=== PATIENT | male | born 1960 | race Caucasian/White ===

== ENCOUNTER → 2019-10-31 16:12 | Outpatient (BNVA) | payer OTHER, SELFPAY | PROVIDERS: Family Provider Family Medicine; PCP Family Medicine; Visit Provider Orthopaedic Surgery | DX: S52.501A Unspecified fracture of the lower end of right radius, initial encounter for closed fracture (principal); X58.XXXA Exposure to other specified factors, initial encounter | CPT/HCPCS: 73110 ==

== ENCOUNTER 2019-10-31 17:16 | Outpatient (CLI) | payer OTHER, SELFPAY | END 2019-10-31 17:17 | disposition home or self-care (01) | LOC: SPT 17:16 | PROVIDERS: Family Provider Family Medicine; PCP Family Medicine; Visit Provider Orthopaedic Surgery | DX: Z46.89 Encounter for fitting and adjustment of other specified devices (principal); S52.591D Other fractures of lower end of right radius, subsequent encounter for closed fracture with routine healing; X58.XXXD Exposure to other specified factors, subsequent encounter | CPT/HCPCS: L3982 ==

== ENCOUNTER → 2019-11-14 15:11 | Outpatient (BNVA) | payer OTHER, SELFPAY | PROVIDERS: Family Provider Family Medicine; PCP Family Medicine; Visit Provider Orthopaedic Surgery | DX: S52.91XA Unspecified fracture of right forearm, initial encounter for closed fracture (principal); S52.501A Unspecified fracture of the lower end of right radius, initial encounter for closed fracture | CPT/HCPCS: 73110 ==

== ENCOUNTER → 2019-12-10 14:57 | Outpatient (BNVA) | payer OTHER, SELFPAY | PROVIDERS: Family Provider Family Medicine; PCP Family Medicine; Visit Provider Orthopaedic Surgery | DX: S52.91XA Unspecified fracture of right forearm, initial encounter for closed fracture (principal); X58.XXXA Exposure to other specified factors, initial encounter | CPT/HCPCS: 73110 ==

== ENCOUNTER → 2020-01-07 13:57 | Outpatient (BNVA) | payer OTHER, SELFPAY | PROVIDERS: Family Provider Family Medicine; PCP Family Medicine; Visit Provider Orthopaedic Surgery | DX: S52.91XA Unspecified fracture of right forearm, initial encounter for closed fracture (principal) | CPT/HCPCS: 73110 ==

== ENCOUNTER 2020-12-07 12:00 | Outpatient (CLI) | payer BC, SELFPAY | END 2020-12-07 12:01 | disposition home or self-care (01) | LOC: SLEEP 12-08 14:47 | PROVIDERS: Family Provider Family Medicine; PCP Family Medicine; Visit Provider Family Medicine | DX: G47.33 Obstructive sleep apnea (adult) (pediatric) (principal) | CPT/HCPCS: G0399 ==

== ENCOUNTER 2021-07-08 07:52 | Outpatient (CLI) | payer BC, SELFPAY ==
--- NOTE | 2021-07-08 09:21 | ECG_ITS ---
[facility] Test Date: 2021-07-08 Pat Name: García Gleason Department: Room: Gender: Male Disposition Clerk: Mary Altman : 1960 Requested By: Jenna Taylor Order Number: [id number] Retana MD: Jenna Taylor M.D. Interpretive Statements NAME OF STUDY: EXERCISE SESTAMIBI STRESS TEST INDICATION: Chest Pain Baseline blood pressure of 116/70 mm Hg, heart rate 81 beats per minute and oxygen saturation of 92%. EKG showed normal sinus rhythm, normal axis with normal ST-Ts. The patient exercised for 5 minutes 36 seconds on a standard Lucas protocol. Patient attained a maximum heart rate of 147 beats per minute(91% of the maximum predicted heart rate) with a blood pressure at the peak exercise of 164/104 mm Hg. The EKG at the peak exercise revealed sinus tachycardia with isolated PVCs and 1 and 1/2 to [address] depression in lateral leads. Patient did not have any chest pain or any significant arrhythmis with the exercise. Study was terminated due to exertional fatigue and shortness of breath. During the recovery phase, there were no new changes. Blood pressure at the end of the recovery phase was 161/86 mm Hg with a heart rate of 92 beats per minute and oxygen saturation of 95%. CONCLUSION: 1. Positive EKG response to treadmill exercise with 1 and 1/2 to [address] depression in lateral leads. 2. No exercise-induced chest pain or cardiac arrhythmia 3. Fair exercise tolerance, attained a maximum of 7 METs. Maximum VO2 of 24.5 mL/kg/min. 4. Baseline normal blood pressure with normal response to exercise. 5. Perfusion scan will be documented separately. Electronically Signed On 07-08-2021 17:52:26 PROFESSIONAL POKER PLAYER by Jenna Taylor M.D. [id number]
--- NOTE | 2021-07-08 09:21 | NMCV_ITS ---
NM adalgisa perf SPECT r/s* [id number] Dallin Gleasone Age: 60 Gender: M : 1960 Exam Date: 07/08/2021 09:21 Ordering Phys: Jenna Taylor MD ([email or web address]) Technologist: LAMONTE Ng Exam Location: [facility] Indications: CHEST PAIN STRESS TEST Please see separate stress test report in [facility] for full findings IMAGE PROTOCOL Rest/Stress 1 Exercise Day Radiopharmaceutical Dose (mCi) Administration Site Administered by Rest: Tc-99m 11.0 IV LAMONTE Ng Sestamibi Stress:Tc-99m 33.0 IV LAMONTE Choudhary Sestamibi Rest: 08-Jul-2021 60 Discovery 630 Stress: 08-Jul-2021 30 Discovery 630 Radiopharmaceutical was injected at 88 % maximum heart rate. Images obtained in supine and prone position. SPECT RESULTS Technical Quality: Excellent Raw Data Analysis: Normal Image Corrections: No attenuation or motion correction applied Summed Stress Score: 5 Summed Rest Score: 1 Summed Difference Score: 5 PERFUSION FINDINGS Medium sized perfusion abnormality of moderate severity of mid to apical anterior, apical septal, apical inferior and apical lateral burch on stress images. FUNCTIONAL RESULTS (calculated via Gated SPECT) Stress Image LV EF (%): 67 Stress EDV (mL):112 TID: 0.86 Stress ESV (mL):37 FUNCTIONAL FINDINGS: The left ventricle is normal in size. Transient Ischemia Dilatation of 0.86. There is normal left ventricular systolic function. The left ventricular ejection fraction is normal with a value of 67%. There is possible hypokinesis of apical septal wall. Normal end-diastolic and end-systolic volumes. IMPRESSIONS 1. Medium sized reversible perfusion abnormality of moderate severity of mid to apical anterior, apical septal, apical inferior and apical lateral burch. 2. This is suggestive of ischemia in left anterior descending artery territory. 3. Overall left ventricular systolic function is normal without regional wall motion abnormalities, LVEF=67%. 4. There is possible hypokinesis of apical septal wall. 5. Ischemic EKG response to treadmill exercise. Refer to separate report for details. Jenna Taylor MD (Electronically Signed) Final Date: 08 July 2021 18:04 S
[2021-07-08 09:22] VITALS: BMI 38.2
[2021-07-08 10:16] VITALS: BP 161/86; PULSE 91
== END 2021-07-08 07:53 | disposition home or self-care (01) ==
PROVIDERS: PCP Family Medicine; Visit Provider Internal Medicine Cardiovascular Disease
DX: R07.9 Chest pain, unspecified (principal)
CPT/HCPCS: 78452; 93017; A9500

== ENCOUNTER → 2021-07-22 10:50 | Outpatient (BNVA) | payer BC, SELFPAY | PROVIDERS: PCP Family Medicine; Referring Provider Internal Medicine Cardiovascular Disease; Visit Provider Internal Medicine Cardiovascular Disease | DX: Z20.822 Contact with and (suspected) exposure to COVID-19 (principal); R06.02 Shortness of breath; R07.9 Chest pain, unspecified | CPT/HCPCS: 80048; 85025; 85610; 87635 ==

== ENCOUNTER 2021-07-27 06:04 | Outpatient (CLI) | payer BC, SELFPAY ==
[2021-07-27] VITALS (32 sets, daily range): BP systolic 89–158; BP diastolic 53–94; PULSE 58–89; RESP 12–16; TEMP 36.4–36.8; O2SAT 92–96; BMI 42.1
--- NOTE | 2021-07-27 06:00 | XACV_ITS ---
Exam Room: 2 Ht: 183 cm Wt: 141 kg BSA: 2.74 m2 Gender: Male : 1960 Any Known Allergies: No known allergies Exam Priority: Routine Procedure(s): Procedure Description: Diagnostic procedure Procedure Description: Coronary Angiography Diagnostic Cath Status: Elective Diagnostic Findings * Left Main has no disease. * Circumflex has no disease. * Mid Left Anterior Descending: subtotal occlusion, MARCELLA: 2 flow. * Proximal Right Coronary Artery: minimal 30% stenosis, MARCELLA: 3 flow. * Ramus: significant 80% stenosis, MARCELLA: 3 flow. * 1st Diagonal: subtotal occlusion, MARCELLA: 2 flow. * Posterior Descending Right: obstructive 60% stenosis, MARCELLA: 3 flow. * Coronary angiography shows right dominance. Conclusions 1. There is subtotal occlusion coronary artery disease with two vessel disease. Recommendations * 1-Return to * [facility] * for close monitoring and routine PCI care * 2-Continue IV heparin drip as per ACS protocol3-Hold Plavix for possible CABG4-Statin with LDL goal of 70 mg/dl, aspirin 81 mg p.o. daily for life long 5-CT surgery consults for CABG6-Optimal medical management for MS * 7-Follow up with Dr. Michael Taylor * in four weeks and establish care with primary care physician. Diagnostic RX Recommendation: CABG Pressures Phase:Rest AO : 114 / 71 ( 87 ) @ 6:19:00 AM 102 / 71 ( 85 ) @ 6:21:00 AM 99 / 66 ( 81 ) @ 6:26:00 AM 99 / 71 ( 83 ) @ 6:29:00 AM 98 / 71 ( 84 ) @ 6:30:00 AM Clinical Evaluation EBL: 5mL-10mL Procedural Details Procedure Consent Obtained. Physician arrived. Pre-Procedure Time Out. Identified patient by full name and date of as verbalized by the patient/guarantor. Does the consent match the physician's order: Yes. Accurate & Complete Informed Consent: Yes. Inpatient/Outpatient History & Physical on Chart: Yes. If H&P is completed, is and addenduem needed: No; If yes, is the addendum complete: N/A. Visualize and Verify Site with Patient/Guarantor: N/A. Relevant Radiology Images available: Yes. Pre-op teaching completed and patient verbalized understanding. The risks, benefits, and alternatives of sedation and/or procedure were discussed by physician. The patient agrees to continue. Procedure started. Current Diagnosis : Chest Pain. [facility] Clinical Fraility Score: 3: Managing Well. 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 Chest Pain Symptom Assessment: Typical Angina Symptoms. Correct patient, site and procedure confirmed by cath team. Current diagnosis: Chest Pain. PERRLA. Strong, equal hand sales technician home theater bilaterally. Lungs clear x 5 lobes. IV Site on Arrival: 20 gauge in the right forearm. IV Fluids: 0.9% NaCl at KVO. 0 mL infused prior to laboratory supervisor. Pre Procedural Pulses: bilateral dorsalis pedis was 3+. Pre Procedural Pulses: bilateral posterior tibial was 2+. Pre Procedural Pulses: bilateral radial was 2+. Oxygen started at 2liters/min via nasal canula. right groin was prepped with chloroprep then draped in the usual sterile fashion. right radial was prepped with chloroprep then draped in the usual sterile fashion. Baseline sample Acquired. HR: 70 BPM. Physician notified. Physician scrubbed in. Immediate Pre-Procedure Time Out. Correct Patient: Yes; Correct Procedure: Yes; Correct Site: Yes; Correct Patient Position: Yes; Correct Supplies: Yes; Dried Flammable Prep: Yes; Blood Products Available: N/A;. Lidocaine 1% infiltrated to the right radial. Arterial access obtained. contrast hand injected through the radial sheath. A 5 setswana TIG catheter in over wire. Multiple views taken of right coronary artery. Catheter removed over the exchange wire. A 5 setswana Sam catheter in over wire. Multiple views taken of right coronary artery. Catheter redirected to the LCA. Multiple views taken of left coronary artery. Physician review of cine films. Catheter removed over the exchange wire. A 5 setswana Angled Pig catheter in over wire. Catheter removed over the exchange wire. A TR Band was successful obtaining hemostatsis at the Right Radial artery insertion site. Post Procedure: Pulses reassessed and unchanged. PERRLA. Strong, equal hand sales technician home theater bilaterally. No VTE prophylaxis required. Medication's Wasted: Lidocaine 1% = 16 mL. Medication's Wasted: Heparin = 1000units. Medication's Wasted: Nitro = 49.95 mg. Total IV fluids: 70 mL. Contrast type used: Visipaque 320 mgI/mL, 500 mL bottle. Post-op diagnosis: CAD. Complications: None. Estimated blood loss: 5mL-10mL. Responsiveness - Normal response to verbal stimuli; alert and oriented, PERRLA. Airway - Unaffected, no intervention required; spontaneous ventilation. Circulation: W/N/L, pulses unchanged. Nausea/Vomiting: No. Procedure completed. Patient transferred by wheelchair to 1st floor. Vital chart was stopped. Access Site Site: Right Radial artery Sheath Size: 6 Fr Hemostasis Method: TR Band Hemostasis Success: Successful Procedure Medications Start: 7:50 AM Stop: 7:50 AM Medication: Versed Amount: 1 mg Route: I.V. Start: 7:50 AM Stop: 7:50 AM Medication: Fentanyl Amount: 50 mcg Route: I.V. Start: 7:58 AM Stop: 7:58 AM Medication: Versed Amount: 1 mg Route: I.V. Start: 7:58 AM Stop: 7:58 AM Medication: Fentanyl Amount: 25 mcg Route: I.V. Start: 8:09 AM Stop: 8:09 AM Medication: Nitrogylcerin Amount: 50 mcg Start: 8:13 AM Stop: 8:13 AM Medication: Nitrogylcerin Amount: 200 mcg Route: I.A. Start: 8:18 AM Stop: 8:18 AM Medication: Heparin Amount: 5000 units Route: I.V. Start: 8:27 AM Stop: 8:27 AM Medication: Versed Amount: 1 mg Route: I.V. I, the attending physician, have reviewed and verified all procedure medications. Yes, all medications given per verbal order History/Risk Factors Hypertension: Yes Dyslipidemia: Yes Peripheral Arterial Disease (PAD): No Myocardial Infarction (MS): No Obesity: Yes Renal Disease: No Tobacco Use: Former Prior Interventions PCI: No CABG: No Valve Surgery: No Report Signatures Finalized by Letty Khoury MD on 07/27/2021 07:15 PM
[2021-07-27] MEDS: diphenhydrAMINE 50 mg Capsule PO (06:51)
--- NOTE | 2021-07-27 07:50 | W.PM.OPSFHP ---
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 It is the reason patient was brought in today for left heart cath/PCI if indicated. He has a history of lymphoma at very young age he was treated with MOPP. Medications/Allergies* Home Medications Medication Instructions Recorded Confirmed Type lisinopril 10 mg tablet 20 mg PO DAILY 10/31/19 07/26/21 History lovastatin 10 mg tablet 20 mg PO DAILY tab 06/01/21 07/26/21 History Allergies/Adverse Reactions Allergy/AdvReac Type Severity Reaction Status Date / Time No Known Allergies Allergy Verified 07/26/21 12:04 Current Medications: Generic Name Dose Route Start Last Admin Trade Name Freq PRN Reason Stop Dose Admin Sodium Chloride 1,000 mls @ 50 mls/hr 07/27/21 06:00 07/27/21 06:51 Sodium Chloride 0.9% IV 07/28/21 01:59 Not Given .Q20H ONE Pertinent History/Comorbid Conditions* Medical History (Updated 06/01/21 @ 10:10 by Jenna Taylor MD) Hernia Hyperlipemia Hypertension Melanoma Non-Hodgkins lymphoma Obesity Surgical History (Updated 06/01/21 @ 10:10 by Jenna Taylor MD) H/O splenectomy Family History (Updated 06/01/21 @ 09:41 by Daxa Olmstead RN) CAD (coronary artery disease) Father Hypertension Father Social History Smoking and tobacco status: former smoker Alcohol intake: current Alcohol intake frequency: holidays/special occasions only Pertinent Exam Findings alert, oriented x 3, clear to auscultation bilaterally and regular rate & rhythm Conscious Sedation Assessment PATIENT ASSESSED PRIOR TO SEDATION, WITH NO CHANGE NOTED: Yes AIRWAY EVAL/ANESTHESIA PLAN: ASA II and Risks, benefits & alternatives of sedation and/or procedure discussed ADDITIONAL INFORMATION: Patient has been explained all risk benefits and alternative for the procedure he understand risk for contrast-induced nephropathy, stroke, major minor bleed, urgent emergent bypass surgery transfusion vascular injury hematoma and bruising. He is a candidate for DAPT he is taking clopidogrel Recommendations Surgery/Procedure today Coding Level of Care Code Acute Laser Technician for Velia Lorenzana
--- NOTE | 2021-07-27 09:12 | USCV_ITS ---
García Gleason Age: 60 Gender: M : 1960 Exam Date: 07/27/2021 10:17 Ordering Phys: Letty Khoury MD ([email or web address]) Technologist: ASHLIE Exam Location: [facility] [place] Indication: CAD BP: 150 / 94 HR: 63 Rhythm: Sinus Technical Quality: Technically difficult study MEASUREMENTS (Male / Female) Normal Values 2D ECHO LV Diastolic Diameter PLAX 3.0 cm 4.2 - 5.9 / 3.9 - 5.3 cm LV Systolic Diameter PLAX 1.9 cm IVS Diastolic Thickness 1.5 cm 0.6 - 1.0 / 0.6 - 0.9 cm IVS Systolic Thickness 1.6 cm LVPW Diastolic Thickness 0.9 cm 0.6 - 1.0 / 0.6 - 0.9 cm LVPW Systolic Thickness 0.9 cm LVOT Diameter 2.0 cm LV Ejection Fraction 2D Teich 67.1 % LV Ejection Fraction MOD 2C 65.7 % LV Ejection Fraction 2C AL 66.7 % LA Diameter 3.4 cm LA Width 3.4 cm LA Height 5.4 cm RA Width 3.3 cm RA Height 4.7 cm Aorta at Sinotubular Diameter 2.5 cm M-MODE Aortic Annulus Diameter 3.6 cm LA Ao Ratio MM 0.9 DOPPLER AV Peak Velocity 136.0 cm/s LVOT Peak Velocity 100.0 cm/s AV Area Cont Eq vti 2.4 cm squared AV Area Cont Eq pk 2.4 cm squared MV Area PHT 3.4 cm squared Mitral E to A Ratio 0.8 MV E' Velocity 40.0 cm/s Mitral E to MV E' Ratio 9.8 Mitral E to LV E' Lateral Ratio 10.3 Mitral E to LV E' Septal Ratio 9.6 RV Acceleration Time 0.1 s RV Ejection Time 0.3 s RV AcT/ET 0.3 FINDINGS Left Ventricle Normal left ventricular cavity size. Normal left ventricular systolic function. No regional wall motion abnormalities. Left ventricular ejection fraction is estimated at 60 %. Grade I/IV diastolic dysfunction (abnormal relaxation filling pattern), normal to mildly elevated filling pressures. Right Ventricle The right ventricle is normal in size and function. RVSP could not be calculated due to incomplete tricuspid regurgitation velocity profile. Right Atrium The right atrium is normal in size. Left Atrium The left atrium is normal in size. Mitral Valve Structurally normal mitral valve without significant stenosis or prolapse. There is no mitral regurgitation. Aortic Valve Structurally normal aortic valve without significant sclerosis or stenosis. There is no aortic regurgitation. Tricuspid Valve Structurally normal tricuspid valve without significant stenosis or regurgitation. Pulmonic Valve Structurally normal pulmonic valve without significant stenosis. There is no pulmonic regurgitation. Pericardium Normal pericardium without effusion. Aorta Normal ascending aorta dimension. CONCLUSIONS 1-Normal left ventricular cavity size. Normal left ventricular systolic function. No regional wall motion abnormalities. Left ventricular ejection fraction is estimated at 60 %. Grade I/IV diastolic dysfunction (abnormal relaxation filling pattern), normal to mildly elevated filling pressures. 2-There is no pericardial effusion. 3-No significant valve abnormalities. 4-The right ventricle is normal in size and function. RVSP could not be calculated due to incomplete tricuspid regurgitation velocity profile. 5-Right atrial pressure is around __ mm of mercury. 6-There are no prior echocardiogram studies to compare. Letty Khoury MD (Electronically Signed) Final Date: 27 July 2021 19:22 S
[2021-07-27] MEDS: perflutren protein-a microsphr 0.22 mg/mL SDV 3 mL IV (11:16)
--- NOTE | 2021-07-27 13:00 | PC.NURSE ---
Tr Band removed per orders no adverse events noted patient verbalized education of restrictions
--- NOTE | 2021-07-27 19:49 | PM.PN ---
Subjective Subjective: Interval history: Patient underwent left heart cath, he was noted to have multivessel coronary artery disease including subtotally occluded mid LAD with MARCELLA II flow, subtotally occluded mid diagonal 1 which is moderate size and caliber vessel, proximal significant calcified ramus intermedius lesion circumflex was without any significant disease, RCA has proximal 30% stenosis while PDA has 60% mid stenosis. Vitals/I&O/Wt Last Vital Signs Temp 97.6 F 07/27/21 06:43 Pulse 76 07/27/21 16:15 Resp 16 07/27/21 10:00 BP 134/79 07/27/21 16:15 Pulse Ox 93 07/27/21 14:45 07/27/21 07/27/21 07/27/21 06:59 14:59 22:59 Intake Total 480 / 480 360 / 840 Balance 480 / 480 360 / 840 Weight last 48 hrs Weight 311 lb Weight 311 lb Physical Exam Narrative: EXAM NARRATIVE: GENERAL: Patient is alert, awake and oriented x3. NECK: No jugular vein distension. HEENT: No cyanosis. No icterus. No pallor. HEART: Regular S1 and S2. No murmur, rub or gallop. LUNGS: Clear to auscultate bilaterally. ABDOMEN: Soft, nontender and nondistended. Positive bowel sounds. No guarding, rebound or tenderness. CENTRAL NERVOUS SYSTEM: Grossly nonfocal. EXTREMITIES: Lower extremities without edema bilaterally. Data : 07/28/21 02:14 07/28/21 02:14 A&P Assessment and plan (1) CAD (coronary artery disease): Patient was suggested with coronary artery bypass surgery. I have discussed patient with Dr. Burks who is our cardiac surgeon. 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 During this COVID situation beds are not available outside of the hospitals and because of the fact surgery he may will have prolonged recovery, patient and his family prefer PCI. Patient has been explained that his PCI will be of moderate risk as we are considering atherectomy for highly calcified vessels. He understand risk for urgent emergent bypass surgery contrast-induced nephropathy myocardial infarction stroke arrhythmia transfusion major minor vascular injury leading to surgery hematoma. He would like to proceed with it. Status: Acute Qualifiers: Associated angina: with stable angina Coronary Disease-Associated Artery/Lesion type: [place] artery [place] vs. transplanted heart: [place] heart Qualified Code(s): I25.118 - Atherosclerotic heart disease of [place] coronary artery with other forms of angina pectoris (2) Hypertension: Will optimize medicine to control blood pressure better Status: Acute Qualifiers: Hypertension type: primary hypertension Qualified Code(s): I10 - Essential (primary) hypertension (3) Hyperlipemia: We will continue statin Status: Acute Qualifiers: Hyperlipidemia type: other hyperlipidemia Qualified Code(s): E78.49 - Other hyperlipidemia Attestations Medical Necessity Statement*: Patient require continuation hospitalization for above defined care. Coding Level of Care Code Established Pt Acute Infrastructure Analyst for Velia Lorenzana Patient Type Established History Comprehensive Exam Comprehensive Medical Decision Making High Complexity Diagnoses CAD (coronary artery disease) I25.118 Associated angina: with stable angina Coronary Disease-Associated Artery/Lesion type: [place] artery [place] vs. transplanted heart: [place]ock heart Hypertension I10 Hypertension type: primary hypertension Hyperlipemia E78.49 Hyperlipidemia type: other hyperlipidemia
[2021-07-27] MEDS: temazepam 15 mg Capsule PO (21:53)
--- NOTE | 2021-07-27 22:20 | PC.NURSE ---
Received from Dr Khoury to stop fluid orders for this night. Will start NS at 50ml/hr morning of cath procedure on 07/28/21 at 0730. RBVO
[2021-07-28] VITALS (45 sets, daily range): BP systolic 114–171; BP diastolic 76–100; PULSE 61–85; RESP 11–25; TEMP 36.6–36.8; O2SAT 92–93
[2021-07-28 03:12] LABS: Basophils # 0.1 10^3/uL (0.0-0.1); Basophils % 0.5 %; Eosinophils # 0.2 10^3/uL (0.0-0.8); Eosinophils % 1.7 %; Hematocrit 44.2 % (42.0-52.0); Hemoglobin 14.3 g/dL (11.7-16.6); Lymphocytes # 3.2 10^3/uL (0.8-4.8); Lymphocytes % 24.9 %; Mean Corpuscular HGB Conc 32.4 g/dL (30.0-36.0); Mean Corpuscular Hemoglobin 29.6 pg (28.0-34.0); Mean Corpuscular Volume 91.5 fl (80-94); Mean Platelet Volume 10.3 fL (7.4-10.4); Monocytes # 1.2 10^3/uL (0.2-0.9); Monocytes % 9.7 %; Neutrophils # 7.97 10^3/uL (1.8-7.7); Neutrophils % 62.3 %; Nucleated Red Blood Cells % 0 %; Platelet Count 425 10^3/cmm (130-400); Red Blood Count 4.83 10^6/uL (4.1-5.3); Red Cell Distribution Width 14.1 % (12.1-15.1); White Blood Count 12.8 10^3/uL (4.0-10.0)
[2021-07-28 03:30] LABS: Anion Gap 14.1 (5-19); Blood Urea Nitrogen 11 mg/dL (6-20); Calcium 8.2 mg/dL (8.5-10.5); Carbon Dioxide 28 mmol/L (22-29); Chloride 101 mmol/L (98-107); Glomerular Filtration Rate 137.9 mL/min (90-130); Glucose 97 mg/dL (65-115); Osmolality Calculated 287 mOsm/kg (285-295); Potassium 4.1 mmol/L (3.5-5.1); Sodium 139 mmol/L (136-145)
[2021-07-28] MEDS: clopidogrel 75 mg Tablet PO (06:42)
[2021-07-28] MEDS: sodium chloride 0.9% 1,000 ML 50 ML IV (08:22)
--- NOTE | 2021-07-28 08:30 | XACV_ITS ---
Exam Room: [facility] Ht: 183 cm Wt: 141 kg BSA: 2.74 m2 Gender: Male : 1960 Any Known Allergies: No known allergies Exam Priority: Routine Procedure(s): Procedure Description: Diagnostic procedure Procedure Description: PCI procedure Procedure Description: Drug Eluting Coronary Stent Procedure Description: Coronary Atherectomy Procedure Description: Miscellaneous Procedure Description: Perclose Procedure Description: ACT Procedure Description: Coronary Angiography [facility], [facility]; Diagnostic Cath Status: Urgent Diagnostic Findings * Left Main has no disease. * Circumflex has no disease. * Right Coronary Artery has no disease. * Mid Left Anterior Descending: subtotal occlusion, MARCELLA: 3 flow. * Distal Left Anterior Descending: moderate 50% stenosis, MARCELLA: 3 flow. * Ramus: moderate 50% stenosis, MARCELLA: 3 flow. * Ramus to Ramus: severe 90% stenosis, MARCELLA: 2 flow. * 1st Diagonal: subtotal occlusion, MARCELLA: 0 flow. * Coronary angiography shows right dominance. PCI Status: Elective PCI Indication: New Onset Angina <= 2 months Interventional Findings * Atherectomy and balloon angioplasty of mid LAD, balloon angioplasty and drug-eluting stent placement of mid diagonal balloon angioplasty IVUS and stent placement of mid ramus intermedius.IVUS of ramus intermedius. Please note that IVUS catheter was not able to pass through therefore we will proceed with balloon angioplasty followed by stent placement in mid ramus intermedius. * Mid Left Anterior Descendin% stenosis treated with a AB TREK 2.50X15 RX BALLOON, MDT R CARL 3.0X22 PAULIE, and MDT NC EUPHORA RX [id number] BALLOON. 0% residual stenosis, MARCELLA: 3 flow. * Ramus to Ramus: 90% stenosis treated with a AB TREK 2.50X15 RX BALLOON, and MDT R CARL 2.75X22 PAULIE. 0% residual stenosis, MARCELLA: 3 flow. * 1st Diagonal: 99% stenosis treated with a AB MINI TREK 2.00X12 RX BALLOON, and MDT R CARL 2.25X18 PAULIE. 0% residual stenosis, MARCELLA: 3 flow. Conclusions 1. Indication for coronary angiogram/PCI using arthrectomy: Unstable angina abnormal stress test. Turned down for CABG and at the bill of patient that he would not like to go for CABG.. 2. There is subtotal occlusion coronary artery disease with one vessel disease. 3. Mid Left Anterior Descending was treated with a Balloon, Drug Eluting Stent, and Balloon. 4. Ramus to Ramus was treated with a Balloon, and Drug Eluting Stent. 5. 1st Diagonal was treated with a Balloon, and Drug Eluting Stent. Recommendations * 1-Return to inpatient for close monitoring and routine cath care 2-Risk factor modification for secondary prevention 3-Statin with LDL goal <70 mg/dl, aspirin 81 mg life-long 4-Patient was pre-loaded with 180mg of Brillinta. Continue Brillinta 90mg p.o. twice daily for at least one year. We will assess at the end of one year again to continue it further or not 5-Continue optimal medical management 6-Follow up with cardiology in four weeks and with your PCP in one week. Interventional RX Recommendation: PCI w/o planned CABG Diagnostic RX Recommendation: PCI w/o planned CABG Pressures Phase:Rest AO : 136 / 90 ( 104 ) @ 7:22:00 AM 127 / 87 ( 104 ) @ 8:28:00 AM Clinical Evaluation EBL: 5mL-10mL Procedural Details Procedure Consent Obtained. Admit Source: In Patient. Hemodynamic formulas in Rest were re-calculated based on hemoglobin value from 07/28/2021 2:14:00 AM. Pre-Procedure Time Out. Identified patient by full name and date of as verbalized by the patient/guarantor. Does the consent match the physician's order: Yes. Accurate & Complete Informed Consent: Yes. Inpatient/Outpatient History & Physical on Chart: Yes. If H&P is completed, is and addenduem needed: No; If yes, is the addendum complete: N/A. Visualize and Verify Site with Patient/Guarantor: N/A. Relevant Radiology Images available: Yes. The risks, benefits, and alternatives of sedation and/or procedure were discussed by physician. The patient agrees to continue. Procedure started. [facility] Clinical Fraility Score: 3: Managing Well. 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 Chest Pain Symptom Assessment: Typical Angina Symptoms. Cardiovascular Instability: No, stable. Correct patient, site and procedure confirmed by cath team. Current diagnosis: Unstable angina. PERRLA. Strong, equal hand jewel stripper bilaterally. Lungs clear x 5 lobes. IV Site on Arrival: 20 gauge in the right forearm. IV Site on Arrival: Saline Lock. IV Fluids: 0.9% NaCl at KVO. 100 mL infused prior to manufacturing laborer. Pre Procedural Pulses: bilateral radial was 2+. Pre Procedural Pulses: bilateral posterior tibial was Doppled. Pre Procedural Pulses: bilateral dorsalis pedis was Doppled. Oxygen started at 2liters/min via nasal canula. bilateral groins was prepped with chloroprep then draped in the usual sterile fashion. Physician notified. Baseline sample Acquired. HR: 68 BPM. Physician arrived. Family in waiting room, updated on procedure time. Equipment: 5F - Femoral. Heparinized Saline (2 units/mL), 1000 mL bag. Kit, Micropuncture. Cardiac Cath Pack. ACIST Manifold Kit Model BT 2000. Equipment: 6F - Femoral. Inventory is CRD 6 FR XB 3.5 GUIDE. Physician scrubbed in. Immediate Pre-Procedure Time Out. Correct Patient: Yes; Correct Procedure: Yes; Correct Site: Yes; Correct Patient Position: Yes; Correct Supplies: Yes; Dried Flammable Prep: Yes; Blood Products Available: N/A. Lidocaine 1% infiltrated to the right groin. Arterial access obtained with micropuncture set. 6 greek XB 3.5 guide catheter was inserted over the wire. Inventory is 300cm Runthrough wire. Inventory Teleport Microcatheter. Guide seated into left coronary system. Angiography preformed. Runthrough 300cm guidewire was advanced through the guide catheter to lesion in the mid LAD. Guidewire advanced across lesion. Teleport catheter advanced over the wire across the lesion. Runthrough wire removed. Viper wire inserted through the teleport catheter. Teleport catheter removed over the viper wire. Inventory is 1.25 mm CSI awais. 1.25 mm awais over the viper wire. Atherectomy preformed to mid LAD lesion. Awais removed over wire. ACT drawn. Results 257 seconds. Therapeutic limits - pre-heparin administration 90-150 seconds and monitoring heparin during a vascular procedure >250 seconds. Inflation number : 1 A AB TREK 2.50X15 RX BALLOON was prepped and advanced across the Mid LAD , then inflated to 14 DERRELL for 0:13 seconds. Inflation number: 2 The AB TREK 2.50X15 RX BALLOON was reinflated across the Mid LAD, to 14 DERRELL for 0:09 seconds. Inflation number: 3 The AB TREK 2.50X15 RX BALLOON was reinflated across the Mid LAD, to 14 DERRELL for 0:10 seconds. Angiography preformed, checking results. Balloon out. Inflation Number : 4 A NEISHA Hma CARL 3.0X22 PAULIE -Lot Number#[id number] exp 05-07-2024 was prepped and advanced across the Mid LAD. The stent was deployed at 12 DERRELL for 0:32 seconds. Angiography preformed. Stent balloon out over wire. 300cm runthrough wire removed. Short runthrough wire inserted. Inflation number : 5 A NEISHA SUGGS EUPHORA RX [id number] BALLOON was prepped and advanced across the Mid LAD , then inflated to 10 DERRELL for 0:14 seconds. Angiography preformed. Balloon out. Redirected runthrough wire to Diagonal Branch. Inflation number : 1 A AB MINI TREK 2.00X12 RX BALLOON was prepped and advanced across the 1st Diag , then inflated to 14 DERRELL for 0:12 seconds. Inflation number: 2 The AB MINI TREK 2.00X12 RX BALLOON was reinflated across the 1st Diag, to 14 DERRELL for 0:09 seconds. Inflation number: 3 The AB MINI TREK 2.00X12 RX BALLOON was reinflated across the 1st Diag, to 16 DERRELL for 0:09 seconds. Inflation number: 4 The AB MINI TREK 2.00X12 RX BALLOON was reinflated across the 1st Diag, to 18 DERRELL for 0:15 seconds. Angiography preformed. Balloon out. Angiorgraphy preformed, checking results. Inflation Number : 5 A MDT R CARL 2.25X18 PAULIE -Lot Number#[id number] was prepped and advanced across the 1st Diag. The stent was deployed at 14 DERRELL for 0:30 seconds. Exp 06-17-22. Stent balloon out over wire. Wire redirected to ramus. ACT drawn. Results 272 seconds. Therapeutic limits - pre-heparin administration 90-150 seconds and monitoring heparin during a vascular procedure >250 seconds. IVUS catheter going in over the wire. IVUS unable to cross ramus, imaging obtained from the origin of calcium toward the left main. IVUS catheter out over wire. Inflation number: 1 The AB TREK 2.50X15 RX BALLOON was reinflated across the Ramus, to 16 DERRELL for 0:12 seconds. Angiography preformed. Balloon out. Inflation Number : 2 A MDT R CARL 2.75X22 PAULIE -Lot Number# [id number] was prepped and advanced across the Ramus. The stent was deployed at 14 DERRELL for 0:33 seconds EXP 03-07-2024. Stent balloon out over wire. Balloon and wire out. [place] wire inserted distal to ramus lesion. Runthrough wire inserted, attempting to cross. Unable to cross. [place] and runthrough wire removed. Angiography preformed, checking results. Guide catheter removed over standard wire. A Right femoral angiogram was performed to determine safe placement of closure device. Physician reviewed films. Post Procedure: Pulses reassessed and unchanged. PERRLA. Strong, equal hand jewel stripper bilaterally. No VTE prophylaxis required. Medication's Wasted: Verapamil = 4 mg. Medication's Wasted: Nitro = 49.85 mg. Total IV fluids: 153 mL. Per Close attempted X 2 and unsuccessful. 6Fr sheath reinserted. A Suture was successful obtaining hemostatsis at the Right Femoral artery insertion site. Sheath(s) sutured into position with 2-0 silk and sterile 4x4's and Op-site applied over the site. No oozing or signs and symptoms of hematoma noted. Arterial sheath flushed and connected to tranducer and pressure bag with heparinized saline. Contrast type used: Omnipaque 300 mgI/mL, 500 mL bottle. [id number]. Fluoro: 33:02. Post-op diagnosis: Multivessel CAD, status post LAD, Diagonal, and Ramus stenting. Complications: None. Estimated blood loss: 5mL-10mL. Responsiveness - Normal response to verbal stimuli; alert and oriented, PERRLA. Airway - Unaffected, no intervention required; spontaneous ventilation. Circulation: W/N/L, pulses unchanged. Nausea/Vomiting: N/A. Procedure completed. Patient transferred by bed to 1st floor. Vital chart was stopped. Access Site Site: Right Femoral artery Sheath Size: 6 Fr Hemostasis Method: Suture Hemostasis Success: Successful Procedure Medications Start: 9:03 AM Stop: 9:03 AM Medication: Versed Amount: 1 mg Route: I.V. Start: 9:03 AM Stop: 9:03 AM Medication: Fentanyl Amount: 50 mcg Route: I.V. Start: 9:20 AM Stop: 9:20 AM Medication: Versed Amount: 1 mg Route: I.V. Start: 9:20 AM Stop: 9:20 AM Medication: Fentanyl Amount: 50 mcg Route: I.V. Start: 9:23 AM Stop: 9:23 AM Medication: Heparin Amount: 45423 units Route: I.V. Start: 9:28 AM Stop: 9:28 AM Medication: Versed Amount: 1 mg Route: I.V. Start: 9:41 AM Stop: 9:41 AM Medication: Heparin Amount: 2000 units Route: I.V. Start: 9:46 AM Stop: 9:46 AM Medication: Heparin Amount: 2000 units Route: I.V. Start: 9:51 AM Stop: 9:51 AM Medication: Versed Amount: 1 mg Route: I.V. Start: 9:51 AM Stop: 9:51 AM Medication: Fentanyl Amount: 25 mcg Route: I.V. Start: 10:05 AM Stop: 10:05 AM Medication: Versed Amount: 1 mg Route: I.V. Start: 10:06 AM Stop: 10:06 AM Medication: Fentanyl Amount: 25 mcg Route: I.V. Start: 10:16 AM Stop: 10:16 AM Medication: Heparin Amount: 1000 units Route: I.V. Start: 10:19 AM Stop: 10:19 AM Medication: Versed Amount: 1 mg Route: I.V. Start: 10:19 AM Stop: 10:19 AM Medication: Fentanyl Amount: 25 mcg Route: I.V. Start: 10:25 AM Stop: 10:25 AM Medication: Fentanyl Amount: 50 mcg Route: I.V. Start: 10:25 AM Stop: 10:25 AM Medication: Versed Amount: 1 mg Route: I.V. Start: 10:37 AM Stop: 10:37 AM Medication: Fentanyl Amount: 25 mcg Route: I.V. Start: 10:00 AM Stop: 10:00 AM Medication: Versed Amount: 1 mg Route: I.V. Start: 10:12 AM Stop: 10:12 AM Medication: Versed Amount: 1 mg Route: I.V. Start: 10:49 AM Stop: 10:49 AM Medication: Versed Amount: 1 mg Route: I.V. Start: 10:12 AM Stop: 10:12 AM Medication: Fentanyl Amount: 50 mcg Route: I.V. I, the attending physician, have reviewed and verified all procedure medications. Yes, all medications given per verbal order History/Risk Factors Hypertension: Yes Dyslipidemia: Yes Peripheral Arterial Disease (PAD): No Myocardial Infarction (TN): No Obesity: Yes Renal Disease: No Prior Interventions PCI: Yes CABG: No Valve Surgery: No Date of PCI: 07/28/2021 Report Signatures Finalized by Letty Khoury MD on 08/10/2021 06:50 PM
--- NOTE | 2021-07-28 09:04 | W.PM.OPSUD ---
Surgery/Procedure H&P Update DATE OF PROCEDURE: July 28, 2021 DATE H&P PERFORMED: 07/27/21 H&P UPDATE INFORMATION: I have reviewed H&P completed within last 30 days and I have examined patient prior to procedure PREOP DIAGNOSIS: Unstable angina/multivessel coronary artery disease PLANNED PROCEDURE: Operation Date: 07/27/21 07:00 Proposed Procedures p Cardiac Catheterization(Left) - Letty Khoury MD PATIENT REASSESSED PRIOR TO SEDATION, WITH NO CHANGE NOTED: Yes PHYSICAL EXAM: alert, oriented x 3 and clear to auscultation bilaterally AIRWAY EVAL/ANESTHESIA PLAN: ASA II and Risks, benefits & alternatives of sedation and/or procedure discussed ADDITIONAL INFORMATION: Patient and family has been explained all risk benefit and alternative for the procedure., Patient understand risk for stroke contrast-induced nephropathy urgent emergent bypass surgery vascular surgery hematoma major minor bleed risk for transfusion. He is a candidate for DAPT he accepted it. He would like to proceed with it
--- NOTE | 2021-07-28 09:55 | PC.CHAP ---
Pastoral Care Encounter/Spiritual Assessment Type of Contact [] Declined supervisor sewer system visit [] Patient/Family/Request visit [] Outpatient visit [] Follow-up visit [] Physician referral [] Code/Alert [x] Routine visit [] Staff referral [] Actively dying [] Patient sleeping [] Family support [] [x] Out of room [] Palliative care [] [] Receiving care in room [] Pre-surgical visit [] Trauma [] Long length of stay [] ICU visit [x] Other: testing Relational/Emotional Strength [] Patient feels connected with others/family/visitors/staff [] Distress [] Loneliness/isolation [] Abandonment Spirituality of Patient [] Person of Nerissa [] Attends Restorationist of their Nerissa [] Believes in Prayer [] Reads Bible or Amish materials [] There are Spiritual issues to be addressed Manager Unix Interventions [x] Prayer [] Active listening [] Non-anxious presence [] Spiritual/emotional support [] Crisis/trauma care [] Spiritual counseling [] Bereavement support [] Provided bereavement packet [] Provided Bible/devotional materials [] Provided toy/stuffed animal, coloring book to patient or family member [] Provided Communion [] Anointing/[place] [] Salvation [x] Completed spiritual assessment [] Other: Impact on Illness or Injury [] Angry [] Fearful [] Anxious [] Often cries [] Exhaustion [] Unable to work [] Unable to attend samaritan [] Unable to walk/stand [] Unable to read [] Unable to drive [] Unable to eat/drink [] Unable to sleep [] Unable to be with family [] Patient intubated [] Other: Summary Time spent with patient
[2021-07-28] MEDS: ALPRAZolam 0.5 mg Tablet 0.25 MG PO (12:20)
[2021-07-28] MEDS: ticagrelor 90 mg Tablet 180 MG PO (12:21)
[2021-07-28] MEDS: morphine 4 mg/mL SDV 1 mL 2 MG IVP ×2 (12:55→15:37)
[2021-07-28] MEDS: lisinopril 10 mg Tablet 20 MG PO (15:38)
[2021-07-28 15:54] LABS: Partial Thromboplastin Time 36.1 SECONDS (23.9-36.7)
--- NOTE | 2021-07-28 17:42 | PC.NURSE ---
PTT >45 Sheath removed manual pressure held for 20 min no adverse events noted patient tolerated well
--- NOTE | 2021-07-28 19:58 | PC.NURSE ---
Received report from CHARLY Johns. Patient resting in bed watching TV. Patient is s/p [facility] with right femoral access. Dressing in place remains c,d,i with no s/s of bleeding or hematoma formation observed. Patient denies pain to site. Instructed patient on site care and restrictions. Patient verbalized complete understanding. Patient requesting something to help with sleep tonight. No other distress observed. Will continue to monitor.
--- NOTE | 2021-07-28 23:04 | PC.NURSE ---
Patient up to ambulate at this time. Dressing to right groin remains c,d,i with no s/s of bleeding or hematoma formation observed. Will continue to monitor.
[2021-07-28] MEDS: temazepam 15 mg Capsule PO (23:06)
--- NOTE | 2021-07-28 23:10 | PC.NURSE ---
After ambulation, right groin is free from bleeding or hematoma formation. Patient does c/o mild pain to site with ambulation. Denies need for pain medications. Patient stated, just stiff from lying flat for so long. No other distress observed. Will continue to monitor.
[2021-07-29 03:00] VITALS: BP 130/89; PULSE 83; RESP 15; O2SAT 92
[2021-07-29 04:38] VITALS: PULSE 72
[2021-07-29] MEDS: ticagrelor 90 mg Tablet PO (05:11)
--- NOTE | 2021-07-29 05:12 | PC.NURSE ---
Patient rested well this night. Dressing to right groin remains c,d,i with no s/s of bleeding or hematoma formation noted. Instructed patient on post cath site care and Brilinta. Patient verbalized complete understanding. Patient denies pain or needs. No distress observed. Will continue to monitor.
[2021-07-29] MEDS: lisinopril 10 mg Tablet PO (09:37)
[2021-07-29] MEDS: aspirin 81 mg EC Tablet PO (09:37)
[2021-07-29] MEDS: atorvastatin 40 mg Tablet 20 MG PO (09:37)
--- NOTE | 2021-07-29 10:56 | P.PN_ITS ---
Subjective Subjective: Interval history: No overnight complication doing fine from a cardiovascular perspective groin wound looks good. Vitals/I&O/Wt Last Vital Signs Temp 98 F 07/28/21 23:12 Pulse 72 07/29/21 04:38 Resp 15 07/29/21 03:00 BP 130/89 07/29/21 03:00 Pulse Ox 92 07/29/21 03:00 07/28/21 07/29/21 07/29/21 22:59 06:59 14:59 Intake Total 600 / 840 1360 / 2200 360 / 360 Output Total 400 / 800 Balance 600 / 440 960 / 1400 360 / 360 Physical Exam Narrative: EXAM NARRATIVE: GENERAL: Patient is alert, awake and oriented x3. NECK: No jugular vein distension. HEENT: No cyanosis. No icterus. No pallor. HEART: Regular S1 and S2. No murmur, rub or gallop. LUNGS: Clear to auscultate bilaterally. ABDOMEN: Soft, nontender and nondistended. Positive bowel sounds. No guarding, rebound or tenderness. CENTRAL NERVOUS SYSTEM: Grossly nonfocal. EXTREMITIES: Lower extremities without edema bilaterally. Const: COMMON NORMALS: alert Resp: COMMON NORMALS: clear to auscultation bilaterally AUSCULTATION: clear to auscultation bilaterally Neuro: SENSORIUM/ORIENTATION: Yes alert Data : 07/28/21 02:14 07/28/21 02:14 A&P Assessment and plan (1) CAD (coronary artery disease): Patient was suggested with coronary artery bypass surgery. I have discussed patient with Dr. Burks who is our cardiac surgeon. 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 During this COVID situation beds are not available outside of the hospitals a nd because of the fact surgery he may will have prolonged recovery, patient and his family prefer PCI. Patient has been explained that his PCI will be of moderate risk as we are considering atherectomy for highly calcified vessels. He understand risk for urgent emergent bypass surgery contrast-induced nephropathy myocardial infarction stroke arrhythmia transfusion major minor vascular injury leading to surgery hematoma. He would like to proceed with it. Status: Acute Qualifiers: Coronary Disease-Associated Artery/Lesion type: [place] artery [place] vs. transplanted heart: [place] heart Associated angina: with stable angina Qualified Code(s): I25.118 - Atherosclerotic heart disease of [place] coronary artery with other forms of angina pectoris (2) Hypertension: Will optimize medicine to control blood pressure better Status: Acute Qualifiers: Hypertension type: primary hypertension Qualified Code(s): I10 - Essential (primary) hypertension (3) Hyperlipemia: We will continue statin Status: Acute Qualifiers: Hyperlipidemia type: other hyperlipidemia Qualified Code(s): E78.49 - Other hyperlipidemia Coding Level of Care Code Acute Center Manager for [facility] Diagnoses CAD (coronary artery disease) I25.118 Coronary Disease-Associated Artery/Lesion type: [place] artery [place] vs. transplanted heart: [place] heart Associated angina: with stable angina Hypertension I10 Hypertension type: primary hypertension Hyperlipemia E78.49 Hyperlipidemia type: other hyperlipidemia
--- NOTE | 2021-07-29 10:58 | PM.DCS ---
Discharge Providers Date of Discharge: July 29, 2021 Attending Provider at Discharge: Letty Khoury MD Primary Care Provider: Miko Montalvo DO Diagnoses at Discharge Discharge Diagnosis (1) CAD (coronary artery disease): Status: Acute Qualifiers: Associated angina: with stable angina Coronary Disease-Associated Artery/Lesion type: [place] artery [place] vs. 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 Patient was taken off of the table and suggested coronary artery bypass surgery. Dr. Burks was consulted who after discussion was suggestive that coronary artery bypass surgery given his specific anatomy may not have clear-cut benefit over multiple interventions through stents and because of the fact patient would like to be recovered quickly and go back to [employer] business over next few days and given circumstances of widespread COVID infection with limited room available in the ICU and fear of infection transferred to the patient at the moment it is better to proceed with stents. Patient and family was discussed again regarding Dr. Burks's suggestion my input. After discussion patient says that he would not like to proceed with CABG but he would like to go ahead with multivessel stenting. Next morning he was taken back to the [employer] through right groin approach subtotally occluded mid LAD was treated with multiple rounds of CSI atherectomy for calcium modification of the lesion, mid LAD was treated with drug-eluting stent postdilated with noncompliant balloon. Subtotally occluded diagonal branch was treated with balloon angioplasty and stent placement. Proximal ramus intermedius was also treated with balloon angioplasty and drug-eluting stent placement. PDA lesion was not thought to be significant therefore we decided to treated medically. Over next 24 hours patient remained stable without any complication. His medicine was optimized. He is being discharged home. He has been switched to ticagrelor Brilinta from Plavix. He may can be released for driving and to proceed with his usual business after 7 days. Physical Exam Narrative: EXAM NARRATIVE: GENERAL: Patient is alert, awake and oriented x3. NECK: No jugular vein distension. HEENT: No cyanosis. No icterus. No pallor. HEART: Regular S1 and S2. No murmur, rub or gallop. LUNGS: Clear to auscultate bilaterally. ABDOMEN: Soft, nontender and nondistended. Positive bowel sounds. No guarding, rebound or tenderness. CENTRAL NERVOUS SYSTEM: Grossly nonfocal. EXTREMITIES: Lower extremities without edema bilaterally. Discharge Data Data Completed and Pending: Completed Studies During Hospitalization Category Date Time Status RANGE AID request for service Routin e Exams 07/27/21 06:00 Completed CV. echo wo/w con trast [id number] Routin e Ultrasound 07/27/21 09:12 Completed Pending at discharge Category Date Time Status RANGE AID request for service Routin e Exams 07/28/21 08:30 Taken Labs from last 24 hours 07/28/21 07/28/21 15:03 13:18 APTT 36.1 D 119.0 H Vitals: Last Vital Signs Temp 98 F 07/28/21 23:12 Pulse 72 07/29/21 04:38 Resp 15 07/29/21 03:00 BP 130/89 07/29/21 03:00 Pulse Ox 92 07/29/21 03:00 Discharge Plan Discharge Patient Disposition: Home Prescriptions: New Brilinta 90 mg Tablet 90 mg PO BID Qty: 180 RF: 4 metoprolol succinate 25 mg tablet extended release 24 hr 12.5 mg PO DAILY Qty: 90 RF: 4 Continued lisinopril 10 mg tablet 20 mg PO DAILY RF: 0 (DME) fast form cock up splint Qty: 1 RF: 0 Changed aspirin 325 mg tablet 81 mg PO DAILY Qty: 90 RF: 3 lovastatin 10 mg tablet 40 mg PO DAILY Qty: 30 RF: 4 Discontinued clopidogrel [Plavix] 75 mg tablet 75 mg PO DAILY Qty: 30 RF: 3 Discharge Orders: Discharge Order (Routine); Ordered 07/29/21 Ordered By: Letty Khoury Referrals: Jessika Olmstead FNP [Nurse Practitioner] - 08/09/21 1:15 pm (You have a post procedure followup with KATHRYN Benavidez at [facility] on Monday, August 09 at 2:15pm) Diet: Cardiac Activity: Increase activity as tolerated Patient Instructions: Metoprolol (By mouth) (Lopressor, Toprol XL), Ticagrelor (By mouth) (Brilinta), Chest Pain Stoplight, Post Angiogram Home Care Instructions Activity Restrictions/Additional Instructions: Follow-up with Ms. Jessika Olmstead in 7 days. Patient would like [place] think [place] [facility] [place] was given option for follow-up with Dr. May since Dr. Khoury is leaving. Discharge Date/Time: 07/29/21 11:32 Discharge Attestations Time Spent in Discharge Care*: greater than 30 min Specific Discharge Activities: educating patient and educating and/or supporting family/caregiver Quality Metrics Clinical Quality Measures During this hospital stay, did patient experience: None Coding Level of Care Code New Pt Acute Chg FW DC note Patient Type New History Detailed Exam Detailed Medical Decision Making Moderate Complexity Diagnoses CAD (coronary artery disease) I25.118 Associated angina: with stable angina Coronary Disease-Associated Artery/Lesion type: [place] artery [place] vs. transplanted heart: [place] heart Hypertension I10 Hypertension type: primary hypertension Hyperlipemia E78.49 Hyperlipidemia type: other hyperlipidemia
== END 2021-07-29 11:32 | disposition home or self-care (01) ==
LOC: CCL 06:09 → CSU 16:16
PROVIDERS: PCP Family Medicine; Visit Provider Internal Medicine Cardiovascular Disease
DX: I25.118 Atherosclerotic heart disease of native coronary artery with other forms of angina pectoris (principal); I10 Essential (primary) hypertension; E78.49 Other hyperlipidemia; E66.9 Obesity, unspecified; Z68.41 Body mass index [BMI] 40.0-44.9, adult; Z85.72 Personal history of non-Hodgkin lymphomas; Z82.49 Family history of ischemic heart disease and other diseases of the circulatory system; Z87.891 Personal history of nicotine dependence
CPT/HCPCS: 36415; 80048; 85025; 85730; 93454; C1769; C1887; C1894; C8929; J1644; J2250; J2270; J3010; J3490; J7030; Q0163; Q9956; Q9967

== ENCOUNTER → 2021-07-28 | Day surgery (SDC) | payer BC, SELFPAY | LOC: CCL 11-25 09:33 | PROVIDERS: PCP Family Medicine; Visit Provider Internal Medicine Cardiovascular Disease | DX: Z95.5 Presence of coronary angioplasty implant and graft (principal) | CPT/HCPCS: 85347; 92978; C1724; C1725; C1753; C1760; C1769; C1874; C1887; C1894; C9601; C9602; J1644; J2250; J3010; Q9967 ==

== ENCOUNTER 2021-08-02 10:30 | Inpatient (IN) | payer BC, SELFPAY ==
[2021-08-02] VITALS (11 sets, daily range): BP systolic 126–177; BP diastolic 72–103; PULSE 63–88; RESP 14–24; TEMP 36.5; O2SAT 93–97; BMI 39.5
--- NOTE | 2021-08-02 10:51 | XR_ITS ---
WS: [id number] Exam: XR chest 1V portable [id number] Date/Time of Exam: 08/02/2021 10:51 AM Reason For Exam: chest pain Comparison 07/16/2017. Findings: The lungs are clear and fully expanded. Costophrenic angles are sharp. No infiltrates. Bronchovascula r relief appears normal. Cardiac silhouette is unremarkable. Bony elements are intact. XR/XR chest 1V portable [id number] IMPRESSION: Unremarkable chest radiograph.
--- NOTE | 2021-08-02 10:53 | ECG_ITS ---
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1960 Requested By: Sorin Herman Order Number: [id number] Reading MD: JORGE SKINNER Measurements Intervals [place] Rate: 88 P: 25 DE: 202 QRS: 63 QRSD: 97 T: 35 QT: 346 QTc: 420 Interpretive Statements SINUS RHYTHM LOW QRS VOLTAGE IN PRECORDIAL LEADS [QRS DEFLECTION < 1.0 mV IN CHEST LEADS] POSSIBLE RIGHT VENTRICULAR CONDUCTION DELAY [RSR (QR) IN V1/V2] MODERATE ST DEPRESSION [0.05+ mV ST DEPRESSION] Compared to ECG 07/16/2017 06:52:25 Low QRS voltage now present ST (T wave) deviation now present Electronically Signed On 08-02-2021 20:53:35 ACCOUNTING BOOKKEEPER by JORGE SKINNER [id number] f
--- NOTE | 2021-08-02 10:55 | ED_ITS ---
HPI - Chest Pain General: Chief Complaint: ER Hold Stated Complaint: Just had stints and now has chest tightness/pain Time Seen by Provider: 08/02/21 10:45 History of Present Illness: HPI narrative: 60-year-old male presents emergency room complaining of chest pain. Started 20 minutes prior to arrival. 5 days ago he had a angiography with placement of three drug-eluting stent. He reports pain to be eight of 10 began shortly after he had showered but he was sitting down at rest he did not use any nitroglycerin. He does get some shortness of breath with it and some nausea but there is no radiation of pain. He is morbidly obese and has sleep apnea but denies any history of diabetes mellitus. Patient was started on Brilinta after his procedure and has continued to take it since then. MD complaint: chest pain Pertinent past history: coronary artery disease Onset (ago): minute(s) Timing of current episode: episodic Prior episodes: Yes Onset: during exertion Pain location: substernal and left chest Pain radiation: none Severity: severe Pain scale (0-10): 8 Quality: tightness and aching Relieving factors: nothing Exacerbating factors: nothing Context: recent surgery (Recent angioplasty with placement of three drug-eluting stents) Associated symptoms: Reports dyspnea and sense of impending doom; Deny abdominal pain, diaphoresis, fever(s), leg edema, nausea, palpitations, syncope or vomiting Treatment prior to arrival: none Review of Systems Const: Denies: fever(s) or diaphoresis ENMT: Denies: throat pain, ear or mastoid pain, nasal discharge or nasal congestion Card: Denies: palpitations or syncope Resp: Reports: dyspnea GI: Denies: abdominal pain, nausea or vomiting : Denies: flank pain, dysuria, urinary frequency or urinary urgency Skin/Breast: Denies: rash or pruritus PFSH ED PFSH: Medical History CAD (coronary artery disease) Hernia Hyperlipemia Hypertension Melanoma Non-Hodgkins lymphoma Obesity Surgical History H/O splenectomy Family History Father CAD (coronary artery disease) Hypertension Social History Smoking and tobacco status: former smoker Alcohol intake: current Alcohol intake frequency: holidays/special occasions only Physical Exam Const: GENERAL APPEARANCE: cooperative and comfortable ORIENTATION/CONSCIOUSNESS: Yes awake, Yes oriented to person, Yes oriented to place and Yes oriented to time HENMT: COMMON NORMALS: normocephalic, atraumatic and hearing grossly normal bilaterally HEAD & SCALP: normocephalic and atraumatic Neck/C-Spine: COMMON NORMALS: no JVD Resp: COMMON NORMALS: normal respiratory effort, No retractions, No use of accessory muscles and clear to auscultation bilaterally AUSCULTATION: clear to auscultation bilaterally Cardio: COMMON NORMALS: no JVD, regular rate, regular rhythm and No murmurs present (Cardio) RATE: regular rate RHYTHM: regular rhythm GI: COMMON NORMALS: Soft to palpation and No hepatosplenomegaly present AUSCULTATION: Yes normoactive bowel sounds PALPATION: Yes Soft to palpation, No Tenderness to palpation present (GI), No Guarding due to palpation present (GI) and Yes No hepatosplenomegaly present Extremity: COMMON NORMALS: normal to inspection, capillary refill normal, no clubbing, cyanosis or edema, no calf tenderness and no pedal edema Neuro: SENSORIUM/ORIENTATION: Yes oriented to person, Yes oriented to place and Yes oriented to time Skin: COMMON NORMALS: no rashes or lesions noted GENERAL SKIN EXAM: no rashes or lesions noted Course Vital Signs: Vital signs: Vital Signs Temperature 97.7 F 08/02/21 10:36 Pulse Rate 67 08/03/21 04:00 Respiratory Rate 14 08/03/21 04:00 Blood Pressure 118/73 08/03/21 04:00 Pulse Oximetry 94 08/03/21 04:00 MDM - Chest Pain MDM Narrative: Medical decision making narrative: Chest pain relieved by IV nitro and morphine. Patient to be admitted to the hospitalist consult cardiology continue IV nitro drip his second troponin is pending. Lab Data: Labs: Lab Results 08/02/21 08/02/21 08/02/21 11:00 11:00 11:00 WBC 16.6 10^3/uL H 10 ^3/uL (4.0-10.0) RBC 5.48 10^6/uL H 10 ^6/uL (4.1-5.3) Hgb 16.3 g/dL g/dL (11.7-16.6) Hct 49.7 % % (42.0-52.0) MCV 90.7 fl fl (80-94) MCH 29.7 pg pg (28.0-34.0) MCHC 32.8 g/dL g/dL (30.0-36.0) RDW 13.7 % % (12.1-15.1) Plt Count 486 10^3/cmm H 10 ^3/cmm (130-400) MPV 10.3 fL fL (7.4-10.4) Neut % (Auto) 66.7 % % Lymph % (Auto) 20.4 % % [place] % (Auto) 10.8 % % Eos % (Auto) 1.0 % % Baso % (Auto) 0.6 % % Neut # (Auto) 11.03 10^3/uL H 1 0^3/uL (1.8-7.7) Lymph # (Auto) 3.4 10^3/uL 10^3/ uL (0.8-4.8) [place] # (Auto) 1.8 10^3/uL H 10^ 3/uL (0.2-0.9) Eos # (Auto) 0.2 10^3/uL 10^3/ uL (0.0-0.8) Baso # (Auto) 0.1 10^3/uL 10^3/ uL (0.0-0.1) Nucleated RBC % (a uto) 0 % % Nucleated RBCs # 0.0 /100WBC /100W BC PT Cancelled INR Cancelled APTT Cancelled Sodium Cancelled Potassium Cancelled Chloride Cancelled Carbon Dioxide Cancelled Anion Gap Cancelled BUN Cancelled Creatinine Cancelled GFR Calculation Cancelled Glucose Cancelled Estimat Average Gl ucose Hemoglobin A1c Calculated Osmolal ity Cancelled Calcium Cancelled Phosphorus Magnesium Total Bilirubin Cancelled AST Cancelled ALT Cancelled Alkaline Phosphata se Cancelled Troponin T Baselin e Troponin T 120 Min [place] Troponin T Troponin T Hi Sens 6Hr Troponin T Hi Sens 6Hr [place] Total Protein Cancelled Albumin Cancelled Globulin Cancelled Triglycerides Cholesterol LDL Cholesterol, C alc HDL Cholesterol LDL/HDL Ratio Cholesterol/HDL Ra aliya TSH 08/02/21 08/02/21 08/02/21 11:00 11:00 11:34 WBC RBC Hgb Hct MCV MCH MCHC RDW Plt Count MPV Neut % (Auto) Lymph % (Auto) [place] % (Auto) Eos % (Auto) Baso % (Auto) Neut # (Auto) Lymph # (Auto) [place] # (Auto) Eos # (Auto) Baso # (Auto) Nucleated RBC % (a uto) Nucleated RBCs # PT INR APTT Sodium Potassium Chloride Carbon Dioxide Anion Gap BUN Creatinine GFR Calculation Glucose Estimat Average Gl ucose 114 Hemoglobin A1c 5.6 % % (4.0-6.0) Calculated Osmolal ity Calcium Phosphorus Magnesium Total Bilirubin AST ALT Alkaline Phosphata se Troponin T Baselin e Cancelled 31 ng/L H ng/L (0-15) Troponin T 120 Min [place] Troponin T Troponin T Hi Sens 6Hr Troponin T Hi Sens 6Hr [place] Total Protein Albumin Globulin Triglycerides Cholesterol LDL Cholesterol, C alc HDL Cholesterol LDL/HDL Ratio Cholesterol/HDL Ra [facility] 08/02/21 08/02/21 08/02/21 11:34 11:34 11:34 WBC RBC Hgb Hct MCV MCH MCHC RDW Plt Count MPV Neut % (Auto) Lymph % (Auto) [place] % (Auto) Eos % (Auto) Baso % (Auto) Neut # (Auto) Lymph # (Auto) [place] # (Auto) Eos # (Auto) Baso # (Auto) Nucleated RBC % (a uto) Nucleated RBCs # PT 12.70 SECONDS SEC ONDS (12.1-14.9) INR 0.92 (0.8-1.2) APTT 30.1 SECONDS SECO NDS (23.9-36.7) Sodium 135 mmol/L L mmol /L (136-145) Potassium 4.3 mmol/L mmol/L (3.5-5.1) Chloride 98 mmol/L mmol/L (98-107) Carbon Dioxide 23 mmol/L mmol/L (22-29) Anion Gap 18.3 (5-19) BUN 14 mg/dL mg/dL (6-20) Creatinine 0.7 mg/dL mg/dL (0.7-1.2) GFR Calculation 115.4 mL/min mL/m in (90-130) Glucose 107 mg/dL mg/dL (65-115) Estimat Average Gl ucose Hemoglobin A1c Calculated Osmolal ity 281 mOsm/kg L mOs m/kg (285-295) Calcium 8.4 mg/dL L mg/dL (8.5-10.5) Phosphorus 3.1 mg/dL mg/dL (2.5-4.5) Magnesium 2.2 mg/dL mg/dL (1.7-2.3) Total Bilirubin 0.4 mg/dL mg/dL (0.15-1.2) AST 19 U/L U/L (0-40) ALT 21 U/L U/L (0-41) Alkaline Phosphata se 80 IU/L IU/L (40-130) Troponin T Baselin e Troponin T 120 Min [place] Troponin T Troponin T Hi Sens 6Hr Troponin T Hi Sens 6Hr [place] Total Protein 7.5 g/dL g/dL (6.6-8.7) Albumin 4.0 g/dL g/dL (3.5-5.2) Globulin 3.5 g/dL g/dL (1.3-4.6) Triglycerides Cholesterol LDL Cholesterol, C alc HDL Cholesterol LDL/HDL Ratio Cholesterol/HDL Ra aliya TSH 08/02/21 08/02/21 08/02/21 13:50 16:44 16:44 WBC RBC Hgb Hct MCV MCH MCHC RDW Plt Count MPV Neut % (Auto) Lymph % (Auto) [place] % (Auto) Eos % (Auto) Baso % (Auto) Neut # (Auto) Lymph # (Auto) [place] # (Auto) Eos # (Auto) Baso # (Auto) Nucleated RBC % (a uto) Nucleated RBCs # PT INR APTT Sodium Potassium Chloride Carbon Dioxide Anion Gap BUN Creatinine GFR Calculation Glucose Estimat Average Gl ucose Hemoglobin A1c Calculated Osmolal ity Calcium Phosphorus Magnesium Total Bilirubin AST ALT Alkaline Phosphata se Troponin T Baselin e Troponin T 120 Min [place] 38.10 ng/L H ng/L (0-15) Delta Troponin T 7.10 ABS# ABS# (0-10) Troponin T Hi Sens 6Hr 69.19 ng/L H ng/L (0-15) Troponin T Hi Sens 6Hr [place] 38.19 ng/L H* ng/ L (0-12) Total Protein Albumin Globulin Triglycerides 131 mg/dL mg/dL (0-150) Cholesterol 138 mg/dL mg/dL (0-200) LDL Cholesterol, C alc 75 mg/dL mg/dL (50-129) HDL Cholesterol 37 mg/dL L mg/dL (60-100) LDL/HDL Ratio 2.03 RATIO RATIO (0.00-3.22) Cholesterol/HDL Ra aliya 3.73 mg/dL mg/dL (1.0-5.00) TSH 0.62 uIU/mL uIU/m L (0.27-4.20) Discharge Plan Discharge Patient Disposition: Admitted As Inpatient Admit Provider: Sivakumar Guerra Clinical Impression: Chest pain, CAD (coronary artery disease), Atherosclerotic heart disease of [place] coronary artery with unstable angina pectoris, Benign essential hypertension with target blood pressure below 140/90, Hypertension, Dyslipidemia, Obesity Condition: Stable Coding Level of Care Code ED Title Department Manager for Patriciag Fwd Exam Comprehensive
[2021-08-02] MEDS: aspirin 81 mg Chew Tablet 324 MG PO (10:59)
[2021-08-02] MEDS: nitroglycerin drip 50 MG/250 ML PREMIX IV (11:08)
--- NOTE | 2021-08-02 11:10 | PC.NURSE ---
Pt placed on continuous bedside cardiac, BP and O2 monitor.
[2021-08-02 11:11] LABS: Basophils # 0.1 10^3/uL (0.0-0.1); Basophils % 0.6 %; Eosinophils # 0.2 10^3/uL (0.0-0.8); Hematocrit 49.7 % (42.0-52.0); Hemoglobin 16.3 g/dL (11.7-16.6); Lymphocytes # 3.4 10^3/uL (0.8-4.8); Lymphocytes % 20.4 %; Mean Corpuscular HGB Conc 32.8 g/dL (30.0-36.0); Mean Corpuscular Hemoglobin 29.7 pg (28.0-34.0); Mean Corpuscular Volume 90.7 fl (80-94); Mean Platelet Volume 10.3 fL (7.4-10.4); Monocytes # 1.8 10^3/uL (0.2-0.9); Monocytes % 10.8 %; Neutrophils # 11.03 10^3/uL (1.8-7.7); Neutrophils % 66.7 %; Nucleated Red Blood Cells % 0 %; Platelet Count 486 10^3/cmm (130-400); Red Blood Count 5.48 10^6/uL (4.1-5.3); Red Cell Distribution Width 13.7 % (12.1-15.1); White Blood Count 16.6 10^3/uL (4.0-10.0)
[2021-08-02 12:07] LABS: Troponin(5th) Baseline 31 ng/L (0-15)
[2021-08-02 12:24] LABS: Alanine Aminotransferase 21 U/L (0-41); Alkaline Phosphatase 80 IU/L (40-130); Anion Gap 18.3 (5-19); Aspartate Amino Transferase 19 U/L (0-40); Blood Urea Nitrogen 14 mg/dL (6-20); Calcium 8.4 mg/dL (8.5-10.5); Carbon Dioxide 23 mmol/L (22-29); Chloride 98 mmol/L (98-107); Globulin 3.5 g/dL (1.3-4.6); Glomerular Filtration Rate 115.4 mL/min (90-130); Glucose 107 mg/dL (65-115); Osmolality Calculated 281 mOsm/kg (285-295); Potassium 4.3 mmol/L (3.5-5.1); Sodium 135 mmol/L (136-145); Total Bilirubin 0.4 mg/dL (0.15-1.2); Total Protein 7.5 g/dL (6.6-8.7)
[2021-08-02 12:26] LABS: INR 0.92 (0.8-1.2); Partial Thromboplastin Time 30.1 SECONDS (23.9-36.7)
[2021-08-02] MEDS: ondansetron 2 mg/ML SDV 2 mL 4 MG IVP (12:43)
[2021-08-02] MEDS: morphine 4 mg/mL SDV 1 mL 2 MG IVP (12:44)
--- NOTE | 2021-08-02 12:53 | ECG_ITS ---
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: : 1960 Requested By: Sorin Herman Order Number: [id number] Reading MD: JORGE SKINNER Measurements Intervals [place] Rate: 67 P: 50 LA: 204 QRS: 52 QRSD: 103 T: 61 QT: 399 QTc: 424 Interpretive Statements SINUS RHYTHM INDETERMINATE AXIS POSSIBLE INFERIOR MYOCARDIAL INFARCTION , OF INDETERMINATE AGE [30 ms Q WAVE IN II/aVF] Compared to ECG 07/16/2017 06:52:25 Indeterminate axis now present Myocardial infarct finding now present Electronically Signed On 08-02-2021 20:56:54 PRINTER APPRENTICE by JORGE SKINNER [email or web address]
--- NOTE | 2021-08-02 13:00 | PM.HP ---
Providers/Chief Complaint Primary Care Provider: Miko Montalvo DO Chief Complaint: Just had stints and now has chest tightness/pain History of Present Illness García Gleason is a 60 year old male with a past medical history of obesity, hypertension, hyperlipidemia, recent history of multivessel CAD status post 3 stents, who presents to [facility] for complaints of chest pain. Recently patient was here to [facility] for chest pain, was found to have multivessel CAD, decision was made to pursue CABG versus stenting, decision was made to pursue multivessel stenting, he received 3 stents, he tells me that after discharge he was doing fine, but this morning, he started severe substernal chest pain, severe pressure-like pain in his left chest, rating to the left shoulder, associate with shortness of breath, slightly decreasing with nitro, but persisting, thus he came to the emergency room. Here he is due to have chest pain was placed on nitro drip, baseline troponin 31, no acute ST-T wave changes, Dr. Damno has been consulted by ER physician for evaluation Review of Systems Const: Denies: fever(s), chills, fatigue or malaise Eyes: Denies: change in vision or blurry vision ENMT: Denies: nasal congestion Card: Reports: chest pain; Denies: palpitations Resp: Reports: dyspnea; Denies: productive cough, non-productive cough or wheezing GI: Denies: abdominal pain, nausea, vomiting, hematemesis, diarrhea, constipation, hematochezia or melena : Denies: flank pain, difficulty urinating, dysuria or urinary frequency Musc: Denies: neck pain or back pain Skin/Breast: Denies: rash Neuro: Denies: headache(s), dizziness or vertigo Psych: Denies: anxiety or depression Endo: Denies: polyuria or polydipsia Medications/Allergies Home Medications Medication Instructions Recorded Confirmed Last Taken Type fast form cock up splint #1 ea 10/31/19 07/26/21 Unknown Rx lisinopril 10 mg tablet 20 mg PO DAILY 10/31/19 07/26/21 07/27/21 05:30 History aspirin 81 mg PO DAILY #90 tab 07/29/21 07/26/21 07/27/21 05:30 Rx lovastatin 40 mg PO DAILY #30 tab 07/29/21 07/26/2122 05:30 Rx metoprolol succinate 12.5 mg PO DAILY #90 tab 07/29/21 Unknown Rx ticagrelor [Brilinta] 90 mg PO BID #180 tab 07/29/21 Unknown Rx Allergies Allergy/AdvReac Type Severity Reaction Status Date / Time No Known Allergies Allergy Verified 07/26/21 12:04 PFSH Acute PFSH: Medical History CAD (coronary artery disease) Hernia Hyperlipemia Hypertension Melanoma Non-Hodgkins lymphoma Obesity Surgical History H/O splenectomy Family History Father CAD (coronary artery disease) Hypertension Social History Smoking and tobacco status: former smoker Alcohol intake: current Alcohol intake frequency: holidays/special occasions only Vitals/I&O/Wt Last Vital Signs Temp 97.7 F 08/02/21 10:36 Pulse 77 08/02/21 12:45 Resp 17 08/02/21 12:45 BP 177/103 08/02/21 12:45 Pulse Ox 95 08/02/21 12:45 08/01/21 08/02/21 08/02/21 22:59 06:59 14:59 Intake Total 0.125 / 0.125 Balance 0.125 / 0.125 Weight last 48 hrs Weight 136.078 kg Physical Exam Const: COMMON NORMALS: no acute distress and patient oriented x3 HENMT: COMMON NORMALS: normocephalic HEAD & SCALP: normocephalic Eye: COMMON NORMALS: Equal, round and reactive pupils present and EOMs intact bilaterally GENERAL EYE: appearance normal, both eyes and all related structures PUPIL: Yes Equal, round and reactive pupils present Neck/C-Spine: COMMON NORMALS: full ROM and no lymphadenopathy THYROID: Thyroid normal Lymph: LYMPHATIC: no lymphadenopathy noted Resp: COMMON NORMALS: normal respiratory effort, No retractions, No use of accessory muscles and clear to auscultation bilaterally AUSCULTATION: clear to auscultation bilaterally Cardio: COMMON NORMALS: regular rate, regular rhythm, S1 normal heart sound present, S2 normal heart sound present, No gallops present (Cardio), No clicks present (Cardio) and No murmurs present (Cardio) RATE: regular rate RHYTHM: regular rhythm HEART SOUNDS: S1 normal heart sound present and S2 normal heart sound present GI: COMMON NORMALS: Normal to inspection, nondistended, normoactive bowel sounds present, Soft to palpation, non-tender and No hepatosplenomegaly present PALPATION: Yes Soft to palpation and Yes No hepatosplenomegaly present Extremity: COMMON NORMALS: normal to inspection, full ROM and no pedal edema Neuro: COMMON NORMALS: patient oriented x3, CN's II-XII intact bilaterally, moves all extremities and no focal motor deficits Psych: COMMON NORMALS: mental status grossly normal, Normal thought process present and cooperative THOUGHT PROCESS: Normal thought process present Data : 08/02/21 11:00 08/02/21 11:34 A&P Assessment and plan (1) CAD (coronary artery disease): Status: Acute Qualifiers: Associated angina: with stable angina Coronary Disease-Associated Artery/Lesion type: [place] artery [place] vs. transplanted heart: [place] heart Qualified Code(s): I25.118 - Atherosclerotic heart disease of [place] coronary artery with other forms of angina pectoris (2) Obesity: Status: Acute (3) Hypertension: Status: Acute Qualifiers: Hypertension type: primary hypertension Qualified Code(s): I10 - Essential (primary) hypertension (4) Hyperlipemia: Status: Acute Qualifiers: Hyperlipidemia type: other hyperlipidemia Qualified Code(s): E78.49 - Other hyperlipidemia (5) Chest pain: - Admit to cardiac stepdown unit -Continue aspirin, statin, Brilinta, metoprolol -Serial troponins, serial EKGs, telemetry monitoring -Monitor for chest pain, continue nitro drip -Cardiology consulted -Full code -Therapeutic Lovenox for DVT prophylaxis Status: Acute Attestations Medical Necessity Statement*: Patient requires hospitalization, inpatient, greater than 2 midnights, for chest pain Coding Level of Care Code Acute Event Marketing Coordinator for [facility] Fwd Exam Comprehensive Diagnoses CAD (coronary artery disease) I25.118 Associated angina: with stable angina Coronary Disease-Associated Artery/Lesion type: [place] artery [place] vs. transplanted heart: [place] heart Obesity E66.9 Hypertension I10 Hypertension type: primary hypertension Hyperlipemia E78.49 Hyperlipidemia type: other hyperlipidemia Chest pain R07.9
[2021-08-02 13:47] LABS: Magnesium 2.2 mg/dL (1.7-2.3); Phosphorus 3.1 mg/dL (2.5-4.5)
--- NOTE | 2021-08-02 14:57 | PC.NURSE ---
Patient states he feels much better, pt still on 10 mcg/min of Nitroglycerin. Awaiting Dr. Palma to decide further action in patient care.
--- NOTE | 2021-08-02 14:59 | PC.NURSE ---
Pt still on continuous bedside cardiac, BP, and O2 monitor
--- NOTE | 2021-08-02 15:57 | PC.NURSE ---
Patient resting in bed, pt given sack lunch. Pt still on continuous bedside cardiac, O2 and BP monitor.
--- NOTE | 2021-08-02 16:50 | ECG_ITS ---
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 Measurements Intervals [place] Rate: 74 P: 14 AR: 190 QRS: 42 QRSD: 97 T: 58 QT: 379 QTc: 422 Interpretive Statements SINUS RHYTHM INDETERMINATE AXIS Compared to ECG 08/02/2021 14:38:06 Myocardial infarct finding no longer present Electronically Signed On 08-05-2021 19:32:56 PALEOLOGY TEACHER by Jenna Taylor M.D. [id number]
[2021-08-02 17:05] LABS: Troponin 5 6HR 69.19 ng/L (0-15)
[2021-08-02 17:11] LABS: Troponin 5 6HR Delta 38.19 ng/L (0-12)
--- NOTE | 2021-08-02 18:04 | PM.CONSULT ---
Providers/Reason For Consult Consulting Physician/Specialty*: DEVIN Damon MD/cardiology Reason for Consult*: Patient with a prolonged episode of chest pain/recent multivessel angioplasty Attending Physician: Sivakumar Guerra MD Primary Care Provider: Miko Montalvo DO History of Present Illness History of Present Illness García Gleason is a 60 year old male who underwent a recent multivessel angioplasty on 07/28/2021, is present to the emergency room with complaints of rather acute onset of chest pain, started this morning. He had a prolonged episode of chest pain lasting for more than an hour. Cardiology consult is requested for further cardiac evaluation recommendations. This patient has a history of high blood pressure and dyslipidemia for last many years. 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 For the last several weeks, he has been having exertional angina and left arm discomfort. He had a myocardial perfusion imaging which was abnormal. He underwent cardiac catheterization last week. He was found to have subtotal occlusion of the mid LAD and first diagonal artery ;had a high-grade lesion in the intermedius artery/obtuse marginal vessel. He was found to have moderate disease in the PDA. Mild diffuse disease in the other vessels. He was initially recommended for coronary artery bypass surgery. But later on after discussions with Dr. Burks and the patient, it was thought to be appropriate to go ahead with the multivessel angioplasty. His LAD lesion was calcified and complex. Dr. Khoury performed atherectomy followed by angioplasty and stent placement of this lesion. He had angioplasty and stent placement of the diagonal and intermedius artery lesions. The PDA lesion was thought to be not significant enough to undergo intervention. Patient apparently had an uneventful post PCI course. He remained stable with no recurrence of symptoms. He was discharged home on the following day. According the patient, he was doing well up until this morning. He got up this morning and took a shower. He was getting ready to do some work. While still being at home, he started having discomfort/pain in the substernal region. The pain started getting worse and became 8-9 over 10. It was a pressure-like feeling associated with some cold sweats. Because of the worsening of the symptoms, his girlfriend brought him to the emergency room. In the emergency room, he was started on IV nitro and also morphine. His symptoms gradually subsided. At the time of my examination most of the pain is gone. He still have some vague discomfort in the chest. According the patient, he has not had any recurrence of chest pain since the multivessel PCI, up until today. He has been compliant with medications.. Review of Systems Narrative: CONSTITUTIONAL: No fever or chills. [] EYES: No blurring of vision or other visual disturbances lately. [] ENT: No hoarseness of voice, auditory disturbances or sore throat. [] CARDIOVASCULAR: As mentioned above. [] RESPIRATORY: No significant cough. [] GASTROINTESTINAL: No hematemesis or melena. [] GENITOURINARY: No dysuria or hematuria. [] INTEGUMENTARY: No skin rashes or history of skin cancer. [] NEURO: No transient ischemic attacks or amaurosis. [] PSYCHIATRIC: No history of psychosis or major depression. [] HEMATOLOGIC: No bleeding disorders or significant anemia. [] ENDOCRINE: No history of polyuria or polydipsia. [] MUSCULOSKELETAL: No recent joint pain or swelling. [] ALLERGY/IMMUNOLOGY: As mentioned above. [] Medications/Allergies Home Medications Medication Instructions Recorded Confirmed Last Taken Type fast form cock up splint #1 ea 10/31/19 08/02/21 Unknown Rx lisinopril 10 mg tablet 20 mg PO DAILY 10/31/19 08/02/21 08/02/21 History metoprolol succinate 12.5 mg PO DAILY #90 tab 07/29/21 08/02/21 08/02/21 Rx ticagrelor [Brilinta] 90 mg PO BID #180 tab 07/29/21 08/02/21 08/02/21 Rx aspirin 81 mg PO DAILY 08/02/21 08/02/21 08/02/21 History lovastatin 20 mg PO BID 08/02/21 08/02/21 08/02/21 History nitroglycerin [Nitrostat] 0.3 mg SUBLINGUAL Q5M PRN 08/02/21 08/02/21 Unknown History Allergies Allergy/AdvReac Type Severity Reaction Status Date / Time No Known Allergies Allergy Verified 08/02/21 13:17 Current Medications Generic Name Dose Route Start Last Admin Trade Name Freq PRN Reason Stop Dose Admin Nitroglycerin/Dextrose 50 mg in 250 mls @ 0 mls/hr 08/02/21 11:00 08/02/21 11:13 Nitroglycerin Drip IV 10 mcg/min .Q0M KAYLEN 3 mls/hr Titration Protocol Per Protocol PFSH Acute PFSH: Medical History CAD (coronary artery disease) Hernia Hyperlipemia Hypertension Melanoma Non-Hodgkins lymphoma Obesity Surgical History H/O splenectomy Family History Father CAD (coronary artery disease) Hypertension Social History Smoking and tobacco status: former smoker Alcohol intake: current Alcohol intake frequency: holidays/special occasions only Vitals/I&O/Wt Last Vital Signs Temp 97.7 F 08/02/21 10:36 Pulse 78 08/02/21 17:08 Resp 22 H 08/02/21 17:08 BP 173/103 08/02/21 17:08 Pulse Ox 94 08/02/21 17:08 08/02/21 08/02/21 08/02/21 06:59 14:59 22:59 Intake Total 0.125 / 0.125 Balance 0.125 / 0.125 Weight last 48 hrs Weight 300 lb Physical Exam Narrative: EXAM NARRATIVE: GENERAL: The patient is alert and oriented times three. Not in any acute distress. HEENT: No significant pallor, icterus or lymphadenopathy. The pupils are reactant to light. Oral cavity: There are no mucous membrane lesions. Funduscopic examination: The fundus is not visualized. NECK: Trachea appears to be central. No masses noted. No JVD or thyromegaly appreciated. No carotid bruit. RESPIRATORY: Chest is symmetrical. No intercostals muscle retraction or any accessory muscle activation. There is no chest wall tenderness. Breath sounds are heard bilaterally. No rales or rhonchi heard. No evidence of any consolidation. BREASTS: Deferred. HEART: T the PMI could not be palpated. No palpable precordial events. S1 and S2 are normal. No S3 or S4 heard. No pericardial rub or any click heard. ABDOMEN: Abdomen is obese and nontender. No organomegaly appreciated. No abdominal bruit. Bowel sounds are normally heard. : Deferred. RECTAL: Deferred. LYMPHATIC: No lymphadenopathy noted in the neck or groin. EXTREMITIES: No significant edema or cyanosis. Peripheral pulses are palpable and fairly good volume and amplitude. MUSCULOSKELETAL: No acute joint deformities or swelling SKIN: There are no significant scars or skin rash noted. NEUROPSYCHIATRIC: The patient is alert and oriented x3. Appears to be in a good mood. The higher functions are grossly within normal limits. No tremors or rigidity noted. Data Labs: Other Labs: Laboratory Last Values WBC 16.6 10^3/uL (4.0 -10.0) H 08/02/21 11:00 RBC 5.48 10^6/uL (4.1 -5.3) H 08/02/21 11:00 Hgb 16.3 g/dL (11.7-1 6.6) 08/02/21 11:00 Hct 49.7 % (42.0-52.0 ) 08/02/21 11:00 MCV 90.7 fl (80-94) 08/02/21 11:00 MCH 29.7 pg (28.0-34. 0) 08/02/21 11:00 MCHC 32.8 g/dL (30.0-3 6.0) 08/02/21 11:00 RDW 13.7 % (12.1-15.1 ) 08/02/21 11:00 Plt Count 486 10^3/cmm (130 -400) H 08/02/21 11:00 MPV 10.3 fL (7.4-10.4 ) 08/02/21 11:00 Neut % (Auto) 66.7 % 08/02/21 11:00 Lymph % (Auto) 20.4 % 08/02/21 11:00 [place] % (Auto) 10.8 % 08/02/21 11:00 Eos % (Auto) 1.0 % 08/02/21 11:00 Baso % (Auto) 0.6 % 08/02/21 11:00 Neut # (Auto) 11.03 10^3/uL (1. 8-7.7) H 08/02/21 11:00 Lymph # (Auto) 3.4 10^3/uL (0.8- 4.8) 08/02/21 11:00 [place] # (Auto) 1.8 10^3/uL (0.2- 0.9) H 08/02/21 11:00 Eos # (Auto) 0.2 10^3/uL (0.0- 0.8) 08/02/21 11:00 Baso # (Auto) 0.1 10^3/uL (0.0- 0.1) 08/02/21 11:00 Nucleated RBC % (a uto) 0 % 08/02/21 11:00 Nucleated RBCs # 0.0 /100WBC 08/02/21 11:00 PT 12.70 SECONDS (12 .1-14.9) 08/02/21 11:34 INR 0.92 (0.8-1.2) 08/02/21 11:34 APTT 30.1 SECONDS (23. 9-36.7) 08/02/21 11:34 Sodium 135 mmol/L (136-1 45) L 08/02/21 11:34 Potassium 4.3 mmol/L (3.5-5 .1) 08/02/21 11:34 Chloride 98 mmol/L (98-107 ) 08/02/21 11:34 Carbon Dioxide 23 mmol/L (22-29) 08/02/21 11:34 Anion Gap 18.3 (5-19) 08/02/21 11:34 BUN 14 mg/dL (6-20) 08/02/21 11:34 Creatinine 0.7 mg/dL (0.7-1. 2) 08/02/21 11:34 GFR Calculation 115.4 mL/min (90- 130) 08/02/21 11:34 Glucose 107 mg/dL (65-115 ) 08/02/21 11:34 Calculated Osmolal ity 281 mOsm/kg (285- 295) L 08/02/21 11:34 Calcium 8.4 mg/dL (8.5-10 .5) L 08/02/21 11:34 Phosphorus 3.1 mg/dL (2.5-4. 5) 08/02/21 11:34 Magnesium 2.2 mg/dL (1.7-2. 3) 08/02/21 11:34 Total Bilirubin 0.4 mg/dL (0.15-1 .2) 08/02/21 11:34 AST 19 U/L (0-40) 08/02/21 11:34 ALT 21 U/L (0-41) 08/02/21 11:34 Alkaline Phosphata se 80 IU/L (40-130) 08/02/21 11:34 Troponin T Baselin e 31 ng/L (0-15) H 08/02/21 11:34 Troponin T 120 Min bridger 38.10 ng/L (0-15) H 08/02/21 13:50 Delta Troponin T 7.10 ABS# (0-10) 08/02/21 13:50 Troponin T Hi Sens 6Hr 69.19 ng/L (0-15) H 08/02/21 16:44 Troponin T Hi Sens 6Hr Delta 38.19 ng/L (0-12) H* 08/02/21 16:44 Total Protein 7.5 g/dL (6.6-8.7 ) 08/02/21 11:34 Albumin 4.0 g/dL (3.5-5.2 ) 08/02/21 11:34 Globulin 3.5 g/dL (1.3-4.6 ) 08/02/21 11:34 Imaging^: Myocardial perfusion imaging in June 2021: My impression: 1. Medium sized reversible perfusion abnormality of moderate severity of mid to apical anterior, apical septal, apical inferior and apical lateral burch. 2. This is suggestive of ischemia in left anterior descending artery territory. 3. Overall left ventricular systolic function is normal without regional wall motion abnormalities, LVEF=67%. 4. There is possible hypokinesis of apical septal wall. 5. Ischemic EKG response to treadmill exercise. Refer to separate report for details. EKG^: EKG 1: My Interpretation: The EKG shows normal sinus rhythm with incomplete right bundle branch block pattern. No acute ST-T changes. Low voltage complexes in the precordial leads. A&P Assessment and plan (1) Atherosclerotic heart disease of [place] coronary artery with unstable angina pectoris: Patient has clinical features consistent with unstable angina and non-ST elevation myocardial infarction. Currently her symptoms almost subsided. She has stage II hypertension. Otherwise she seems to be stable. At this point, it may appropriate to start her on subcu Lovenox and a beta-rosenda. He may be continued on the current medications. I may gradually go up on the dose of the metoprolol. He may be continued on the IV nitroglycerin. He may be continued on the Brilinta. Status: Acute Qualifiers: [place] vs. transplanted heart: [place] heart Qualified Code(s): I25.110 - Atherosclerotic heart disease of [place] coronary artery with unstable angina pectoris (2) Benign essential hypertension with target blood pressure below 140/90: The antihypertensive medications need to be optimized. I may go up on the metoprolol to 50 mg p.o. twice daily. Status: Acute (3) Dyslipidemia: May continue on the current medications. Status: Acute Additional A&P Information I reviewed the patient's cardiac catheterization data from last week. In view of the patient's presenting symptoms and the abnormal objective findings, he may benefit from a repeat cardiac catheterization to reevaluate the coronary status and decide on further management. I will be discussing the patient's condition with Dr. Khoury. We will keep him n.p.o. after midnight. Based on the clinical progress, further recommendations will be made. 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 transplanted heart: [place] heart Benign essential hypertension with target blood pressure below 140/90 I10 Dyslipidemia E78.5
[2021-08-02] MEDS: ticagrelor 90 mg Tablet PO (18:05)
[2021-08-02] MEDS: acetaminophen 500 mg Tablet 1000 MG PO (18:05)
[2021-08-02] MEDS: enoxaparin 150 mg/mL Syringe 140 MG SUBCUT (18:06)
--- NOTE | 2021-08-02 19:00 | PC.NURSE ---
received report. patient admitted on Nitro drip for chest pain. he is post stent placement on 07/28. today had gradual onset of left sided chest pain, described as pressure. rated initially as 8/10. was given Morphine and Nitro gtt and is now pain free. he a/o, NAD noted. VSS. Cares met.
[2021-08-02 20:15] LABS: Chol HDL Ratio 3.73 mg/dL (1.0-5.00); Cholesterol 138 mg/dL (0-200); HDL Cholesterol 37 mg/dL (60-100); LDL Cholesterol Calculated 75 mg/dL (50-129); LDL HDL Ratio 2.03 RATIO (0.00-3.22); Thyroid Stimulating Hormone 0.62 uIU/mL (0.27-4.20); Triglycerides 131 mg/dL (0-150)
[2021-08-02 20:28] LABS: Estmated Average Glucose 114; Hemoglobin A1C 5.6 % (4.0-6.0)
[2021-08-02] MEDS: acetaminophen 325 mg Tablet 650 MG PO (20:49)
[2021-08-02] MEDS: metoprolol tartrate 50 mg Tablet PO (20:50)
[2021-08-03] VITALS (19 sets, daily range): BP systolic 104–147; BP diastolic 59–96; PULSE 58–92; RESP 14–25; TEMP 36.6; O2SAT 92–99; BMI 39.5
[2021-08-03 04:16] LABS: Basophils # 0.1 10^3/uL (0.0-0.1); Basophils % 0.5 %; Eosinophils # 0.2 10^3/uL (0.0-0.8); Eosinophils % 1.5 %; Hematocrit 42.9 % (42.0-52.0); Lymphocytes # 2.4 10^3/uL (0.8-4.8); Lymphocytes % 18.8 %; Mean Corpuscular HGB Conc 32.6 g/dL (30.0-36.0); Mean Corpuscular Hemoglobin 29.8 pg (28.0-34.0); Mean Corpuscular Volume 91.3 fl (80-94); Mean Platelet Volume 9.9 fL (7.4-10.4); Monocytes # 1.3 10^3/uL (0.2-0.9); Monocytes % 10.5 %; Neutrophils # 8.64 10^3/uL (1.8-7.7); Nucleated Red Blood Cells % 0 %; Platelet Count 434 10^3/cmm (130-400); Red Cell Distribution Width 13.7 % (12.1-15.1); White Blood Count 12.7 10^3/uL (4.0-10.0)
[2021-08-03 04:28] LABS: Alanine Aminotransferase 20 U/L (0-41); Albumin Level 3.4 g/dL (3.5-5.2); Alkaline Phosphatase 58 IU/L (40-130); Anion Gap 14.1 (5-19); Aspartate Amino Transferase 32 U/L (0-40); Blood Urea Nitrogen 11 mg/dL (6-20); Carbon Dioxide 25 mmol/L (22-29); Chloride 102 mmol/L (98-107); Globulin 2.6 g/dL (1.3-4.6); Glomerular Filtration Rate 170.2 mL/min (90-130); Glucose 102 mg/dL (65-115); Osmolality Calculated 284 mOsm/kg (285-295); Phosphorus 3.6 mg/dL (2.5-4.5); Potassium 4.1 mmol/L (3.5-5.1); Sodium 137 mmol/L (136-145); Total Bilirubin 0.5 mg/dL (0.15-1.2)
[2021-08-03] MEDS: enoxaparin 150 mg/mL Syringe 140 MG SUBCUT ×2 (05:58→20:13)
[2021-08-03] MEDS: lisinopril 20 mg Tablet PO (08:52)
[2021-08-03] MEDS: ticagrelor 90 mg Tablet PO ×2 (08:52→20:13)
[2021-08-03] MEDS: atorvastatin 40 mg Tablet PO (08:52)
[2021-08-03] MEDS: aspirin 81 mg EC Tablet PO (08:52)
[2021-08-03] MEDS: metoprolol tartrate 50 mg Tablet PO ×2 (09:18→20:13)
--- NOTE | 2021-08-03 14:11 | P.PN_ITS ---
Subjective Subjective: Interval history: Patient was seen this morning, he is a bit irritable about not having anything to eat overnight, no fevers, chills, nausea, vomiting his chest pain has significantly reduced overnight, remains on nitroglycerin drip Vitals/I&O/Wt Last Vital Signs Temp 98 F 08/03/21 08:00 Pulse 68 08/03/21 14:09 Resp 18 08/03/21 14:09 BP 133/68 08/03/21 14:09 Pulse Ox 99 08/03/21 14:09 08/02/21 08/03/21 08/03/21 22:59 06:59 14:59 Intake Total 200 / 200 Output Total 900 / 900 Balance -700 / -700 Weight last 48 hrs Weight 136.078 kg Physical Exam Const: COMMON NORMALS: no acute distress and patient oriented x3 Resp: COMMON NORMALS: normal respiratory effort, No retractions, No use of accessory muscles and clear to auscultation bilaterally AUSCULTATION: clear to auscultation bilaterally Cardio: COMMON NORMALS: regular rate, regular rhythm, S1 normal heart sound present and S2 normal heart sound present RATE: regular rate RHYTHM: regular rhythm HEART SOUNDS: S1 normal heart sound present and S2 normal heart sound present GI: COMMON NORMALS: Normal to inspection, nondistended, normoactive bowel sounds present, Soft to palpation, non-tender and No hepatosplenomegaly present PALPATION: Yes Soft to palpation and Yes No hepatosplenomegaly present Extremity: COMMON NORMALS: no pedal edema Neuro: COMMON NORMALS: patient oriented x3 Psych: COMMON NORMALS: mental status grossly normal Data : 08/03/21 04:04 08/03/21 04:04 A&P Assessment and plan (1) CAD (coronary artery disease): Status: Acute (2) Obesity: Status: Acute (3) Hypertension: Status: Acute (4) Hyperlipemia: Status: Acute Qualifiers: Hyperlipidemia type: other hyperlipidemia Qualified Code(s): E78.49 - Other hyperlipidemia (5) Chest pain: - Admit to cardiac stepdown unit -Continue aspirin, statin, Brilinta, metoprolol -Therapeutic Lovenox -Serial troponins, 6-hour troponin 69.19, delta 30: - telemetry monitoring -Monitor for chest pain, continue nitro drip -Cardiology consulted -Full code -Currently n.p.o. 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
--- NOTE | 2021-08-03 19:40 | USCV_ITS ---
García Gleason Age: 60 Gender: M : 1960 Exam Date: 08/03/2021 06:08 Ordering Phys: Sivakumar Guerra MD Technologist: Anca Arevalo [place] [facility] [place]: Recent stent placement with chest pain and pressure BP: 116 / 62 HR: 64 Rhythm: Sinus Technical Quality: Adequate MEASUREMENTS (Male / Female) Normal Values 2D ECHO LV Diastolic Diameter PLAX 3.4 cm 4.2 - 5.9 / 3.9 - 5.3 cm LV Systolic Diameter PLAX 3.1 cm LV Chamber Size 4.1 cm IVS Diastolic Thickness 1.8 cm 0.6 - 1.0 / 0.6 - 0.9 cm IVS Systolic Thickness 1.9 cm LVPW Diastolic Thickness 1.3 cm 0.6 - 1.0 / 0.6 - 0.9 cm LVPW Systolic Thickness 2.1 cm RV Chamber Size 3.8 cm LVOT Diameter 2.0 cm LV Ejection Fraction 2D Teich 2.8 % LV Ejection Fraction MOD 2C 59.5 % LV Ejection Fraction 2C AL 63.7 % LA Diameter 3.4 cm LA Width 3.6 cm LA Height 4.2 cm RA Width 2.9 cm RA Height 4.1 cm Aorta at Sinotubular Diameter 3.5 cm M-MODE Aortic Annulus Diameter 4.3 cm LA Ao Ratio MM 0.9 MV E Point Septal Separation 0.9 cm DOPPLER AV Peak Velocity 112.0 cm/s LVOT Peak Velocity 76.0 cm/s AV Area Cont Eq vti 2.3 cm squared AV Area Cont Eq pk 2.1 cm squared MV Area PHT 1.9 cm squared Mitral E to A Ratio 0.8 MV E' Velocity 37.0 cm/s Mitral E to MV E' Ratio 12.7 Mitral E to LV E' Lateral Ratio 10.8 Mitral E to LV E' Septal Ratio 15.5 TR Peak Velocity 122.5 cm/s TR Peak Gradient 6.0 mmHg TR Mean Velocity 88.8 cm/s TR Mean Gradient 3.4 mmHg TR Velocity Time Integral 30.3 cm TV Peak E Velocity 60.0 cm/s Right Atrial Pressure 3.0 mmHg Pulmonary Artery Systolic Pressu 9.0 mmHg PV Peak Velocity 80.0 cm/s RV Acceleration Time 0.1 s RV Ejection Time 0.3 s RV AcT/ET 0.4 FINDINGS Left Ventricle Normal left ventricular cavity size. Normal left ventricular systolic function. No regional wall motion abnormalities. Left ventricular ejection fraction is estimated at 60 %. Grade I/IV diastolic dysfunction (abnormal relaxation filling pattern), normal to mildly elevated filling pressures. Right Ventricle The right ventricle is normal in size and function. Right Atrium The right atrium is normal in size. Left Atrium The left atrium is normal in size. Mitral Valve Structurally normal mitral valve without significant stenosis or prolapse. There is no mitral regurgitation. Aortic Valve Moderate aortic valve calcification. No aortic valve stenosis. Trace aortic valve regurgitation. Tricuspid Valve Trace tricuspid valve regurgitation. Pulmonic Valve Structurally normal pulmonic valve without significant stenosis. There is no pulmonic regurgitation. Pericardium Normal pericardium without effusion. Aorta Normal ascending aorta dimension. CONCLUSIONS 1-Normal left ventricular cavity size. Normal left ventricular systolic function. No regional wall motion abnormalities. Left ventricular ejection fraction is estimated at 60 %. Grade I/IV diastolic dysfunction (abnormal relaxation filling pattern), normal to mildly elevated filling pressures. 2-Structurally normal mitral valve without significant stenosis or prolapse. There is no mitral regurgitation. 3-Moderate aortic valve calcification. No aortic valve stenosis. Trace aortic valve regurgitation. 4-There is no pericardial effusion. 5-Pulmonary artery systolic pressure is within normal limits. 6-Right atrial pressure is around 5 mm of mercury. 7-No significant change since the prior echocardiogram study of 07/27/2021. Letty Khoury MD (Electronically Signed) Final Date: 03 August 2021 18:14 S
--- NOTE | 2021-08-03 20:44 | PC.NURSE ---
Upon entering patient's room at beginning of shift, patient and family angry. Patient states one doctor told me I'm having a heart attack and one told me he wasn't so sure. Family member states The communication here is terrible, nobody around here is on the same page. Patient states I was in the ER way too long and that bed hurt my back. No one can tell me what time my procedure is tomorrow. Contacted physician and received 7 am procedure time. Patient notified. Patient educated that he will be NPO at midnight. Patient states I better not get woke up a bunch tonight. Patient educated that I will be checking on him and that we have to do vital signs every four hours minimum.
--- NOTE | 2021-08-03 21:37 | P.PN_ITS ---
Subjective Subjective: Interval history: Denies any more chest pain. Medications: Reviewed: Yes Vitals/I&O/Wt Last Vital Signs Temp 98 F 08/03/21 19:38 Pulse 92 08/03/21 19:38 Resp 17 08/03/21 19:38 BP 126/81 08/03/21 19:38 Pulse Ox 92 08/03/21 19:38 08/03/21 08/03/21 08/03/21 06:59 14:59 22:59 Intake Total 200 / 200 99.4 / 299.4 Output Total 900 / 900 Balance -700 / -700 99.4 / -600.6 Weight last 48 hrs Weight 300 lb Weight 300 lb Physical Exam Narrative: EXAM NARRATIVE: GENERAL: Patient is alert, awake and oriented x3. NECK: No jugular vein distension. HEENT: No cyanosis. No icterus. No pallor. HEART: Regular S1 and S2. No murmur, rub or gallop. LUNGS: Clear to auscultate bilaterally. ABDOMEN: Soft, nontender and nondistended. Positive bowel sounds. No guarding, rebound or tenderness. CENTRAL NERVOUS SYSTEM: Grossly nonfocal. EXTREMITIES: Lower extremities without edema bilaterally. Data : 08/03/21 04:04 08/03/21 04:04 A&P Assessment and plan (1) Atherosclerotic heart disease of [place] coronary artery with unstable angina pectoris: Patient presentation was consistent with unstable angina. He is high risk for acute coronary syndrome. Patient already has eaten today, we will defer angiogram for tomorrow. Status: Acute Qualifiers: [place] vs. transplanted heart: [place] heart Qualified Code(s): I25.110 - Atherosclerotic heart disease of [place] coronary artery with unstable angina pectoris (2) Benign essential hypertension with target blood pressure below 140/90: Continue optimize medicine patient is on nitro drip as well which will be controlling her blood pressure Status: Acute (3) Dyslipidemia: Continue current of statin Status: Acute Additional A&P Information I reviewed the patient's cardiac catheterization data from last week. In view of the patient's presenting symptoms and the abnormal objective findings, he may benefit from a repeat cardiac catheterization to reevaluate the coronary status and decide on further management. I will be discussing the patient's condition with Dr. Khoury. We will keep him n.p.o. after midnight. Based on the clinical progress, further recommendations will be made. 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 transplanted heart: [place] heart Benign essential hypertension with target blood pressure below 140/90 I10 Dyslipidemia E78.5
[2021-08-03] MEDS: zolpidem 5 mg Tablet PO (22:19)
--- NOTE | 2021-08-03 23:47 | PC.NURSE ---
Patient notified that his heart cath will be at 0830, not 0700. Patient stated, Okay, that's okay.
[2021-08-04] VITALS (14 sets, daily range): BP systolic 111–132; BP diastolic 64–73; PULSE 58–74; RESP 18–24; TEMP 36.6–37; O2SAT 91–96
[2021-08-04 03:54] LABS: Basophils # 0.1 10^3/uL (0.0-0.1); Basophils % 0.6 %; Eosinophils # 0.2 10^3/uL (0.0-0.8); Eosinophils % 1.5 %; Hematocrit 44.4 % (42.0-52.0); Hemoglobin 14.5 g/dL (11.7-16.6); Lymphocytes # 3.2 10^3/uL (0.8-4.8); Lymphocytes % 26.1 %; Mean Corpuscular HGB Conc 32.7 g/dL (30.0-36.0); Mean Corpuscular Volume 91.7 fl (80-94); Mean Platelet Volume 10.1 fL (7.4-10.4); Monocytes # 1.5 10^3/uL (0.2-0.9); Neutrophils # 7.29 10^3/uL (1.8-7.7); Neutrophils % 58.9 %; Nucleated Red Blood Cells % 0 %; Platelet Count 475 10^3/cmm (130-400); Red Blood Count 4.84 10^6/uL (4.1-5.3); Red Cell Distribution Width 13.6 % (12.1-15.1); White Blood Count 12.4 10^3/uL (4.0-10.0)
[2021-08-04 04:11] LABS: Alanine Aminotransferase 23 U/L (0-41); Albumin Level 3.4 g/dL (3.5-5.2); Alkaline Phosphatase 73 IU/L (40-130); Anion Gap 15.9 (5-19); Aspartate Amino Transferase 32 U/L (0-40); Blood Urea Nitrogen 12 mg/dL (6-20); Calcium 8.3 mg/dL (8.5-10.5); Carbon Dioxide 24 mmol/L (22-29); Chloride 99 mmol/L (98-107); Globulin 3.1 g/dL (1.3-4.6); Glomerular Filtration Rate 115.4 mL/min (90-130); Glucose 97 mg/dL (65-115); Magnesium 2.1 mg/dL (1.7-2.3); Osmolality Calculated 280 mOsm/kg (285-295); Phosphorus 4.3 mg/dL (2.5-4.5); Potassium 3.9 mmol/L (3.5-5.1); Sodium 135 mmol/L (136-145); Total Bilirubin 0.2 mg/dL (0.15-1.2); Total Protein 6.5 g/dL (6.6-8.7)
--- NOTE | 2021-08-04 07:00 | XACV_ITS ---
Exam Room: [facility] Ht: 185 cm Wt: 141 kg BSA: 2.75 m2 Gender: Male : 1960 Any Known Allergies: No known allergies Exam Priority: Routine Procedure(s): Procedure Description: Diagnostic procedure Procedure Description: PCI procedure Procedure Description: Drug Eluting Coronary Stent Procedure Description: PTCA Procedure Description: Miscellaneous Procedure Description: ACT Procedure Description: Coronary Angiography Procedure Description: Pressure Wire Peng SZYMANSKI; Diagnostic Cath Status: Elective Diagnostic Findings * Left Main has no disease. * Left Anterior Descending has no disease. * Circumflex has no disease. * Ramus: obstructive 70% stenosis, MARCELLA: 3 flow. * Posterior Descending Right: mild 40% stenosis, MARCELLA: 3 flow. * Posterior Descending Right: obstructive 60% stenosis, MARCELLA: 3 flow. * Coronary angiography shows right dominance. Interventional Findings * Ramus: 70% stenosis treated with a AB TREK 2.50X12 RX BALLOON, and MDT R CARL 3.5X12 PAULIE. 0% residual stenosis, MARCELLA: 3 flow. Conclusions 1. This is a patient who recently underwent multivessel PCI been turned down by CT surgery at the same time patient also did not like to do CABG. He underwent stents of LAD after arthrectomy diagonal branch and mid ramus intermedius. After discharge he did fine for to 3 days however started having chest pain again. He was admitted with unstable angina. He underwent left heart cath which showed patent previously placed mid LAD diagonal and mid ramus intermedius stents. Proximal ramus was noted to have haziness and calcified with 60 to 70% eccentric stenosis. IFR was performed which was significant 0.84. It was treated with single drug-eluting stent postdilated with stent balloon at high DERRELL. RCA was noted to have tandem proximal and mid PDA lesion which was moderate and not thought to be significant.. 2. I 3. FR: After equalizing the distal and proximal pressure of 4. I 5. FR wire proximal to the lesion, proximal ramus lesion was crossed with 6. I 7. FR wire. Spot 8. I 9. FR was recorded as 0.84, which is significant 10. . 11. There is obstructive coronary artery disease with one vessel disease. 12. Ramus was treated with a Balloon, and Drug Eluting Stent. Recommendations * Continue current medical management and risk factor modification. Diagnostic RX Recommendation: PCI w/o planned CABG Pressures Phase:Rest AO : 105 / 62 ( 79 ) @ 8:29:00 AM 141 / 86 ( 111 ) @ 8:42:00 AM 123 / 74 ( 92 ) @ 8:54:00 AM 116 / 68 ( 85 ) @ 8:58:00 AM 118 / 71 ( 89 ) @ 9:03:00 AM 123 / 71 ( 91 ) @ 9:25:00 AM Clinical Evaluation EBL: 5mL-10mL Procedural Details Procedure Consent Obtained. Pre-Procedure Time Out. Identified patient by full name and date of as verbalized by the patient/guarantor. Does the consent match the physician's order: Yes. Accurate & Complete Informed Consent: Yes. Inpatient/Outpatient History & Physical on Chart: Yes. If H&P is completed, is and addenduem needed: No; If yes, is the addendum complete: N/A. Visualize and Verify Site with Patient/Guarantor: N/A. Relevant Radiology Images available: N/A. Pre-op teaching completed and patient verbalized understanding. The risks, benefits, and alternatives of sedation and/or procedure were discussed by physician. The patient agrees to continue. Hemodynamic formulas in Rest were re-calculated based on hemoglobin value from 08/04/2021 3:25:00 AM. Procedure started. [facility] Clinical Fraility Score: 3: Managing Well. Crib Attendant Indications: Worsening Angina, known CAD. Chest Pain Symptom Assessment: Typical Angina Symptoms. Cardiovascular Instability: No. Correct patient, site and procedure confirmed by cath team. PERRLA. Strong, equal hand car repairer helper bilaterally. Lungs clear x 5 lobes. IV Site on Arrival: 20 gauge in the left forearm. IV Fluids: 0.9% NaCl at KVO. 0 mL infused prior to analytical lab technician. Pre Procedural Pulses: bilateral dorsalis pedis was 3+. Pre Procedural Pulses: bilateral posterior tibial was 3+. Pre Procedural Pulses: bilateral radial was 3+. Oxygen started at 2liters/min via nasal canula. right groin was prepped with chloroprep then draped in the usual sterile fashion. right radial was prepped with chloroprep then draped in the usual sterile fashion. Baseline sample Acquired. HR: [address]PM[address] Attempt to call Dr Khoury. No answer. Dr Khoury notified. Dr Taylor scrubbed in to assist. Immediate Pre-Procedure Time Out. Correct Patient: Yes; Correct Procedure: Yes; Correct Site: Yes; Correct Patient Position: Yes; Correct Supplies: Yes; Dried Flammable Prep: Yes; Blood Products Available: N/A;. Lidocaine 1% infiltrated to the right radial. Dr Taylor attempting to gain radial access. Dr Khoury arrived. Dr Khoury scrubbed in. Lidocaine 1% infiltrated to the right radial. Lidocaine 1% infiltrated to the right radial. Arterial access obtained by Dr Khoury. A 5 jordanian Sam catheter in over wire. Multiple views taken of right coronary artery. Catheter redirected to the LCA. Multiple views taken of left coronary artery. Dr Taylor scrubbed out. 6 jordanian XB 3.5 guide catheter was inserted over the wire. Guide catheter out. left groin was prepped with chloroprep then draped in the usual sterile fashion. Unable to seat guide catheter using radial approach. Physician moving to femoral approach. Lidocaine 1% infiltrated to the left groin. Arterial access obtained with micropuncture set. 6 jordanian XB 3.5 guide catheter was inserted over the wire. Qoof OmniWire Pressure guidewire was advanced through the guide catheter to lesion in the Ramus. IFR performed. Measurement obtained of 0.84. Runthrough guidewire was advanced through the guide catheter to lesion in the Ramus. Called anesthesia to be on back up to help sedate pt, per Dr Khoury request. MDT R CARL 3.5x12 PAULIE inserted. Unable to cross lesion. Intact stent removed. Pressure wire removed. Inflation number : 1 A AB TREK 2.50X12 RX BALLOON was prepped and advanced across the Ramus , then inflated to 14 DERRELL for 0:10 seconds. Inflation number: 2 The AB TREK 2.50X12 RX BALLOON was reinflated across the Ramus, to 14 DERRELL for 0:10 seconds. Inflation number: 3 The AB TREK 2.50X12 RX BALLOON was reinflated across the Ramus, to 18 DERRELL for 0:16 seconds. Balloon out. Results checked. Inflation Number : 4 A MDT R CARL 3.5X12 PAULIE -Lot Number# [id number] exp date 12/03/2023 was prepped and advanced across the Ramus. The stent was deployed at 12 DERRELL for 0:24 seconds. Inflation number: 5 The stent balloon was then re-inflated across the Ramus to 16 DERRELL for 0:13 seconds. Results checked. Stent balloon and wire out. Inventory is CRD 6FR AL .75 GUIDE. Flynn from anesthesia arrived to assist with sedating pt. Guide catheter out. 6 jordanian AL 0.75 guide catheter was inserted over the wire. FFR guidewire was advanced through the guide catheter to lesion in the PDA. ACT drawn. Results 169 seconds. Therapeutic limits - pre-heparin administration 90-150 seconds and monitoring heparin during a vascular procedure >250 seconds. IFR measurement obtained of PDA. 1.06. Pressure wire out. Runthrough wire inserted. Wire out. Guide catheter out. A Left femoral angiogram was performed to determine safe placement of closure device. ACT drawn. Results 229 seconds. Therapeutic limits - pre-heparin administration 90-150 seconds and monitoring heparin during a vascular procedure >250 seconds. Sheath upsized to a 7 Fr. A Suture was successful obtaining hemostatsis at the Left Femoral artery insertion site. A TR Band was successful obtaining hemostatsis at the Right Radial artery insertion site. Perclose attempted to left femoral artery. Unsuccessful. Sheath upsized to 7 fr and sutured in. Physician scrubbed out. TR band placed. Hemostasis obtained. Medication's Wasted: Nitro = 49.8 mg. Post Procedure: Pulses reassessed and unchanged. PERRLA. Strong, equal hand car repairer helper bilaterally. No VTE prophylaxis required. Contrast type used: Omnipaque 300 mgI/mL, 500 mL bottle. Post-op diagnosis: unstable angina. Complications: none. Estimated blood loss: 5mL-10mL. Responsiveness - Normal response to verbal stimuli; alert and oriented, PERRLA. Airway - Unaffected, no intervention required; spontaneous ventilation. Circulation: W/N/L, pulses unchanged. Nausea/Vomiting: No. Procedure completed. Patient transferred by bed to 1st floor. Vital chart was stopped. Access Site Site: Right Radial artery Sheath Size: 6 Fr Hemostasis Method: TR Band Hemostasis Success: Successful Site: Left Femoral artery Sheath Size: 6 Fr Hemostasis Method: Suture Hemostasis Success: Successful Procedure Medications Start: 9:59 AM Stop: 9:59 AM Medication: Fentanyl Amount: 50 mcg Route: I.V. Start: 10:08 AM Stop: 10:08 AM Medication: Versed Amount: 1 mg Route: I.V. Start: 10:19 AM Stop: 10:19 AM Medication: Versed Amount: 1 mg Route: I.V. Start: 10:19 AM Stop: 10:19 AM Medication: Fentanyl Amount: 25 mcg Route: I.V. Start: 10:24 AM Stop: 10:24 AM Medication: Nitrogylcerin Amount: 200 mcg Route: I.A. Start: 10:28 AM Stop: 10:28 AM Medication: Heparin Amount: 5000 units Route: I.V. Start: 10:46 AM Stop: 10:46 AM Medication: Fentanyl Amount: 25 mcg Route: I.V. Start: 10:48 AM Stop: 10:48 AM Medication: Versed Amount: 1 mg Route: I.V. Start: 10:54 AM Stop: 10:54 AM Medication: Heparin Amount: 5000 units Route: I.V. Start: 11:06 AM Stop: 11:06 AM Medication: Versed Amount: 1 mg Route: I.V. Start: 11:06 AM Stop: 11:06 AM Medication: Fentanyl Amount: 50 mcg Route: I.V. Start: 11:23 AM Stop: 11:23 AM Medication: Versed Amount: 1 mg Route: I.V. Start: 11:23 AM Stop: 11:23 AM Medication: Fentanyl Amount: 50 mcg Route: I.V. Start: 11:29 AM Stop: 11:29 AM Medication: Versed Amount: 1 mg Route: I.V. Start: 11:30 AM Stop: 11:30 AM Medication: Heparin Amount: 4000 units Route: I.V. I, the attending physician, have reviewed and verified all procedure medications. Yes, all medications given per verbal order History/Risk Factors Hypertension: Yes Dyslipidemia: Yes Peripheral Arterial Disease (PAD): No Myocardial Infarction ([place]): No Obesity: Yes Renal Disease: No Prior Interventions PCI: Yes CABG: No Valve Surgery: No Date of PCI: 07/28/2021 Report Signatures Finalized by Letty Khoury MD on 08/17/2021 08:14 PM
[2021-08-04] MEDS: sodium chloride 0.9% 1,000 ML 50 ML IV (07:27)
[2021-08-04] MEDS: diphenhydrAMINE 50 mg Capsule PO (07:27)
--- NOTE | 2021-08-04 08:37 | PC.NURSE ---
Spoke with physician regarding lovenox 140mg, orders received to hold dose prior to C this morning.
[2021-08-04] MEDS: atorvastatin 40 mg Tablet PO (09:27)
[2021-08-04] MEDS: ticagrelor 90 mg Tablet PO ×2 (09:27→16:47)
[2021-08-04] MEDS: aspirin 81 mg EC Tablet PO (09:27)
[2021-08-04] MEDS: lisinopril 20 mg Tablet PO (09:27)
[2021-08-04] MEDS: metoprolol tartrate 50 mg Tablet PO ×2 (09:30→20:37)
--- NOTE | 2021-08-04 09:45 | PC.NURSE ---
Patient left floor for [facility]
--- NOTE | 2021-08-04 10:00 | P.PN_ITS ---
Subjective Subjective: Interval history: Patient underwent left heart cath noted to have patent all previously placed stent in mid LAD diagonal and ramus branch. Proximal to the ramus branch there was calcified lesion which at that time was not thought to be significant IFR was performed spot IFR was less than 0.84 which is significant. It was treated with balloon angioplasty followed by drug- eluting stent postdilated at high inflation. PDA lesion was tested with IFR which was not significant. PLB is a small caliber and size vessel with 90% stenosis previously it was thought that we should treated medically since this is a small vessel I again am of the same opinion. Patient tolerated procedure well and has been sent for recovery to the [facility]. Medications: Reviewed: Yes Vitals/I&O/Wt Last Vital Signs Temp 97.9 F 08/04/21 03:53 Pulse 65 08/04/21 04:06 Resp 18 08/04/21 03:53 BP 115/64 08/04/21 03:53 Pulse Ox 94 08/04/21 03:53 08/03/21 08/04/21 08/04/21 22:59 06:59 14:59 Intake Total 502.3 / 702.3 147.575 / 849.875 Output Total 200 / 1100 400 / 400 Balance 502.3 / -197.7 -52.425 / -250.125 -400 / -400 Weight last 48 hrs Weight 311 lb 3.2 oz Weight 300 lb Weight 300 lb Physical Exam Narrative: EXAM NARRATIVE: GENERAL: Patient is alert, awake and oriented x3. NECK: No jugular vein distension. HEENT: No cyanosis. No icterus. No pallor. HEART: Regular S1 and S2. No murmur, rub or gallop. LUNGS: Clear to auscultate bilaterally. ABDOMEN: Soft, nontender and nondistended. Positive bowel sounds. No guarding, rebound or tenderness. CENTRAL NERVOUS SYSTEM: Grossly nonfocal. EXTREMITIES: Lower extremities without edema bilaterally. Const: COMMON NORMALS: alert Resp: COMMON NORMALS: clear to auscultation bilaterally AUSCULTATION: clear to auscultation bilaterally Neuro: SENSORIUM/ORIENTATION: Yes alert Data : 08/04/21 03:25 08/04/21 03:25 A&P Assessment and plan (1) Atherosclerotic heart disease of [place] coronary artery with unstable angina pectoris: Patient underwent left heart cath noted to have patent all previously placed stent in mid LAD diagonal and ramus branch. Proximal to the ramus branch there was calcified lesion which at that time was not thought to be significant IFR was performed spot IFR was less than 0.84 which is significant. It was treated with balloon angioplasty followed by drug-eluting stent postdilated at high inflation. PDA lesion was tested with IFR which was not significant. PLB is a small caliber and size vessel with 90% stenosis previously it was thought t hat we should treated medically since this is a small vessel I again am of the same opinion. Patient tolerated procedure well and has been sent for recovery to the [facility]. Continue aspirin and Brilinta. Most likely discharge tomorrow. Status: Acute Qualifiers: [place] vs. transplanted heart: [place] heart Qualified Code(s): I25.110 - Atherosclerotic heart disease of [place] coronary artery with unstable angina pectoris (2) Benign essential hypertension with target blood pressure below 140/90: Well-controlled. Continue well-controlled continue current regimen Status: Acute (3) Dyslipidemia: Continue current of statin Status: Acute Additional A&P Information I reviewed the patient's cardiac catheterization data from last week. In view of the patient's presenting symptoms and the abnormal objective findings, he may benefit from a repeat cardiac catheterization to reevaluate the coronary status and decide on further management. I will be discussing the patient's condition with Dr. Khoury. We will keep him n.p.o. after midnight. Based on the clinical progress, further recommendations will be made. 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 transplanted heart: [place] heart Benign essential hypertension with target blood pressure below 140/90 I10 Dyslipidemia E78.5
--- NOTE | 2021-08-04 10:00 | W.PM.OPSUD ---
Surgery/Procedure H&P Update DATE OF PROCEDURE: August 04, 2021 DATE H&P PERFORMED: 07/26/21 H&P UPDATE INFORMATION: I have reviewed H&P completed within last 30 days, I have examined patient prior to procedure and No changes to prior documentation PREOP DIAGNOSIS: Unstable angina/multivessel coronary artery disease PLANNED PROCEDURE: Patient has been explained all the risk benefit and alternative for the procedure. Patient understand risk for stroke contrast-induced nephropathy. Urgent emergent major minor bleed, patient understand risk for vascular injury, he understand risk for urgent emergent CABG. He would like to proceed with it. PATIENT REASSESSED PRIOR TO SEDATION, WITH NO CHANGE NOTED: Yes PHYSICAL EXAM: alert, oriented x 3 and clear to auscultation bilaterally
--- NOTE | 2021-08-04 12:45 | PC.NURSE ---
Patient and spouse are not happy with care they received. and patient have complaints about lack of communication between staff. is upset that patients procedure was scheduled for 08:30, and patient did not leave for procedure until 0945. states that our facility is not professional . states that physician was not aware that patient had not had procedure yet, and that information systems planner told them they were being discharged today, even though this is not the case. Nurse apologized for the frustrations they have encountered and offered to notify city supervisor so that they may voice their concerns, patient and both declined.
[2021-08-04] MEDS: morphine 4 mg/mL SDV 1 mL 2 MG IVP ×2 (12:51→16:47)
--- NOTE | 2021-08-04 13:35 | P.PN_ITS ---
Subjective Subjective: Interval history: Patient was seen this morning, no chest pain overnight, no nausea, vomiting, is waiting coronary angiogram Vitals/I&O/Wt Last Vital Signs Temp 98.6 F 08/04/21 13:32 Pulse 62 08/04/21 13:32 Resp 18 08/04/21 13:32 BP 112/64 08/04/21 13:32 Pulse Ox 93 08/04/21 13:32 08/03/21 08/04/21 08/04/21 22:59 06:59 14:59 Intake Total 502.3 / 702.3 147.575 / 849.875 Output Total 200 / 1100 400 / 400 Balance 502.3 / -197.7 -52.425 / -250.125 -400 / -400 Weight last 48 hrs Weight 141.158 kg Weight 136.078 kg Physical Exam Const: COMMON NORMALS: no acute distress and patient oriented x3 Resp: COMMON NORMALS: normal respiratory effort, No retractions, No use of accessory muscles and clear to auscultation bilaterally AUSCULTATION: clear to auscultation bilaterally Cardio: COMMON NORMALS: regular rate, regular rhythm, S1 normal heart sound present and S2 normal heart sound present RATE: regular rate RHYTHM: reg ular rhythm HEART SOUNDS: S1 normal heart sound present and S2 normal heart sound present GI: COMMON NORMALS: Normal to inspection, nondistended, normoactive bowel sounds present, Soft to palpation, non-tender and No hepatosplenomegaly present PALPATION: Yes Soft to palpation and Yes No hepatosplenomegaly present Extremity: COMMON NORMALS: no pedal edema Neuro: COMMON NORMALS: patient oriented x3 Psych: COMMON NORMALS: mental status grossly normal Data : 08/04/21 03:25 08/04/21 03:25 A&P Assessment and plan (1) CAD (coronary artery disease): Status: Acute (2) Obesity: Status: Acute (3) Hypertension: Status: Acute (4) Hyperlipemia: Status: Acute Qualifiers: Hyperlipidemia type: other hyperlipidemia Qualified Code(s): E78.49 - Other hyperlipidemia (5) Chest pain: - Admit to cardiac stepdown unit -Continue aspirin, statin, Brilinta, metoprolol -Therapeutic Lovenox -Serial troponins, 6-hour troponin 69.19, delta positive - telemetry monitoring -Monitor for chest pain, continue nitro drip -Cardiology consulted -Full code -Currently n.p.o. for cardiac cath -Therapeutic Lovenox for DVT prophylaxis Status: Acute Attestations Medical Necessity Statement*: Patient requires hospitalization for CAD, with chest pain Coding Level of Care Code Acute Drier Attendant for [facility] Fwd Diagnoses CAD (coronary artery disease) I25.10 Obesity E66.9 Hypertension I10 Hyperlipemia E78.49 Hyperlipidemia type: other hyperlipidemia Chest pain R07.9
[2021-08-04 15:37] LABS: Partial Thromboplastin Time 123.9 SECONDS (23.9-36.7)
[2021-08-04] MEDS: ALPRAZolam 0.5 mg Tablet 0.25 MG PO (16:47)
--- NOTE | 2021-08-04 17:29 | PC.NURSE ---
tr band off no hematoma, bleeding or swelling. radial pulse is palpable.
[2021-08-04 17:49] LABS: Partial Thromboplastin Time 33.5 SECONDS (23.9-36.7)
[2021-08-04] MEDS: fentaNYL 50 mcg/mL INJ 2mL IVP (18:40)
--- NOTE | 2021-08-04 18:50 | PC.NURSE ---
Sheath pulled to left groin explained procedure to pt. pre-medicated pt w/ fentanyl as ordered prior to sheath pull. 7 fr sheath removed on left femoral artery, catheter tip intact. Manual pressure held for 20 mins. no hematoma, bleeding or swelling noted during and post sheath pull. mild bruising noted around the puncture site prior to sheath pull. pedal pulses palpable +3. activity restrictions provided to pt on his left leg. educated pt to notifiy nurse for any unusual pain, pressure or burning and wet sensation around his left groin or back. pt has a chronic sciatic nerve that causes him to be on uncomfortable position on his back for longer period. educated pt to call nurse if he needs help in repositioning. call light provided.
--- NOTE | 2021-08-05 01:33 | PC.NURSE ---
Patient states to PHLEBOTOMIST SUPERVISOR/INSTRUCTOR nobody has checked my site. This RN checked right groin around 0010 and again after patient stated this to PHLEBOTOMIST SUPERVISOR/INSTRUCTOR. Primary RN has checked patient's site multiple times throughout shift.
[2021-08-05 03:32] VITALS: BP 100/64; PULSE 72; RESP 16; TEMP 36.6; O2SAT 93
[2021-08-05 03:47] LABS: Basophils # 0.1 10^3/uL (0.0-0.1); Basophils % 0.5 %; Eosinophils # 0.1 10^3/uL (0.0-0.8); Eosinophils % 0.6 %; Hematocrit 43.7 % (42.0-52.0); Hemoglobin 14.2 g/dL (11.7-16.6); Lymphocytes % 14.3 %; Mean Corpuscular HGB Conc 32.5 g/dL (30.0-36.0); Mean Corpuscular Volume 92.2 fl (80-94); Mean Platelet Volume 10.5 fL (7.4-10.4); Monocytes # 1.6 10^3/uL (0.2-0.9); Monocytes % 11.4 %; Neutrophils # 10.15 10^3/uL (1.8-7.7); Neutrophils % 72.5 %; Nucleated Red Blood Cells % 0 %; Platelet Count 465 10^3/cmm (130-400); Red Blood Count 4.74 10^6/uL (4.1-5.3); Red Cell Distribution Width 13.5 % (12.1-15.1)
[2021-08-05 04:16] LABS: Alanine Aminotransferase 21 U/L (0-41); Albumin Level 3.5 g/dL (3.5-5.2); Alkaline Phosphatase 78 IU/L (40-130); Blood Urea Nitrogen 11 mg/dL (6-20); Calcium 8.2 mg/dL (8.5-10.5); Carbon Dioxide 24 mmol/L (22-29); Chloride 100 mmol/L (98-107); Globulin 3.1 g/dL (1.3-4.6); Glomerular Filtration Rate 137.9 mL/min (90-130); Glucose 96 mg/dL (65-115); Osmolality Calculated 281 mOsm/kg (285-295); Phosphorus 3.5 mg/dL (2.5-4.5); Sodium 136 mmol/L (136-145); Total Bilirubin 0.5 mg/dL (0.15-1.2); Total Protein 6.6 g/dL (6.6-8.7)
[2021-08-05 04:21] LABS: Anion Gap 16.3 (5-19); Aspartate Amino Transferase 27 U/L (0-40); Potassium 4.3 mmol/L (3.5-5.1)
[2021-08-05 05:33] VITALS: PULSE 69
--- NOTE | 2021-08-05 08:54 | PM.PN ---
Subjective Subjective: Interval history: Patient was seen this morning, no chest pain overnight, patient underwent angioplasty of the proximal ramus, Medications: Reviewed: Yes Vitals/I&O/Wt Last Vital Signs Temp 98 F 08/05/21 03:32 Pulse 69 08/05/21 05:33 Resp 16 08/05/21 03:32 BP 100/64 08/05/21 03:32 Pulse Ox 93 08/05/21 03:32 08/04/21 08/05/21 08/05/21 22:59 06:59 14:59 Intake Total 816 / 1176 1000 / 2176 Output Total 350 / 1000 0 / 1000 Balance 466 / 176 1000 / 1176 Weight last 48 hrs Weight 311 lb 3.2 oz Weight 300 lb Physical Exam Narrative: EXAM NARRATIVE: GENERAL: Patient is alert, awake and oriented x3. NECK: No jugular vein distension. HEENT: No cyanosis. No icterus. No pallor. HEART: Regular S1 and S2. No murmur, rub or gallop. LUNGS: Clear to auscultate bilaterally. ABDOMEN: Soft, nontender and nondistended. Positive bowel sounds. No guarding, rebound or tenderness. CENTRAL NERVOUS SYSTEM: Grossly nonfocal. EXTREMITIES: Lower extremities without edema bilaterally. Const: COMMON NORMALS: alert Resp: COMMON NORMALS: clear to auscultation bilaterally AUSCULTATION: clear to auscultation bilaterally Neuro: SENSORIUM/ORIENTATION: Yes alert Data : 08/05/21 02:25 08/05/21 02:25 A&P Assessment and plan (1) Atherosclerotic heart disease of [place] coronary artery with unstable angina pectoris: Patient underwent left heart cath noted to have patent all previously placed stent in mid LAD diagonal and ramus branch. Proximal to the ramus branch there was calcified lesion which at that time was not thought to be significant IFR was performed spot IFR was less than 0.84 which is significant. It was treated with balloon angioplasty followed by drug-eluting stent postdilated at high inflation. PDA lesion was tested with IFR which was not significant. PLB is a small caliber and size vessel with 90% stenosis previously it was thought that we should treated medically since this is a small vessel I again am of the same opinion. Patient tolerated procedure well and has been sent for recovery to the [facility]. Continue aspirin and Brilinta. Most likely discharge tomorrow. No overnight event patient doing fine from a cardiovascular perspective continue current regimen we will discharge him today Status: Acute Qualifiers: [place] vs. transplanted heart: [place] heart Qualified Code(s): I25.110 - Atherosclerotic heart disease of [place] coronary artery with unstable angina pectoris (2) Benign essential hypertension with target blood pressure below 140/90: Well-controlled. 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 transplanted heart: [place] heart Benign essential hypertension with target blood pressure below 140/90 I10 Dyslipidemia E78.5
[2021-08-05] MEDS: atorvastatin 40 mg Tablet PO (08:56)
[2021-08-05] MEDS: ticagrelor 90 mg Tablet PO (08:56)
[2021-08-05] MEDS: lisinopril 20 mg Tablet PO (08:56)
[2021-08-05] MEDS: aspirin 81 mg EC Tablet PO (08:56)
[2021-08-05] MEDS: metoprolol tartrate 50 mg Tablet PO (09:00)
[2021-08-05] MEDS: enoxaparin 150 mg/mL Syringe 140 MG SUBCUT (09:05)
[2021-08-05 10:32] VITALS: BP 121/75; PULSE 83; RESP 17
[2021-08-05 10:46] VITALS: BP 121/75; PULSE 76; RESP 19
--- NOTE | 2021-08-05 11:20 | PC.NURSE ---
Discharge Note Patient discharged to home via private vehicle accompanied by significant other. Discharge instructions reviewed with patient and/or customer relations representative. Mobile pharmacy medications and/or prescriptions provided. Belongings/home medications returned.
--- NOTE | 2021-08-05 11:41 | PM.DCS ---
Discharge Providers Date of Admission: 08/02/21 19:40 Date of Discharge: August 05, 2021 Attending Provider at Admission: Sivakumar Guerra MD Attending Provider at Discharge: Sivakumar Guerra MD Primary Care Provider: Miko Montalvo DO Diagnoses at Discharge Discharge Diagnosis (1) Atherosclerotic heart disease of [place] coronary artery with unstable angina pectoris: Status: Acute Qualifiers: [place] vs. transplanted heart: [place] heart Qualified Code(s): I25.110 - Atherosclerotic heart disease of [place] coronary artery with unstable angina pectoris (2) Benign essential hypertension with target blood pressure below 140/90: Status: Acute (3) Dyslipidemia: Status: Acute Reason for Visit Reason for Visit: Just had stints and now has chest tightness/pain Hospital Course Hospital Course García Gleason is a 60 year old male with a past medical history of obesity, hypertension, hyperlipidemia, recent history of multivessel CAD status post 3 stents, who presents to [facility] for complaints of chest pain. Patient was admitted to [facility] for chest pain, medically managed with aspirin, Brilinta, metoprolol, Lovenox, had a +6-hour troponin with delta, patient underwent cardiac catheterization with stent placed to ramus branch, all previous stents were found to be patent. Patient tolerated procedure well, monitor for 24 hours afterwards, remained chest pain-free, discharged on his home aspirin, Brilinta, lisinopril, Toprol with follow-up with cardiology as outpatient. Physical Exam Const: COMMON NORMALS: no acute distress and patient oriented x3 Resp: COMMON NORMALS: normal respiratory effort, No retractions, No use of accessory muscles and clear to auscultation bilaterally AUSCULTATION: clear to auscultation bilaterally Cardio: COMMON NORMALS: regular rate, regular rhythm, S1 normal heart sound present and S2 normal heart sound present RATE: regular rate RHYTHM: regular rhythm HEART SOUNDS: S1 normal heart sound present and S2 normal heart sound present GI: COMMON NORMALS: Normal to inspection, nondistended, normoactive bowel sounds present, Soft to palpation and non-tender PALPATION: Yes Soft to palpation Extremity: COMMON NORMALS: no pedal edema Neuro: COMMON NORMALS: patient oriented x3 Psych: COMMON NORMALS: mental status grossly normal Discharge Data Data Completed and Pending: Completed Studies During Hospitalization Category Date Time Status XR chest 1V robel ble [id number] Stat Exams 08/02/21 10:51 Completed CV. 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 Routin e Exams 08/04/21 07:00 Taken Labs from last 24 hours 08/05/21 08/05/21 08/04/21 02:25 02:25 17:07 WBC 14.0 H RBC 4.74 Hgb 14.2 Hct 43.7 MCV 92.2 MCH 30.0 MCHC 32.5 RDW 13.5 Plt Count 465 H MPV 10.5 H Neut % (Auto) 72.5 Lymph % (Auto) 14.3 [place] % (Auto) 11.4 Eos % (Auto) 0.6 Baso % (Auto) 0.5 Neut # (Auto) 10.15 H Lymph # (Auto) 2.0 [place] # (Auto) 1.6 H Eos # (Auto) 0.1 Baso # (Auto) 0.1 Nucleated RBC % (a uto) 0 Nucleated RBCs # 0.0 APTT 33.5 D Sodium 136 Potassium 4.3 Chloride 100 Carbon Dioxide 24 Anion Gap 16.3 BUN 11 Creatinine 0.6 L GFR Calculation 137.9 H Glucose 96 Calculated Osmolal ity 281 L Calcium 8.2 L Phosphorus 3.5 Magnesium 2.0 Total Bilirubin 0.5 AST 27 ALT 21 Alkaline Phosphata se 78 Total Protein 6.6 Albumin 3.5 Globulin 3.1 08/04/21 14:07 WBC RBC Hgb Hct MCV MCH MCHC RDW Plt Count MPV Neut % (Auto) Lymph % (Auto) [place] % (Auto) Eos % (Auto) Baso % (Auto) Neut # (Auto) Lymph # (Auto) [place] # (Auto) Eos # (Auto) Baso # (Auto) Nucleated RBC % (a uto) Nucleated RBCs # APTT 123.9 H Sodium Potassium Chloride Carbon Dioxide Anion Gap BUN Creatinine GFR Calculation Glucose Calculated Osmolal ity Calcium Phosphorus Magnesium Total Bilirubin AST ALT Alkaline Phosphata se Total Protein Albumin Globulin Vitals: Last Vital Signs Temp 98 F 08/05/21 03:32 Pulse 76 08/05/21 10:46 Resp 19 H 08/05/21 10:46 BP 121/75 08/05/21 10:46 Pulse Ox 93 08/05/21 03:32 Discharge Plan Discharge Patient Disposition: Home Condition: Stable Prescriptions: Continued lisinopril 10 mg tablet 20 mg PO DAILY RF: 0 (DME) fast form cock up splint Qty: 1 RF: 0 Brilinta 90 mg Tablet 90 mg PO BID Qty: 180 RF: 4 aspirin 81 mg Tablet,Chewable 81 mg PO DAILY RF: 0 Nitrostat 0.3 mg Tablet, Sublingual 0.3 mg SUBLINGUAL Q5M PRN (Reason: Chest Pain) RF: 0 lovastatin 10 mg tablet 20 mg PO BID RF: 0 Changed metoprolol succinate 25 mg tablet extended release 24 hr 25 mg PO DAILY Qty: 90 RF: 4 Discharge Orders: Discharge Order (Routine); Ordered 08/05/21 Ordered By: Letty Khoury Referrals: Jessika Olmstead FNP [Nurse Practitioner] - 08/17/21 2:45 pm (Your appointment with KATHRYN Benavidez that was scheduled for August 09 has beed moved out and is now on August 17 at 2:45pm) Discharge Diet: Cardiac Patient Instructions: Coronary Angioplasty (DC), Chest Pain Stoplight, Opioid Safety, Post Angiogram Home Care Instructions Activity Restrictions/Additional Instructions: Follow-up with Ms. Rosen 10 days. Follow-up with Dr. Taylor in 6 weeks Discharge Attestations Time Spent in Discharge Care*: less than 30 min Quality Metrics Clinical Quality Measures During this hospital stay, did patient experience: None Coding Level of Care Code Acute Chg FW DC note Diagnoses Atherosclerotic heart disease of [place] coronary artery with unstable angina pectoris I25.110 [place] vs. transplanted heart: [place] heart Benign essential hypertension with target blood pressure below 140/90 I10 Dyslipidemia E78.5
== END 2021-08-05 11:20 | disposition home or self-care (01) | DRG 247 ==
LOC: ER 15:57 → ER IP 18:18 → CSU 08-03 17:37
PROVIDERS: Internal Medicine Cardiovascular Disease; Admitting Provider Family Medicine; Emergency Provider Family Medicine; PCP Family Medicine; Visit Provider Family Medicine
PROC: 027034Z Dilation of Coronary Artery, One Artery with Drug-eluting Intraluminal Device, Percutaneous Approach (ICD-10-PCS; principal; 2021-08-04 08:30)
PROC: 027034Z Dilation of Coronary Artery, One Artery with Drug-eluting Intraluminal Device, Percutaneous Approach (ICD-10-PCS; 2021-08-04 08:30)
DX: I25.110 Atherosclerotic heart disease of native coronary artery with unstable angina pectoris (principal); Z68.41 Body mass index [BMI] 40.0-44.9, adult; I10 Essential (primary) hypertension; E78.5 Hyperlipidemia, unspecified; E66.9 Obesity, unspecified; Z95.5 Presence of coronary angioplasty implant and graft; Z79.82 Long term (current) use of aspirin; G47.30 Sleep apnea, unspecified; Z87.891 Personal history of nicotine dependence
CPT/HCPCS: 36415; 71045; 80053; 80061; 83036; 83735; 84100; 84443; 84484; 85025; 85347; 85610; 85730; 93005; 93306; 93571; 93572; 94664; 96372; 96374; 96375; 99291; C1725; C1760; C1769; C1874; C1887; C1894; J1644; J1650; J2250; J2270; J2405; J3010; J3490; J7030; Q0163; Q9967

== ENCOUNTER 2021-08-10 15:20 | Outpatient (CLI) | payer BC, SELFPAY ==
--- NOTE | 2021-08-10 15:00 | USCV_ITS ---
GleasonGarcía amaro Age: 60 Gender: M : 1960 Exam Date: 08/10/2021 15:40 Ordering Phys: Jessika Olmstead Technologist: Alexis Vázquez Exam Location: [facility] [place] Indication: check for pseudo. post cath Findings There does not appear to be a pseudo aneurysm in the left groin. The left common femoral vein appears to be compressible and free of thrombus at this time. There is possibly a seroma in the left groin measuring 3.34x1.59x2.99cm. Multiple echolucent areas in the subcutaneous tissue of the right groin Conclusions A circumscribed area of fluid collection in the right groin, in the subcutaneous tissue suggesting seroma/tissue fluid. No evidence of pseudoaneurysm Dr Dav Damon MD [facility] (Electronically Signed) Final Date: 06 September 2021 10:13 S
== END 2021-08-10 15:21 | disposition home or self-care (01) ==
LOC: RAD 15:30
PROVIDERS: PCP Family Medicine; Visit Provider Nurse Practitioner Family
DX: I72.9 Aneurysm of unspecified site (principal)
CPT/HCPCS: 93926

== ENCOUNTER → 2021-08-17 15:50 | Outpatient (BNVA) | payer BC, SELFPAY | PROVIDERS: PCP Family Medicine; Visit Provider Nurse Practitioner Family | DX: I25.10 Atherosclerotic heart disease of native coronary artery without angina pectoris (principal) | CPT/HCPCS: 80048 ==

== ENCOUNTER → 2022-08-04 12:05 | Outpatient (BNVA) | payer BC, SELFPAY | PROVIDERS: PCP Family Medicine; Visit Provider Family Medicine | DX: R53.83 Other fatigue (principal); G47.30 Sleep apnea, unspecified; E78.5 Hyperlipidemia, unspecified; I25.10 Atherosclerotic heart disease of native coronary artery without angina pectoris; I10 Essential (primary) hypertension; E78.49 Other hyperlipidemia | CPT/HCPCS: 80053; 80061; 82607; 83036; 84443; 85025 ==

== ENCOUNTER 2022-08-11 15:18 | Emergency (ER) | payer BC, SELFPAY ==
[2022-08-11] VITALS (19 sets, daily range): BP systolic 105–151; BP diastolic 51–85; PULSE 87–101; RESP 15–16; TEMP 36.8–37.4; O2SAT 92–97; BMI 41.1
--- NOTE | 2022-08-11 15:50 | ED_ITS ---
Documented by User: Sorin Nesbitt DO 08/12/22 06:20 HPI - Dizziness General: Chief Complaint: Dizziness Stated Complaint: Rousch sent for low HGB Time Seen by Provider: 08/11/22 15:46 Source: patient Mode of arrival: ambulatory History of Present Illness: HPI Narrative: 61-year-old male presents emergency room complaining of shortness of breath low exercise tolerance for the last couple weeks progressively worsening over the last several days. He is on ticagrelor and aspirin, he is not on any other anticoagulants. He has not noticed any hematemesis Cocculus medic easy melena. He denies any hematuria. He has not had any chest pain. He had a hemoglobin of 8.4 on August 04 at his primary care doctor's office Onset (ago): week(s) Timing: gradual onset Severity: moderate Description: sense of movement and other (Dyspnea on exertion) Context: exertion Exacerbating factors: exertion Relieving factors: rest and lying down Associated symptoms: Reports malaise; Denies change in hearing, chest pain, chills, cough, diaphoresis, ear discharge, ear pressure, fevers/chills, headache(s), nausea, nasal congestion, palpitations, rash, short of breath, syncope, tinnitus, vomiting or weakness Associated neuro symptoms: Deny confusion, difficulty speaking, dysphagia, diplopia, extremity weakness, facial numbness, facial weakness, gait changes, numbness in extremities or visual changes Review of Systems Const: Reports: malaise; Denies: fever(s), chills or diaphoresis ENMT: Denies: ear discharge, change in hearing, tinnitus or nasal congestion Card: Denies: chest pain, palpitations or syncope Resp: Denies: dyspnea, productive cough or non-productive cough GI: Denies: nausea, vomiting or dysphagia : Denies: flank pain, dysuria, urinary frequency or urinary urgency Skin/Breast: Denies: rash or pruritus Neuro: Denies: headache(s), numbness in extremities or confusion PFSH ED 2 PFSH: Medical History CAD (coronary artery disease) Hernia Hyperlipemia Hypertension Melanoma Non-Hodgkins lymphoma Obesity Sleep apnea Surgical History H/O splenectomy Family History Father CAD (coronary artery disease) Hypertension Social History Smoking and tobacco status: former smoker Alcohol intake: current Alcohol intake frequency: holidays/special occasions only Physical Exam Const: GENERAL APPEARANCE: cooperative and comfortable ORIENTATION/CONSCIOUSNESS: Yes awake, Yes oriented to person, Yes oriented to place and Yes oriented to time HENMT: COMMON NORMALS: normocephalic, atraumatic and hearing grossly normal bilaterally HEAD & SCALP: normocephalic and atraumatic Resp: COMMON NORMALS: normal respiratory effort, No retractions, No use of accessory muscles and clear to auscultation bilaterally AUSCULTATION: clear to auscultation bilaterally Cardio: COMMON NORMALS: regular rate, regular rhythm and No murmurs present (Cardio) RATE: regular rate RHYTHM: regular rhythm GI: COMMON NORMALS: Soft to palpation and No hepatosplenomegaly present AUSCULTATION: Yes normoactive bowel sounds PALPATION: Yes Soft to palpation, No Tenderness to palpation present (GI), No Guarding due to palpation present (GI) and Yes No hepatosplenomegaly present Extremity: COMMON NORMALS: normal to inspection, capillary refill normal, no clubbing, cyanosis or edema, no calf tenderness and no pedal edema Neuro: SENSORIUM/ORIENTATION: Yes oriented to person, Yes oriented to place and Yes oriented to time Skin: COMMON NORMALS: no rashes or lesions noted GENERAL SKIN EXAM: no rashes or lesions noted Course Vital Signs: Vital signs: Vital Signs Temperature 98.4 F 08/11/22 21:05 Pulse Rate 93 08/11/22 21:05 Respiratory Rate 15 08/11/22 21:05 Blood Pressure 108/66 08/11/22 21:05 Pulse Oximetry 95 08/11/22 21:05 Oxygen Delivery Me thod 08/11/22 21:05 MDM - Dizziness Medical Decision Making White count 20,000 Hemoccult on exam was markedly positive. Suspect upper GI bleed CT of the abdomen and pelvis ordered as well as 1 unit of blood transfused. Patient was otherwise relatively stable had considered referring to GI lab in the morning for transfusion however given his white count we went ahead and did transfuse. Care signed out to Dr. Howard at change of shift. See final notes for diagnosis and disposition. With likely GI bleed with some anemia. I did offer him admission he states that he really does not want to stay at all for him I could give him a unit of transfusion here and getting follow-up with GI and he states he rather do that and he states that if he worsens he will return patient has been stable here b lood pressure here has been normal. Medical Records I reviewed the patient's medical records. Lab Data I reviewed the patient's lab results. 08/11/22 15:45 08/11/22 15:45 Radiology Impressions Chest X-Ray 08/11/22 16:32 IMPRESSION: No acute findings. Abdomen/Pelvis CT 08/11/22 17:04 IMPRESSION: 1. No acute findings. 2. Splenectomy with mild splenosis. Laboratory Results WBC 20.0 10^3/uL (4.0-10.0) H 08/11/22 15:45 RBC 3.75 10^6/uL (4.1-5.3) L 08/11/22 15:45 Hgb 7.4 g/dL (11.7-16.6) L 08/11/22 15:45 Hct 26.6 % (42.0-52.0) L 08/11/22 15:45 MCV 70.9 fl (80-94) L 08/11/22 15:45 MCH 19.7 pg (28.0-34.0) L 08/11/22 15:45 MCHC 27.8 g/dL (30.0-36.0) L 08/11/22 15:45 RDW 18.1 % (12.1-15.1) H 08/11/22 15:45 Plt Count 1145 10^3/cmm (130-400) H 08/11/22 15:45 MPV 8.9 fL (7.4-10.4) 08/11/22 15:45 Neut % (Auto) 76.4 % 08/11/22 15:45 Lymph % (Auto) 13.5 % 08/11/22 15:45 Metcalfe % (Auto) 8.3 % 08/11/22 15:45 Eos % (Auto) 0.6 % 08/11/22 15:45 Baso % (Auto) 0.4 % 08/11/22 15:45 Neut # (Auto) 15.27 10^3/uL (1.8-7.7) H 08/11/22 15:45 Lymph # (Auto) 2.7 10^3/uL (0.8-4.8) 08/11/22 15:45 Metcalfe # (Auto) 1.7 10^3/uL (0.2-0.9) H 08/11/22 15:45 Eos # (Auto) 0.1 10^3/uL (0.0-0.8) 08/11/22 15:45 Baso # (Auto) 0.1 10^3/uL (0.0-0.1) 08/11/22 15:45 Nucleated RBC % (auto) 1.2 % 08/11/22 15:45 Nucleated RBCs # 0.2 /100WBC 08/11/22 15:45 Sodium 133 mmol/L (136-145) L 08/11/22 15:45 Potassium 4.5 mmol/L (3.5-5.1) 08/11/22 15:45 Chloride 96 mmol/L (98-107) L 08/11/22 15:45 Carbon Dioxide 27 mmol/L (22-29) 08/11/22 15:45 Anion Gap 14.5 (5-19) 08/11/22 15:45 BUN 12 mg/dL (8-23) 08/11/22 15:45 Creatinine 0.8 mg/dL (0.7-1.2) 08/11/22 15:45 GFR Calculation 98.6 mL/min (90-130) 08/11/22 15:45 Glucose 120 mg/dL (65-115) H 08/11/22 15:45 Calculated Osmolality 277 mOsm/kg (285-295) L 08/11/22 15:45 Calcium 8.8 mg/dL (8.5-10.5) 08/11/22 15:45 Total Bilirubin 0.2 mg/dL (0.15-1.2) 08/11/22 15:45 AST 21 U/L (0-40) 08/11/22 15:45 ALT 12 U/L (0-41) 08/11/22 15:45 Alkaline Phosphatase 84 U/L (40-130) 08/11/22 15:45 Total Protein 7.5 g/dL (6.6-8.7) 08/11/22 15:45 Albumin 3.9 g/dL (3.5-5.2) 08/11/22 15:45 Globulin 3.6 g/dL (1.3-4.6) 08/11/22 15:45 Blood Type O Positive 08/11/22 15:45 Rho(D) Type Positive 08/11/22 15:45 Antibody Screen Negative 08/11/22 15:45 Crossmatch See Detail 08/11/22 15:45 Discharge Plan Discharge Patient Disposition: Home Clinical Impression: Anemia, GI bleed Condition: Stable Prescriptions: No Action lovastatin 40 mg tablet 40 mg PO QAM Brilinta 60 mg tablet 60 mg PO BID Qty: 60 6RF nitroglycerin [Nitrostat] 0.4 mg tablet, sublingual 0.4 mg sublingual Q5M PRN (Reason: chest pain) Qty: 25 3RF Rx Instructions: do not exceed 3 doses per episode aspirin 81 mg Tablet,Chewable 81 mg PO QAM Miralax 17 gram Powder In Packet 17 g PO DAILY PRN (Reason: Constipation) garlic 500 mg Capsule 500 mg PO QAM lisinopril 20 mg tablet 20 mg PO QAM metoprolol succinate 25 mg tablet extended release 24 hr 25 mg PO QAM hydrochlorothiazide 12.5 mg tablet 12.5 mg PO DAILY Discharge Orders: Discharge ED (Routine); Ordered 08/11/22 Ordered By: Allen Howard Referrals: Miko Montalvo DO [Primary Care Provider] - 1-3 days Discharge Diet: Advance as tolerated Discharge Activity: Resume usual activity Patient Instructions: GI Bleeding Coding Level of Care Code ED Fertilizer Supervisor for Chg Fwd Documented by User: Allen Howard MD 08/11/22 21:36 HPI - Dizziness General: Chief Complaint: Dizziness Stated Complaint: Routerrence sent for low HGB Time Seen by Provider: 08/11/22 15:46 Source: patient Mode of arrival: ambulatory History of Present Illness: HPI Narrative: . PFSH ED PFSH: Medical History CAD (coronary artery disease) Hernia Hyperlipemia Hypertension Melanoma Non-Hodgkins lymphoma Obesity Sleep apnea Surgical History H/O splenectomy Family History Father CAD (coronary artery disease) Hypertension Social History Smoking and tobacco status: former smoker Alcohol intake: current Alcohol intake frequency: holidays/special occasions only Course Vital Signs: Vital signs: Vital Signs Temperature 98.4 F 08/11/22 21:05 Pulse Rate 93 08/11/22 21:05 Respiratory Rate 15 08/11/22 21:05 Blood Pressure 108/66 08/11/22 21:05 Pulse Oximetry 95 08/11/22 21:05 Oxygen Delivery Me thod 08/11/22 21:05 MDM - Dizziness Medical Decision Making Care signed out to Dr. Howard at change of shift. See final notes for diagnosis and disposition. With likely GI bleed with some anemia. I did offer him admission he states that he really does not want to stay at all for him I could give him a unit of transfusion here and getting follow-up with GI and he states he rather do that and he states that if he worsens he will return patient has been stable here blood pressure here has been normal. Lab Data 08/11/22 15:45 08/11/22 15:45 Radiology Impressions Chest X-Ray 08/11/22 16:32 IMPRESSION: No acute findings. Abdomen/Pelvis CT 08/11/22 17:04 IMPRESSION: 1. No acute findings. 2. Splenectomy with mild splenosis. Laboratory Results WBC 20.0 10^3/uL (4.0-10.0) H 08/11/22 15:45 RBC 3.75 10^6/uL (4.1-5.3) L 08/11/22 15:45 Hgb 7.4 g/dL (11.7-16.6) L 08/11/22 15:45 Hct 26.6 % (42.0-52.0) L 08/11/22 15:45 MCV 70.9 fl (80-94) L 08/11/22 15:45 MCH 19.7 pg (28.0-34.0) L 08/11/22 15:45 MCHC 27.8 g/dL (30.0-36.0) L 08/11/22 15:45 RDW 18.1 % (12.1-15.1) H 08/11/22 15:45 Plt Count 1145 10^3/cmm (130-400) H 08/11/22 15:45 MPV 8.9 fL (7.4-10.4) 08/11/22 15:45 Neut % (Auto) 76.4 % 08/11/22 15:45 Lymph % (Auto) 13.5 % 08/11/22 15:45 Metcalfe % (Auto) 8.3 % 08/11/22 15:45 Eos % (Auto) 0.6 % 08/11/22 15:45 Baso % (Auto) 0.4 % 08/11/22 15:45 Neut # (Auto) 15.27 10^3/uL (1.8-7.7) H 08/11/22 15:45 Lymph # (Auto) 2.7 10^3/uL (0.8-4.8) 08/11/22 15:45 Metcalfe # (Auto) 1.7 10^3/uL (0.2-0.9) H 08/11/22 15:45 Eos # (Auto) 0.1 10^3/uL (0.0-0.8) 08/11/22 15:45 Baso # (Auto) 0.1 10^3/uL (0.0-0.1) 08/11/22 15:45 Nucleated RBC % (auto) 1.2 % 08/11/22 15:45 Nucleated RBCs # 0.2 /100WBC 08/11/22 15:45 Sodium 133 mmol/L (136-145) L 08/11/22 15:45 Potassium 4.5 mmol/L (3.5-5.1) 08/11/22 15:45 Chloride 96 mmol/L (98-107) L 08/11/22 15:45 Carbon Dioxide 27 mmol/L (22-29) 08/11/22 15:45 Anion Gap 14.5 (5-19) 08/11/22 15:45 BUN 12 mg/dL (8-23) 08/11/22 15:45 Creatinine 0.8 mg/dL (0.7-1.2) 08/11/22 15:45 GFR Calculation 98.6 mL/min (90-130) 08/11/22 15:45 Glucose 120 mg/dL (65-115) H 08/11/22 15:45 Calculated Osmolality 277 mOsm/kg (285-295) L 08/11/22 15:45 Calcium 8.8 mg/dL (8.5-10.5) 08/11/22 15:45 Total Bilirubin 0.2 mg/dL (0.15-1.2) 08/11/22 15:45 AST 21 U/L (0-40) 08/11/22 15:45 ALT 12 U/L (0-41) 08/11/22 15:45 Alkaline Phosphatase 84 U/L (40-130) 08/11/22 15:45 Total Protein 7.5 g/dL (6.6-8.7) 08/11/22 15:45 Albumin 3.9 g/dL (3.5-5.2) 08/11/22 15:45 Globulin 3.6 g/dL (1.3-4.6) 08/11/22 15:45 Blood Type O Positive 08/11/22 15:45 Rho(D) Type Positive 08/11/22 15:45 Antibody Screen Negative 08/11/22 15:45 Crossmatch See Detail 08/11/22 15:45 Discharge Plan Discharge Patient Disposition: Home Clinical Impression: Anemia, GI bleed Condition: Stable Prescriptions: No Action lovastatin 40 mg tablet 40 mg PO QAM Brilinta 60 mg tablet 60 mg PO BID Qty: 60 6RF nitroglycerin [Nitrostat] 0.4 mg tablet, sublingual 0.4 mg sublingual Q5M PRN (Reason: chest pain) Qty: 25 3RF Rx Instructions: do not exceed 3 doses per episode aspirin 81 mg Tablet,Chewable 81 mg PO QAM Miralax 17 gram Powder In Packet 17 g PO DAILY PRN (Reason: Constipation) garlic 500 mg Capsule 500 mg PO QAM lisinopril 20 mg tablet 20 mg PO QAM metoprolol succinate 25 mg tablet extended release 24 hr 25 mg PO QAM hydrochlorothiazide 12.5 mg tablet 12.5 mg PO DAILY Discharge Orders: Discharge ED (Routine); Ordered 08/11/22 Ordered By: Allen Howard Referrals: Miko Montalvo, [Primary Care Provider] - 1-3 days Discharge Diet: Advance as tolerated Discharge Activity: Resume usual activity Patient Instructions: GI Bleeding Coding Level of Care Code ED Fertilizer Supervisor for Velia Lorenzana
[2022-08-11 16:01] LABS: Basophils # 0.1 10^3/uL (0.0-0.1); Basophils % 0.4 %; Eosinophils # 0.1 10^3/uL (0.0-0.8); Eosinophils % 0.6 %; Hematocrit 26.6 % (42.0-52.0); Hemoglobin 7.4 g/dL (11.7-16.6); Lymphocytes # 2.7 10^3/uL (0.8-4.8); Lymphocytes % 13.5 %; Mean Corpuscular HGB Conc 27.8 g/dL (30.0-36.0); Mean Corpuscular Hemoglobin 19.7 pg (28.0-34.0); Mean Corpuscular Volume 70.9 fl (80-94); Mean Platelet Volume 8.9 fL (7.4-10.4); Monocytes # 1.7 10^3/uL (0.2-0.9); Monocytes % 8.3 %; Neutrophils # 15.27 10^3/uL (1.8-7.7); Neutrophils % 76.4 %; Nucleated Red Blood Cells # 0.2 /100WBC; Nucleated Red Blood Cells % 1.2 %; Platelet Count 1145 10^3/cmm (130-400); Red Blood Count 3.75 10^6/uL (4.1-5.3); Red Cell Distribution Width 18.1 % (12.1-15.1)
[2022-08-11 16:21] LABS: Alanine Aminotransferase 12 U/L (0-41); Albumin Level 3.9 g/dL (3.5-5.2); Alkaline Phosphatase 84 U/L (40-130); Anion Gap 14.5 (5-19); Aspartate Amino Transferase 21 U/L (0-40); Blood Urea Nitrogen 12 mg/dL (8-23); Calcium 8.8 mg/dL (8.5-10.5); Carbon Dioxide 27 mmol/L (22-29); Chloride 96 mmol/L (98-107); Globulin 3.6 g/dL (1.3-4.6); Glomerular Filtration Rate 98.6 mL/min (90-130); Glucose 120 mg/dL (65-115); Osmolality Calculated 277 mOsm/kg (285-295); Potassium 4.5 mmol/L (3.5-5.1); Sodium 133 mmol/L (136-145); Total Bilirubin 0.2 mg/dL (0.15-1.2); Total Protein 7.5 g/dL (6.6-8.7)
--- NOTE | 2022-08-11 16:32 | ECG_ITS ---
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 Measurements Intervals [place] Rate: 89 P: 40 DE: 186 QRS: 35 QRSD: 82 T: 48 QT: 338 QTc: 412 Interpretive Statements SINUS RHYTHM Compared to ECG 08/02/2021 20:00:36 Indeterminate axis no longer present Electronically Signed On 08-11-2022 23:46:06 CHEMISTRY RESEARCH ASSISTANT by Jenna Taylor M.D. [id number]
--- NOTE | 2022-08-11 16:32 | XRR_ITS ---
PROCEDURE INFORMATION: Exam: XR Chest Exam date and time: 08/11/2022 4:48 PM Age: 61 years old Clinical indication: Cough and dyspnea; Additional info: Dyspnea/cough TECHNIQUE: Imaging protocol: Radiologic exam of the chest. Views: 1 view. COMPARISON: CR XR chest 1V portable [id number] 08/02/2021 11:15 AM FINDINGS: Lungs: Unremarkable. No consolidation. Pleural spaces: Unremarkable. No pleural effusion. No pneumothorax. Heart/Mediastinum: Unremarkable. No cardiomegaly. Bones/joints: Unremarkable. XR/XR chest 1V portable [id number] IMPRESSION: No acute findings.
--- NOTE | 2022-08-11 17:04 | CTR_ITS ---
PROCEDURE INFORMATION: Exam: CT Abdomen And Pelvis With Contrast Exam date and time: 08/11/2022 5:30 PM Age: 61 years old Clinical indication: Condition or disease; Other: Low hbg; Additional info: Abd pain TECHNIQUE: Imaging protocol: Computed tomography of the abdomen and pelvis with contrast. Radiation optimization: All CT scans at this facility use at least one of these dose optimization techniques: automated exposure control; mA and/or kV adjustment per patient size (includes targeted exams where dose is matched to clinical indication); or iterative reconstruction. Contrast material: OMNI 350; Contrast volume: 95 ml; Contrast route: INTRAVENOUS (IV); Other protocol: This patient has received 0 known CTs and 0 known cardiac nuclear medicine studies in the 12 months prior to the current study. COMPARISON: CR XR chest 1V portable [id number] 08/11/2022 4:48 PM RADIATION DOSE METRICS: Total DLP (mGy-cm): 1554.83 FINDINGS: Tubes, catheters and devices: Surgical clip posterior to the pancreatic head. Liver: Normal. No mass. Gallbladder and bile ducts: Cholecystectomy. The bile ducts are normal. Pancreas: Fatty atrophy of the pancreas. Spleen: Splenectomy with mild splenosis in the left upper quadrant. Adrenal glands: Normal. No mass. Kidneys and ureters: Normal. No hydronephrosis. Stomach and bowel: Small duodenal diverticula. The stomach, small bowel, and colon are otherwise unremarkable. No wall thickening or obstruction. Appendix: The appendix is visualized and is normal. Intraperitoneal space: Unremarkable. No free air. No significant fluid collection. Retroperitoneal space: Surgical clips in the retroperitoneum. Vasculature: Unremarkable. No abdominal aortic aneurysm. Lymph nodes: Unremarkable. No enlarged lymph nodes. Urinary bladder: Unremarkable as visualized. Reproductive: Unremarkable as visualized. Bones/joints: Degenerative changes of the spine. No acute fracture. Soft tissues: Fat containing left inguinal hernia. Anterior laparotomy scarring. CT/CT abdomen pelvis w con* [id number] IMPRESSION: 1. No acute findings. 2. Splenectomy with mild splenosis.
[2022-08-11] MEDS: acetaminophen 325 mg Tablet 650 MG PO (19:12)
[2022-08-11] MEDS: diphenhydrAMINE 50 mg/mL SDV 1mL 25 MG IVP (19:13)
--- NOTE | 2022-08-11 19:20 | PC.NURSE ---
Dr Howard notified of temp increase after starting blood states to continue blood admin and given tylenol and benadryl
--- NOTE | 2022-08-12 10:57 | DCPLANNER ---
Addendum entered by Sandy Jimenez 09/27/22 07:33: This appointment was cancelled Addendum entered by Sandy Jimenez 08/24/22 14:49: Patient has a follow up appointment scheduled for August at 11:[address] Streeter at general surgery. Clinic will call patient with appointment information. Original Note: manager infusion had message to schedule a follow up appointment for patient with general surgery. manager infusion sent patients information to the front office staff at general surgery. Patients information will be printed and reviewed. Clinic will call patient with appointment information.
== END 2022-08-11 21:32 | disposition home or self-care (01) ==
PROVIDERS: Family Medicine; Emergency Provider Emergency Medicine; PCP Family Medicine
DX: K92.2 Gastrointestinal hemorrhage, unspecified (principal); D64.9 Anemia, unspecified; Z79.82 Long term (current) use of aspirin; I25.10 Atherosclerotic heart disease of native coronary artery without angina pectoris; E78.5 Hyperlipidemia, unspecified; I10 Essential (primary) hypertension; Z85.72 Personal history of non-Hodgkin lymphomas; Z87.891 Personal history of nicotine dependence
CPT/HCPCS: 71045; 74177; 80053; 85025; 86850; 86900; 86920; 93005; 96374; 99285; J1200; P9016; Q9967

== ENCOUNTER → 2022-08-17 10:04 | Outpatient (BNVA) | payer BC, SELFPAY | PROVIDERS: PCP Family Medicine; Visit Provider Clinical Nurse Specialist Adult Health | DX: D64.9 Anemia, unspecified (principal) | CPT/HCPCS: 85014; 85018 ==

== ENCOUNTER 2022-08-24 06:27 | Outpatient (CLI) | payer BC, SELFPAY ==
[2022-08-24 07:08] LABS: Basophils # 0.1 10^3/uL (0.0-0.1); Basophils % 0.4 %; Eosinophils # 0.2 10^3/uL (0.0-0.8); Eosinophils % 1.2 %; Hematocrit 28.2 % (42.0-52.0); Hemoglobin 8.2 g/dL (11.7-16.6); Lymphocytes # 1.9 10^3/uL (0.8-4.8); Lymphocytes % 15.3 %; Mean Corpuscular HGB Conc 29.1 g/dL (30.0-36.0); Mean Corpuscular Hemoglobin 21.9 pg (28.0-34.0); Mean Corpuscular Volume 75.2 fl (80-94); Mean Platelet Volume 8.4 fL (7.4-10.4); Monocytes # 1.2 10^3/uL (0.2-0.9); Monocytes % 9.6 %; Neutrophils % 72.5 %; Nucleated Red Blood Cells % 0.3 %; Platelet Count 905 10^3/cmm (130-400); Red Blood Count 3.75 10^6/uL (4.1-5.3); Red Cell Distribution Width 22.4 % (12.1-15.1); White Blood Count 12.3 10^3/uL (4.0-10.0)
== END 2022-08-24 06:28 | disposition home or self-care (01) ==
LOC: LAB 06:28
PROVIDERS: PCP Family Medicine; Visit Provider Internal Medicine Medical Oncology
DX: D50.0 Iron deficiency anemia secondary to blood loss (chronic) (principal)
CPT/HCPCS: 36415; 85025

== ENCOUNTER 2022-08-24 13:18 | Inpatient (IN) | payer BC, SELFPAY ==
[2022-08-24] VITALS (24 sets, daily range): BP systolic 128–163; BP diastolic 58–93; PULSE 82–103; RESP 14–24; TEMP 36.6–36.9; O2SAT 92–96; BMI 40.8; BMI 41.6
--- NOTE | 2022-08-24 13:24 | CTR_ITS ---
PROCEDURE INFORMATION: Exam: CT Abdomen And Pelvis Without Contrast Exam date and time: 08/24/2022 2:53 PM Age: 61 years old Clinical indication: Other: Rectal bleeding/ abd pain/ cramping; Additional info: Abdominal pain TECHNIQUE: Imaging protocol: Computed tomography of the abdomen and pelvis without contrast. Radiation optimization: All CT scans at this facility use at least one of these dose optimization techniques: automated exposure control; mA and/or kV adjustment per patient size (includes targeted exams where dose is matched to clinical indication); or iterative reconstruction. Other protocol: This patient has received [address] and 0 known cardiac nuclear medicine studies in the 12 months prior to the current study. COMPARISON: CT abdomen pelvis w con* [id number] 08/11/2022 5:30 PM RADIATION DOSE METRICS: Total DLP (mGy-cm): 1566.96 FINDINGS: Coronary arteries: Coronary artery atherosclerotic calcifications. Liver: Normal. No mass. Gallbladder and bile ducts: Cholecystectomy. Pancreas: Normal. No ductal dilation. Spleen: Spleen is absent. Adrenal glands: Normal. No mass. Kidneys and ureters: Normal. No hydronephrosis. Stomach and bowel: Minimal diverticulosis without diverticulitis. Appendix: No evidence of appendicitis. Intraperitoneal space: Unremarkable. No free air. No significant fluid collection. Vasculature: Unremarkable. No abdominal aortic aneurysm. Lymph nodes: Unremarkable. No enlarged lymph nodes. Urinary bladder: Unremarkable as visualized. Reproductive: Unremarkable as visualized. Bones/joints: Unremarkable. No acute fracture. Soft tissues: Postsurgical changes about the umbilicus. Small bilateral left greater than right fat containing inguinal hernias without bowel. CT/CT abdomen pelvis con [id number] IMPRESSION: 1. Negative for acute inflammatory process in the abdomen or pelvis. 2. Coronary artery atherosclerotic calcifications. 3. Cholecystectomy. 4. Postsurgical changes about the umbilicus. 5. Spleen is absent. 6. Minimal diverticulosis without diverticulitis. 7. Small bilateral left greater than right fat containing inguinal hernias without bowel.
[2022-08-24 14:31] LABS: INR 1.13 (0.8-1.2)
[2022-08-24 14:32] LABS: Partial Thromboplastin Time 27.6 SECONDS (23.9-36.7)
--- NOTE | 2022-08-24 14:33 | PC.NURSE ---
REMAINED WITH PT FOR INITIAL 15 MINUTES. PT DENIES ANY NEW SYMPTOMS OR REACTIONS TO THE BLOOD TRANSFUSION. PT PROVIDED WITH CALL LIGHT AND INSTRUCTIONS TO INFORM ME IF ANY CHANGES ARE NOTED.
[2022-08-24 14:35] LABS: Alanine Aminotransferase 10 U/L (0-41); Albumin Level 3.2 g/dL (3.5-5.2); Alkaline Phosphatase 68 U/L (40-130); Anion Gap 14.5 (5-19); Aspartate Amino Transferase 14 U/L (0-40); Blood Urea Nitrogen 19 mg/dL (8-23); Calcium 8.1 mg/dL (8.5-10.5); Carbon Dioxide 24 mmol/L (22-29); Chloride 97 mmol/L (98-107); Globulin 2.8 g/dL (1.3-4.6); Glucose 170 mg/dL (65-115); Osmolality Calculated 278 mOsm/kg (285-295); Potassium 4.5 mmol/L (3.5-5.1); Sodium 131 mmol/L (136-145); Total Bilirubin 0.2 mg/dL (0.15-1.2)
--- NOTE | 2022-08-24 14:53 | W.ED.GIBLEED ---
HPI - GI Bleed General: Chief complaint: ER Hold Stated complaint: rectal bleed Time Seen by Provider: 08/24/22 13:24 Source: patient Mode of arrival: ambulatory History of Present Illness: 61-year-old male presents to the emergency room with complaints of bright red blood per rectum. He was seen on August 11 at that time he had a heme positive stool white count of 20,000 he declined admission he was transfused 1 unit of blood discharged home he had 2 more units after that and then was getting another 2 units today when his hemoglobin dropped he was at the infusion center getting blood had a syncopal episode while seated and had to large bright red bloody stools. He has not had any since arriving here. He denies any chest pain or discomfort. He has previously had a colonoscopy approximately 2 years ago that showed nonadenomatous polyps which were removed and diverticuli but no other abnormalities. He presents here tachycardic lightheaded and dizzy. complaint: gross hematochezia Onset (ago): minute(s) Pain Consistency: intermittent Severity: moderate Relieving factors: none Exacerbating factors: none Context: history of GI bleed Associated symptoms: Denies abdominal pain, chills, easy bruising, epistaxis, fever(s), headache(s), malaise, nausea, other bleeding, poor appetite, rash, syncope, vomiting or weakness Review of Systems Const: Denies: fever(s), chills, fatigue or malaise ENMT: Denies: epistaxis Card: Denies: syncope Resp: Denies: dyspnea, productive cough or non-productive cough GI: Denies: abdominal pain, nausea or vomiting : Denies: flank pain, dysuria, urinary frequency or urinary urgency Skin/Breast: Denies: rash or pruritus Neuro: Denies: headache(s) Vinay/Lymph: Denies: easy bruising PFS ED PFSH: Medical History CAD (coronary artery disease) Cholecystitis Hyperlipemia Hypertension Melanoma Obesity Obstructive sleep apnea Personal history of Hodgkin lymphoma Age 22 Surgical History H/O splenectomy History of heart artery stent History of hernia repair Abdominal hernia repair x 2 History of melanoma excision Right leg Family History Father CAD (coronary artery disease) Hypertension Social History Smoking and tobacco status: former smoker Alcohol intake: current Alcohol intake frequency: holidays/special occasions only Physical Exam Const: COMMON NORMALS: no acute distress GENERAL APPEARANCE: cooperative and comfortable ORIENTATION/CONSCIOUSNESS: Yes awake, Yes oriented to person, Yes oriented to place and Yes oriented to time HENMT: COMMON NORMALS: normocephalic, atraumatic and hearing grossly normal bilaterally HEAD & SCALP: normocephalic and atraumatic Resp: COMMON NORMALS: normal respiratory effort, No retractions, No use of accessory muscles and clear to auscultation bilaterally AUSCULTATION: clear to auscultation bilaterally Cardio: COMMON NORMALS: regular rate, regular rhythm and No murmurs present (Cardio) RATE: regular rate RHYTHM: regular rhythm GI: COMMON NORMALS: Soft to palpation and No hepatosplenomegaly present AUSCULTATION: Yes normoactive bowel sounds PALPATION: Yes Soft to palpation, No Tenderness to palpation present (GI), No Guarding due to palpation present (GI) and Yes No hepatosplenomegaly present RECTAL EXAM: Yes visual inspection normal, Yes normal sphincter tone and No hemorrhoids Extremity: COMMON NORMALS: normal to inspection, capillary refill normal, no clubbing, cyanosis or edema, no calf tenderness and no pedal edema Neuro: SENSORIUM/ORIENTATION: Yes oriented to person, Yes oriented to place and Yes oriented to time Skin: COMMON NORMALS: no rashes or lesions noted GENERAL SKIN EXAM: no rashes or lesions noted Course Vital Signs: Vital signs: Vital Signs Temperature 98.3 F 08/24/22 23:45 Pulse Rate 69 08/25/22 10:00 Respiratory Rate 15 08/25/22 10:00 Blood Pressure 141/74 08/25/22 10:00 Pulse Oximetry 92 08/25/22 10:00 Oxygen Delivery Me thod 08/24/22 22:00 MDM - GI Bleed Medical Decision Making Patient has the urge to defecate but has not had any further bowel movement since arriving here. He tells me he had a colonoscopy 2 years ago he had some polyps removed but no other significant findings. CT done today there is no masses and no evidence of diverticulitis. There is some minimal diverticulosis. I discussed case with Dr. Streeter in the last few weeks patient has had 5 units of blood now with the 2 units he was given today. He was tachycardic when he first arrived that has improved. He has not had any further bright red blood per rectum. Dr. Streeter both concur he should be transferred some more gastroenterology and interventional radiology is available. Care signed out to Dr. Howard at change of shift. See final notes for diagnosis and disposition. Medical Records I reviewed the patient's medical records. Lab Data I reviewed the patient's lab results. 08/24/22 14:05 Radiology Impressions Abdomen/Pelvis CT 08/24/22 13:24 IMPRESSION: 1. Negative for acute inflammatory process in the abdomen or pelvis. 2. Coronary artery atherosclerotic calcifications. 3. Cholecystectomy. 4. Postsurgical changes about the umbilicus. 5. Spleen is absent. 6. Minimal diverticulosis without diverticulitis. 7. Small bilateral left greater than right fat containing inguinal hernias without bowel. Laboratory Results WBC 17.8 10^3/uL (4.0-10.0) H 08/24/22 17:00 RBC 4.09 10^6/uL (4.1-5.3) L 08/24/22 17:00 Hgb 9.2 g/dL (11.7-16.6) L 08/24/22 17:00 Hct 30.9 % (42.0-52.0) L 08/24/22 17:00 MCV 75.6 fl (80-94) L 08/24/22 17:00 MCH 22.5 pg (28.0-34.0) L 08/24/22 17:00 MCHC 29.8 g/dL (30.0-36.0) L 08/24/22 17:00 RDW 21.3 % (12.1-15.1) H 08/24/22 17:00 Plt Count 819 10^3/cmm (130-400) H 08/24/22 17:00 MPV 8.1 fL (7.4-10.4) 08/24/22 17:00 Neut % (Auto) 76.6 % 08/24/22 17:00 Lymph % (Auto) 14.4 % 08/24/22 17:00 [place] % (Auto) 7.8 % 08/24/22 17:00 Eos % (Auto) 0.2 % 08/24/22 17:00 Baso % (Auto) 0.3 % 08/24/22 17:00 Neut # (Auto) 13.61 10^3/uL (1.8-7.7) H 08/24/22 17:00 Lymph # (Auto) 2.6 10^3/uL (0.8-4.8) 08/24/22 17:00 [place] # (Auto) 1.4 10^3/uL (0.2-0.9) H 08/24/22 17:00 Eos # (Auto) 0.0 10^3/uL (0.0-0.8) 08/24/22 17:00 Baso # (Auto) 0.1 10^3/uL (0.0-0.1) 08/24/22 17:00 Nucleated RBC % (auto) 0.2 % 08/24/22 17:00 Nucleated RBCs # 0.0 /100WBC 08/24/22 17:00 PT 14.80 SECONDS (12.1-14.9) 08/24/22 14:05 INR 1.13 (0.8-1.2) 08/24/22 14:05 APTT 27.6 SECONDS (23.9-36.7) 08/24/22 14:05 Sodium 135 mmol/L (136-145) L 08/24/22 17:00 Potassium 4.6 mmol/L (3.5-5.1) 08/24/22 17:00 Chloride 100 mmol/L (98-107) 08/24/22 17:00 Carbon Dioxide 26 mmol/L (22-29) 08/24/22 17:00 Anion Gap 13.6 (5-19) 08/24/22 17:00 BUN 19 mg/dL (8-23) 08/24/22 17:00 Creatinine 0.7 mg/dL (0.7-1.2) 08/24/22 17:00 GFR Calculation 115.0 mL/min (90-130) 08/24/22 17:00 Glucose 129 mg/dL (65-115) H 08/24/22 17:00 Calculated Osmolality 284 mOsm/kg (285-295) L 08/24/22 17:00 Calcium 8.8 mg/dL (8.5-10.5) 08/24/22 17:00 Total Bilirubin 0.2 mg/dL (0.15-1.2) 08/24/22 14:05 AST 14 U/L (0-40) 08/24/22 14:05 ALT 10 U/L (0-41) 08/24/22 14:05 Alkaline Phosphatase 68 U/L (40-130) 08/24/22 14:05 Total Protein 6.0 g/dL (6.6-8.7) L 08/24/22 14:05 Albumin 3.2 g/dL (3.5-5.2) L 08/24/22 14:05 Globulin 2.8 g/dL (1.3-4.6) 08/24/22 14:05 Discharge Plan Discharge Patient Disposition: Admitted As Inpatient Admit Provider: Dominguez Streeter Clinical Impression: Acute lower GI bleeding, Anemia Condition: Stable Coding Level of Care Code ED Circulation Crew Leader for Velia Lorenzana
[2022-08-24 17:05] LABS: Basophils # 0.1 10^3/uL (0.0-0.1); Basophils % 0.3 %; Eosinophils % 0.2 %; Hematocrit 30.9 % (42.0-52.0); Hemoglobin 9.2 g/dL (11.7-16.6); Lymphocytes # 2.6 10^3/uL (0.8-4.8); Lymphocytes % 14.4 %; Mean Corpuscular HGB Conc 29.8 g/dL (30.0-36.0); Mean Corpuscular Hemoglobin 22.5 pg (28.0-34.0); Mean Corpuscular Volume 75.6 fl (80-94); Mean Platelet Volume 8.1 fL (7.4-10.4); Monocytes # 1.4 10^3/uL (0.2-0.9); Monocytes % 7.8 %; Neutrophils # 13.61 10^3/uL (1.8-7.7); Neutrophils % 76.6 %; Nucleated Red Blood Cells % 0.2 %; Platelet Count 819 10^3/cmm (130-400); Red Blood Count 4.09 10^6/uL (4.1-5.3); Red Cell Distribution Width 21.3 % (12.1-15.1); White Blood Count 17.8 10^3/uL (4.0-10.0)
[2022-08-24 17:54] LABS: Anion Gap 13.6 (5-19); Blood Urea Nitrogen 19 mg/dL (8-23); Calcium 8.8 mg/dL (8.5-10.5); Carbon Dioxide 26 mmol/L (22-29); Chloride 100 mmol/L (98-107); Glucose 129 mg/dL (65-115); Osmolality Calculated 284 mOsm/kg (285-295); Potassium 4.6 mmol/L (3.5-5.1); Sodium 135 mmol/L (136-145)
--- NOTE | 2022-08-24 19:03 | PC.NURSE ---
REPORT CALLED TO CONCHIS PARKS IN ICU.
--- NOTE | 2022-08-24 22:40 | PM.HP ---
Providers/Chief Complaint Admitting Physician: Dominguez Streeter DO Primary Care Provider: Miko Montalvo DO Chief Complaint: rectal bleed History of Present Illness García Gleason is a 61 year old male history of Hodgkin lymphoma diagnosed at age 22.? His treatment included splenectomy and chemotherapy. Also has CAD s/p PAULIE 07/2021, chronic leukocytosis, chronic anemia. He was recently seen in the seen in the emergency room on August 11 for worsening fatigue and dyspnea. His Hemoccult was positive on this day. CT of the abdomen and pelvis did not reveal any abnormalities. He was transfused. Offered admission but elected to return home. His dose of Brilinta was reduced and started on Protonix. .Recently seen by hematology/oncology for evaluation of his anemia and abnormal leukocytosis. Presented to ER today with c/o bright red blood per rectum. he was getting transfuison as outpatient when he passed large blood clots via rectum. Denies any pain .HE had a near syncopal episode. He wa initially tachycardic and reported dizziness, He has received 2 units PRBC today, Hb is 9 at [facility] eof assessment. .................................................................................................................... Review of Systems General: Reports: 10 or more systems reviewed and unremarkable except in HPI and below Const: Denies: fever(s), chills or body aches Eyes: Denies: change in vision, blurry vision or photophobia ENMT: Reports: hoarseness; Denies: throat pain, enlarged tonsils, odynophagia or nasal congestion Card: Denies: chest pain, palpitations, irregular heart rhythm, edema, swelling of feet/ankles, lightheadedness, pre-syncope, dyspnea on exertion or orthopnea Resp: Denies: dyspnea, productive cough, non-productive cough, wheezing, stridor, pain on inspiration, change in phlegm color, hemoptysis or chest congestion GI: Denies: abdominal pain, nausea, vomiting, hematemesis, coffee ground emesis, dysphagia, heartburn, diarrhea, constipation, GI cramping, change in stool character, hematochezia or melena : Denies: flank pain, dysuria, urinary frequency, urinary urgency, urinary hesitancy or hematuria Musc: Denies: neck pain, back pain, extremity pain, joint swelling, joint warmth or deformity Neuro: Denies: headache(s), numbness in extremities, weakness in extremities, sensory changes, difficulty walking, frequent falls, dizziness, vertigo, behavioral changes, Slurred speech present or seizure-like activity Psych: Denies: anxiety, depression, suicidal ideation or homicidal ideation Endo: Denies: polyuria, polydipsia, tired all the time, cold intolerance or hot flashes Vinay/Lymph: Denies: easy bruising or easy bleeding Medications/Allergies Home Medications Medication Instructions Recorded Confirmed Last Taken Type aspirin 81 mg chewable tablet 81 mg PO [facility] 08/02/21 08/24/22 08/23/22 History ticagrelor 60 mg tablet (Brilinta) 60 mg PO BID #60 tabs 08/05/22 08/24/22 08/23/22 Rx garlic 500 mg capsule 500 mg PO [facility] 08/11/22 08/24/22 08/19/22 History hydrochlorothiazide 12.5 mg tablet 12.5 mg PO [facility] 08/11/22 08/24/22 08/23/22 History lisinopril 20 mg tablet 20 mg PO [facility] 08/11/22 08/24/22 08/23/22 History metoprolol succinate 25 mg 25 mg PO [facility] 08/11/22 08/24/22 08/23/22 History tablet,extended release 24 hr polyethylene glycol 3350 17 gram 17 g PO DAILY PRN Constipation 08/11/22 08/24/22 08/19/22 History oral powder packet (Miralax) lovastatin 40 mg tablet 40 mg PO QA #90 tabs 08/15/22 08/24/22 08/23/22 Rx nitroglycerin 0.3 mg sublingual 0.3 mg sublingual Q5M PRN Chest 08/24/22 08/24/22 Unknown History tablet (Nitrostat) Pain pantoprazole 40 mg tablet,delayed 40 mg PO QAM 08/24/22 08/24/22 08/24/22 History release Allergies Allergy/AdvReac Type Severity Reaction Status Date / Time No Known Allergies Allergy Verified 08/24/22 14:09 PFSH Acute PFSH: Medical History CAD (coronary artery disease) Cholecystitis Hyperlipemia Hypertension Melanoma Obesity Obstructive sleep apnea Personal history of Hodgkin lymphoma Age 22 Surgical History H/O splenectomy History of heart artery stent History of hernia repair Abdominal hernia repair x 2 History of melanoma excision Right leg Family History Father CAD (coronary artery disease) Hypertension Social History Smoking and tobacco status: former smoker Alcohol intake: current Alcohol intake frequency: holidays/special occasions only Vitals/I&O/Wt Last Vital Signs Temp 98.4 F 08/24/22 19:45 Pulse 89 08/24/22 21:24 Resp 19 H 08/24/22 21:24 BP 149/84 08/24/22 21:24 Pulse Ox 96 08/24/22 21:24 O2 Del Method 08/24/22 21:24 Weight last 48 hrs Weight 143.335 kg Weight 140.614 kg Physical Exam Narrative: General: No acute distress, AO x3 HEENT: PERRLA, pupils bilaterally equal and reactive, pallors not present Chest: Normal vesicular breath sounds, no added sounds, equal good air entry bilaterally CVS: S1-S2 regular, no murmurs, no tachycardia, no gallops, no rubs Abdomen: Soft, nontender, no organomegaly, bowel sounds present Neuro: No focal deficits, no facial deformity, AO x3, power 5/5 in all limbs Data 08/24/22 17:00 08/24/22 17:00 Other Labs: Radiology Impressions Abdomen/Pelvis CT 08/24/22 13:24 IMPRESSION: 1. Negative for acute inflammatory process in the abdomen or pelvis. 2. Coronary artery atherosclerotic calcifications. 3. Cholecystectomy. 4. Postsurgical changes about the umbilicus. 5. Spleen is absent. 6. Minimal diverticulosis without diverticulitis. 7. Small bilateral left greater than right fat containing inguinal hernias without bowel. Laboratory Results WBC 17.8 10^3/uL (4.0-10.0) H 08/24/22 17:00 RBC 4.09 10^6/uL (4.1-5.3) L 08/24/22 17:00 Hgb 9.2 g/dL (11.7-16.6) L 08/24/22 17:00 Hct 30.9 % (42.0-52.0) L 08/24/22 17:00 MCV 75.6 fl (80-94) L 08/24/22 17:00 MCH 22.5 pg (28.0-34.0) L 08/24/22 17:00 MCHC 29.8 g/dL (30.0-36.0) L 08/24/22 17:00 RDW 21.3 % (12.1-15.1) H 08/24/22 17:00 Plt Count 819 10^3/cmm (130-400) H 08/24/22 17:00 MPV 8.1 fL (7.4-10.4) 08/24/22 17:00 Neut % (Auto) 76.6 % 08/24/22 17:00 Lymph % (Auto) 14.4 % 08/24/22 17:00 [place] % (Auto) 7.8 % 08/24/22 17:00 Eos % (Auto) 0.2 % 08/24/22 17:00 Baso % (Auto) 0.3 % 08/24/22 17:00 Neut # (Auto) 13.61 10^3/uL (1.8-7.7) H 08/24/22 17:00 Lymph # (Auto) 2.6 10^3/uL (0.8-4.8) 08/24/22 17:00 [place] # (Auto) 1.4 10^3/uL (0.2-0.9) H 08/24/22 17:00 Eos # (Auto) 0.0 10^3/uL (0.0-0.8) 08/24/22 17:00 Baso # (Auto) 0.1 10^3/uL (0.0-0.1) 08/24/22 17:00 Nucleated RBC % (auto) 0.2 % 08/24/22 17:00 Nucleated RBCs # 0.0 /100WBC 08/24/22 17:00 PT 14.80 SECONDS (12.1-14.9) 08/24/22 14:05 INR 1.13 (0.8-1.2) 08/24/22 14:05 APTT 27.6 SECONDS (23.9-36.7) 08/24/22 14:05 Sodium 135 mmol/L (136-145) L 08/24/22 17:00 Potassium 4.6 mmol/L (3.5-5.1) 08/24/22 17:00 Chloride 100 mmol/L (98-107) 08/24/22 17:00 Carbon Dioxide 26 mmol/L (22-29) 08/24/22 17:00 Anion Gap 13.6 (5-19) 08/24/22 17:00 BUN 19 mg/dL (8-23) 08/24/22 17:00 Creatinine 0.7 mg/dL (0.7-1.2) 08/24/22 17:00 GFR Calculation 115.0 mL/min (90-130) 08/24/22 17:00 Glucose 129 mg/dL (65-115) H 08/24/22 17:00 Calculated Osmolality 284 mOsm/kg (285-295) L 08/24/22 17:00 Calcium 8.8 mg/dL (8.5-10.5) 08/24/22 17:00 Total Bilirubin 0.2 mg/dL (0.15-1.2) 08/24/22 14:05 AST 14 U/L (0-40) 08/24/22 14:05 ALT 10 U/L (0-41) 08/24/22 14:05 Alkaline Phosphatase 68 U/L (40-130) 08/24/22 14:05 Total Protein 6.0 g/dL (6.6-8.7) L 08/24/22 14:05 Albumin 3.2 g/dL (3.5-5.2) L 08/24/22 14:05 Globulin 2.8 g/dL (1.3-4.6) 08/24/22 14:05 A&P Assessment and plan (1) Acute lower GI bleeding: with symptomatic anemia and near syncope estela bansal Tachycardic initially upon presentation, currently blood pressure and heart rate has stabilized Status post 2 packed red blood cell transfusion, hemoglobin currently 9 at presentation. Will recheck H&H again now and with a.m. labs. N.p.o. for possible colonoscopy in the morning CT of the abdomen pelvis without any acute events. Hold aspirin, Brilinta. Last cardiac intervention was in July 2021. Hold antihypertensives for now. Protonix 40 mg IV every 12 hours Surgery has been consulted (2) Iron deficiency anemia secondary to blood loss (chronic): (3) Near syncope: Plan Chronic leukocytosis: Under evaluation from heme-onc. Suspect related to postsplenectomy state and bone marrow reactivity from chronic anemia. No localizing signs or symptoms of infection at this time Attestations Medical Necessity Statement*: Greater than 2 midnight admission is anticipated for lower GI bleed, possible colonoscopy, symptomatic anemia requiring transfusion Critical Care Time: The high probability of a clinically significant, sudden or life threatening deterioration of the patient's [vascular, heme] system(s) required my full and direct attention, intervention and personal management. The critical care time is as shown. This time is in addition to time spent performing any reported procedures but includes the following: [x] Data and vital sign review and interpretation [x] Patient assessment, examination and intervention [x] Documentation [x] Medication orders and management Critical Care Time (min): 40 Coding Level of Care Code Critical Care >/= 30 minutes Critical care time (in minutes): 35 The high probability of a clinically significant, sudden or life threatening deterioration, as referenced in this documentation, required my full and direct attention, intervention and personal management. The critical care time shown is in addition to time spent performing any reported separately billable procedures and includes the following: [x] Data and vital sign review and interpretation [x] Patient assessment, examination and intervention [x] Medication orders and management [x] Patient/Family updates as able [x] Care Coordination and Documentation. Diagnoses Acute lower GI bleeding K92.2 Iron deficiency anemia secondary to blood loss (chronic) D50.0 Near syncope R55
[2022-08-24 23:16] LABS: Hematocrit 27.5 % (42.0-52.0); Hemoglobin 8.2 g/dL (11.7-16.6)
[2022-08-24] MEDS: pantoprazole 40 mg SDV IVP (23:28)
[2022-08-24] MEDS: sodium chloride 0.9% 1,000 ML 75 ML IV (23:28)
[2022-08-25] VITALS (66 sets, daily range): BP systolic 112–185; BP diastolic 50–156; PULSE 67–90; RESP 13–26; TEMP 36.5–36.8; O2SAT 89–100
[2022-08-25 04:04] LABS: Basophils # 0.1 10^3/uL (0.0-0.1); Basophils % 0.3 %; Eosinophils # 0.1 10^3/uL (0.0-0.8); Eosinophils % 0.7 %; Hematocrit 26.3 % (42.0-52.0); Hemoglobin 7.9 g/dL (11.7-16.6); Lymphocytes # 3.4 10^3/uL (0.8-4.8); Mean Corpuscular Hemoglobin 22.6 pg (28.0-34.0); Mean Corpuscular Volume 75.4 fl (80-94); Mean Platelet Volume 8.6 fL (7.4-10.4); Monocytes # 1.5 10^3/uL (0.2-0.9); Monocytes % 9.8 %; Neutrophils # 9.69 10^3/uL (1.8-7.7); Neutrophils % 65.5 %; Nucleated Red Blood Cells % 0.1 %; Platelet Count 715 10^3/cmm (130-400); Red Blood Count 3.49 10^6/uL (4.1-5.3); Red Cell Distribution Width 21.4 % (12.1-15.1); White Blood Count 14.8 10^3/uL (4.0-10.0)
[2022-08-25 04:23] LABS: Alanine Aminotransferase 10 U/L (0-41); Alkaline Phosphatase 70 U/L (40-130); Anion Gap 11.7 (5-19); Aspartate Amino Transferase 17 U/L (0-40); Blood Urea Nitrogen 17 mg/dL (8-23); Calcium 8.6 mg/dL (8.5-10.5); Carbon Dioxide 29 mmol/L (22-29); Chloride 100 mmol/L (98-107); Globulin 2.6 g/dL (1.3-4.6); Glucose 108 mg/dL (65-115); Osmolality Calculated 284 mOsm/kg (285-295); Potassium 4.7 mmol/L (3.5-5.1); Sodium 136 mmol/L (136-145); Total Bilirubin 0.7 mg/dL (0.15-1.2); Total Protein 5.6 g/dL (6.6-8.7)
[2022-08-25] MEDS: metoprolol succinate ER (24 HR) 25 mg Tablet PO (06:29)
--- NOTE | 2022-08-25 11:15 | PM.CONSULT ---
Providers/Reason For Consult Consulting Physician/Specialty*: Dr. Dominguez Streeter, /General surgery Reason for Consult*: GI bleed Attending Physician: Ortiz Billings Primary Care Provider: Miko Montalvo DO History of Present Illness History of Present Illness García Gleason is a 61 year old male who presented to the hospital with GI bleeding. He reports that he has been having coffee ground type blood coming out of his rectum for months now. He was getting a transfusion at the infusion center and became lightheaded and reportedly had bright red blood per rectum. He does not recall seeing any bright red blood. He got 2 units of PRBCs in the ER. He denies any abdominal pain, nausea, emesis, constipation. He does report melena. He also gets heartburn at times and takes Protonix for this. Review of Systems General: Reports: 10 or more systems reviewed and unremarkable except in HPI and below Medications/Allergies Home Medications Medication Instructions Recorded Confirmed Last Taken Type aspirin 81 mg chewable tablet 81 mg PO QAM 08/02/21 08/24/22 08/23/22 History ticagrelor 60 mg tablet (Brilinta) 60 mg PO BID #60 tabs 08/05/22 08/24/22 08/23/22 Rx garlic 500 mg capsule 500 mg PO QAM 08/11/22 08/24/22 08/19/22 History hydrochlorothiazide 12.5 mg tablet 12.5 mg PO QAM 08/11/22 08/24/22 08/23/22 History lisinopril 20 mg tablet 20 mg PO QAM 08/11/22 08/24/22 08/23/22 History metoprolol succinate 25 mg 25 mg PO QAM 08/11/22 08/24/22 08/23/22 History tablet,extended release 24 hr polyethylene glycol 3350 17 gram 17 g PO DAILY PRN Constipation 08/11/22 08/24/22 08/19/22 History oral powder packet (Miralax) lovastatin 40 mg tablet 40 mg PO QAM #90 tabs 08/15/22 08/24/22 08/23/22 Rx nitroglycerin 0.3 mg sublingual 0.3 mg sublingual Q5M PRN Chest 08/24/22 08/24/22 Unknown History tablet (Nitrostat) Pain pantoprazole 40 mg tablet,delayed 40 mg PO QAM 08/24/22 08/24/22 08/24/22 History release Allergies Allergy/AdvReac Type Severity Reaction Status Date / Time No Known Allergies Allergy Verified 08/24/22 14:09 Current Medications Generic Name Dose Route Start Last Admin Trade Name Wayne PRN Reason Stop Dose Admin Sodium Chloride 1,000 mls @ 75 mls/hr 08/24/22 22:45 08/24/22 23:28 Sodium Chloride 0.9% IV 75 mls/hr .[id number] KAYLEN Administration Metoprolol Succinate 25 mg 08/25/22 06:00 08/25/22 06:29 Metoprolol Succinate Er (24 Hr) 25 Mg Tablet PO 25 mg QAM KAYLEN Administration Pantoprazole Sodium 40 mg 08/24/22 22:45 08/24/22 23:28 Pantoprazole 40 Mg Sdv IVP 40 mg Q12H KAYLEN Administration PFSH Acute PFSH: Medical History CAD (coronary artery disease) Cholecystitis Hyperlipemia Hypertension Melanoma Obesity Obstructive sleep apnea Personal history of Hodgkin lymphoma Age 22 Surgical History H/O splenectomy History of heart artery stent History of hernia repair Abdominal hernia repair x 2 History of melanoma excision Right leg Family History Father CAD (coronary artery disease) Hypertension Social History Smoking and tobacco status: former smoker Alcohol intake: current Alcohol intake frequency: holidays/special occasions only Vitals/I&O/Wt Last Vital Signs Temp 98.3 F 08/24/22 23:45 Pulse 69 08/25/22 10:00 Resp 15 08/25/22 10:00 BP 141/74 08/25/22 10:00 Pulse Ox 92 08/25/22 10:00 O2 Del Method 08/24/22 22:00 08/24/22 08/25/22 08/25/22 22:59 06:59 14:59 Intake Total 110 / 110 Output Total 875 / 875 Balance 110 / 110 -875 / -765 Weight last 48 hrs Weight 316 lb Weight 310 lb Physical Exam Narrative: General : Patient is well developed , no acute distress, oriented x3 Head : Normal cephalic, a-traumatic. Ears : Pinnae and external canal are normal. Hearing is normal. Eyes : PERRLA, Sclera and injection are normal. No conjunctival discharge. Nose : Mucous membranes are without erythema. Throat : buccal mucosa is normal, gums are without significant recession or hypertrophy. Lungs : Equal chest rise bilaterally, no use of accessory muscles, trachea is midline. Cor : Rate and rhythm are normal. Abdomen : Soft, ND, NT, no g/r/m Extremities : No edema, no cyanosis or clubbing, dorsalis pedis pulses are present bilaterally, non-tender to palpation of calves. Upper extremities are normal bilaterally. Back : non-tender to palpation, no CVA tenderness. Neuro : CN II - XII intact, Upper and lower extremities have equal and full strength Data 08/25/22 03:15 08/25/22 03:15 A&P Assessment and plan (1) Anemia: (2) GI bleed: Plan EGD Sigmoidoscopy The risks and benefits of the procedure, including bleeding, infection, intestinal perforation requiring surgery, missed lesion were explained to the patient. The patient is understanding of the risks and wishes to proceed. Coding Level of Care Code Acute Code for [facility] Fwd Diagnoses Anemia D64.9 GI bleed K92.2
--- NOTE | 2022-08-25 11:17 | PC.NURSE ---
Taken to GI lab by staff at around 1110
--- NOTE | 2022-08-25 11:19 | ANES.PREANE2 ---
Pre-Anesthetic Assessment Height/Weight: Height 1.85 m Weight 143.335 kg Temp Pulse Resp BP Pulse Ox O2 Del Method 98.3 F 69 15 141/74 92 08/24/22 23:45 08/25/22 10:00 08/25/22 10:00 08/25/22 10:00 08/25/22 10:00 08/24/22 22:00 Preop Diagnosis: Unstable angina/multivessel coronary artery disease Operation Date: 08/25/22 11:15 Proposed Procedures p EGD(Not Applicable) - Dominguez Streeter DO s Sigmoidoscopy(Not Applicable) - Dominguez Streeter DO Airway Submandibular: within normal limits Cervical ROM: within normal limits Mallampati: Class II Dentition: full Pulmonary Sleep Apnea and Shortness of Breath CV/HEM Coronary Artery Disease (PAULIE 1 year prior per patient.), Hypertension and Myocardial Infarction None reported Hepatic None reported GI Gastroesophageal Reflux Disease GI bleed (lower) no N/V episodes. Metabolic Hyperlipidemia and Morbid Obesity Neuropsych Anxiety Anesthetic Plan ASA status: 3 Anesthesia: MAC Medications/Allergies Home Medications Medication Instructions Recorded Confirmed Last Taken Type aspirin 81 mg chewable tablet 81 mg PO QAM 08/02/21 08/24/22 08/23/22 History ticagrelor 60 mg tablet (Brilinta) 60 mg PO BID #60 tabs 08/05/22 08/24/22 08/23/22 Rx garlic 500 mg capsule 500 mg PO QAM 08/11/22 08/24/22 08/19/22 History hydrochlorothiazide 12.5 mg tablet 12.5 mg PO QAM 08/11/22 08/24/22 08/23/22 History lisinopril 20 mg tablet 20 mg PO QAM 08/11/22 08/24/22 08/23/22 History metoprolol succinate 25 mg 25 mg PO QAM 08/11/22 08/24/22 08/23/22 History tablet,extended release 24 hr polyethylene glycol 3350 17 gram 17 g PO DAILY PRN Constipation 08/11/22 08/24/22 08/19/22 History oral powder packet (Miralax) lovastatin 40 mg tablet 40 mg PO QAM #90 tabs 08/15/22 08/24/22 08/23/22 Rx nitroglycerin 0.3 mg sublingual 0.3 mg sublingual Q5M PRN Chest 08/24/22 08/24/22 Unknown History tablet (Nitrostat) Pain pantoprazole 40 mg tablet,delayed 40 mg PO QAM 08/24/22 08/24/22 08/24/22 History release Allergies Allergy/AdvReac Type Severity Reaction Status Date / Time No Known Allergies Allergy Verified 08/24/22 14:09 Current Medications Generic Name Dose Route Start Last Admin Trade Name Freq PRN Reason Stop Dose Admin Sodium Chloride 1,000 mls @ 75 mls/hr 08/24/22 22:45 08/24/22 23:28 Sodium Chloride 0.9% IV 75 mls/hr .[id number] KAYLEN Administration Metoprolol Succinate 25 mg 08/25/22 06:00 08/25/22 06:29 Metoprolol Succinate Er (24 Hr) 25 Mg Tablet PO 25 mg QAM KAYLEN Administration Pantoprazole Sodium 40 mg 08/24/22 22:45 08/24/22 23:28 Pantoprazole 40 Mg Sdv IVP 40 mg Q12H KAYLEN Administration PFSH Anesthesia Medical History CAD (coronary artery disease) Cholecystitis Hyperlipemia Hypertension Melanoma Obesity Obstructive sleep apnea Personal history of Hodgkin lymphoma Age 22 Surgical History H/O splenectomy History of heart artery stent History of hernia repair Abdominal hernia repair x 2 History of melanoma excision Right leg Family History Father CAD (coronary artery disease) Hypertension Social History Smoking and tobacco status: former smoker Alcohol intake: current Alcohol intake frequency: holidays/special occasions only Data Anesthesia 08/25/22 03:15 08/25/22 03:15 Short CBC 08/24/22 08/24/22 08/25/22 Range/Units 17:00 23:05 03:15 WBC 17.8 H 14.8 H (4.0-10.0) 10^3/uL Hgb 9.2 L 8.2 L 7.9 L (11.7-16.6) g/dL Hct 30.9 L 27.5 L 26.3 L (42.0-52.0) % MCV 75.6 L 75.4 L (80-94) fl Plt Count 819 H 715 H (130-400) 10^3/cmm Neut % (Auto) 76.6 65.5 % Neut # (Auto) 13.61 H 9.69 H (1.8-7.7) 10^3/uL BMP 08/24/22 08/24/22 08/25/22 14:05 17:00 03:15 Sodium 131 L 135 L 136 Potassium 4.5 4.6 4.7 Chloride 97 L 100 100 Carbon Dioxide 24 26 29 BUN 19 19 17 Creatinine 0.7 0.7 0.7 Glucose 170 H 129 H 108 Calcium 8.1 L 8.8 8.6 Liver Function 08/24/22 08/25/22 Range/Units 14:05 03:15 Total Bilirubin 0.2 0.7 (0.15-1.2) mg/dL AST 14 17 (0-40) U/L ALT 10 10 (0-41) U/L Alkaline Phosphatase 68 70 (40-130) U/L Albumin 3.2 L 3.0 L (3.5-5.2) g/dL Coags 08/24/22 14:05 PT 14.80 INR 1.13 APTT 27.6 Cardiac Studies: Echocardiogram 08/03/21 Sestamibi Stress Test (Cardiology) 07/08/21
[2022-08-25] MEDS: sodium chloride 0.9% 1,000 ML 30 ML IV (11:23)
[2022-08-25 14:29] LABS: Hemoglobin 7.6 g/dL (11.7-16.6)
[2022-08-25] MEDS: pantoprazole 40 mg SDV IVP (15:13)
--- NOTE | 2022-08-25 17:09 | ANE.PACU2 ---
Inpatient post-anesthesia follow up: Airway intact: Yes Vital signs: Temperature 98.2 F Pulse Rate 77 Respiratory Rate 17 Blood Pressure 128/78 Pulse Oximetry 95 Oxygen Delivery Me thod Room Air Oxygen Flow Rate Fraction of Inspir ed Oxygen Hydration adequate: Yes Nausea and vomiting: No Pain level: 1 Mental status: Baseline
--- NOTE | 2022-08-25 20:04 | P.PN_ITS ---
Subjective Subjective: This morning he was anticipating that he was being transferred to outside facility, however, no beds could be found. Discussing with him and his they had taken some time to decide whether they would like to proceed with endoscopy here, after speaking with the surgeon they decided to go ahead. He states previously was having abdominal discomfort with some cramping in the lower abdomen. He denies any current abdominal pain or discomfort. No further bloody bowel movements. Vitals/I&O/Wt Last Vital Signs Temp 98.2 F 08/25/22 14:30 Pulse 77 08/25/22 17:30 Resp 19 H 08/25/22 17:30 BP 120/50 08/25/22 17:30 Pulse Ox 98 08/25/22 17:30 O2 Del Method 08/24/22 22:00 08/25/22 08/25/22 08/25/22 06:59 14:59 22:59 Intake Total 300 / 300 300 / 600 Output Total 875 / 875 550 / 550 500 / 1050 Balance -875 / -765 -250 / -250 -200 / -450 Weight last 48 hrs Weight 143.335 kg Weight 140.614 kg Physical Exam Narrative: Accompanied by his . Const: COMMON NORMALS: patient oriented x3 and alert GENERAL APPEARANCE: cooperative NUTRITIONAL APPEARANCE: obese ORIENTATION/CONSCIOUSNESS: Yes awake HENMT: COMMON NORMALS: oropharynx normal Neck/C-Spine: COMMON NORMALS: no JVD Resp: COMMON NORMALS: normal respiratory effort and clear to auscultation bilaterally AUSCULTATION: clear to auscultation bilaterally Cardio: COMMON NORMALS: no JVD, regular rhythm, S1 normal heart sound present, S2 normal heart sound present and No murmurs present (Cardio) RHYTHM: regular rhythm HEART SOUNDS: S1 normal heart sound present and S2 normal heart sound present GI: COMMON NORMALS: Normal to inspection, nondistended, normoactive bowel sounds present, Soft to palpation and non-tender PALPATION: Yes Soft to palpation Extremity: COMMON NORMALS: no joint enlargement and no pedal edema Neuro: COMMON NORMALS: patient oriented x3 and moves all extremities SENSORIUM/ORIENTATION: Yes alert Skin: COMMON NORMALS: no rashes or lesions noted GENERAL SKIN EXAM: no rashes or lesions noted Data 08/25/22 14:20 08/25/22 03:15 A&P Assessment and plan (1) Acute lower GI bleeding: H&P note reviewed, ER note reviewed. Reviewed this morning's blood counts, vitals. Heart rates remain in the 80s. He had no further bloody bowel movements. No abdominal pain. Some decline noted in hemoglobin down to 7.9. Brilinta and aspirin has been held. He was anticipating transfer to outside facility, however, no beds have been available, and we have gotten a call back from [facility] initially thinking that they may have a bed, however, confirming with them twice there was still no bed. He was seen by surgery. Discussed with surgeon, they have decided to proceed with endoscopy. Discussed preliminary results with surgery and he was not found to have a source of bleeding on EGD. Melena noted on colonoscopy. With suspicion of small intestinal bleed, he will need further follow-up with capsule endoscopy. Recheck hemoglobin requested for this evening, reviewed, 7.6. Still no further bloody bowel movements. Possibly slow ooze versus blood counts equilibrating from previous more rapid bleeding. Given history of CAD, stenting, requesting additional unit of transfusion. Follow-up blood counts requested again for tonight after transfusion and tomorrow morning. I see that every 12 hours PPI have been discontinued. Source of bleeding not in upper GI tract, we will continue only 40 mg daily for prophylaxis. (2) Iron deficiency anemia secondary to blood loss (chronic): (3) Near syncope: Plan Chronic leukocytosis: Under evaluation from heme-onc. Suspect related to postsplenectomy state and bone marrow reactivity from chronic anemia. No localizing signs or symptoms of infection at this time Attestations Medical Necessity Statement*: Continue admission for assessment management of GI bleeding with multiple bloody bowel movements, symptomatic anemia in a gentleman on antiplatelets with CAD, stent. Coding Level of Care Code Critical Care >/= 30 minutes Critical care time (in minutes): 40 The high probability of a clinically significant, sudden or life threatening deterioration, as referenced in this documentation, required my full and direct attention, intervention and personal management. The critical care time shown is in addition to time spent performing any reported separately billable procedures and includes the following: [x] Data and vital sign review and interpretation [x ] Patient assessment, examination and intervention [x] Medication orders and management [x] Patient/Family updates as able [x] Care Coordination and Documentation. Diagnoses Acute lower GI bleeding K92.2 Iron deficiency anemia secondary to blood loss (chronic) D50.0 Near syncope R55
[2022-08-25] MEDS: sodium chloride 0.9% 100 mL Bag 50 ML IV (21:39)
[2022-08-26] VITALS (19 sets, daily range): BP systolic 128–151; BP diastolic 52–91; PULSE 66–82; RESP 13–23; TEMP 36.7–37; O2SAT 93–98
[2022-08-26] MEDS: sodium chloride 0.9% 1,000 ML 75 ML IV (02:30)
[2022-08-26 03:15] LABS: Basophils # 0.1 10^3/uL (0.0-0.1); Basophils % 0.4 %; Eosinophils # 0.2 10^3/uL (0.0-0.8); Eosinophils % 1.6 %; Hematocrit 29.5 % (42.0-52.0); Hemoglobin 8.8 g/dL (11.7-16.6); Lymphocytes # 2.1 10^3/uL (0.8-4.8); Lymphocytes % 18.5 %; Mean Corpuscular HGB Conc 29.8 g/dL (30.0-36.0); Mean Corpuscular Hemoglobin 23.4 pg (28.0-34.0); Mean Corpuscular Volume 78.5 fl (80-94); Mean Platelet Volume 8.4 fL (7.4-10.4); Monocytes # 1.3 10^3/uL (0.2-0.9); Monocytes % 10.8 %; Neutrophils # 7.86 10^3/uL (1.8-7.7); Nucleated Red Blood Cells % 0.2 %; Platelet Count 711 10^3/cmm (130-400); Red Blood Count 3.76 10^6/uL (4.1-5.3); Red Cell Distribution Width 21.5 % (12.1-15.1); White Blood Count 11.6 10^3/uL (4.0-10.0)
[2022-08-26] MEDS: metoprolol succinate ER (24 HR) 25 mg Tablet PO (06:03)
--- NOTE | 2022-08-26 10:14 | PC.CHAP ---
Pastoral Care Encounter/Spiritual Assessment Type of Contact [] Declined seconds grader visit [] Patient/Family/Request visit [] Outpatient visit [] Follow-up visit [] Physician referral [] Code/Alert [x] Routine visit [] Staff referral [] Actively dying [] Patient sleeping [] Family support [] [] Out of room [] Palliative care [] [x] Receiving care in room [] Pre-surgical visit [] Trauma [] Long length of stay [x] ICU visit [] Other: Relational/Emotional Strength [] Patient feels connected with others/family/visitors/staff [] Distress [] Loneliness/isolation [] Abandonment Spirituality of Patient [] Person of Nerissa [] Attends Confucianism of their Nerissa [] Believes in Prayer [] Reads Bible or Gnosticism materials [] There are Spiritual issues to be addressed 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 [x] Prayer [] Active listening [] Non-anxious presence [] Spiritual/emotional support [] Crisis/trauma care [] Spiritual counseling [] Bereavement support [] Provided bereavement packet [] Provided Bible/devotional materials [] Provided toy/stuffed animal, coloring book to patient or family member [] Provided Communion [] Anointing/Shelby [] Salvation [x] Completed spiritual assessment [] Other: Impact on Illness or Injury [] Angry [] Fearful [] Anxious [] Often cries [] Exhaustion [] Unable to work [] Unable to attend episcopalian [] Unable to walk/stand [] Unable to read [] Unable to drive [] Unable to eat/drink [] Unable to sleep [] Unable to be with family [] Patient intubated [] Other: Summary Time spent with patient
[2022-08-26] MEDS: pantoprazole 40 mg SDV IVP (10:59)
[2022-08-26 12:12] LABS: Hematocrit 29.1 % (42.0-52.0); Hemoglobin 8.7 g/dL (11.7-16.6); Mean Corpuscular HGB Conc 29.9 g/dL (30.0-36.0); Mean Corpuscular Hemoglobin 23.3 pg (28.0-34.0); Mean Platelet Volume 8.4 fL (7.4-10.4); Platelet Count 733 10^3/cmm (130-400); Red Blood Count 3.73 10^6/uL (4.1-5.3); Red Cell Distribution Width 21.4 % (12.1-15.1); White Blood Count 12.1 10^3/uL (4.0-10.0)
[2022-08-26 12:40] LABS: Absolute Eosinophils 0.1 10^3/cmm (0.0-0.7); Absolute Neutrophil 8.8 10^3/cmm (1.4-6.5); Absolute Segmented Neutrophil 8.8 10/cmm (1.6-7.1); Eosinophils 1 %; Lymphocytes 12 %; Lymphocytes Absolute 1.5 10^3/cmm (1.2-3.4); Monocytes Absolute 1.7 10^3/cmm (0.1-0.6); Platelet Estimate Increased (Normal); Segmented Neutrophils 73 %; Total Cells Counted 100 (0-100)
--- NOTE | 2022-08-26 12:40 | PM.DCS ---
Discharge Providers Date of Admission: 08/24/22 19:37 Date of Discharge: August 26, 2022 Attending Provider at Admission: Dominguez Streeter DO Attending Provider at Discharge: Sivakumar Guerra MD Primary Care Provider: Miko Montalvo DO Diagnoses at Discharge Discharge Diagnosis (1) Acute lower GI bleeding: Status: Acute (2) Iron deficiency anemia secondary to blood loss (chronic): Status: Acute (3) Near syncope: Status: Acute Reason for Visit Reason for Visit: rectal bleed Hospital Course Hospital Course García Gleason is a 61 year old male history of Hodgkin lymphoma diagnosed at age 22.? His treatment included splenectomy and chemotherapy. Also has CAD s/p PAULIE 07/2021,? chronic leukocytosis, chronic anemia. He was recently seen in the seen in the emergency room on August 11 for worsening fatigue and dyspnea.? His Hemoccult was positive on this day.? CT of the abdomen and pelvis did not reveal any abnormalities. He was transfused. Offered admission but elected to return home. His dose of Brilinta was reduced and started on Protonix. .Recently seen by hematology/oncology for evaluation of his anemia and abnormal leukocytosis. Presented to ER today with c/o bright red blood per rectum. he was getting transfuison as outpatient when he passed large blood clots via rectum. Denies any pain .HE had a near syncopal episode. He wa initially tachycardic and reported dizziness, He has received 2 units PRBC today, Hb is 9 at holger eof assessment. Patient was admitted to the [facility] for acute GI bleed, on aspirin and Brilinta, status post 2 units PRBC, status post EGD with no acute source of bleeding found, melena noted on colonoscopy, with suspicion of small intestinal bleed. He was monitored inpatient for 24 hours, hemoglobin remained stable at 8.7, no lightheadedness, no dizziness, no hemodynamic compromise. Patient will be discharged on instructions to follow-up with primary care provider next week for recheck hemoglobin, if you were to have any recurrent bloody or black stools, or lightheadedness go to emergency room. I spoke to cardiology about patient's antiplatelet therapy, for now plan is to hold Brilinta, its been over a year since his stents were placed. Continue aspirin 81 mg. Discussed risks associated with holding antiplatelet therapy including but not limited to recurrent [place], stent closure,, recurrent chest pain, he voiced understanding, all questions answered, agreed to proceed. For now we will hold Brilinta continue aspirin 81 mg, have him follow-up with cardiology in 1 week. I discussed with with him and his that this is certainly a difficult situation, on the one hand I do want him to have a recurrent GI bleed and morbidity and mortality associated with that and on the other hand we want to reduce the risk of his cardiac stent closure, and recurrent cardiovascular event. Certainly the situation is difficult, however after discussing the risks and benefits, he voiced understanding, all questions answered, agreed to hold antiplatelet therapy, hold Brilinta, agreeable to continue aspirin 81 mg. In addition I referred him to GI for capsule endoscopy Physical Exam Const: COMMON NORMALS: no acute distress and patient oriented x3 Resp: COMMON NORMALS: normal respiratory effort, No retractions, No use of accessory muscles and clear to auscultation bilaterally AUSCULTATION: clear to auscultation bilaterally Cardio: COMMON NORMALS: regular rate, regular rhythm, S1 normal heart sound present and S2 normal heart sound present RATE: regular rate RHYTHM: regular rhythm HEART SOUNDS: S1 normal heart sound present and S2 normal heart sound present GI: COMMON NORMALS: Normal to inspection, nondistended, normoactive bowel sounds present and non-tender Extremity: COMMON NORMALS: no clubbing, cyanosis or edema and no pedal edema Neuro: COMMON NORMALS: patient oriented x3 Psych: COMMON NORMALS: mental status grossly normal Discharge Data Studies Completed and Pending Completed Studies During Hospitalization Category Date Time Status CT abdomen pelvis wo con [id number] Stat Cat Scan 08/24/22 13:24 Completed Pending at discharge Category Date Time Status CBC Manual Dif [Complete Blood Count w/Man Dif] Stat Lab 08/26/22 12:05 Results Radiology Impressions Abdomen/Pelvis CT 08/24/22 13:24 IMPRESSION: 1. Negative for acute inflammatory process in the abdomen or pelvis. 2. Coronary artery atherosclerotic calcifications. 3. Cholecystectomy. 4. Postsurgical changes about the umbilicus. 5. Spleen is absent. 6. Minimal diverticulosis without diverticulitis. 7. Small bilateral left greater than right fat containing inguinal hernias without bowel. Laboratory Results WBC 12.1 10^3/uL (4.0-10.0) H 08/26/22 12:05 RBC 3.73 10^6/uL (4.1-5.3) L 08/26/22 12:05 Hgb 8.7 g/dL (11.7-16.6) L 08/26/22 12:05 Hct 29.1 % (42.0-52.0) L 08/26/22 12:05 MCV 78.0 fl (80-94) L 08/26/22 12:05 MCH 23.3 pg (28.0-34.0) L 08/26/22 12:05 MCHC 29.9 g/dL (30.0-36.0) L 08/26/22 12:05 RDW 21.4 % (12.1-15.1) H 08/26/22 12:05 Plt Count 733 10^3/cmm (130-400) H 08/26/22 12:05 MPV 8.4 fL (7.4-10.4) 08/26/22 12:05 Neut % (Auto) 68.0 % 08/26/22 03:10 Lymph % (Auto) 18.5 % 08/26/22 03:10 [place] % (Auto) 10.8 % 08/26/22 03:10 Eos % (Auto) 1.6 % 08/26/22 03:10 Baso % (Auto) 0.4 % 08/26/22 03:10 Neut # (Auto) 7.86 10^3/uL (1.8-7.7) H 08/26/22 03:10 Lymph # (Auto) 2.1 10^3/uL (0.8-4.8) 08/26/22 03:10 [place] # (Auto) 1.3 10^3/uL (0.2-0.9) H 08/26/22 03:10 Eos # (Auto) 0.2 10^3/uL (0.0-0.8) 08/26/22 03:10 Baso # (Auto) 0.1 10^3/uL (0.0-0.1) 08/26/22 03:10 Nucleated RBC % (auto) 0.2 % 08/26/22 03:10 Nucleated RBCs # 0.0 /100WBC 08/26/22 03:10 PT 14.80 SECONDS (12.1-14.9) 08/24/22 14:05 INR 1.13 (0.8-1.2) 08/24/22 14:05 APTT 27.6 SECONDS (23.9-36.7) 08/24/22 14:05 Sodium 136 mmol/L (136-145) 08/25/22 03:15 Potassium 4.7 mmol/L (3.5-5.1) 08/25/22 03:15 Chloride 100 mmol/L (98-107) 08/25/22 03:15 Carbon Dioxide 29 mmol/L (22-29) 08/25/22 03:15 Anion Gap 11.7 (5-19) 08/25/22 03:15 BUN 17 mg/dL (8-23) 08/25/22 03:15 Creatinine 0.7 mg/dL (0.7-1.2) 08/25/22 03:15 GFR Calculation 115.0 mL/min (90-130) 08/25/22 03:15 Glucose 108 mg/dL (65-115) 08/25/22 03:15 Calculated Osmolality 284 mOsm/kg (285-295) L 08/25/22 03:15 Calcium 8.6 mg/dL (8.5-10.5) 08/25/22 03:15 Total Bilirubin 0.7 mg/dL (0.15-1.2) 08/25/22 03:15 AST 17 U/L (0-40) 08/25/22 03:15 ALT 10 U/L (0-41) 08/25/22 03:15 Alkaline Phosphatase 70 U/L (40-130) 08/25/22 03:15 Total Protein 5.6 g/dL (6.6-8.7) L 08/25/22 03:15 Albumin 3.0 g/dL (3.5-5.2) L 08/25/22 03:15 Globulin 2.6 g/dL (1.3-4.6) 08/25/22 03:15 Crossmatch See Detail 08/24/22 06:44 Vitals Last Vital Signs Temp 98.6 F 08/26/22 09:17 Pulse 71 08/26/22 08:00 Resp 15 08/26/22 08:00 BP 131/91 08/26/22 06:00 Pulse Ox 97 08/26/22 08:00 O2 Del Method 08/24/22 22:00 Discharge Plan Discharge Patient Disposition: Home Condition: Stable Prescriptions: New ferrous sulfate [FeroSul] 325 mg (65 mg iron) tablet 325 mg PO BID 30 Days Qty: 60 0RF Continued lovastatin 40 mg tablet 40 mg PO QAM Qty: 90 3RF aspirin 81 mg Tablet,Chewable 81 mg PO QAM polyethylene glycol 3350 [Miralax] 17 gram Powder In Packet 17 g PO DAILY PRN (Reason: Constipation) garlic 500 mg Capsule 500 mg PO QAM lisinopril 20 mg tablet 20 mg PO QAM metoprolol succinate 25 mg tablet extended release 24 hr 25 mg PO QAM Nitrostat 0.3 mg Tablet, Sublingual 0.3 mg SUBLINGUAL Q5M PRN (Reason: Chest Pain) Rx Instructions: do not exceed 3 doses per episode pantoprazole 40 mg tablet,delayed release (DR/EC) 40 mg PO DAILY 30 Days Qty: 30 0RF Held hydrochlorothiazide 12.5 mg tablet 12.5 mg PO QAM Hold Instructions: Resume on 09/05/22. hold until seen by cardiology Discontinued Brilinta 60 mg tablet 60 mg PO BID Qty: 60 6RF Discharge Orders: Discharge Order (Routine); Ordered 08/26/22 Ordered By: Sivakumar Guerra Referrals: Miko Montalvo DO [Primary Care Provider] - 1-3 days Jenna Taylor MD [Physician] - 4-7 days Discharge Diet: Cardiac Discharge Activity: Resume usual activity Patient Instructions: GI Discharge Instructions, Opioid Safety Activity Restrictions/Additional Instructions: - Please see your primary care doctor in 1 week -Recheck your hemoglobin next week -If you develop recurrent bloody or black stools please go to emergency room -If you have recurrent lightheadedness or dizziness call emergency room -Hold Brilinta until seen by cardiology -Continue aspirin 81 mg once daily -If you have any chest pain or palpitation, emergency room -Referral sent to GI Discharge Attestations Time Spent in Discharge Care*: greater than 30 min Quality Metrics Clinical Quality Measures [ No reported AMI, CVA or VTE this stay] Coding Level of Care Code 30590 Diagnoses Acute lower GI bleeding K92.2 Iron deficiency anemia secondary to blood loss (chronic) D50.0 Near syncope R55 Time Spent (min) 60
--- NOTE | 2022-08-26 12:47 | P.PN_ITS ---
Subjective Subjective: Patient seen and examined. Denies any abdominal pain. Still having solid black stools. Tolerating regular diet Vitals/I&O/Wt Last Vital Signs Temp 98.6 F 08/26/22 09:17 Pulse 71 08/26/22 08:00 Resp 15 08/26/22 08:00 BP 131/91 08/26/22 06:00 Pulse Ox 97 08/26/22 08:00 O2 Del Method 08/24/22 22:00 08/25/22 08/26/22 08/26/22 22:59 06:59 14:59 Intake Total 1350 / 1650 350 / 2000 240 / 240 Output Total 950 / 1500 450 / 1950 400 / 400 Balance 400 / 150 -100 / 50 -160 / -160 Weight last 48 hrs Weight 316 lb Weight 310 lb Physical Exam Narrative: General: No acute distress, awake alert and oriented x3 Abdomen: Soft, nontender, nondistended, no guarding rebound or masses Data 08/26/22 12:05 08/25/22 03:15 A&P Assessment and plan (1) GI bleed: Plan EGD was within normal limits Colonoscopy did not identify any active bleeding and only solid dark stool throughout Bleeding likely from more distal small bowel Recommend referral to desktop support engineer for capsule endoscopy or double-balloon endoscopy Surgically stable for discharge Attestations Medical Necessity Statement*: Patient is being discharged Coding Level of Care Code Acute Code for Chg Fwd Diagnoses GI bleed K92.2
[2022-08-26] MEDS: aspirin 81 mg EC Tablet PO (14:07)
--- NOTE | 2022-08-26 14:22 | PC.NURSE ---
Pt was taken to personal vehicle with . All discharge instructions gone over using teach back method and in hand at time if discharge.
== END 2022-08-26 14:20 | disposition home or self-care (01) | DRG 378 ==
LOC: ER 17:52 → ICU 20:49
PROVIDERS: Family Medicine; Internal Medicine; Student in an Organized Health Care Education/Training Program; Admitting Provider Surgery; Emergency Provider Emergency Medicine; PCP Family Medicine; Visit Provider Family Medicine
PROC: 0DJ08ZZ Inspection of Upper Intestinal Tract, Via Natural or Artificial Opening Endoscopic (ICD-10-PCS; CPT 43235; principal; 2022-08-25 11:15)
PROC: 0DJD8ZZ Inspection of Lower Intestinal Tract, Via Natural or Artificial Opening Endoscopic (ICD-10-PCS; CPT 45378; 2022-08-25 11:15)
DX: K92.2 Gastrointestinal hemorrhage, unspecified (principal); Z68.41 Body mass index [BMI] 40.0-44.9, adult; D50.0 Iron deficiency anemia secondary to blood loss (chronic); Z85.71 Personal history of Hodgkin lymphoma; Z90.81 Acquired absence of spleen; Z92.21 Personal history of antineoplastic chemotherapy; I25.10 Atherosclerotic heart disease of native coronary artery without angina pectoris; Z95.5 Presence of coronary angioplasty implant and graft; Z79.82 Long term (current) use of aspirin; R19.5 Other fecal abnormalities; E78.5 Hyperlipidemia, unspecified; I10 Essential (primary) hypertension; E66.9 Obesity, unspecified; G47.33 Obstructive sleep apnea (adult) (pediatric); Z85.820 Personal history of malignant melanoma of skin; Z87.891 Personal history of nicotine dependence
CPT/HCPCS: 36415; 36430; 74176; 80048; 80053; 82274; 85007; 85014; 85018; 85025; 85027; 85610; 85730; 86850; 86900; 86920; 96365; 96374; 96376; 99285; C9113; J1940; J2704; J7030; J7050; P9016

== ENCOUNTER → 2022-08-30 08:36 | Outpatient (BNVA) | payer BC, SELFPAY | PROVIDERS: PCP Family Medicine; Visit Provider Family Medicine | DX: D50.0 Iron deficiency anemia secondary to blood loss (chronic) (principal); Z90.81 Acquired absence of spleen; D75.1 Secondary polycythemia | CPT/HCPCS: 85025 ==

== ENCOUNTER → 2022-09-06 12:12 | Outpatient (BNVA) | payer BC, SELFPAY | PROVIDERS: PCP Family Medicine; Visit Provider Family Medicine | DX: Z90.81 Acquired absence of spleen (principal); D50.0 Iron deficiency anemia secondary to blood loss (chronic); D75.1 Secondary polycythemia | CPT/HCPCS: 80053; 85025 ==

== ENCOUNTER → 2022-09-09 09:07 | Outpatient (BNVA) | payer BC, SELFPAY | PROVIDERS: PCP Family Medicine; Visit Provider Family Medicine | DX: Z90.81 Acquired absence of spleen (principal); D50.0 Iron deficiency anemia secondary to blood loss (chronic); D75.1 Secondary polycythemia | CPT/HCPCS: 85025 ==

== ENCOUNTER 2022-09-12 16:16 | Oncology outpatient (recurring) (ONCR) | payer BC, SELFPAY ==
[2022-08-18 13:36] LABS: Basophils # 0.1 10^3/uL (0.0-0.1); Basophils % 0.3 %; Eosinophils % 0.2 %; Hematocrit 27.7 % (42.0-52.0); Hemoglobin 7.7 g/dL (11.7-16.6); Lymphocytes # 1.6 10^3/uL (0.8-4.8); Lymphocytes % 10.5 %; Mean Corpuscular HGB Conc 27.8 g/dL (30.0-36.0); Mean Corpuscular Hemoglobin 19.9 pg (28.0-34.0); Mean Corpuscular Volume 71.8 fl (80-94); Mean Platelet Volume 8.6 fL (7.4-10.4); Monocytes # 1.5 10^3/uL (0.2-0.9); Monocytes % 9.8 %; Neutrophils # 12.05 10^3/uL (1.8-7.7); Neutrophils % 78.3 %; Nucleated Red Blood Cells # 0.1 /100WBC; Nucleated Red Blood Cells % 0.6 %; Platelet Count 1209 10^3/cmm (130-400); Red Blood Count 3.86 10^6/uL (4.1-5.3); Red Cell Distribution Width 19.7 % (12.1-15.1); White Blood Count 15.4 10^3/uL (4.0-10.0)
[2022-08-18 13:45] LABS: Reticulocyte % 3.6 % (0.5-2.0)
[2022-08-18 13:50] LABS: LAB Peripheral Smear Sent for Review
[2022-08-18 13:51] LABS: Alanine Aminotransferase 14 U/L (0-41); Albumin Level 3.9 g/dL (3.5-5.2); Alkaline Phosphatase 85 U/L (40-130); Anion Gap 13.8 (5-19); Aspartate Amino Transferase 26 U/L (0-40); Blood Urea Nitrogen 12 mg/dL (8-23); Calcium 9.1 mg/dL (8.5-10.5); Carbon Dioxide 26 mmol/L (22-29); Chloride 97 mmol/L (98-107); Ferritin 7 ng/mL (30-400); Globulin 3.6 g/dL (1.3-4.6); Glucose 122 mg/dL (65-115); Iron 20 ug/dL (59-158); Lactate Dehydrogenase 210 U/L (135-225); Osmolality Calculated 277 mOsm/kg (285-295); Percent Saturation 5.1 % (20-50); Potassium 3.8 mmol/L (3.5-5.1); Sodium 133 mmol/L (136-145); Total Bilirubin 0.4 mg/dL (0.15-1.2); Total Iron Binding Capacity 389 mcg/dl; Total Protein 7.5 g/dL (6.6-8.7); Unsaturated Iron Binding 369 ug/dL (112-347)
[2022-08-19] VITALS (9 sets, daily range): BP systolic 96–131; BP diastolic 45–67; PULSE 78–113; RESP 18; TEMP 36.7–37.2; O2SAT 96–99
[2022-08-19] MEDS: sodium chloride 0.9% 100 mL Bag 50 ML IV ×2 (09:56→12:27)
[2022-08-19] MEDS: diphenhydrAMINE 25 mg Capsule PO (09:59)
[2022-08-19] MEDS: acetaminophen 325 mg Tablet 650 MG PO (09:59)
--- NOTE | 2022-08-19 13:15 | PC.NURSE ---
Pt to GI infusions for blood transfusion. Two units PRBC's infused without difficulty. Pt tolerated well. No signs of reaction noted.
[2022-08-24] MEDS: acetaminophen 325 mg Tablet 650 MG PO (11:32)
[2022-08-24] MEDS: diphenhydrAMINE 25 mg Capsule PO (11:33)
[2022-08-24] MEDS: sodium chloride 0.9% 250 mL Bag IV (11:35)
[2022-08-24] MEDS: FUROsemide 10 mg/mL SDV 2mL 20 MG IVP (11:36)
[2022-08-24 12:09] VITALS: PULSE 96; RESP 18; TEMP 36.8; O2SAT 98
[2022-08-24 12:25] VITALS: BP 112/64; PULSE 96; RESP 18; TEMP 36.8; O2SAT 97
[2022-08-24 14:10] VITALS: BP 156/101; PULSE 102; RESP 17; TEMP 36.7
[2022-08-24 14:29] VITALS: BP 149/84; PULSE 100; RESP 18; TEMP 36.6; O2SAT 96
--- NOTE | 2022-08-24 15:56 | PC.NURSE ---
Patient was receiving his first unit of PRBC and requested to go to bathroom with ambulation with assist and he did call out for the assistance back to infusion chair with the concern that he had large liquid bloody stool. Susan Morales notified with the order to be transferred to ER with [facility] asking to bring him to ER per W/C . He was transferred to ER and report given. Patient was weak pale and fatigued. B/P 95/64 pulse 96 resp 19 temp 98.2 oxygen sat 98 %
[2022-09-04 14:44] LABS: CALR Exon 9 Mutation NOT DETECTED (NOT DETECTED); CSF3R Exon 14/17 Mutation NOT DETECTED (NOT DETECTED); JAK2 Exon 12 Mutation NOT DETECTED (NOT DETECTED); JAK2 V617 Block Specimen ID NG; JAK2 V617 Clinical Indication NG; JAK2 V617 Mutation NOT DETECTED (NOT DETECTED); JAK2 V617 Specimen Source NG; MPL Exon 12 Mutation NOT DETECTED (NOT DETECTED)
[2022-09-12 16:27] VITALS: BP 115/76; PULSE 97; RESP 16; TEMP 37.1; O2SAT 99
[2022-09-12] MEDS: sodium chloride 0.9% 250 ML 75 ML IV (16:33)
[2022-09-12] MEDS: acetaminophen 325 mg Tablet 650 MG PO (16:34)
[2022-09-12] MEDS: diphenhydrAMINE 50 mg/mL SDV 1mL 25 MG IVP (16:36)
[2022-09-12] MEDS: iron sucrose 200 MG in sodium chloride 0.9% (100 ml) 100 ML 220 MG IV (16:41)
[2022-09-12 17:15] VITALS: BP 133/82; PULSE 88; RESP 16; TEMP 36.9; O2SAT 97
== END 2022-09-13 23:59 | disposition home or self-care (01) ==
PROVIDERS: PCP Family Medicine; Visit Provider Internal Medicine Medical Oncology
DX: D64.9 Anemia, unspecified (principal); Z79.899 Other long term (current) drug therapy
CPT/HCPCS: 36415; 36430; 80053; 81219; 81270; 81339; 81403; 81479; 82274; 82728; 83010; 83540; 83550; 83615; 85025; 85045; 86850; 86900; 86920; J1200; J1756; J1940; J7050; P9016

== ENCOUNTER 2022-09-21 08:00 | Oncology outpatient (recurring) (ONCR) | payer BC, SELFPAY ==
[2022-09-14] MEDS: diphenhydrAMINE 50 mg/mL SDV 1mL 25 MG IVP (11:07)
[2022-09-14] MEDS: acetaminophen 325 mg Tablet 650 MG PO (11:07)
[2022-09-14] MEDS: sodium chloride 0.9% 250 ML 75 ML IV (11:12)
[2022-09-14] MEDS: ondansetron 2 mg/ML SDV 2 mL 8 MG IVP (11:25)
[2022-09-14] MEDS: iron sucrose 200 MG in sodium chloride 0.9% (100 ml) 100 ML 220 MG IV (11:25)
[2022-09-14 12:29] VITALS: BP 103/66; PULSE 84; RESP 16; TEMP 36.9; O2SAT 95
[2022-09-16] MEDS: sodium chloride 0.9% 250 ML 100 ML IV (09:48)
[2022-09-16] MEDS: acetaminophen 325 mg Tablet 650 MG PO (09:48)
[2022-09-16] MEDS: diphenhydrAMINE 50 mg/mL SDV 1mL 25 MG IVP (09:51)
[2022-09-16] MEDS: ondansetron 2 mg/ML SDV 2 mL 8 MG IVP (09:55)
[2022-09-16] MEDS: iron sucrose 200 MG in sodium chloride 0.9% (100 ml) 100 ML 220 MG IV (09:59)
[2022-09-16 10:54] VITALS: BP 124/75; PULSE 77
[2022-09-19 07:30] LABS: Basophils % 0.3 %; Eosinophils # 0.1 10^3/uL (0.0-0.8); Eosinophils % 1.2 %; Hematocrit 35.4 % (42.0-52.0); Hemoglobin 10.6 g/dL (11.7-16.6); Lymphocytes # 1.6 10^3/uL (0.8-4.8); Lymphocytes % 13.6 %; Mean Corpuscular HGB Conc 29.9 g/dL (30.0-36.0); Mean Corpuscular Hemoglobin 24.8 pg (28.0-34.0); Mean Corpuscular Volume 82.7 fl (80-94); Mean Platelet Volume 8.9 fL (7.4-10.4); Monocytes # 1.4 10^3/uL (0.2-0.9); Monocytes % 12.2 %; Neutrophils # 8.45 10^3/uL (1.8-7.7); Neutrophils % 72.3 %; Nucleated Red Blood Cells % 0 %; Platelet Count 840 10^3/cmm (130-400); Red Blood Count 4.28 10^6/uL (4.1-5.3); Red Cell Distribution Width 24.9 % (12.1-15.1); White Blood Count 11.7 10^3/uL (4.0-10.0)
[2022-09-19 08:04] VITALS: BP 144/76; PULSE 91; RESP 18; TEMP 37.1; O2SAT 96
[2022-09-19] MEDS: acetaminophen 325 mg Tablet 650 MG PO (08:20)
[2022-09-19] MEDS: ondansetron 2 mg/ML SDV 2 mL 8 MG IVP (08:20)
[2022-09-19] MEDS: diphenhydrAMINE 50 mg/mL SDV 1mL 25 MG IVP (08:21)
[2022-09-19] MEDS: sodium chloride 0.9% 250 ML 75 ML IV (08:21)
[2022-09-19] MEDS: iron sucrose 200 MG in sodium chloride 0.9% (100 ml) 100 ML 220 MG IV (08:47)
[2022-09-19 09:30] VITALS: BP 143/77; PULSE 77; RESP 18; TEMP 36.8; O2SAT 97
[2022-09-21] MEDS: sodium chloride 0.9% 250 ML 75 ML IV (08:23)
[2022-09-21] MEDS: diphenhydrAMINE 50 mg/mL SDV 1mL 25 MG IVP (08:24)
[2022-09-21] MEDS: acetaminophen 325 mg Tablet 650 MG PO (08:25)
[2022-09-21] MEDS: ondansetron 2 mg/ML SDV 2 mL 8 MG IVP (08:30)
[2022-09-21] MEDS: iron sucrose 200 MG in sodium chloride 0.9% (100 ml) 100 ML 220 MG IV (08:53)
[2022-09-21 09:56] VITALS: BP 128/76; PULSE 69; RESP 16; TEMP 36.6; O2SAT 97
== END 2022-10-14 23:59 | disposition home or self-care (01) ==
PROVIDERS: Nurse Practitioner; PCP Family Medicine; Visit Provider Internal Medicine Medical Oncology
DX: D64.9 Anemia, unspecified (principal); D50.0 Iron deficiency anemia secondary to blood loss (chronic); D50.9 Iron deficiency anemia, unspecified; R11.0 Nausea
CPT/HCPCS: 36415; 85025; 96365; 96374; 96375; J1200; J1756; J2405; J7050

== ENCOUNTER 2022-10-17 15:05 | Oncology outpatient (recurring) (ONCR) | payer BC, SELFPAY ==
[2022-10-17 15:27] LABS: Basophils # 0.1 10^3/uL (0.0-0.1); Basophils % 0.4 %; Eosinophils # 0.2 10^3/uL (0.0-0.8); Eosinophils % 1.4 %; Hematocrit 38.3 % (42.0-52.0); Hemoglobin 11.7 g/dL (11.7-16.6); Lymphocytes % 16.9 %; Mean Corpuscular HGB Conc 30.5 g/dL (30.0-36.0); Mean Corpuscular Hemoglobin 25.5 pg (28.0-34.0); Mean Corpuscular Volume 83.4 fl (80-94); Monocytes % 8.2 %; Neutrophils # 8.37 10^3/uL (1.8-7.7); Neutrophils % 72.7 %; Nucleated Red Blood Cells % 0 %; Platelet Count 748 10^3/cmm (130-400); Red Blood Count 4.59 10^6/uL (4.1-5.3); White Blood Count 11.5 10^3/uL (4.0-10.0)
[2022-10-17 18:34] LABS: Ferritin 105 ng/mL (30-400); Iron 39 ug/dL (59-158); Percent Saturation 11.8 % (20-50); Total Iron Binding Capacity 328 mcg/dl; Unsaturated Iron Binding 289 ug/dL (112-347)
== END 2022-11-13 23:59 | disposition home or self-care (01) ==
PROVIDERS: PCP Family Medicine; Visit Provider Internal Medicine Medical Oncology
DX: D50.0 Iron deficiency anemia secondary to blood loss (chronic)
CPT/HCPCS: 36415; 82728; 83540; 83550; 85025

== ENCOUNTER 2022-11-18 11:28 | Oncology outpatient (recurring) (ONCR) | payer BC, SELFPAY ==
[2022-11-18 12:17] LABS: Basophils # 0.1 10^3/uL (0.0-0.1); Basophils % 0.6 %; Eosinophils # 0.2 10^3/uL (0.0-0.8); Eosinophils % 1.4 %; Hemoglobin 10.8 g/dL (11.7-16.6); Lymphocytes # 2.1 10^3/uL (0.8-4.8); Mean Corpuscular HGB Conc 30.9 g/dL (30.0-36.0); Mean Corpuscular Hemoglobin 26.2 pg (28.0-34.0); Mean Corpuscular Volume 84.7 fl (80-94); Monocytes # 1.3 10^3/uL (0.2-0.9); Monocytes % 11.1 %; Neutrophils # 7.87 10^3/uL (1.8-7.7); Neutrophils % 68.3 %; Nucleated Red Blood Cells % 0 %; Platelet Count 725 10^3/cmm (130-400); Red Blood Count 4.13 10^6/uL (4.1-5.3); Red Cell Distribution Width 17.9 % (12.1-15.1); White Blood Count 11.5 10^3/uL (4.0-10.0)
[2022-11-18 12:42] LABS: Ferritin 30 ng/mL (30-400); Iron 25 ug/dL (59-158); Percent Saturation 9.4 % (20-50); Total Iron Binding Capacity 264 mcg/dl; Unsaturated Iron Binding 239 ug/dL (112-347)
== END 2022-12-14 23:59 | disposition home or self-care (01) ==
PROVIDERS: Nurse Practitioner Family; PCP Family Medicine; Visit Provider Internal Medicine Medical Oncology
DX: D50.0 Iron deficiency anemia secondary to blood loss (chronic) (principal)
CPT/HCPCS: 36415; 82274; 82728; 83540; 83550; 85025

== ENCOUNTER 2023-01-12 14:06 | Oncology outpatient (recurring) (ONCR) | payer BC, SELFPAY ==
[2023-01-12 14:12] VITALS: BP 136/72; PULSE 107; RESP 18; TEMP 36.6; O2SAT 95
[2023-01-12 14:30] LABS: Basophils # 0.1 10^3/uL (0.0-0.1); Basophils % 0.4 %; Eosinophils # 0.1 10^3/uL (0.0-0.8); Eosinophils % 0.8 %; Hematocrit 32.7 % (42.0-52.0); Lymphocytes # 2.1 10^3/uL (0.8-4.8); Lymphocytes % 14.6 %; Mean Corpuscular HGB Conc 30.6 g/dL (30.0-36.0); Mean Corpuscular Hemoglobin 24.6 pg (28.0-34.0); Mean Corpuscular Volume 80.3 fl (80-94); Mean Platelet Volume 8.5 fL (7.4-10.4); Monocytes # 0.7 10^3/uL (0.2-0.9); Monocytes % 5.2 %; Neutrophils # 11.06 10^3/uL (1.8-7.7); Neutrophils % 78.4 %; Nucleated Red Blood Cells % 0 %; Platelet Count 928 10^3/cmm (130-400); Red Blood Count 4.07 10^6/uL (4.1-5.3); Red Cell Distribution Width 15.7 % (12.1-15.1); White Blood Count 14.1 10^3/uL (4.0-10.0)
[2023-01-12 14:47] LABS: Alanine Aminotransferase 11 U/L (0-41); Albumin Level 3.6 g/dL (3.5-5.2); Alkaline Phosphatase 64 U/L (40-130); Aspartate Amino Transferase 15 U/L (0-40); Blood Urea Nitrogen 10 mg/dL (8-23); Calcium 8.6 mg/dL (8.5-10.5); Carbon Dioxide 25 mmol/L (22-29); Chloride 98 mmol/L (98-107); Ferritin 16 ng/mL (30-400); Globulin 3.4 g/dL (1.3-4.6); Glomerular Filtration Rate 114.6 mL/min (90-130); Glucose 158 mg/dL (65-115); Iron 49 ug/dL (59-158); Osmolality Calculated 280 mOsm/kg (285-295); Percent Saturation 17.1 % (20-50); Sodium 134 mmol/L (136-145); Total Bilirubin 0.3 mg/dL (0.15-1.2); Total Iron Binding Capacity 285 mcg/dl; Unsaturated Iron Binding 236 ug/dL (112-347)
== END 2023-01-13 23:59 | disposition home or self-care (01) ==
PROVIDERS: Nurse Practitioner Family; PCP Family Medicine; Visit Provider Internal Medicine Medical Oncology
DX: D50.0 Iron deficiency anemia secondary to blood loss (chronic) (principal); D75.1 Secondary polycythemia
CPT/HCPCS: 36415; 80053; 82728; 83540; 83550; 85025

== ENCOUNTER 2023-01-16 12:47 | Oncology outpatient (recurring) (ONCR) | payer BC, SELFPAY ==
[2023-01-16] MEDS: ferric carboxy (IVPB) 750 MG in sodium chloride 0.9% (100 ml) 100 ML 345 MG IV (15:00)
[2023-01-16 15:20] VITALS: BP 129/78; PULSE 74; RESP 18; TEMP 36.8; O2SAT 98
[2023-01-16 15:30] VITALS: BP 124/78; PULSE 78; RESP 18; TEMP 36.6; O2SAT 98
== END 2023-02-13 23:59 | disposition home or self-care (01) ==
PROVIDERS: PCP Family Medicine; Visit Provider Internal Medicine Medical Oncology
DX: D50.0 Iron deficiency anemia secondary to blood loss (chronic) (principal)
CPT/HCPCS: J1439

== ENCOUNTER 2023-02-24 08:37 | Oncology outpatient (recurring) (ONCR) | payer BC, SELFPAY ==
[2023-02-24] MEDS: ferric carboxy (IVPB) 750 MG in sodium chloride 0.9% (100 ml) 100 ML 345 MG IV (09:36)
[2023-02-24 09:37] VITALS: BP 126/70; PULSE 89; RESP 16; TEMP 37; O2SAT 96
[2023-02-24 10:13] VITALS: BP 108/65; PULSE 85; TEMP 36.9; O2SAT 96
== END 2023-03-16 23:59 | disposition home or self-care (01) ==
PROVIDERS: PCP Family Medicine; Visit Provider Internal Medicine Medical Oncology
DX: D50.0 Iron deficiency anemia secondary to blood loss (chronic) (principal); D75.1 Secondary polycythemia
CPT/HCPCS: 96365; J1439

== ENCOUNTER 2023-04-14 08:00 | Oncology outpatient (recurring) (ONCR) | payer BC, SELFPAY ==
[2023-04-13 08:10] VITALS: BP 114/68; PULSE 105; RESP 16; TEMP 37; O2SAT 99
[2023-04-13 08:24] LABS: Basophils % 0.2 %; Eosinophils # 0.1 10^3/uL (0.0-0.8); Eosinophils % 0.4 %; Hematocrit 25.4 % (37-53); Lymphocytes # 1.2 10^3/uL (0.8-4.8); Lymphocytes % 7.1 %; Mean Corpuscular HGB Conc 31.1 g/dL (30-55); Mean Corpuscular Hemoglobin 23.2 pg (27-33); Mean Corpuscular Volume 74.7 fl (82-101); Mean Platelet Volume 8.4 fL (7.4-10.4); Monocytes # 1.4 10^3/uL (0.2-0.9); Monocytes % 8.1 %; Neutrophils # 14.05 10^3/uL (1.8-7.7); Neutrophils % 83.5 %; Nucleated Red Blood Cells % 0.2 %; Platelet Count 1263 10^3/cmm (157-399); Red Cell Distribution Width 18.2 % (12.1-15.1); White Blood Count 16.82 10^3/uL (3.29-11.43)
[2023-04-13 08:36] LABS: Alanine Aminotransferase 10 U/L (0-41); Alkaline Phosphatase 65 U/L (40-130); Aspartate Amino Transferase 16 U/L (0-40); Blood Urea Nitrogen 13 mg/dL (8-23); Calcium 8.2 mg/dL (8.5-10.5); Carbon Dioxide 27 mmol/L (22-29); Chloride 96 mmol/L (98-107); Ferritin 23 ng/mL (30-400); Globulin 3.7 g/dL (1.3-4.6); Glomerular Filtration Rate 114.6 mL/min (90-130); Glucose 122 mg/dL (65-115); Iron 14 ug/dL (59-158); Osmolality Calculated 275 mOsm/kg (285-295); Percent Saturation 5.6 % (20-50); Sodium 132 mmol/L (136-145); Total Bilirubin 0.3 mg/dL (0.15-1.2); Total Iron Binding Capacity 246 mcg/dl; Total Protein 6.7 g/dL (6.6-8.7); Unsaturated Iron Binding 232 ug/dL (112-347)
[2023-04-13] MEDS: ferric carboxy (IVPB) 750 MG in sodium chloride 0.9% (100 ml) 100 ML 345 MG IV (10:40)
[2023-04-13 11:05] VITALS: BP 153/68; PULSE 72; RESP 16; TEMP 36.8; O2SAT 94
[2023-04-14] MEDS: acetaminophen 325 mg Tablet 650 MG PO (08:11)
[2023-04-14] MEDS: diphenhydrAMINE 25 mg Capsule PO (08:11)
[2023-04-14] MEDS: sodium chloride 0.9% 250 ML IV (08:26)
[2023-04-14 08:30] VITALS: BP 105/50; PULSE 90; TEMP 36.8; O2SAT 95
[2023-04-14 08:45] VITALS: BP 105/55; PULSE 86; RESP 16; TEMP 36.7; O2SAT 94
[2023-04-14 09:00] VITALS: BP 107/57; PULSE 88; RESP 16; TEMP 36.4; O2SAT 92
[2023-04-14 09:30] VITALS: BP 112/53; PULSE 86; RESP 16; TEMP 36.6; O2SAT 93
[2023-04-14 10:00] VITALS: BP 119/59; PULSE 86; TEMP 36.6; O2SAT 98
== END 2023-04-15 23:59 | disposition home or self-care (01) ==
PROVIDERS: Nurse Practitioner Family; PCP Family Medicine; Visit Provider Internal Medicine Medical Oncology
DX: D50.0 Iron deficiency anemia secondary to blood loss (chronic) (principal); D50.8 Other iron deficiency anemias
CPT/HCPCS: 36415; 36430; 80053; 82274; 82728; 83540; 83550; 83735; 85025; 86850; 86900; 86920; J1439; J7050; P9040

== ENCOUNTER 2023-06-01 09:00 | Oncology outpatient (recurring) (ONCR) | payer BC, SELFPAY ==
[2023-05-31 12:10] VITALS: BP 143/76; PULSE 104; RESP 16; TEMP 37.2; O2SAT 95
[2023-05-31 12:30] LABS: Basophils # 0.1 10^3/uL (0.0-0.1); Basophils % 0.5 %; Eosinophils # 0.2 10^3/uL (0.0-0.8); Eosinophils % 1.4 %; Hematocrit 25.1 % (37-53); Lymphocytes # 1.9 10^3/uL (0.8-4.8); Mean Corpuscular HGB Conc 30.3 g/dL (30-55); Mean Corpuscular Hemoglobin 23.8 pg (27-33); Mean Corpuscular Volume 78.4 fl (82-101); Mean Platelet Volume 8.7 fL (7.4-10.4); Monocytes # 1.3 10^3/uL (0.2-0.9); Monocytes % 9.7 %; Neutrophils # 10.14 10^3/uL (1.8-7.7); Neutrophils % 73.9 %; Nucleated Red Blood Cells # 0.1 /100WBC; Nucleated Red Blood Cells % 0.4 %; Platelet Count 1268 10^3/cmm (157-399); Red Cell Distribution Width 22.9 % (12.1-15.1); White Blood Count 13.72 10^3/uL (3.29-11.43)
[2023-05-31 12:42] LABS: Alanine Aminotransferase 12 U/L (0-41); Albumin Level 3.2 g/dL (3.5-5.2); Alkaline Phosphatase 64 U/L (40-130); Anion Gap 12.8 (5-19); Aspartate Amino Transferase 16 U/L (0-40); Blood Urea Nitrogen 9 mg/dL (8-23); Calcium 8.4 mg/dL (8.5-10.5); Carbon Dioxide 27 mmol/L (22-29); Chloride 102 mmol/L (98-107); Ferritin 113 ng/mL (30-400); Globulin 3.2 g/dL (1.3-4.6); Glucose 109 mg/dL (65-115); Iron 19 ug/dL (59-158); Osmolality Calculated 285 mOsm/kg (285-295); Percent Saturation 7.6 % (20-50); Potassium 3.8 mmol/L (3.5-5.1); Sodium 138 mmol/L (136-145); Total Bilirubin 0.2 mg/dL (0.15-1.2); Total Iron Binding Capacity 250 mcg/dl; Total Protein 6.4 g/dL (6.6-8.7); Unsaturated Iron Binding 231 ug/dL (112-347)
[2023-05-31 14:05] LABS: Lactate Dehydrogenase 279 U/L (135-225)
[2023-05-31 15:42] LABS: INR 1.04 (0.8-1.2)
[2023-05-31 15:43] LABS: Partial Thromboplastin Time 31.8 SECONDS (23.9-36.7)
[2023-06-01] MEDS: diphenhydrAMINE 25 mg Capsule PO (09:20)
[2023-06-01] MEDS: acetaminophen 325 mg Tablet 650 MG PO (09:21)
[2023-06-01] MEDS: sodium chloride 0.9% 250 mL Bag IV (09:21)
[2023-06-01 09:47] VITALS: BP 125/77; PULSE 77; RESP 16; TEMP 36.2; O2SAT 98
[2023-06-01 09:49] VITALS: BP 125/77; PULSE 77; RESP 16; TEMP 36.2; O2SAT 97
[2023-06-01 10:05] VITALS: BP 106/68; PULSE 76; RESP 16; TEMP 37.1; O2SAT 95
[2023-06-01 10:35] VITALS: BP 112/72; PULSE 77; RESP 16; TEMP 37.2; O2SAT 97
[2023-06-01 12:00] VITALS: BP 112/72; BP 122/79; PULSE 71; PULSE 77; RESP 16; RESP 18; TEMP 36.9; O2SAT 98
== END 2023-06-15 23:59 | disposition home or self-care (01) ==
PROVIDERS: Internal Medicine; PCP Family Medicine; Visit Provider Internal Medicine Medical Oncology
DX: D50.0 Iron deficiency anemia secondary to blood loss (chronic) (principal)
CPT/HCPCS: 36415; 36430; 80053; 82728; 83540; 83550; 83615; 85025; 85610; 85730; 86850; 86900; 86920; J7050; P9040

== ENCOUNTER 2023-06-07 09:36 | Outpatient (CLI) | payer BC, SELFPAY ==
--- NOTE | 2023-06-07 10:15 | MR_ITS ---
WS: [id number] MRI HEAD WITH CONTRAST TECHNIQUE: Sagittal T1, T2 axial, T2 axial FLAIR, axial susceptibility weighted imaging, axial diffus ion weighted images, and coronal T2 images were obtained. Pre and post-T1 axial and post T1 coronal i mages. ADC and FSPGR images. CLINICAL INFORMATION: malignant melanoma COMPARISON: None. FINDINGS: No evidence of restricted diffusion to suggest acute ischemia. Ventricular system and basilar cistern s are patent. Minimal small vessel changes. Mild parenchymal volume loss. Normal posterior fossa. Nor mal vascular flow voids at the skull base. No extra-axial fluid collections. Tiny chronic lacunar inf arct RIGHT cerebellum. Normal posterior nasopharynx. Normal parapharyngeal fat. Paranasal sinuses and mastoid air cells are well aerated. No hemosiderin on susceptibly weighted images. Normal optic chiasm and pituitary infundibulum. Mild symmetric atrophy temporal lobes and hippocampal formations. No abnormal intracranial enhancement. No evidence of enhancing intracranial metastatic d isease. Normal dural venous sinuses. IMPRESSION: 1. No evidence of enhancing intracranial metastatic disease. 2. No evidence of restricted diffusion to suggest acute ischemia. 3. Minimal small vessel changes. Mild parenchymal volume loss. 4. Tiny chronic lacunar infarct RIGHT cerebellum.
[2023-06-07] MEDS: gadobenate dimeglumine 20 mL vial IV (10:23)
== END 2023-06-07 09:37 | disposition home or self-care (01) ==
LOC: RAD 09:36
PROVIDERS: PCP Family Medicine; Visit Provider Internal Medicine
DX: C43.9 Malignant melanoma of skin, unspecified (principal); C81.90 Hodgkin lymphoma, unspecified, unspecified site
CPT/HCPCS: 70553; A9577

== ENCOUNTER 2023-06-13 09:55 | Day surgery (SDC) | payer BC, SELFPAY ==
[2023-06-13] VITALS (7 sets, daily range): BP systolic 130–146; BP diastolic 62–82; PULSE 79–90; RESP 16–18; TEMP 36.2–36.8; O2SAT 95–100; BMI 39.5
--- NOTE | 2023-06-13 | XRR_ITS ---
PROCEDURE INFORMATION: Exam: XR Chest Exam date and time: 06/13/2023 2:06 PM Age: 62 years old Clinical indication: Device placement; Other: Port placement; Prior surgery; Surgery date: Post-operative (0-2 days); Patient HX: HX of melanoma TECHNIQUE: Imaging protocol: Radiologic exam of the chest. Views: 1 view. COMPARISON: OT XR chest 1V portable [id number] 06/13/2023 12:27 PM FINDINGS: Tubes, catheters and devices: Chemotherapy infusion device enters from the left side and terminates in the SVC. Lungs: Mild interstitial prominence. Pleural spaces: Unremarkable. No pleural effusion. No pneumothorax. Heart/Mediastinum: See Vasculature finding. Vasculature: Mild cardiomegaly and uncoiling of the thoracic aorta accentuated by the AP positioning. Bones/joints: Unremarkable. XR/XR chest 1V [id number] IMPRESSION: No acute cardiopulmonary disease.
--- NOTE | 2023-06-13 10:29 | SC_ITS ---
WS: [id number] INTRAOPERATIVE TECHNIQUE: 3 Spot fluoroscopic images for intraoperative purposes. FLUOROSCOPY TIME: 8.6 seconds CLINICAL INFORMATION: mediport placement COMPARISON: None. FINDINGS: Fluoroscopy used for LEFT Port-A-Cath placement. Port-A-Cath tip in the distal SVC better seen on the following chest x-ray. IMPRESSION: Images obtained for intraoperative purposes.
[2023-06-13] MEDS: sodium chloride 0.9% 1,000 ML 30 ML IV (11:22)
--- NOTE | 2023-06-13 11:32 | W.PM.OPSUD ---
Surgery/Procedure H&P Update DATE OF PROCEDURE: June 13, 2023 DATE H&P PERFORMED: 06/07/23 H&P UPDATE INFORMATION: I have reviewed H&P completed within last 30 days, I have examined patient prior to procedure and No changes to prior documentation PLANNED PROCEDURE: Operation Date: 06/13/23 12:00 Proposed Procedures p Portacath Placement(Not Applicable) - Dominguez Streeter DO
--- NOTE | 2023-06-13 12:06 | P.ANESASSM_ITS ---
Pre-Anesthetic Assessment Height/Weight: Height 1.85 m Weight 136.078 kg Temp Pulse Resp BP Pulse Ox O2 Del Method 98.2 F 90 16 146/82 95 Room Air 06/13/23 10:35 06/13/23 10:35 06/13/23 10:35 06/13/23 10:35 06/13/23 10:35 06/13/23 10:39 Operation Date: 06/13/23 12:00 Proposed Procedures p Portacath Placement(Not Applicable) - Dominguez Streeter DO Familial anesthetic complications: none Was Beta Joanna taken within 24 hours: N/A Was Clonidine taken within 24 hours: N/A Last intake: Intake Last Liquid Date 06/12/23 Last Liquid Time 22:30 Last Solid Date 06/12/23 Last Solid Time 22:30 Social No alcohol and No tobacco Exam alert and oriented x 3 Airway Submandibular: within normal limits Cervical ROM: within normal limits Mallampati: Class II Dentition: caps (crowns top front teeth- loose) and full Pulmonary None reported CV/HEM Coronary Artery Disease and Hypertension None reported Hepatic None reported GI None reported Metabolic Hyperlipidemia and Morbid Obesity [facility] [place] None reported Neuropsych None reported Anesthetic Plan ASA status: 3 Anesthesia: Anesthesia Evaluation, General and MAC Risk of > 500 ml blood loss (7ml/kg in children): No Medications/Allergies Home Medications Medication Instructions Recorded Confirmed Last Taken Type aspirin 81 mg chewable tablet 81 mg PO QAM 08/02/21 06/12/23 06/12/23 07:00 History polyethylene glycol 3350 17 gram 17 g PO DAILY PRN Constipation 08/11/22 06/12/23 06/12/23 History oral powder packet (Miralax) lovastatin 40 mg tablet 40 mg PO QAM #90 tabs 08/15/22 06/12/23 06/12/23 Rx nitroglycerin 0.3 mg sublingual 0.3 mg sublingual Q5M PRN Chest 08/24/22 06/12/23 Unknown History tablet (Nitrostat) Pain metoprolol succinate 25 mg 25 mg PO DAILY #90 tabs 09/20/22 06/13/23 06/12/23 14:00 Rx tablet,extended release 24 hr pantoprazole 40 mg tablet,delayed 40 mg PO DAILY 30 days #90 tabs 09/21/22 06/12/23 06/12/23 Rx release hydrochlorothiazide 12.5 mg capsule 12.5 mg PO DAILY #90 caps 02/08/23 06/12/23 06/12/23 Rx lisinopril 20 mg tablet See Rx Instructions .Route 03/29/23 06/12/23 06/12/23 Rx .COMPLEX #90 tabs fluticasone propionate 50 2 spray intranasal DAILY PRN 04/13/23 06/12/23 Unknown History mcg/actuation nasal Allergic Reaction spray,suspension (Allergy Relief (fluticasone)) mecobalamin (vitamin B12) 500 mcg See Rx Instructions PO DAILY 04/13/23 06/12/23 06/12/23 History chewable tablet nivolumab 100 mg/10 mL intravenous 100 mg (10 mL) IV Q21D #10 mL 06/01/23 06/12/23 Unknown Rx solution nivolumab 40 mg/4 mL intravenous 40 mg (4 mL) IV Q21D #4 mL 06/01/23 06/12/23 Unknown Rx solution ferumoxytol 510 mg/17 mL (30 510 mg (17 mL) IV Q3D 2 doses #17 06/05/23 06/12/23 04/14/23 Rx mg/mL) intravenous solution mL (Feraheme) Allergies Allergy/AdvReac Type Severity Reaction Status Date / Time No Known Allergies Allergy Verified 06/13/23 10:36 Current Medications Generic Name Dose Route Start Last Admin Trade Name Freq PRN Reason Stop Dose Admin Sodium Chloride 1,000 mls @ 30 mls/hr 06/13/23 11:15 06/13/23 11:22 Sodium Chloride 0.9% IV 06/14/23 11:14 30 mls/hr .Q24H KAYLEN Administration PFSH Anesthesia Medical History Hodgkin lymphoma Metastatic malignant melanoma Obstructive sleep apnea Personal history of Hodgkin lymphoma Age 22 Cholecystitis CAD (coronary artery disease) Melanoma Obesity Hypertension Hyperlipemia Surgical History History of melanoma excision Right leg History of hernia repair Abdominal hernia repair x 2 History of heart artery stent H/O splenectomy Family History Father CAD (coronary artery disease) Hypertension Social History Smoking and tobacco/nicotine status: former use of tobacco/nicotine Quit status (tobacco/nicotine): has quit using Former quit date comment: quit 20+ YEARS Ago Smoked for 10 years Alcohol intake: current Alcohol intake frequency: holidays/special occasions only Substance/Drug Use: never Data Anesthesia Cardiac Studies: Echocardiogram 08/03/21 Sestamibi Stress Test (Cardiology) 07/08
[2023-06-13] MEDS: ceFAZolin 3,000 MG in sodium chloride 0.9% (plus) 100 ML 200 MG IV (12:11)
[2023-06-13] MEDS: heparin, porcine 1,000 unit/mL INJ 10 mL 10000 UNIT IRRIGATION (12:38)
--- NOTE | 2023-06-13 12:39 | PM.OP ---
Operative Report Date of procedure: June 13, 2023 Pre-op diagnosis: Metastatic malignant melanoma Post-op diagnosis: same Procedure done: Mediport placement Implants: powerport Specimens removed/disposition: none Surgeon: Dominguez Streeter DO Anesthesia: MAC and Local Estimated blood loss (mL): 5 Complications: none apparent Brief History: This is a very pleasant 62-year-old gentleman presented my office requesting Mediport placement for chemotherapy access. He has known metastatic malignant melanoma. The risk and benefits were explained and documented. Procedure: They put another order I will do right now things the patient was taken to the operating room and placed supine on the operating room table. All bony prominences were padded. She was given IV sedation and monitored throughout the case by the anesthesia personnel. SCDs were placed and turned on. The arms were tucked to the side. Patient received Ancef 2 g preoperatively IV. The bilateral chest wall was prepped and draped in usual sterile fashion using chlorhexidine base prep. Sterile drapes were applied. We did procedure pause prior to beginning. An 18 gauge needle was placed in the left subclavian vein. Dark, nonpulsatile blood was aspirated. A guidewire was placed through the needle centrally toward the atrial/vena caval junction. Fluoroscopy visualized good placement. The needle was removed and the guidewire was clipped to the drape with a hemostat. Further local anesthetic was infiltrated in the soft tissues of the left chest wall and a #15 blade was used to make a horizontal skin incision. A subcutaneous Mediport pocket was created using Bovie cautery, dissecting down through the skin and subcutaneous tissues. Meticulous hemostasis was achieved. The Mediport was sutured in position using 3-0 vicryl suture x2 stitches. A #15 blade was used to make a small skin zackery around the guidewire insertion area. The Mediport tubing was tunneled through the subcutaneous tissues up to the needle insertion location. A dilator with a peel-away sheath was placed over the guidewire and placed centrally. After measuring the Mediport tubing was cut to length so that the tip would end at the atrial/vena caval junction. The inner cannula and the guidewire were removed, leaving the dilator sheath in place. The Mediport was flushed. The tip of the catheter was inserted through the peel-away sheath and the peel-away sheath removed in the standard fashion. The Mediport was accessed with a straight Mejia needle and dark, nonpulsatile blood was aspirated and flushed using heparinized saline to hep-lock the Mediport. Final fluoroscopy visualization showed no kink in the catheter and the tip of the Mediport tubing near the atrial/vena caval junction. Both skin incisions were thoroughly irrigated and suctioned dry. Meticulous hemostasis noted. The dermis was approximated with 3-0 Vicryl in an interrupted fashion. Skin was closed with Dermabond. Patient was awakened from anesthesia and transferred via her cart to the recovery room in stable condition. All needle, sponge, and instrument counts were correct per the operating personnel x2 counts.
[2023-06-13] MEDS: lidocaine-epi 2% 20 mL INJ 10 ML INJECTION (12:40)
--- NOTE | 2023-06-13 13:40 | ANE.PACU2 ---
Inpatient post-anesthesia follow up: Airway intact: Yes Vital signs: Temperature 97.9 F Pulse Rate 80 Respiratory Rate 17 Blood Pressure 130/62 Pulse Oximetry 95 Oxygen Delivery Me thod Room Air Oxygen Flow Rate 6 Fraction of Inspir ed Oxygen Hydration adequate: Yes Nausea and vomiting: No Pain level: 1 Mental status: Baseline
== END 2023-06-13 13:40 | disposition home or self-care (01) ==
PROVIDERS: PCP Family Medicine; Visit Provider Surgery
PROC: (CPT 36561; principal; 2023-06-13 12:00)
DX: C79.9 Secondary malignant neoplasm of unspecified site (principal); I25.10 Atherosclerotic heart disease of native coronary artery without angina pectoris; I10 Essential (primary) hypertension; E78.5 Hyperlipidemia, unspecified; E66.01 Morbid (severe) obesity due to excess calories; Z68.39 Body mass index [BMI] 39.0-39.9, adult; Z79.82 Long term (current) use of aspirin; Z87.891 Personal history of nicotine dependence
CPT/HCPCS: 36561; 71045; 76000; 77001; C1788; J0690; J1644; J2704; J3010; J7030

== ENCOUNTER 2023-07-10 10:38 | Emergency (ER) | payer BC, SELFPAY ==
[2023-07-10 10:45] VITALS: BP 105/69; PULSE 102; RESP 18; TEMP 36.7; O2SAT 100; BMI 39.5
--- NOTE | 2023-07-10 10:52 | XRR_ITS ---
PROCEDURE INFORMATION: Exam: XR Chest Exam date and time: 07/10/2023 10:56 AM Age: 62 years old Clinical indication: Fever; Additional info: Fever weakness TECHNIQUE: Imaging protocol: Radiologic exam of the chest. Views: 1 view. COMPARISON: CR XR chest 1V [id number] 06/13/2023 2:06 PM FINDINGS: Tubes, catheters and devices: Left-sided chest port catheter terminates over the area of the cavoatrial junction. Lungs: No focal consolidation. Pleural spaces: No large pleural effusion. No significant pneumothorax. Heart/Mediastinum: Cardiomediastinal silhouette is midline and normal in size. Bones/joints: No acute osseous findings. XR/XR chest 1V portable [id number] IMPRESSION: No acute cardiopulmonary findings.
--- NOTE | 2023-07-10 11:05 | ECG_ITS ---
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 Measurements Intervals [place] Rate: 111 P: 0 [place]: 0 QRS: -38 QRSD: 94 T: 42 QT: 329 QTc: 449 Interpretive Statements ATRIALFIBRILLATION WITH RAPID VENTRICULAR RESPONSE LEFT AXIS DEVIATION [QRS AXIS < -30] Compared to ECG 08/11/2022 16:44:39 Left-axis deviation now present Sinus rhythm no longer present Electronically Signed On 07-10-2023 12:24:04 PERSONAL COMPUTER SPECIALIST by Osmin May M.D. [id number]
[2023-07-10 11:19] VITALS: BP 128/80; PULSE 110; O2SAT 98
--- NOTE | 2023-07-10 11:25 | W.ED.WEAKNES ---
HPI - Weakness General: Chief complaint: Weakness Stated complaint: fever,weakness Time Seen by Provider: 07/10/23 10:51 History of Present Illness: Presents to the ER with complaints of weakness for last 3 days. Patient just received his first immunotherapy for his cancer and is abdomen on Monday 7 days ago he received an iron infusion Monday approximately 5 days ago and since then has been going downhill. Patient feels weak all over. Patient tried to take a shower this morning almost passed out because he got so lightheaded and dizzy. Patient states he been running a fever off and on even had night sweats last night. Patient's temperature got up to 103 per the patient. Patient has been alternating Tylenol and Motrin. Upon arrival patient's pulse is 102 and blood pressure 105/69. Patient does not appear toxic and is in no acute distress. Review of Systems General: Reports: 10 or more systems reviewed and unremarkable except in HPI and below PFSH ED PFSH: Medical History Hodgkin lymphoma Metastatic malignant melanoma Obstructive sleep apnea Personal history of Hodgkin lymphoma Age 22 Cholecystitis CAD (coronary artery disease) Melanoma Obesity Hypertension Hyperlipemia Surgical History History of melanoma excision Right leg History of hernia repair Abdominal hernia repair x 2 History of heart artery stent H/O splenectomy Family History Father CAD (coronary artery disease) Hypertension Social History Smoking and tobacco/nicotine status: former use of tobacco/nicotine Quit status (tobacco/nicotine): has quit using Former quit date comment: quit 20+ YEARS Ago Smoked for 10 years Alcohol intake: current Alcohol intake frequency: holidays/special occasions only Substance/Drug Use: never Physical Exam Const: COMMON NORMALS: no acute distress, average body habitus, patient oriented x3, no limitations, healthy appearing, alert and well nourished HENMT: COMMON NORMALS: normocephalic, atraumatic, hearing grossly normal bilaterally, external ears normal, Normal external nose present, moist oral mucous membranes and oropharynx normal HEAD & SCALP: normocephalic and atraumatic NOSE: Normal external nose present EXTERNAL EAR: Yes external ears normal Eye: COMMON NORMALS: Equal, round and reactive pupils present, EOMs intact bilaterally, conjunctivae normal and no scleral icterus CONJUNCTIVA: Yes conjunctivae normal PUPIL: Yes Equal, round and reactive pupils present Neck/C-Spine: COMMON NORMALS: no JVD Chest: COMMONS NORMALS: normal inspection of the chest and normal palpation of entire chest wall Resp: COMMON NORMALS: normal respiratory effort, No retractions, No use of accessory muscles and clear to auscultation bilaterally AUSCULTATION: clear to auscultation bilaterally Cardio: COMMON NORMALS: no JVD, regular rate, regular rhythm, S1 normal heart sound present, S2 normal heart sound present, No gallops present (Cardio), No clicks present (Cardio), No murmurs present (Cardio) and No rub (Cardio) RATE: regular rate RHYTHM: regular rhythm HEART SOUNDS: S1 normal heart sound present and S2 normal heart sound present GI: COMMON NORMALS: Normal to inspection, nondistended, normoactive bowel sounds present, Soft to palpation, non-tender, No hepatosplenomegaly present and no masses PALPATION: Yes Soft to palpation and Yes No hepatosplenomegaly present Neuro: COMMON NORMALS: patient oriented x3 SENSORIUM/ORIENTATION: Yes alert Course Vital Signs: Vital signs: Vital Signs Temperature 98.1 F 07/10/23 10:45 Pulse Rate 101 H 07/10/23 13:59 Respiratory Rate 18 07/10/23 10:45 Blood Pressure 99/66 07/10/23 13:59 Pulse Oximetry 95 07/10/23 13:59 Oxygen Delivery Me thod Room Air 07/10/23 13:59 MDM - Weakness Medical Decision Making Patient under workup included blood work chest x-ray EKG and urinalysis. Labs showed a white count of 13,000 platelets of 667 serial troponins of 25 and 34 delta of 5. Urinalysis showed urinary tract infection. Patient was given Cipro 500 mg p.o. and will be discharged for with a prescription for Cipro. Patient should follow-up with his PCP within the next 7 to 10 days for further evaluation and treatment. Differential Diagnosis Unlikely acute myocardial infarction, anemia, hypoglycemia, hypothyroidism, rhabdomyolysis, sepsis or dehydration Medical Records I reviewed the patient's medical records. Lab Data I reviewed the patient's lab results. 07/10/23 11:28 07/10/23 11:28 Radiology Impressions Chest X-Ray 07/10/23 10:52 IMPRESSION: No acute cardiopulmonary findings. Laboratory Results WBC 13.30 10^3/uL (3.29-11.43) H 07/10/23 11:28 Corrected WBC 12.5 10^3/cmm (4.8-10.8) H 07/10/23 11:28 RBC 4.01 10^6/uL (3.85-5.65) 07/10/23 11:28 Hgb 10.30 g/dL (11.27-16.99) L 07/10/23 11:28 Hct 34.1 % (37-53) L 07/10/23 11:28 MCV 85.0 fl (82-101) 07/10/23 11:28 MCH 25.7 pg (27-33) L 07/10/23 11:28 MCHC 30.2 g/dL (30-55) 07/10/23 11:28 RDW 23.4 % (12.1-15.1) H 07/10/23 11:28 Plt Count 667 10^3/cmm (157-399) H 07/10/23 11:28 MPV 9.2 fL (7.4-10.4) 07/10/23 11:28 Lymph % (Auto) Not Reportable 07/10/23 11:28 [place] % (Auto) Not Reportable 07/10/23 11:28 Lymph # (Auto) Not Reportable 07/10/23 11:28 [place] # (Auto) Not Reportable 07/10/23 11:28 Total Counted 100 (0-100) 07/10/23 11:28 Atypical Lymphs % 2.0 % (0-5) 07/10/23 11:28 Absolute Neutrophils 9.3 10^3/cmm (1.4-6.5) H 07/10/23 11:28 Segmented Neutrophils 70 % 07/10/23 11:28 Abs Segm Neuts (Man) 9.3 10/cmm (1.6-7.1) H 07/10/23 11:28 Band Neutrophils 0.0 % 07/10/23 11:28 Abs Band Neuts (Man) 0.0 10^3/cmm (0.0-1.2) 07/10/23 11:28 Absolute Lymphocytes 1.1 10^3/cmm (1.2-3.4) L 07/10/23 11:28 Lymphocytes (Manual) 6 % 07/10/23 11:28 Monocytes (Manual) 17.0 % 07/10/23 11:28 Absolute Monocytes 2.3 10^3/cmm (0.1-0.6) H 07/10/23 11:28 Eosinophils (Manual) 0 % 07/10/23 11:28 Absolute Eosinophils 0.0 10^3/cmm (0.0-0.7) 07/10/23 11:28 Basophils (Manual) 0.0 % 07/10/23 11:28 Absolute Basophils 0.0 10^3/cmm (0.0-0.2) 07/10/23 11:28 Promyelocytes 4.0 % 07/10/23 11:28 Nucleated RBCs 6.0 /100WBC (0-1) H 07/10/23 11:28 Platelet Estimate Increased (Normal) 07/10/23 11:28 Giant Platelets Trace 07/10/23 11:28 Anisocytosis 1+ H 07/10/23 11:28 Sodium 135 mmol/L (136-145) L 07/10/23 11:28 Potassium 3.9 mmol/L (3.5-5.1) 07/10/23 11:28 Chloride 98 mmol/L (98-107) 07/10/23 11:28 Carbon Dioxide 25 mmol/L (22-29) 07/10/23 11:28 Anion Gap 15.9 (5-19) 07/10/23 11:28 BUN 12 mg/dL (8-23) 07/10/23 11:28 Creatinine 0.7 mg/dL (0.7-1.2) 07/10/23 11:28 GFR Calculation 114.6 mL/min (90-130) 07/10/23 11:28 Glucose 111 mg/dL (65-115) 07/10/23 11:28 Calculated Osmolality 280 mOsm/kg (285-295) L 07/10/23 11:28 Calcium 8.6 mg/dL (8.5-10.5) 07/10/23 11:28 Total Bilirubin 0.6 mg/dL (0.15-1.2) 07/10/23 11:28 AST 56 U/L (0-40) H 07/10/23 11:28 ALT 43 U/L (0-41) H 07/10/23 11:28 Alkaline Phosphatase 111 U/L (40-130) 07/10/23 11:28 Troponin T Baseline 25 ng/L (0-15) H 07/10/23 11:28 Troponin T 120 Minute 30.30 ng/L (0-15) H 07/10/23 13:45 Delta Troponin T 5.30 ABS# (0-10) 07/10/23 13:45 Total Protein 6.0 g/dL (6.6-8.7) L 07/10/23 11:28 Albumin 3.2 g/dL (3.5-5.2) L 07/10/23 11:28 Globulin 2.8 g/dL (1.3-4.6) 07/10/23 11:28 Procalcitonin 0.43 ng/mL (0-0.5) 07/10/23 11:28 Urine Color Yellow (Yellow) 07/10/23 13:00 Urine Appearance Clear (CLEAR) 07/10/23 13:00 Urine pH 5 (5-7) 07/10/23 13:00 Ur Specific [place] 1.015 (1.005-1.030) 07/10/23 13:00 Urine Protein Trace (Negative) 07/10/23 13:00 Urine Glucose (UA) Norm (Normal) 07/10/23 13:00 Urine Ketones 1+ (Negative) H 07/10/23 13:00 Urine Blood 2+ (Negative) H 07/10/23 13:00 Urine Nitrate Negative (Negative) 07/10/23 13:00 Urine Bilirubin 1+ (Negative) H 07/10/23 13:00 Urine Urobilinogen 4+ mg/dL (Negative) H 07/10/23 13:00 Ur Leukocyte Esterase Trace (Negative) H 07/10/23 13:00 Urine RBC 0-4 /hpf (0-2) H 07/10/23 13:00 Urine WBC 15-25 /hpf (0-5) H 07/10/23 13:00 Ur Squamous Epith Cells 5-10 /hpf (0-5) H 07/10/23 13:00 Amorphous Sediment Not Reportable 07/10/23 13:00 Urine Bacteria 2+ /hpf (NONE) H 07/10/23 13:00 Urine Mucus 2+ /hpf 07/10/23 13:00 Influenza Type A Ag negative (Negative) 07/10/23 12:00 Influenza Type B Ag negative (Negative) 07/10/23 12:00 SARS-CoV-2 Ag (Rapid) Negative (Negative) 07/10/23 12:00 All radiology interpretation(s) finalized by discharge EKG Data EKG 1: I personally reviewed and interpreted this EKG as follows: EKG interpretation date: 07/10/23 EKG interpretation time: 11:05 Prior EKG tracings: not available for review Interpretation: EKG shows ventricular rate 111 bpm, QRS duration 94, QTc of 395, atrial flutter/tachycardia with RVR, left axis deviation Discharge Plan Discharge Patient Disposition: Home Clinical Impression: Urinary tract infection, Generalized weakness Condition: Stable Prescriptions: No Action fluticasone propionate [Allergy Relief (fluticasone)] 50 mcg/actuation spray,suspension 2 spray intranasal DAILY PRN (Reason: Allergic Reaction) Rx Instructions: administer into each nostril mecobalamin (vitamin B12) 500 mcg tablet,chewable See Rx Instructions PO DAILY Rx Instructions: 500 orally daily; gummies lovastatin 40 mg tablet 40 mg PO QAM Qty: 90 3RF metoprolol succinate 25 mg tablet extended release 24 hr 25 mg PO DAILY Qty: 90 3RF pantoprazole 40 mg tablet,delayed release (DR/EC) 40 mg PO DAILY 30 Days Qty: 90 3RF hydrochlorothiazide 12.5 mg capsule 12.5 mg PO DAILY Qty: 90 1RF lisinopril 20 mg tablet See Rx Instructions .ROUTE .COMPLEX Qty: 90 3RF Dose Instruction: Take 1 tablet by mouth once daily for blood pressure Rx Instructions: Take 1 tablet by mouth once daily for blood pressure ferumoxytol [Feraheme] 510 mg/17 mL (30 mg/mL) solution 510 mg IV Q3D Qty: 17 0RF Rx Instructions: administer at a rate of up to 1 mL /sec (30 mg /sec ) nivolumab 100 mg/10 mL solution 100 mg IV Q21D Qty: 10 3RF nivolumab 40 mg/4 mL solution 40 mg IV Q21D Qty: 4 3RF ipilimumab 200 mg/40 mL (5 mg/mL) solution 400 mg IV .COMPLEX Qty: 80 3RF Rx Instructions: 400 mg intravenously Every 21 days; cholecalciferol (vitamin D3) 1,250 mcg (50,000 unit) capsule 50,000 unit PO .qweek Qty: 52 0RF prochlorperazine maleate [Compazine] 10 mg tablet 10 mg PO Q4H PRN (Reason: nausea and vomiting) Qty: 30 3RF lorazepam 1 mg tablet 0.5 - 1 mg PO Q6H PRN (Reason: severe nausea) Qty: 30 3RF aspirin 81 mg Tablet,Chewable 81 mg PO QAM hydrocodone-acetaminophen 10-325 mg tablet 1 tab PO Q6H PRN (Reason: pain) Qty: 10 0RF Rx Instructions: May take half of a tab at a time DOK 100 mg capsule 100 mg PO BID Qty: 10 0RF polyethylene glycol 3350 [Miralax] 17 gram Powder In Packet 17 g PO DAILY PRN (Reason: Constipation) nitroglycerin [Nitrostat] 0.3 mg Tablet, Sublingual 0.3 mg SUBLINGUAL Q5M PRN (Reason: Chest Pain) Rx Instructions: do not exceed 3 doses per episode Discharge Orders: Discharge ED (Routine); Ordered 07/10/23 Ordered By: Ted Russo Referrals: Miko Montalvo DO [Primary Care Provider] - 1 week Patient Instructions: Urinary Tract Infection in Men (ED) Activity Restrictions/Additional Instructions: Please take all your antibiotics as directed. Please push plenty of fluids. Please follow-up with your family practice physician within the next 7 to 10 days for recheck of your urinalysis. Coding Level of Care Code ED Discharge Door Operator for Velia Lorenzana
[2023-07-10 11:37] LABS: Hematocrit 34.1 % (37-53); Mean Corpuscular HGB Conc 30.2 g/dL (30-55); Mean Corpuscular Hemoglobin 25.7 pg (27-33); Mean Platelet Volume 9.2 fL (7.4-10.4); Platelet Count 667 10^3/cmm (157-399); Red Blood Count 4.01 10^6/uL (3.85-5.65); Red Cell Distribution Width 23.4 % (12.1-15.1)
[2023-07-10 11:55] LABS: Troponin(5th) Baseline 25 ng/L (0-15)
[2023-07-10 11:56] LABS: Alanine Aminotransferase 43 U/L (0-41); Albumin Level 3.2 g/dL (3.5-5.2); Alkaline Phosphatase 111 U/L (40-130); Anion Gap 15.9 (5-19); Aspartate Amino Transferase 56 U/L (0-40); Blood Urea Nitrogen 12 mg/dL (8-23); Calcium 8.6 mg/dL (8.5-10.5); Carbon Dioxide 25 mmol/L (22-29); Chloride 98 mmol/L (98-107); Globulin 2.8 g/dL (1.3-4.6); Glomerular Filtration Rate 114.6 mL/min (90-130); Glucose 111 mg/dL (65-115); Osmolality Calculated 280 mOsm/kg (285-295); Potassium 3.9 mmol/L (3.5-5.1); Sodium 135 mmol/L (136-145); Total Bilirubin 0.6 mg/dL (0.15-1.2)
[2023-07-10 12:00] VITALS: BP 128/61; PULSE 114; O2SAT 93
[2023-07-10 12:03] LABS: Procalcitonin 0.43 ng/mL (0-0.5)
[2023-07-10 12:18] LABS: Influenza A by IFA negative (Negative); Influenza B by IFA negative (Negative)
[2023-07-10 12:30] VITALS: BP 116/65; PULSE 114; O2SAT 94
[2023-07-10 12:35] LABS: Slide Review Slide Review Perform
[2023-07-10 12:36] LABS: Absolute Segmented Neutrophil 9.3 10/cmm (1.6-7.1); Segmented Neutrophils 70 %; Total Cells Counted 100 (0-100)
[2023-07-10 12:37] LABS: Absolute Neutrophil 9.3 10^3/cmm (1.4-6.5); Corrected White Blood Count 12.5 10^3/cmm (4.8-10.8); Eosinophils 0 %; Lymphocytes 6 %; Lymphocytes Absolute 1.1 10^3/cmm (1.2-3.4); Monocytes Absolute 2.3 10^3/cmm (0.1-0.6); Platelet Estimate Increased (Normal)
[2023-07-10 12:38] LABS: Anisocytosis 1+; Giant Platelets Trace
[2023-07-10 12:40] LABS: SARS Covid-2 Antigen Negative (Negative)
[2023-07-10 13:30] VITALS: BP 110/58; PULSE 97; O2SAT 98
[2023-07-10 13:57] LABS: Bilirubin Urine 1+ (Negative); Blood Urine 2+ (Negative); Glucose Urine UA Norm (Normal); Ketones Urine 1+ (Negative); Nitrate Urine Negative (Negative); Protein Urine Trace (Negative); Specific Gravity, Urine 1.015 (1.005-1.030); Urine Appearance Clear (CLEAR); Urine Color Yellow (Yellow); pH Urine 5 (5-7)
[2023-07-10 13:58] LABS: Add Urine Microscopic? YES; Leukocyte Esterase Urine Trace (Negative); Urobilinogen Urine 4+ mg/dL (Negative)
[2023-07-10 13:59] VITALS: BP 99/66; PULSE 101; O2SAT 95
[2023-07-10 13:59] LABS: Bacteria Urine 2+ /hpf; Mucus Urine 2+ /hpf; RBC Urine 0-4 /hpf (0-2); WBC Urine 15-25 /hpf (0-5)
[2023-07-10 14:00] LABS: Add Urine Culture? Yes
[2023-07-10] MEDS: ciprofloxacin 500 mg Tablet PO (15:29)
== END 2023-07-10 15:42 | disposition home or self-care (01) ==
PROVIDERS: Emergency Provider Emergency Medicine; PCP Family Medicine
DX: N39.0 Urinary tract infection, site not specified (principal); R53.1 Weakness; Z79.82 Long term (current) use of aspirin; Z11.52 Encounter for screening for COVID-19; Z87.891 Personal history of nicotine dependence; Z85.71 Personal history of Hodgkin lymphoma; I25.10 Atherosclerotic heart disease of native coronary artery without angina pectoris; I10 Essential (primary) hypertension; E78.5 Hyperlipidemia, unspecified
CPT/HCPCS: 36415; 71045; 80053; 81001; 84145; 84484; 85007; 85025; 87077; 87086; 87186; 87426; 87804; 93005; 99285

== ENCOUNTER 2023-07-14 08:00 | Oncology outpatient (recurring) (ONCR) | payer BC, SELFPAY ==
[2023-06-19] VITALS (12 sets, daily range): BP systolic 107–123; BP diastolic 61–79; PULSE 85–112; RESP 16–18; TEMP 36.7–37.2; O2SAT 90–99
[2023-06-19 09:42] LABS: Basophils # 0.1 10^3/uL (0.0-0.1); Basophils % 0.4 %; Eosinophils # 0.2 10^3/uL (0.0-0.8); Eosinophils % 0.8 %; Hematocrit 25.1 % (37-53); Lymphocytes # 1.6 10^3/uL (0.8-4.8); Lymphocytes % 8.1 %; Mean Corpuscular HGB Conc 28.7 g/dL (30-55); Mean Corpuscular Hemoglobin 22.3 pg (27-33); Mean Corpuscular Volume 77.7 fl (82-101); Mean Platelet Volume 8.5 fL (7.4-10.4); Monocytes # 1.1 10^3/uL (0.2-0.9); Monocytes % 5.8 %; Neutrophils # 16.36 10^3/uL (1.8-7.7); Neutrophils % 84.1 %; Nucleated Red Blood Cells # 0.2 /100WBC; Nucleated Red Blood Cells % 0.8 %; Platelet Count 1114 10^3/cmm (157-399); Red Blood Count 3.23 10^6/uL (3.85-5.65); Red Cell Distribution Width 20.7 % (12.1-15.1); White Blood Count 19.44 10^3/uL (3.29-11.43)
[2023-06-19] MEDS: diphenhydrAMINE 25 mg Capsule PO (11:02)
[2023-06-19] MEDS: acetaminophen 325 mg Tablet 650 MG PO (11:02)
[2023-06-19] MEDS: sodium chloride 0.9% 250 ML 50 ML IV (11:13)
[2023-06-19] MEDS: FUROsemide 10 mg/mL SDV 2mL 20 MG IVP (13:41)
[2023-06-27 11:27] VITALS: BP 124/74; PULSE 90; RESP 17; TEMP 37.2; O2SAT 96
[2023-06-27 11:37] LABS: Basophils # 0.1 10^3/uL (0.0-0.1); Basophils % 0.3 %; Eosinophils # 0.2 10^3/uL (0.0-0.8); Eosinophils % 1.3 %; Hematocrit 26.6 % (37-53); Lymphocytes # 1.5 10^3/uL (0.8-4.8); Lymphocytes % 9.3 %; Mean Corpuscular HGB Conc 29.3 g/dL (30-55); Mean Corpuscular Hemoglobin 23.3 pg (27-33); Mean Corpuscular Volume 79.4 fl (82-101); Mean Platelet Volume 8.5 fL (7.4-10.4); Monocytes # 1.3 10^3/uL (0.2-0.9); Monocytes % 8.2 %; Neutrophils # 12.57 10^3/uL (1.8-7.7); Neutrophils % 80.3 %; Nucleated Red Blood Cells % 0.2 %; Platelet Count 1111 10^3/cmm (157-399); Red Blood Count 3.35 10^6/uL (3.85-5.65); Red Cell Distribution Width 21.2 % (12.1-15.1); White Blood Count 15.65 10^3/uL (3.29-11.43)
[2023-06-27 12:08] LABS: Alanine Aminotransferase 8 U/L (0-41); Albumin Level 3.2 g/dL (3.5-5.2); Alkaline Phosphatase 69 U/L (40-130); Anion Gap 13.2 (5-19); Aspartate Amino Transferase 13 U/L (0-40); Blood Urea Nitrogen 11 mg/dL (8-23); Calcium 8.4 mg/dL (8.5-10.5); Carbon Dioxide 27 mmol/L (22-29); Chloride 100 mmol/L (98-107); Globulin 3.1 g/dL (1.3-4.6); Glomerular Filtration Rate 114.6 mL/min (90-130); Glucose 116 mg/dL (65-115); Lactate Dehydrogenase 261 U/L (135-225); Osmolality Calculated 282 mOsm/kg (285-295); Potassium 4.2 mmol/L (3.5-5.1); Sodium 136 mmol/L (136-145); Total Bilirubin 0.2 mg/dL (0.15-1.2); Total Protein 6.3 g/dL (6.6-8.7)
[2023-06-28] VITALS (12 sets, daily range): BP systolic 102–114; BP diastolic 59–76; PULSE 63–82; RESP 18; TEMP 36.1–37; O2SAT 93–98
[2023-06-28] MEDS: diphenhydrAMINE 25 mg Capsule PO (07:39)
[2023-06-28] MEDS: acetaminophen 325 mg Tablet 650 MG PO (07:39)
[2023-06-28] MEDS: sodium chloride 0.9% 250 mL Bag IV (08:19)
[2023-06-29 08:03] VITALS: BP 126/77; PULSE 88; RESP 18; TEMP 36.5; O2SAT 97
[2023-06-29] MEDS: ferumoxytol (NON-ESRD) 510 MG in sodium chloride 0.9% (100 ml) 100 ML 351 MG IV (08:43)
[2023-06-29 09:10] VITALS: BP 121/78; PULSE 67; RESP 18; TEMP 36.6; O2SAT 98
[2023-07-03 08:52] VITALS: BP 149/72; PULSE 89; TEMP 36.7; O2SAT 96
[2023-07-03 09:01] LABS: Basophils % 0.2 %; Eosinophils # 0.1 10^3/uL (0.0-0.8); Eosinophils % 0.8 %; Hematocrit 30.2 % (37-53); Lymphocytes # 1.2 10^3/uL (0.8-4.8); Lymphocytes % 6.3 %; Mean Corpuscular HGB Conc 30.5 g/dL (30-55); Mean Corpuscular Hemoglobin 25.6 pg (27-33); Mean Corpuscular Volume 84.1 fl (82-101); Mean Platelet Volume 8.6 fL (7.4-10.4); Monocytes # 1.2 10^3/uL (0.2-0.9); Monocytes % 6.7 %; Neutrophils # 15.59 10^3/uL (1.8-7.7); Neutrophils % 84.6 %; Nucleated Red Blood Cells # 0.1 /100WBC; Nucleated Red Blood Cells % 0.3 %; Platelet Count 1107 10^3/cmm (157-399); Red Blood Count 3.59 10^6/uL (3.85-5.65); Red Cell Distribution Width 23.9 % (12.1-15.1); White Blood Count 18.44 10^3/uL (3.29-11.43)
[2023-07-03 09:13] LABS: Alanine Aminotransferase 10 U/L (0-41); Albumin Level 3.2 g/dL (3.5-5.2); Alkaline Phosphatase 75 U/L (40-130); Anion Gap 8.9 (5-19); Aspartate Amino Transferase 14 U/L (0-40); Blood Urea Nitrogen 9 mg/dL (8-23); Calcium 8.6 mg/dL (8.5-10.5); Carbon Dioxide 32 mmol/L (22-29); Chloride 99 mmol/L (98-107); Globulin 3.2 g/dL (1.3-4.6); Glomerular Filtration Rate 114.6 mL/min (90-130); Glucose 131 mg/dL (65-115); Osmolality Calculated 282 mOsm/kg (285-295); Potassium 3.9 mmol/L (3.5-5.1); Sodium 136 mmol/L (136-145); Total Bilirubin 0.3 mg/dL (0.15-1.2); Total Protein 6.4 g/dL (6.6-8.7)
[2023-07-03] MEDS: diphenhydrAMINE 50 mg/mL SDV 1mL IVP (11:26)
[2023-07-03] MEDS: sodium chloride 0.9% 250 ML 75 ML IV (11:26)
[2023-07-03] MEDS: famotidine 20 mg/2 mL INJ IVP (11:27)
[2023-07-03] MEDS: acetaminophen 325 mg Tablet 650 MG PO (11:27)
[2023-07-03] MEDS: dexamethasone 20 MG in sodium chloride 0.9% 50 ML 188 MG IV (11:29)
[2023-07-03] MEDS: SODIUM CHLORIDE 0.9% IV ×2 (12:17→13:06)
[2023-07-03] MEDS: NIVOLUMAB IV (12:17)
[2023-07-03] MEDS: IPILIMUMAB IV (13:06)
[2023-07-06 08:44] VITALS: BP 114/71; PULSE 92; RESP 18; TEMP 36.6; O2SAT 98
[2023-07-06] MEDS: ferumoxytol (NON-ESRD) 510 MG in sodium chloride 0.9% (100 ml) 100 ML 351 MG IV (08:59)
[2023-07-06 09:33] VITALS: BP 126/77; PULSE 89; RESP 18; TEMP 36; O2SAT 95
[2023-07-12 08:13] VITALS: BP 127/86; PULSE 100; RESP 18; TEMP 36.4; O2SAT 97
[2023-07-12 08:38] LABS: Basophils # 0.1 10^3/uL (0.0-0.1); Basophils % 0.4 %; Eosinophils # 0.1 10^3/uL (0.0-0.8); Eosinophils % 0.3 %; Hematocrit 29.1 % (37-53); Lymphocytes # 7.6 10^3/uL (0.8-4.8); Lymphocytes % 38.7 %; Mean Corpuscular HGB Conc 29.9 g/dL (30-55); Mean Corpuscular Hemoglobin 25.1 pg (27-33); Mean Corpuscular Volume 84.1 fl (82-101); Mean Platelet Volume 9.5 fL (7.4-10.4); Monocytes # 3.1 10^3/uL (0.2-0.9); Neutrophils # 8.58 10^3/uL (1.8-7.7); Neutrophils % 43.9 %; Nucleated Red Blood Cells # 0.4 /100WBC; Nucleated Red Blood Cells % 2.1 %; Platelet Count 628 10^3/cmm (157-399); Red Blood Count 3.46 10^6/uL (3.85-5.65); Red Cell Distribution Width 24.1 % (12.1-15.1); White Blood Count 19.53 10^3/uL (3.29-11.43)
[2023-07-12] MEDS: sodium chloride 0.9% 1,000 ML 999 ML IV (08:52)
[2023-07-12 09:00] LABS: Alanine Aminotransferase 38 U/L (0-41); Albumin Level 2.9 g/dL (3.5-5.2); Alkaline Phosphatase 98 U/L (40-130); Aspartate Amino Transferase 43 U/L (0-40); Chloride 98 mmol/L (98-107); Potassium 3.4 mmol/L (3.5-5.1); Sodium 135 mmol/L (136-145)
[2023-07-12 09:30] LABS: Anion Gap 14.4 (5-19); Blood Urea Nitrogen 11 mg/dL (8-23); Calcium 8.7 mg/dL (8.5-10.5); Carbon Dioxide 26 mmol/L (22-29); Glomerular Filtration Rate 114.6 mL/min (90-130); Glucose 125 mg/dL (65-115); Osmolality Calculated 281 mOsm/kg (285-295); Total Bilirubin 0.3 mg/dL (0.15-1.2); Total Protein 5.9 g/dL (6.6-8.7)
[2023-07-12 09:50] LABS: Slide Review Slide Review Perform
[2023-07-12 11:26] VITALS: BP 122/72; PULSE 98; RESP 16; TEMP 37.1; O2SAT 97
[2023-07-14 08:35] VITALS: BP 111/69; PULSE 90; RESP 18; TEMP 36.9; O2SAT 96
[2023-07-14 08:47] LABS: Basophils # 0.1 10^3/uL (0.0-0.1); Basophils % 0.5 %; Eosinophils # 0.1 10^3/uL (0.0-0.8); Eosinophils % 0.6 %; Hematocrit 26.6 % (37-53); Lymphocytes % 20.6 %; Mean Corpuscular HGB Conc 30.1 g/dL (30-55); Mean Corpuscular Hemoglobin 25.7 pg (27-33); Mean Corpuscular Volume 85.5 fl (82-101); Mean Platelet Volume 9.6 fL (7.4-10.4); Monocytes # 2.1 10^3/uL (0.2-0.9); Monocytes % 14.3 %; Neutrophils # 9.01 10^3/uL (1.8-7.7); Neutrophils % 62.9 %; Nucleated Red Blood Cells # 0.3 /100WBC; Nucleated Red Blood Cells % 2.2 %; Platelet Count 874 10^3/cmm (157-399); Red Blood Count 3.11 10^6/uL (3.85-5.65); Red Cell Distribution Width 23.9 % (12.1-15.1); White Blood Count 14.34 10^3/uL (3.29-11.43)
[2023-07-14] MEDS: sodium chloride 0.9% 1,000 ML 999 ML IV (08:59)
[2023-07-14 10:40] VITALS: BP 117/68; PULSE 80; RESP 18; TEMP 36.9; O2SAT 96
== END 2023-07-16 23:59 | disposition home or self-care (01) ==
PROVIDERS: Nurse Practitioner Family; PCP Family Medicine; Visit Provider Internal Medicine Medical Oncology
DX: D50.0 Iron deficiency anemia secondary to blood loss (chronic) (principal); Z53.9 Procedure and treatment not carried out, unspecified reason; C43.9 Malignant melanoma of skin, unspecified
CPT/HCPCS: 36430; 80053; 83615; 84443; 85025; 86850; 86900; 86920; 96360; 96365; 96367; 96375; 96413; 96415; 96417; J1100; J1200; J1642; J1940; J3490; J7030; J7050; J9228; J9299; P9040; Q0138

== ENCOUNTER → 2023-07-14 10:46 | Day surgery (SDC) | payer BC, SELFPAY ==
[2023-07-14] VITALS (11 sets, daily range): BP systolic 124–154; BP diastolic 70–86; PULSE 72–83; RESP 16–20; TEMP 36.6–37.1; O2SAT 96–97; BMI 38.9
[2023-07-14] MEDS: diphenhydrAMINE 25 mg Capsule PO (12:39)
[2023-07-14] MEDS: acetaminophen 325 mg Tablet 650 MG PO (12:44)
[2023-07-14] MEDS: sodium chloride 0.9% 100 mL Bag 50 ML IV (12:50)
[2023-07-14] MEDS: FUROsemide 10 mg/mL SDV 2mL 20 MG IVP (14:25)
== END ==
PROVIDERS: PCP Family Medicine; Visit Provider Internal Medicine Medical Oncology
DX: C43.9 Malignant melanoma of skin, unspecified (principal); D50.0 Iron deficiency anemia secondary to blood loss (chronic)
CPT/HCPCS: 36430; 85025; 86850; 86900; 86920; 96360; J1940; J7030; P9016

== ENCOUNTER 2023-07-28 07:20 | Oncology outpatient (recurring) (ONCR) | payer BC, SELFPAY ==
[2023-07-28 07:52] VITALS: BP 122/72; PULSE 86; RESP 17; TEMP 36.9; O2SAT 94
[2023-07-28 08:23] LABS: Basophils # 0.1 10^3/uL (0.0-0.1); Basophils % 0.9 %; Eosinophils # 0.2 10^3/uL (0.0-0.8); Eosinophils % 2.1 %; Hematocrit 33.1 % (37-53); Lymphocytes # 1.6 10^3/uL (0.8-4.8); Lymphocytes % 17.4 %; Mean Corpuscular HGB Conc 29.9 g/dL (30-55); Mean Corpuscular Volume 86.9 fl (82-101); Mean Platelet Volume 8.2 fL (7.4-10.4); Monocytes % 10.9 %; Neutrophils # 6.14 10^3/uL (1.8-7.7); Neutrophils % 68.5 %; Nucleated Red Blood Cells % 0 %; Platelet Count 1024 10^3/cmm (157-399); Red Blood Count 3.81 10^6/uL (3.85-5.65); Red Cell Distribution Width 18.5 % (12.1-15.1); White Blood Count 8.97 10^3/uL (3.29-11.43)
[2023-07-28] MEDS: alteplase 1 mg/mL SDV 2 mL 2 MG INTRACATH ×2 (08:29→09:54)
[2023-07-28 09:00] LABS: Alanine Aminotransferase 8 U/L (0-41); Albumin Level 3.1 g/dL (3.5-5.2); Alkaline Phosphatase 75 U/L (40-130); Aspartate Amino Transferase 17 U/L (0-40); Blood Urea Nitrogen 11 mg/dL (8-23); Calcium 8.9 mg/dL (8.5-10.5); Carbon Dioxide 27 mmol/L (22-29); Chloride 102 mmol/L (98-107); Globulin 3.2 g/dL (1.3-4.6); Glucose 117 mg/dL (65-115); Osmolality Calculated 286 mOsm/kg (285-295); Sodium 138 mmol/L (136-145); Thyroid Stimulating Hormone 0.18 uIU/mL (0.27-4.20); Total Bilirubin 0.2 mg/dL (0.15-1.2); Total Protein 6.3 g/dL (6.6-8.7)
[2023-07-28] MEDS: acetaminophen 325 mg Tablet 650 MG PO (10:37)
[2023-07-28] MEDS: sodium chloride 0.9% 250 ML 75 ML IV (10:38)
[2023-07-28] MEDS: diphenhydrAMINE 50 mg/mL SDV 1mL IVP (10:40)
[2023-07-28] MEDS: famotidine 20 mg/2 mL INJ IVP (10:44)
[2023-07-28] MEDS: dexamethasone 20 MG in sodium chloride 0.9% 50 ML 188 MG IV (10:45)
[2023-07-28] MEDS: NIVOLUMAB IV (11:07)
[2023-07-28] MEDS: SODIUM CHLORIDE 0.9% IV ×2 (11:07→11:48)
[2023-07-28] MEDS: IPILIMUMAB IV (11:48)
[2023-07-28 11:53] LABS: Free T4 Free Thyroxine 1.76 ng/dL (0.82-1.77); T3 Free 3.7 PG/ML (2.0-4.4)
[2023-07-28 12:15] VITALS: BP 124/68; PULSE 76; RESP 16; TEMP 36.6; O2SAT 94
== END 2023-08-16 23:59 | disposition home or self-care (01) ==
PROVIDERS: Nurse Practitioner Family; PCP Family Medicine; Visit Provider Internal Medicine Medical Oncology
DX: C43.9 Malignant melanoma of skin, unspecified; Z51.12 Encounter for antineoplastic immunotherapy; R79.89 Other specified abnormal findings of blood chemistry; Z53.9 Procedure and treatment not carried out, unspecified reason
CPT/HCPCS: 36593; 80053; 84439; 84443; 84481; 85025; 96367; 96375; 96413; 96417; J1100; J1200; J1642; J2997; J3490; J7050; J9228; J9299

== ENCOUNTER 2023-09-13 10:00 | Oncology outpatient (recurring) (ONCR) | payer BC, SELFPAY ==
[2023-08-23 09:28] LABS: Basophils # 0.1 10^3/uL (0.0-0.1); Basophils % 0.8 %; Eosinophils # 0.4 10^3/uL (0.0-0.8); Eosinophils % 4.3 %; Hematocrit 40.3 % (37-53); Lymphocytes # 2.4 10^3/uL (0.8-4.8); Lymphocytes % 23.1 %; Mean Corpuscular HGB Conc 30.5 g/dL (30-55); Mean Corpuscular Hemoglobin 25.9 pg (27-33); Mean Corpuscular Volume 84.8 fl (82-101); Mean Platelet Volume 9.4 fL (7.4-10.4); Monocytes # 1.5 10^3/uL (0.2-0.9); Monocytes % 14.3 %; Neutrophils # 5.84 10^3/uL (1.8-7.7); Neutrophils % 57.3 %; Nucleated Red Blood Cells % 0 %; Platelet Count 685 10^3/cmm (157-399); Red Blood Count 4.75 10^6/uL (3.85-5.65); Red Cell Distribution Width 16.7 % (12.1-15.1); White Blood Count 10.19 10^3/uL (3.29-11.43)
[2023-08-23 10:02] LABS: Alanine Aminotransferase 17 U/L (0-41); Albumin Level 3.5 g/dL (3.5-5.2); Alkaline Phosphatase 77 U/L (40-130); Anion Gap 9.9 (5-19); Aspartate Amino Transferase 20 U/L (0-40); Blood Urea Nitrogen 11 mg/dL (8-23); Carbon Dioxide 30 mmol/L (22-29); Chloride 102 mmol/L (98-107); Creatinine Clr Calc Pharmacy 159.6095; Globulin 3.3 g/dL (1.3-4.6); Glomerular Filtration Rate 114.6 mL/min (90-130); Glucose 109 mg/dL (65-115); Osmolality Calculated 286 mOsm/kg (285-295); Potassium 3.9 mmol/L (3.5-5.1); Sodium 138 mmol/L (136-145); Thyroid Stimulating Hormone 0.01 uIU/mL (0.27-4.20); Total Bilirubin 0.2 mg/dL (0.15-1.2); Total Protein 6.8 g/dL (6.6-8.7)
[2023-08-23 11:21] LABS: Ferritin 68 ng/mL (30-400); Iron 39 ug/dL (59-158); Percent Saturation 14.6 % (20-50); Total Iron Binding Capacity 267 mcg/dl; Unsaturated Iron Binding 228 ug/dL (112-347)
[2023-08-23] MEDS: sodium chloride 0.9% 250 ML 75 ML IV (11:23)
[2023-08-23] MEDS: diphenhydrAMINE 50 mg/mL SDV 1mL IVP (11:27)
[2023-08-23] MEDS: acetaminophen 325 mg Tablet 650 MG PO (11:31)
[2023-08-23] MEDS: famotidine 20 mg/2 mL INJ IVP (11:33)
[2023-08-23] MEDS: dexamethasone 20 MG in sodium chloride 0.9% 50 ML 188 MG IV (11:44)
[2023-08-23 11:47] LABS: Free T4 Free Thyroxine 1.59 ng/dL (0.82-1.77); T3 Free 3.6 PG/ML (2.0-4.4)
[2023-08-23] MEDS: NIVOLUMAB IV (12:16)
[2023-08-23] MEDS: SODIUM CHLORIDE 0.9% IV ×2 (12:16→12:57)
[2023-08-23] MEDS: IPILIMUMAB IV (12:57)
[2023-08-23 14:34] VITALS: BP 116/71; PULSE 76; RESP 18; TEMP 36.4; O2SAT 91
[2023-09-13 10:10] LABS: Basophils # 0.1 10^3/uL (0.0-0.1); Basophils % 0.4 %; Eosinophils # 0.6 10^3/uL (0.0-0.8); Eosinophils % 5.2 %; Hematocrit 45.8 % (37-53); Lymphocytes % 26.1 %; Mean Corpuscular HGB Conc 31.2 g/dL (30-55); Mean Corpuscular Volume 83.1 fl (82-101); Mean Platelet Volume 9.8 fL (7.4-10.4); Monocytes # 1.2 10^3/uL (0.2-0.9); Monocytes % 10.3 %; Neutrophils # 6.58 10^3/uL (1.8-7.7); Neutrophils % 57.7 %; Nucleated Red Blood Cells % 0 %; Platelet Count 525 10^3/cmm (157-399); Red Blood Count 5.51 10^6/uL (3.85-5.65); Red Cell Distribution Width 17.3 % (12.1-15.1); White Blood Count 11.44 10^3/uL (3.29-11.43)
[2023-09-13 10:38] LABS: Alanine Aminotransferase 21 U/L (0-41); Alkaline Phosphatase 84 U/L (40-130); Anion Gap 16.1 (5-19); Aspartate Amino Transferase 24 U/L (0-40); Blood Urea Nitrogen 9 mg/dL (8-23); Calcium 9.2 mg/dL (8.5-10.5); Carbon Dioxide 27 mmol/L (22-29); Chloride 100 mmol/L (98-107); Creatinine Clr Calc Pharmacy 159.6095; Globulin 3.5 g/dL (1.3-4.6); Glomerular Filtration Rate 114.6 mL/min (90-130); Glucose 115 mg/dL (65-115); Osmolality Calculated 288 mOsm/kg (285-295); Potassium 4.1 mmol/L (3.5-5.1); Sodium 139 mmol/L (136-145); Thyroid Stimulating Hormone 3.88 uIU/mL (0.27-4.20); Total Bilirubin 0.2 mg/dL (0.15-1.2); Total Protein 7.5 g/dL (6.6-8.7)
[2023-09-13] MEDS: sodium chloride 0.9% 250 ML 75 ML IV (12:09)
[2023-09-13] MEDS: acetaminophen 325 mg Tablet 650 MG PO (12:09)
[2023-09-13] MEDS: famotidine 20 mg/2 mL INJ IVP (12:13)
[2023-09-13] MEDS: diphenhydrAMINE 50 mg/mL SDV 1mL IVP (12:16)
[2023-09-13] MEDS: dexamethasone 20 MG in sodium chloride 0.9% 50 ML 188 MG IV (12:19)
[2023-09-13] MEDS: NIVOLUMAB IV (12:52)
[2023-09-13] MEDS: SODIUM CHLORIDE 0.9% IV ×2 (12:52→13:39)
[2023-09-13] MEDS: IPILIMUMAB IV (13:39)
[2023-09-13 15:30] VITALS: BP 115/71; PULSE 71; RESP 18; TEMP 36.4; O2SAT 95
== END 2023-09-14 23:59 | disposition home or self-care (01) ==
PROVIDERS: Nurse Practitioner Family; PCP Family Medicine; Visit Provider Internal Medicine Medical Oncology
DX: Z51.12 Encounter for antineoplastic immunotherapy; C79.9 Secondary malignant neoplasm of unspecified site; C43.9 Malignant melanoma of skin, unspecified; Z53.9 Procedure and treatment not carried out, unspecified reason
CPT/HCPCS: 80053; 82728; 83540; 83550; 84439; 84443; 84481; 85025; 96367; 96368; 96375; 96413; 96415; 96417; A4222; J1100; J1200; J1642; J3490; J7050; J9228; J9299

== ENCOUNTER 2023-10-03 12:51 | Outpatient (CLI) | payer BC, SELFPAY ==
--- NOTE | 2023-10-03 13:30 | PETR_ITS ---
PROCEDURE INFORMATION: Exam: PET/CT Skull Base to Mid-thigh Exam date and time: 10/03/2023 2:01 PM Age: 62 years old Clinical indication: Condition or disease; Primary cancer: Hodgkin lymphoma; Metastatic malignant melanoma; Follow-up oncological assessment; Prior surgery; Surgery date: 6+ months; Surgery type: Cardiac stents; Additional info: Hodgkin lymphoma; Metastatic malignant melanoma, to be completed in 2 weeks. There is a provided history of immunotherapy approximately 3 weeks ago. LABS AND CLINICAL REPORTS: Glucose: 85 mg/dl Treatment strategy for malignancy (PET staging): Restaging (PS) TECHNIQUE: Imaging protocol: Following at least four-hour fasting and following the injection of radiopharmaceutical, low dose CT images were obtained. Then, PET images were obtained. Attenuation corrected images were constructed using the CT scan. Fused images of PET and CT were reviewed. The standardized uptake values (SUV) reported below are maximum values within a region of interest, expressed in gm/ml. Exam includes orbital meatal line to mid-thigh. Radiopharmaceutical: 14.8 mCi F-18 FDG (Fluorodeoxyglucose), IV. Time of imaging post radiopharmaceutical administration: 1 hour Injection site: Right hand COMPARISON: CT abdomen pelvis wo con [id number] 08/24/2022 2:53 PM, CT abdomen and pelvis 08/11/2022 FINDINGS: Limitations: Streak artifact Tubes, catheters and devices: A left subclavian central venous port catheter terminates at the distal SVC/right atrial junction. Brain: Visualized brain has normal physiologic uptake. Pharynx: Elevated uptake in the region of the palatine tonsils is noted, SUV max 5.7 on the right and 7.3 on the left. There is slight asymmetric prominence of the left palatine tonsil without evidence of a discrete mass. Larynx: No abnormal uptake. Lungs, pleura and trachea: No abnormal uptake. Heart: Normal physiologic uptake. Mediastinal space: No abnormal uptake. Liver: No abnormal uptake. Gallbladder and bile ducts: No abnormal uptake. Cholecystectomy clips are present. Pancreas: No abnormal uptake. Spleen: The majority of the is not identified, likely surgically absent. A soft tissue density structure in the splenic bed measuring 2 cm in diameter on series 3, image 124 is noted which may represent residual or regenerating spleen without elevated uptake. Additional non radiotracer avid soft tissue density nodules are likely similar in etiology measuring approximately 1 cm on series 3, image 130 and 0.9 cm on image 132. The appearance is similar compared with 08/24/2022 and 08/11/2022 Adrenal glands: No abnormal uptake. Kidneys and ureters: Normal physiologic uptake. Stomach and bowel: No abnormal uptake. Vasculature: No abnormal uptake. There are diffuse atherosclerotic changes including within the coronary arteries. Lymph nodes: There is a lymph node deep to the left sternocleidomastoid muscle in the superior neck measuring 1.3 x 0.6 cm on series 3, image 42 with low-level uptake, SUV max 2.1. Bones/joints: No abnormal uptake in the visualized axial and appendicular skeleton. Degenerative changes in the spine are present. Soft tissues: There are postoperative changes in the region of the rectus abdominus muscular sheath. Within this region, deep to the umbilicus an ovoid region of soft tissue density without elevated uptake measures 7.1 x 1.9 cm on series 3 image 208. Surgical clips in the inferior abdominal left periaortic space are noted. Ovoid similar soft tissue density in the right inguinal canal is not radiotracer avid and is similar compared with at least 08/11/2022 currently measuring 2.7 x 0.8 cm on series 3, image 243. METRICS: Mediastinal blood pool: SUV max 2.8 Liver uptake: SUV max 3.3, SUV mean 2.6 [facility] [id number] IMPRESSION: 1. Uptake in the palatine tonsils is greatest on the left without evidence of a discrete lesion, likely physiologic or inflammatory in etiology. A malignant etiology is less likely. 2. A small lymph node deep to the left sternocleidomastoid muscle is noted with low-level uptake, likely inflammatory or infectious in etiology. 3. Non radiotracer avid soft tissue density deep to the umbilicus appears similar likely related to postoperative scarring. 4. Similar soft tissue density in the right inguinal canal which may be related to scarring. A lymph node in this location is less likely. 5. Additional nonurgent findings as detailed above. Deauville Scorin: No uptake 2: Uptake < or = mediastinal blood pool (max SUV) 3: Uptake > mediastinal blood pool (max SUV) but < or = liver (max SUV) 4: Uptake moderately higher than liver (uptake > maximum SUV of the liver) 5: Uptake markedly higher than liver (uptake 2-3x > maximum SUV of the liver) and/or new lesions
== END 2023-10-03 12:52 | disposition home or self-care (01) ==
PROVIDERS: PCP Family Medicine; Visit Provider Internal Medicine Medical Oncology
DX: C81.90 Hodgkin lymphoma, unspecified, unspecified site (principal); C43.9 Malignant melanoma of skin, unspecified; Z95.5 Presence of coronary angioplasty implant and graft
CPT/HCPCS: 78815; A9552

== ENCOUNTER 2023-10-06 07:24 | Oncology outpatient (recurring) (ONCR) | payer BC, SELFPAY ==
[2023-10-06 07:47] VITALS: BP 137/82; PULSE 73; RESP 18; TEMP 37; O2SAT 94
[2023-10-06 07:50] VITALS: BMI 40.6
[2023-10-06 08:03] LABS: Basophils # 0.1 10^3/uL (0.0-0.1); Basophils % 0.8 %; Eosinophils # 0.9 10^3/uL (0.0-0.8); Eosinophils % 8.4 %; Hematocrit 45.4 % (37-53); Lymphocytes # 2.5 10^3/uL (0.8-4.8); Lymphocytes % 24.6 %; Mean Corpuscular HGB Conc 31.9 g/dL (30-55); Mean Corpuscular Hemoglobin 26.9 pg (27-33); Mean Corpuscular Volume 84.2 fl (82-101); Mean Platelet Volume 9.4 fL (7.4-10.4); Monocytes # 0.8 10^3/uL (0.2-0.9); Monocytes % 7.4 %; Neutrophils # 5.93 10^3/uL (1.8-7.7); Neutrophils % 58.4 %; Nucleated Red Blood Cells % 0 %; Platelet Count 546 10^3/cmm (157-399); Red Blood Count 5.39 10^6/uL (3.85-5.65); Red Cell Distribution Width 18.4 % (12.1-15.1); White Blood Count 10.14 10^3/uL (3.29-11.43)
[2023-10-06 08:33] LABS: Alanine Aminotransferase 22 U/L (0-41); Albumin Level 3.8 g/dL (3.5-5.2); Alkaline Phosphatase 84 U/L (40-130); Anion Gap 11.9 (5-19); Aspartate Amino Transferase 25 U/L (0-40); Blood Urea Nitrogen 12 mg/dL (8-23); Calcium 8.6 mg/dL (8.5-10.5); Carbon Dioxide 30 mmol/L (22-29); Chloride 101 mmol/L (98-107); Creatinine Clr Calc Pharmacy 162.7375; Glomerular Filtration Rate 114.6 mL/min (90-130); Glucose 130 mg/dL (65-115); Iron 110 ug/dL (59-158); Lactate Dehydrogenase 194 U/L (135-225); Osmolality Calculated 290 mOsm/kg (285-295); Percent Saturation 39.1 % (20-50); Potassium 3.9 mmol/L (3.5-5.1); Sodium 139 mmol/L (136-145); Thyroid Stimulating Hormone 2.98 uIU/mL (0.27-4.20); Total Bilirubin 0.3 mg/dL (0.15-1.2); Total Iron Binding Capacity 281 mcg/dl; Total Protein 6.8 g/dL (6.6-8.7); Unsaturated Iron Binding 171 ug/dL (112-347)
[2023-10-06] MEDS: nivolumab 480 MG in sodium chloride 0.9% 250 ML 596 MG IV (09:40)
[2023-10-06 10:49] VITALS: BP 124/76; PULSE 69; RESP 18; TEMP 36.7; O2SAT 95
== END 2023-10-15 23:59 | disposition home or self-care (01) ==
PROVIDERS: PCP Family Medicine; Visit Provider Internal Medicine Medical Oncology
DX: Z51.12 Encounter for antineoplastic immunotherapy (principal); C43.9 Malignant melanoma of skin, unspecified; C79.9 Secondary malignant neoplasm of unspecified site; Z53.9 Procedure and treatment not carried out, unspecified reason
CPT/HCPCS: 80053; 83540; 83550; 83615; 84443; 85025; 96413; A4222; J1642; J7050; J9299

== ENCOUNTER 2023-11-03 07:30 | Oncology outpatient (recurring) (ONCR) | payer BC, SELFPAY ==
[2023-11-03 07:50] VITALS: BP 131/76; PULSE 80; RESP 16; TEMP 36.6; O2SAT 94
[2023-11-03 07:55] LABS: Basophils # 0.1 10^3/uL (0.0-0.1); Basophils % 0.6 %; Eosinophils # 1.4 10^3/uL (0.0-0.8); Eosinophils % 12.3 %; Lymphocytes # 2.3 10^3/uL (0.8-4.8); Lymphocytes % 19.1 %; Mean Corpuscular HGB Conc 33.6 g/dL (30-55); Mean Corpuscular Hemoglobin 27.8 pg (27-33); Mean Corpuscular Volume 82.8 fl (82-101); Mean Platelet Volume 9.1 fL (7.4-10.4); Monocytes # 0.8 10^3/uL (0.2-0.9); Monocytes % 6.6 %; Neutrophils # 7.17 10^3/uL (1.8-7.7); Nucleated Red Blood Cells % 0 %; Platelet Count 447 10^3/cmm (157-399); Red Blood Count 5.07 10^6/uL (3.85-5.65); Red Cell Distribution Width 19.2 % (12.1-15.1); White Blood Count 11.75 10^3/uL (3.29-11.43)
[2023-11-03 08:22] LABS: Alanine Aminotransferase 26 U/L (0-41); Albumin Level 3.7 g/dL (3.5-5.2); Alkaline Phosphatase 69 U/L (40-130); Anion Gap 11.8 (5-19); Aspartate Amino Transferase 25 U/L (0-40); Blood Urea Nitrogen 14 mg/dL (8-23); Calcium 8.8 mg/dL (8.5-10.5); Carbon Dioxide 28 mmol/L (22-29); Chloride 101 mmol/L (98-107); Glucose 170 mg/dL (65-115); Osmolality Calculated 288 mOsm/kg (285-295); Potassium 3.8 mmol/L (3.5-5.1); Sodium 137 mmol/L (136-145); Thyroid Stimulating Hormone 2.24 uIU/mL (0.27-4.20); Total Bilirubin 0.6 mg/dL (0.15-1.2); Total Protein 6.7 g/dL (6.6-8.7)
[2023-11-03] MEDS: nivolumab 480 MG in sodium chloride 0.9% 250 ML 596 MG IV (10:15)
[2023-11-03 10:57] VITALS: BP 111/71; PULSE 61; TEMP 36.8; O2SAT 93
== END 2023-11-14 23:59 | disposition home or self-care (01) ==
PROVIDERS: Nurse Practitioner Family; PCP Family Medicine; Visit Provider Internal Medicine Medical Oncology
DX: Z51.12 Encounter for antineoplastic immunotherapy (principal); C43.9 Malignant melanoma of skin, unspecified; C79.9 Secondary malignant neoplasm of unspecified site
CPT/HCPCS: 80053; 84443; 85025; 96413; A4222; J7050; J9299

== ENCOUNTER 2023-12-01 07:43 | Oncology outpatient (recurring) (ONCR) | payer BC, SELFPAY ==
[2023-12-01 08:05] LABS: Basophils # 0.1 10^3/uL (0.0-0.1); Eosinophils # 1.5 10^3/uL (0.0-0.8); Eosinophils % 12.7 %; Lymphocytes # 2.4 10^3/uL (0.8-4.8); Lymphocytes % 19.9 %; Mean Corpuscular HGB Conc 33.3 g/dL (30-55); Mean Corpuscular Hemoglobin 28.7 pg (27-33); Mean Corpuscular Volume 86.2 fl (82-101); Monocytes % 8.5 %; Neutrophils # 6.81 10^3/uL (1.8-7.7); Neutrophils % 57.3 %; Nucleated Red Blood Cells % 0 %; Platelet Count 456 10^3/cmm (157-399); Red Blood Count 4.99 10^6/uL (3.85-5.65); Red Cell Distribution Width 19.3 % (12.1-15.1); White Blood Count 11.89 10^3/uL (3.29-11.43)
[2023-12-01 08:09] VITALS: BMI 42.8
[2023-12-01 08:10] VITALS: BP 162/79; PULSE 60; RESP 17; O2SAT 93
[2023-12-01 08:19] LABS: Slide Review Slide Review Perform
[2023-12-01 08:36] LABS: Alanine Aminotransferase 27 U/L (0-41); Albumin Level 3.7 g/dL (3.5-5.2); Alkaline Phosphatase 72 U/L (40-130); Anion Gap 14.1 (5-19); Aspartate Amino Transferase 29 U/L (0-40); Blood Urea Nitrogen 14 mg/dL (8-23); Calcium 8.7 mg/dL (8.5-10.5); Carbon Dioxide 27 mmol/L (22-29); Chloride 104 mmol/L (98-107); Creatinine Clr Calc Pharmacy 144.7702; Globulin 3.3 g/dL (1.3-4.6); Glucose 103 mg/dL (65-115); Osmolality Calculated 293 mOsm/kg (285-295); Potassium 4.1 mmol/L (3.5-5.1); Sodium 141 mmol/L (136-145); Thyroid Stimulating Hormone 1.71 uIU/mL (0.27-4.20); Total Bilirubin 0.6 mg/dL (0.15-1.2)
[2023-12-01 09:08] LABS: Estmated Average Glucose 126
[2023-12-01] MEDS: nivolumab 480 MG in sodium chloride 0.9% 250 ML 596 MG IV (09:54)
[2023-12-01 10:31] VITALS: BP 128/82; PULSE 66; TEMP 36.7; O2SAT 96
[2023-12-02 09:25] LABS: Albumin 3.7 g/dL (3.6-5.1)
[2023-12-03 04:25] LABS: Sex Hormone Binding Globulin 21 nmol/L (22-77); Testosterone Total Males IA 39 ng/dL (250-827)
== END 2023-12-15 23:59 | disposition home or self-care (01) ==
PROVIDERS: Nurse Practitioner Family; PCP Family Medicine; Visit Provider Internal Medicine Medical Oncology
DX: Z51.12 Encounter for antineoplastic immunotherapy (principal); C43.9 Malignant melanoma of skin, unspecified; C79.9 Secondary malignant neoplasm of unspecified site; R73.9 Hyperglycemia, unspecified; R53.83 Other fatigue
CPT/HCPCS: 80053; 82040; 83036; 84270; 84403; 84443; 85025; 96413; A4222; J7050; J9299

== ENCOUNTER 2024-01-09 08:05 | Oncology outpatient (recurring) (ONCR) | payer BC, SELFPAY ==
[2024-01-09 08:28] LABS: Basophils # 0.1 10^3/uL (0.0-0.1); Basophils % 0.6 %; Eosinophils # 0.7 10^3/uL (0.0-0.8); Eosinophils % 5.7 %; Hematocrit 42.9 % (37-53); Lymphocytes % 24.1 %; Mean Corpuscular HGB Conc 33.6 g/dL (30-55); Mean Corpuscular Hemoglobin 30.5 pg (27-33); Mean Corpuscular Volume 90.9 fl (82-101); Mean Platelet Volume 9.2 fL (7.4-10.4); Monocytes # 1.2 10^3/uL (0.2-0.9); Monocytes % 9.2 %; Neutrophils # 7.48 10^3/uL (1.8-7.7); Neutrophils % 59.4 %; Nucleated Red Blood Cells % 0 %; Platelet Count 455 10^3/cmm (157-399); Red Blood Count 4.72 10^6/uL (3.85-5.65); Red Cell Distribution Width 15.1 % (12.1-15.1); White Blood Count 12.61 10^3/uL (3.29-11.43)
[2024-01-09 09:08] LABS: Alanine Aminotransferase 32 U/L (0-41); Alkaline Phosphatase 73 U/L (40-130); Anion Gap 14.7 (5-19); Aspartate Amino Transferase 42 U/L (0-40); Blood Urea Nitrogen 17 mg/dL (8-23); Calcium 8.9 mg/dL (8.5-10.5); Carbon Dioxide 26 mmol/L (22-29); Chloride 99 mmol/L (98-107); Globulin 3.2 g/dL (1.3-4.6); Glomerular Filtration Rate 75.7 mL/min (90-130); Glucose 110 mg/dL (65-115); Osmolality Calculated 284 mOsm/kg (285-295); Potassium 3.7 mmol/L (3.5-5.1); Sodium 136 mmol/L (136-145); Total Bilirubin 0.8 mg/dL (0.15-1.2); Total Protein 7.2 g/dL (6.6-8.7)
[2024-01-09] MEDS: nivolumab 480 MG in sodium chloride 0.9% 250 ML 596 MG IV (10:00)
[2024-01-09 10:35] VITALS: BP 100/66; PULSE 86; RESP 16; TEMP 36.5; O2SAT 98
== END 2024-01-14 23:59 | disposition home or self-care (01) ==
PROVIDERS: Nurse Practitioner Family; PCP Family Medicine; Visit Provider Internal Medicine Medical Oncology
DX: Z51.12 Encounter for antineoplastic immunotherapy (principal); C43.9 Malignant melanoma of skin, unspecified; C79.9 Secondary malignant neoplasm of unspecified site; R73.9 Hyperglycemia, unspecified; R53.83 Other fatigue; Z53.9 Procedure and treatment not carried out, unspecified reason
CPT/HCPCS: 80053; 85025; 96413; A4222; J7050; J9299

== ENCOUNTER 2024-02-12 13:00 | Oncology outpatient (recurring) (ONCR) | payer BC, SELFPAY ==
[2024-02-05 13:43] LABS: Basophils # 0.1 10^3/uL (0.0-0.1); Eosinophils % 9.9 %; Hematocrit 41.5 % (37-53); Lymphocytes # 2.3 10^3/uL (0.8-4.8); Lymphocytes % 23.1 %; Mean Corpuscular HGB Conc 34.9 g/dL (30-55); Mean Corpuscular Hemoglobin 31.2 pg (27-33); Mean Corpuscular Volume 89.2 fl (82-101); Mean Platelet Volume 8.9 fL (7.4-10.4); Monocytes # 1.2 10^3/uL (0.2-0.9); Monocytes % 11.8 %; Neutrophils # 5.32 10^3/uL (1.8-7.7); Neutrophils % 53.8 %; Nucleated Red Blood Cells % 0 %; Platelet Count 638 10^3/cmm (157-399); Red Blood Count 4.65 10^6/uL (3.85-5.65)
[2024-02-05 14:13] LABS: Alanine Aminotransferase 56 U/L (0-41); Albumin Level 3.4 g/dL (3.5-5.2); Alkaline Phosphatase 43 U/L (40-130); Anion Gap 15.5 (5-19); Aspartate Amino Transferase 100 U/L (0-40); Blood Urea Nitrogen 3 mg/dL (8-23); Calcium 9.1 mg/dL (8.5-10.5); Carbon Dioxide 26 mmol/L (22-29); Chloride 95 mmol/L (98-107); Globulin 2.9 g/dL (1.3-4.6); Glomerular Filtration Rate 114.3 mL/min (90-130); Glucose 117 mg/dL (65-115); Osmolality Calculated 274 mOsm/kg (285-295); Potassium 3.5 mmol/L (3.5-5.1); Sodium 133 mmol/L (136-145); Total Bilirubin 0.9 mg/dL (0.15-1.2); Total Protein 6.3 g/dL (6.6-8.7)
[2024-02-05 16:05] LABS: Lactate Dehydrogenase 268 U/L (135-225)
[2024-02-12 13:41] LABS: Basophils # 0.1 10^3/uL (0.0-0.1); Eosinophils % 8.3 %; Hematocrit 43.4 % (37-53); Lymphocytes # 3.2 10^3/uL (0.8-4.8); Lymphocytes % 26.4 %; Mean Corpuscular HGB Conc 34.3 g/dL (30-55); Mean Corpuscular Hemoglobin 31.5 pg (27-33); Mean Corpuscular Volume 91.8 fl (82-101); Mean Platelet Volume 9.3 fL (7.4-10.4); Monocytes # 1.4 10^3/uL (0.2-0.9); Monocytes % 11.2 %; Neutrophils # 6.32 10^3/uL (1.8-7.7); Neutrophils % 52.2 %; Nucleated Red Blood Cells % 0 %; Platelet Count 623 10^3/cmm (157-399); Red Blood Count 4.73 10^6/uL (3.85-5.65); Red Cell Distribution Width 14.2 % (12.1-15.1)
[2024-02-12 13:59] LABS: Alanine Aminotransferase 25 U/L (0-41); Albumin Level 3.5 g/dL (3.5-5.2); Alkaline Phosphatase 49 U/L (40-130); Anion Gap 14.4 (5-19); Aspartate Amino Transferase 32 U/L (0-40); Blood Urea Nitrogen 10 mg/dL (8-23); Calcium 8.3 mg/dL (8.5-10.5); Carbon Dioxide 26 mmol/L (22-29); Chloride 105 mmol/L (98-107); Creatinine Clr Calc Pharmacy 164.8895; Globulin 2.8 g/dL (1.3-4.6); Glomerular Filtration Rate 114.3 mL/min (90-130); Glucose 103 mg/dL (65-115); Osmolality Calculated 291 mOsm/kg (285-295); Potassium 4.4 mmol/L (3.5-5.1); Sodium 141 mmol/L (136-145); Total Bilirubin 0.7 mg/dL (0.15-1.2); Total Protein 6.3 g/dL (6.6-8.7)
[2024-02-12] MEDS: nivolumab 480 MG in sodium chloride 0.9% 250 ML 596 MG IV (15:08)
[2024-02-12 15:54] VITALS: BP 138/77; PULSE 65; RESP 18; TEMP 36.6; O2SAT 77
== END 2024-02-14 23:59 | disposition home or self-care (01) ==
PROVIDERS: Nurse Practitioner Family; PCP Family Medicine; Visit Provider Internal Medicine Medical Oncology
DX: Z53.9 Procedure and treatment not carried out, unspecified reason; Z51.12 Encounter for antineoplastic immunotherapy; C78.4 Secondary malignant neoplasm of small intestine; Z85.71 Personal history of Hodgkin lymphoma; Z85.820 Personal history of malignant melanoma of skin; Z79.69 Long term (current) use of other immunomodulators and immunosuppressants; Z79.899 Other long term (current) drug therapy; A04.72 Enterocolitis due to Clostridium difficile, not specified as recurrent
CPT/HCPCS: 36591; 80053; 83615; 84443; 85025; 96413; A4222; J7050; J9299

== ENCOUNTER 2024-03-12 10:00 | Oncology outpatient (recurring) (ONCR) | payer BC, SELFPAY ==
[2024-02-26 09:04] LABS: Basophils # 0.1 10^3/uL (0.0-0.1); Basophils % 0.6 %; Eosinophils # 0.3 10^3/uL (0.0-0.8); Eosinophils % 1.9 %; Hematocrit 44.9 % (37-53); Lymphocytes # 3.4 10^3/uL (0.8-4.8); Lymphocytes % 23.9 %; Mean Corpuscular HGB Conc 33.2 g/dL (30-55); Mean Corpuscular Hemoglobin 30.8 pg (27-33); Mean Corpuscular Volume 92.8 fl (82-101); Mean Platelet Volume 9.5 fL (7.4-10.4); Monocytes # 1.1 10^3/uL (0.2-0.9); Monocytes % 7.6 %; Neutrophils # 9.44 10^3/uL (1.8-7.7); Neutrophils % 65.6 %; Nucleated Red Blood Cells % 0 %; Platelet Count 476 10^3/cmm (157-399); Red Blood Count 4.84 10^6/uL (3.85-5.65); Red Cell Distribution Width 13.9 % (12.1-15.1); White Blood Count 14.38 10^3/uL (3.29-11.43)
[2024-02-26 09:26] LABS: Alanine Aminotransferase 36 U/L (0-41); Albumin Level 3.8 g/dL (3.5-5.2); Alkaline Phosphatase 70 U/L (40-130); Aspartate Amino Transferase 23 U/L (0-40); Blood Urea Nitrogen 14 mg/dL (8-23); Calcium 8.6 mg/dL (8.5-10.5); Carbon Dioxide 27 mmol/L (22-29); Chloride 103 mmol/L (98-107); Globulin 3.4 g/dL (1.3-4.6); Glomerular Filtration Rate 114.3 mL/min (90-130); Glucose 130 mg/dL (65-115); Osmolality Calculated 292 mOsm/kg (285-295); Sodium 140 mmol/L (136-145); Total Bilirubin 0.7 mg/dL (0.15-1.2); Total Protein 7.2 g/dL (6.6-8.7)
[2024-03-12 09:51] VITALS: BP 124/78; PULSE 72; RESP 18; TEMP 36.4; O2SAT 97
[2024-03-12] MEDS: nivolumab 480 MG in sodium chloride 0.9% 250 ML 596 MG IV (10:46)
[2024-03-12 11:28] VITALS: BP 127/83; PULSE 88; RESP 16; TEMP 36.9; O2SAT 98
== END 2024-03-16 23:59 | disposition home or self-care (01) ==
PROVIDERS: PCP Family Medicine; Visit Provider Internal Medicine Medical Oncology
DX: Z53.9 Procedure and treatment not carried out, unspecified reason; Z51.12 Encounter for antineoplastic immunotherapy; C43.9 Malignant melanoma of skin, unspecified; R53.83 Other fatigue; D64.9 Anemia, unspecified
CPT/HCPCS: 36591; 80053; 85025; 96365; 96413; A4222; J7050; J9299

== ENCOUNTER 2024-04-02 20:15 | Emergency (ER) | payer BC, SELFPAY ==
[2024-04-02 20:19] VITALS: BP 105/65; PULSE 95; RESP 20; TEMP 36.7; O2SAT 95; BMI 39.8
[2024-04-02 21:09] VITALS: BP 91/55; PULSE 91; RESP 20; O2SAT 96
[2024-04-02] MEDS: ondansetron 2 mg/ML SDV 2 mL 4 MG IVP (21:12)
[2024-04-02] MEDS: sodium chloride 0.9% 1,000 ML 999 ML IV (21:12)
--- NOTE | 2024-04-02 21:17 | W.ED.WEAKNES ---
HPI - Weakness General: Chief complaint: Weakness Stated complaint: n/v 2 day+ Lightheaded face tingling Time Seen by Provider: 04/02/24 20:19 History of Present Illness: Patient presents to the ER with complaints of being sick since Monday. Patient says now he is weak he is dizzy he had nausea and vomiting yesterday and had diarrhea multiple times throughout the day. Denies any fever. Does have some shortness of breath upon exertion, does not use home oxygen but does use a CPAP to sleep. Patient also says he has melanoma of the rectal region and is getting immunotherapy once a month and his last immunotherapy treatment was approximately 2 weeks ago. PFSH ED PFSH: Medical History Iron deficiency anemia secondary to blood loss (chronic) Sciatica Hodgkin lymphoma Metastatic malignant melanoma Obstructive sleep apnea Personal history of Hodgkin lymphoma Age 22 Cholecystitis CAD (coronary artery disease) Obesity Hypertension Hyperlipemia Surgical History History of colonoscopy (09/05/22) Port-A-Cath in place History of melanoma excision Right leg History of hernia repair Abdominal hernia repair x 2 History of heart artery stent H/O splenectomy Family History Father CAD (coronary artery disease) Hypertension Social History Smoking and tobacco/nicotine status: former use of tobacco/nicotine Quit status (tobacco/nicotine): has quit using Former quit date comment: quit 20+ YEARS Ago Smoked for 10 years Alcohol intake: current Alcohol intake frequency: holidays/special occasions only Substance/Drug Use: never Physical Exam Const: COMMON NORMALS: no acute distress, average body habitus, patient oriented x3, no limitations, healthy appearing, alert and well nourished HENMT: COMMON NORMALS: normocephalic, atraumatic, hearing grossly normal bilaterally, external ears normal, Normal external nose present and moist oral mucous membranes HEAD & SCALP: normocephalic and atraumatic NOSE: Normal external nose present EXTERNAL EAR: Yes external ears normal Neck/C-Spine: COMMON NORMALS: full ROM, no lymphadenopathy, supple, no meningeal signs, no JVD and Thyroid normal THYROID: Thyroid normal Chest: COMMONS NORMALS: normal inspection of the chest and normal palpation of entire chest wall Resp: COMMON NORMALS: normal respiratory effort, No retractions, No use of accessory muscles and clear to auscultation bilaterally AUSCULTATION: clear to auscultation bilaterally Cardio: COMMON NORMALS: no JVD, regular rate, regular rhythm, S1 normal heart sound present, S2 normal heart sound present, No gallops present (Cardio), No clicks present (Cardio), No murmurs present (Cardio) and No rub (Cardio) RATE: regular rate RHYTHM: regular rhythm HEART SOUNDS: S1 normal heart sound present and S2 normal heart sound present GI: COMMON NORMALS: Normal to inspection, nondistended, normoactive bowel sounds present, Soft to palpation, non-tender, No hepatosplenomegaly present and no masses PALPATION: Yes Soft to palpation and Yes No hepatosplenomegaly present Neuro: COMMON NORMALS: patient oriented x3 SENSORIUM/ORIENTATION: Yes alert MENINGEAL SIGNS: Yes no meningeal signs Course Vital Signs: Vital signs: Vital Signs Temperature 98.1 F 04/02/24 20:19 Pulse Rate 91 04/02/24 21:09 Respiratory Rate 20 H 04/02/24 21:09 Blood Pressure 91/55 04/02/24 21:09 Pulse Oximetry 96 04/02/24 21:09 Oxygen Delivery Me thod Room Air 04/02/24 21:09 MDM - Weakness Medical Decision Making Patient presented with nausea vomiting diarrhea weakness. He was given 1 L normal saline probably was waiting for lab work to come back as well as 40 oral milliequivalents potassium and get his lab work back. Patient's lab work shows white count 15.3 BUN/creatinine 11 and 0.7, potassium 3.1, urinalysis slightly contaminated. Patient was feeling much better after the fluid. Patient be discharged home on Pepcid and potassium. Differential Diagnosis Unlikely acute myocardial infarction, anemia, hypoglycemia, hypothyroidism, rhabdomyolysis, sepsis or dehydration Medical Records I reviewed the patient's medical records. Lab Data I reviewed the patient's lab results. 04/02/24 21:33 04/02/24 21:33 Laboratory Results WBC 15.30 10^3/uL (3.29-11.43) H 04/02/24 21:33 RBC 4.91 10^6/uL (3.85-5.65) 04/02/24 21:33 Hgb 15.00 g/dL (11.27-16.99) 04/02/24 21:33 Hct 42.8 % (37-53) 04/02/24 21:33 MCV 87.2 fl (82-101) 04/02/24 21:33 MCH 30.5 pg (27-33) 04/02/24 21: MCHC 35.0 g/dL (30-55) 04/02/24 21: RDW 13.2 % (12.1-15.1) 04/02/24 21: Plt Count 459 10^3/cmm (157-399) H 04/02/24 21: MPV 9.1 fL (7.4-10.4) 04/02/24 21: Neut % (Auto) 74.8 % 04/02/24 21: Lymph % (Auto) 11.8 % 04/02/24 21: [place] % (Auto) 10.9 % 04/02/24 21: Eos % (Auto) 1.4 % 04/02/24 21: Baso % (Auto) 0.5 % 04/02/24 21: Neut # (Auto) 11.44 10^3/uL (1.8-7.7) H 04/02/24 21: Lymph # (Auto) 1.8 10^3/uL (0.8-4.8) 04/02/24 21: [place] # (Auto) 1.7 10^3/uL (0.2-0.9) H 04/02/24 21: Eos # (Auto) 0.2 10^3/uL (0.0-0.8) 04/02/24 21: Baso # (Auto) 0.1 10^3/uL (0.0-0.1) 04/02/24 21: Nucleated RBC % (auto) 0 % 04/02/24 21: Nucleated RBCs # 0.0 /100WBC 04/02/24 21:33 Sodium 135 mmol/L (136-145) L 04/02/24 21: Potassium 3.1 mmol/L (3.5-5.1) L 04/02/24 21:33 Chloride 97 mmol/L (98-107) L 04/02/24 21:33 Carbon Dioxide 26 mmol/L (22-29) 04/02/24 21:33 Anion Gap 15.1 (5-19) 04/02/24 21:33 BUN 11 mg/dL (8-23) 04/02/24 21:33 Creatinine 0.7 mg/dL (0.7-1.2) 04/02/24 21:33 GFR Calculation 114.3 mL/min (90-130) 04/02/24 21:33 Glucose 121 mg/dL (65-115) H 04/02/24 21:33 Calculated Osmolality 281 mOsm/kg (285-295) L 04/02/24 21:33 Calcium 9.3 mg/dL (8.5-10.5) 04/02/24 21: Magnesium 1.8 mg/dL (1.7-2.3) 04/02/24 21: Total Bilirubin 1.4 mg/dL (0.15-1.2) H 04/02/24 21:33 AST 22 U/L (0-40) 04/02/24 21:33 ALT 21 U/L (0-41) 04/02/24 21:33 Alkaline Phosphatase 55 U/L (40-130) 04/02/24 21:33 Total Protein 6.5 g/dL (6.6-8.7) L 04/02/24 21:33 Albumin 3.7 g/dL (3.5-5.2) 04/02/24 21:33 Globulin 2.8 g/dL (1.3-4.6) 04/02/24 21:33 Urine Color Dark yellow (Yellow) A 04/02/24 23:15 Urine Appearance Slightly cloudy (CLEAR) 04/02/24 23:15 Urine pH 8 (5-7) A 04/02/24 23:15 Ur Specific Elliott 1.010 (1.005-1.030) 04/02/24 23:15 Urine Protein Neg (Negative) 04/02/24 23:15 Urine Glucose (UA) Norm (Normal) 04/02/24 23:15 Urine Ketones 1+ (Negative) H 04/02/24 23:15 Urine Blood Neg (Negative) 04/02/24 23:15 Urine Nitrate Negative (Negative) 04/02/24 23:15 Urine Bilirubin Neg (Negative) 04/02/24 23:15 Urine Urobilinogen 1 mg/dL (Negative) H 04/02/24 23:15 Ur Leukocyte Esterase Negative (Negative) 04/02/24 23:15 Urine RBC 0-4 /hpf (0-2) H 04/02/24 23:15 Urine WBC 0-4 /hpf (0-5) H 04/02/24 23:15 Ur Squamous Epith Cells 10-15 /hpf (0-5) H 04/02/24 23:15 Amorphous Sediment Not Reportable 04/02/24 23:15 Urine Bacteria Trace /hpf (NONE) 04/02/24 23:15 Urine Mucus 2+ /hpf 04/02/24 23:15 All radiology interpretation(s) finalized by discharge Discharge Plan Discharge Patient Disposition: Home Clinical Impression: Gastroenteritis, Acute hypokalemia Condition: Stable Prescriptions: New Pepcid 40 mg tablet 40 mg PO BID Qty: 30 0RF potassium chloride 20 mEq tablet extended release 20 meq PO BID Qty: 14 0RF No Action hydrochlorothiazide 12.5 mg capsule 12.5 mg PO DAILY Qty: 90 1RF prednisone 10 mg tablet 10 mg PO DAILY Qty: 30 3RF fluticasone propionate [Allergy Relief (fluticasone)] 50 mcg/actuation spray,suspension 2 spray intranasal DAILY PRN (Reason: Allergic Reaction) Rx Instructions: administer into each nostril mecobalamin (vitamin B12) 500 mcg tablet,chewable See Rx Instructions PO DAILY Rx Instructions: 500 orally daily; gummies vancomycin 125 mg capsule PO ondansetron 4 mg tablet,disintegrating 4 mg PO Q8H PRN (Reason: nausea and vomiting) Qty: 30 0RF metoprolol succinate 25 mg tablet extended release 24 hr 25 mg PO DAILY Qty: 90 3RF pantoprazole 40 mg tablet,delayed release (DR/EC) 40 mg PO DAILY 30 Days Qty: 90 3RF lisinopril 20 mg tablet See Rx Instructions .ROUTE .COMPLEX Qty: 90 3RF Dose Instruction: Take 1 tablet by mouth once daily for blood pressure Rx Instructions: Take 1 tablet by mouth once daily for blood pressure ipilimumab 200 mg/40 mL (5 mg/mL) solution 400 mg IV .COMPLEX Qty: 80 3RF Rx Instructions: 400 mg intravenously Every 21 days; cholecalciferol (vitamin D3) 1,250 mcg (50,000 unit) capsule 50,000 unit PO .qweek Qty: 52 0RF prochlorperazine maleate [Compazine] 10 mg tablet 10 mg PO Q4H PRN (Reason: nausea and vomiting) Qty: 30 3RF lorazepam 1 mg tablet 0.5 - 1 mg PO Q6H PRN (Reason: severe nausea) Qty: 30 3RF lovastatin 40 mg tablet 40 mg PO QAM Qty: 90 3RF ferumoxytol 510 mg/17 mL (30 mg/mL) solution See Rx Instructions .ROUTE .COMPLEX Qty: 17 0RF Dose Instruction: INFUSE 510 MG INTRAVENOUSLY EVERY 3 DAYS (ADMINISTER AT A RATE OF UP TO 1 ML / SECOND (30MG / SECOND)) Rx Instructions: INFUSE 510 MG INTRAVENOUSLY EVERY 3 DAYS (ADMINISTER AT A RATE OF UP TO 1 ML / SECOND (30MG / SECOND)) Opdivo 240 mg/24 mL solution 480 mg IV Q28D Qty: 48 3RF testosterone cypionate [Depo-Testosterone] 200 mg/mL oil 100 mg SUBCUT Q7D Qty: 10 0RF aspirin 81 mg Tablet,Chewable 81 mg PO QAM hydrocodone-acetaminophen 10-325 mg tablet 1 tab PO Q6H PRN (Reason: pain) Qty: 10 0RF Rx Instructions: May take half of a tab at a time DOK 100 mg capsule 100 mg PO BID Qty: 10 0RF polyethylene glycol 3350 [Miralax] 17 gram Powder In Packet 17 g PO DAILY PRN (Reason: Constipation) nitroglycerin [Nitrostat] 0.3 mg Tablet, Sublingual 0.3 mg SUBLINGUAL Q5M PRN (Reason: Chest Pain) Rx Instructions: do not exceed 3 doses per episode Discharge Orders: Discharge ED (Routine); Ordered 04/02/24 Ordered By: Ted Russo Referrals: Miko Montalvo DO [Primary Care Provider] - 1 week Patient Instructions: Hypokalemia (ED), Gastroenteritis (ED) Activity Restrictions/Additional Instructions: Continue medicines have been sent to your pharmacy. Please take these as directed. Please follow-up with your family practice physician in the next 7 days for further evaluation and treatment. Coding Level of Care Code ED Used [employer] for Chg Fwd Related Data Home Medications Medication Instructions Recorded Confirmed aspirin 81 mg chewable tablet 81 mg PO QAM 08/02/21 02/26/24 polyethylene glycol 3350 17 gram 17 g PO DAILY PRN Constipation 08/11/22 02/26/24 oral powder packet (Miralax) nitroglycerin 0.3 mg sublingual 0.3 mg sublingual Q5M PRN Chest 08/24/22 02/26/24 tablet (Nitrostat) Pain fluticasone propionate 50 2 spray intranasal DAILY PRN 04/13/23 02/26/24 mcg/actuation nasal Allergic Reaction spray,suspension (Allergy Relief (fluticasone)) mecobalamin (vitamin B12) 500 mcg See Rx Instructions PO DAILY 04/13/23 02/26/24 chewable tablet vancomycin 125 mg capsule mg PO 02/05/24 02/26/24 Previous Rx's Medication Instructions Recorded metoprolol succinate 25 mg 25 mg PO DAILY #90 tabs 09/20/22 tablet,extended release 24 hr pantoprazole 40 mg tablet,delayed 40 mg PO DAILY 30 days #90 tabs 09/21/22 release lisinopril 20 mg tablet See Rx Instructions .Route 03/29/23 .COMPLEX #90 tabs docusate sodium 100 mg capsule 100 mg PO BID #10 caps 06/13/23 (DOK) hydrocodone 10 mg-acetaminophen 1 tab PO Q6H PRN pain #10 tabs 06/13/23 325 mg tablet ipilimumab 200 mg/40 mL (5 mg/mL) 400 mg (80 mL) IV .COMPLEX #80 mL 06/20/23 intravenous solution cholecalciferol (vitamin D3) 1,250 50,000 unit PO .qweek vit D def 06/22/23 mcg (50,000 unit) capsule #52 caps lorazepam 1 mg tablet 0.5 - 1 mg (0.5 - 1 x 1 mg) PO Q6H 06/26/23 PRN severe nausea #30 tabs prochlorperazine maleate 10 mg 10 mg PO Q4H PRN nausea and 06/26/23 tablet (Compazine) vomiting #30 tabs lovastatin 40 mg tablet 40 mg PO QAM #90 tabs 08/09/23 ferumoxytol 510 mg/17 mL (30 See Rx Instructions .Route 09/07/23 mg/mL) intravenous solution .COMPLEX #17 mL nivolumab 240 mg/24 mL intravenous 480 mg (48 mL) IV Q28D #48 mL 09/19/23 solution (Opdivo) testosterone cypionate 200 mg/mL 100 mg (0.5 mL) SUBCUT Q7D 12/27/23 intramuscular oil testosterone deff. #10 mL (Depo-Testosterone) ondansetron 4 mg disintegrating 4 mg PO Q8H PRN nausea and 01/21/24 tablet vomiting #30 tabs hydrochlorothiazide 12.5 mg capsule 12.5 mg PO DAILY #90 caps 02/12/24 prednisone 10 mg tablet 10 mg PO DAILY #30 tabs 02/26/24 famotidine 40 mg tablet (Pepcid) 40 mg PO BID #30 tabs 04/02/24 potassium chloride 20 mEq 20 meq PO BID #14 tabs 04/02/24 tablet,extended release Allergies Allergy/AdvReac Type Severity Reaction Status Date / Time No Known Allergies Allergy Verified 02/26/24 10:02
[2024-04-02 21:38] LABS: Basophils # 0.1 10^3/uL (0.0-0.1); Basophils % 0.5 %; Eosinophils # 0.2 10^3/uL (0.0-0.8); Eosinophils % 1.4 %; Hematocrit 42.8 % (37-53); Lymphocytes # 1.8 10^3/uL (0.8-4.8); Lymphocytes % 11.8 %; Mean Corpuscular Hemoglobin 30.5 pg (27-33); Mean Corpuscular Volume 87.2 fl (82-101); Mean Platelet Volume 9.1 fL (7.4-10.4); Monocytes # 1.7 10^3/uL (0.2-0.9); Monocytes % 10.9 %; Neutrophils # 11.44 10^3/uL (1.8-7.7); Neutrophils % 74.8 %; Nucleated Red Blood Cells % 0 %; Platelet Count 459 10^3/cmm (157-399); Red Blood Count 4.91 10^6/uL (3.85-5.65); Red Cell Distribution Width 13.2 % (12.1-15.1)
[2024-04-02 21:55] LABS: Alanine Aminotransferase 21 U/L (0-41); Albumin Level 3.7 g/dL (3.5-5.2); Alkaline Phosphatase 55 U/L (40-130); Anion Gap 15.1 (5-19); Aspartate Amino Transferase 22 U/L (0-40); Blood Urea Nitrogen 11 mg/dL (8-23); Calcium 9.3 mg/dL (8.5-10.5); Carbon Dioxide 26 mmol/L (22-29); Chloride 97 mmol/L (98-107); Creatinine Clr Calc Pharmacy 158.9931; Globulin 2.8 g/dL (1.3-4.6); Glomerular Filtration Rate 114.3 mL/min (90-130); Glucose 121 mg/dL (65-115); Magnesium 1.8 mg/dL (1.7-2.3); Osmolality Calculated 281 mOsm/kg (285-295); Potassium 3.1 mmol/L (3.5-5.1); Sodium 135 mmol/L (136-145); Total Bilirubin 1.4 mg/dL (0.15-1.2); Total Protein 6.5 g/dL (6.6-8.7)
[2024-04-02 23:41] LABS: Urine Appearance Slightly Cloudy (CLEAR); Urine Color Dark Yellow (Yellow)
[2024-04-02 23:42] LABS: Add Urine Microscopic? YES; Bacteria Urine TRACE /hpf; Bilirubin Urine Neg (Negative); Blood Urine Neg (Negative); Glucose Urine UA Norm (Normal); Ketones Urine 1+ (Negative); Leukocyte Esterase Urine Negative (Negative); Mucus Urine 2+ /hpf; Nitrate Urine Negative (Negative); Protein Urine Neg (Negative); RBC Urine 0-4 /hpf (0-2); Urobilinogen Urine 1 mg/dL (Negative); WBC Urine 0-4 /hpf (0-5); pH Urine 8 (5-7)
[2024-04-03] MEDS: famotidine 20 mg Tablet 40 MG PO (00:16)
[2024-04-03] MEDS: potassium chloride ER 20 mEq Tablet 40 MEQ PO (00:17)
[2024-04-03 00:37] VITALS: BP 122/64; PULSE 90; O2SAT 96
== END 2024-04-03 00:38 | disposition home or self-care (01) ==
PROVIDERS: Emergency Provider Emergency Medicine; PCP Family Medicine
DX: K52.9 Noninfective gastroenteritis and colitis, unspecified (principal); E87.6 Hypokalemia; Z79.82 Long term (current) use of aspirin; Z87.891 Personal history of nicotine dependence; Z85.71 Personal history of Hodgkin lymphoma; I25.10 Atherosclerotic heart disease of native coronary artery without angina pectoris; I10 Essential (primary) hypertension; E78.5 Hyperlipidemia, unspecified
CPT/HCPCS: 80053; 81001; 83735; 85025; 96361; 96374; 96375; 99284; J1642; J2405; J7030

== ENCOUNTER 2024-04-09 10:49 | Oncology outpatient (recurring) (ONCR) | payer BC, SELFPAY ==
[2024-04-09 11:08] LABS: Basophils # 0.1 10^3/uL (0.0-0.1); Basophils % 0.5 %; Eosinophils # 0.3 10^3/uL (0.0-0.8); Eosinophils % 1.7 %; Hematocrit 43.7 % (37-53); Lymphocytes # 2.8 10^3/uL (0.8-4.8); Lymphocytes % 16.9 %; Mean Corpuscular HGB Conc 34.3 g/dL (30-55); Mean Corpuscular Hemoglobin 30.5 pg (27-33); Monocytes % 6.2 %; Neutrophils # 12.37 10^3/uL (1.8-7.7); Neutrophils % 74.1 %; Nucleated Red Blood Cells % 0 %; Platelet Count 497 10^3/cmm (157-399); Red Blood Count 4.91 10^6/uL (3.85-5.65); Red Cell Distribution Width 13.4 % (12.1-15.1); White Blood Count 16.67 10^3/uL (3.29-11.43)
[2024-04-09 11:39] LABS: Albumin Level 3.8 g/dL (3.5-5.2); Alkaline Phosphatase 63 U/L (40-130); Anion Gap 14.5 (5-19); Aspartate Amino Transferase 25 U/L (0-40); Blood Urea Nitrogen 9 mg/dL (8-23); Calcium 9.2 mg/dL (8.5-10.5); Carbon Dioxide 28 mmol/L (22-29); Chloride 96 mmol/L (98-107); Globulin 2.9 g/dL (1.3-4.6); Glucose 128 mg/dL (65-115); Lactate Dehydrogenase 201 U/L (135-225); Osmolality Calculated 280 mOsm/kg (285-295); Potassium 3.5 mmol/L (3.5-5.1); Sodium 135 mmol/L (136-145); Thyroid Stimulating Hormone 1.34 uIU/mL (0.27-4.20); Total Bilirubin 0.9 mg/dL (0.15-1.2); Total Protein 6.7 g/dL (6.6-8.7)
[2024-04-09 11:49] LABS: Alanine Aminotransferase 23 U/L (0-41)
[2024-04-09] MEDS: nivolumab 480 MG in sodium chloride 0.9% 250 ML 596 MG IV (13:30)
[2024-04-09 14:09] VITALS: BP 109/71; PULSE 76; RESP 17; TEMP 36.7; O2SAT 95
== END 2024-04-15 23:59 | disposition home or self-care (01) ==
PROVIDERS: PCP Family Medicine; Visit Provider Internal Medicine Medical Oncology
DX: Z51.12 Encounter for antineoplastic immunotherapy; C43.9 Malignant melanoma of skin, unspecified; R53.83 Other fatigue; D64.9 Anemia, unspecified; C78.4 Secondary malignant neoplasm of small intestine; Z85.71 Personal history of Hodgkin lymphoma; Z85.820 Personal history of malignant melanoma of skin; Z79.69 Long term (current) use of other immunomodulators and immunosuppressants; Z79.899 Other long term (current) drug therapy
CPT/HCPCS: 80053; 83615; 84443; 85025; 96413; A4222; J7050; J9299

== ENCOUNTER 2024-05-07 09:23 | Oncology outpatient (recurring) (ONCR) | payer BC, SELFPAY ==
[2024-05-07 09:39] LABS: Basophils # 0.1 10^3/uL (0.0-0.1); Basophils % 0.5 %; Eosinophils # 0.4 10^3/uL (0.0-0.8); Eosinophils % 3.1 %; Hematocrit 43.2 % (37-53); Lymphocytes # 3.4 10^3/uL (0.8-4.8); Lymphocytes % 29.2 %; Mean Corpuscular HGB Conc 33.1 g/dL (30-55); Mean Corpuscular Hemoglobin 29.7 pg (27-33); Mean Corpuscular Volume 89.8 fl (82-101); Mean Platelet Volume 9.1 fL (7.4-10.4); Monocytes # 1.1 10^3/uL (0.2-0.9); Monocytes % 9.7 %; Neutrophils # 6.54 10^3/uL (1.8-7.7); Neutrophils % 57.1 %; Nucleated Red Blood Cells % 0 %; Platelet Count 560 10^3/cmm (157-399); Red Blood Count 4.81 10^6/uL (3.85-5.65); Red Cell Distribution Width 14.4 % (12.1-15.1); White Blood Count 11.49 10^3/uL (3.29-11.43)
[2024-05-07 10:12] LABS: Alanine Aminotransferase 20 U/L (0-41); Alkaline Phosphatase 61 U/L (40-130); Anion Gap 13.9 (5-19); Aspartate Amino Transferase 22 U/L (0-40); Blood Urea Nitrogen 12 mg/dL (8-23); Calcium 8.7 mg/dL (8.5-10.5); Carbon Dioxide 28 mmol/L (22-29); Chloride 102 mmol/L (98-107); Globulin 2.8 g/dL (1.3-4.6); Glomerular Filtration Rate 114.3 mL/min (90-130); Glucose 110 mg/dL (65-115); Osmolality Calculated 290 mOsm/kg (285-295); Potassium 3.9 mmol/L (3.5-5.1); Sodium 140 mmol/L (136-145); Total Bilirubin 0.8 mg/dL (0.15-1.2); Total Protein 6.8 g/dL (6.6-8.7)
[2024-05-07] MEDS: nivolumab 480 MG in sodium chloride 0.9% 250 ML 596 MG IV (13:02)
[2024-05-07 13:39] VITALS: BP 120/75; PULSE 71; RESP 16; TEMP 36.2; O2SAT 98
== END 2024-05-16 23:59 | disposition home or self-care (01) ==
PROVIDERS: Nurse Practitioner Family; PCP Family Medicine; Visit Provider Internal Medicine Medical Oncology
DX: Z51.12 Encounter for antineoplastic immunotherapy (principal); C78.4 Secondary malignant neoplasm of small intestine; Z85.820 Personal history of malignant melanoma of skin; Z79.69 Long term (current) use of other immunomodulators and immunosuppressants; Z79.899 Other long term (current) drug therapy; I10 Essential (primary) hypertension
CPT/HCPCS: 80053; 84443; 85025; 96413; A4222; J7050; J9299

== ENCOUNTER 2024-06-04 11:30 | Oncology outpatient (recurring) (ONCR) | payer BC, SELFPAY ==
--- NOTE | 2024-05-24 14:00 | PETR_ITS ---
PROCEDURE INFORMATION: Exam: PET/CT Skull Base to Mid-thigh Exam date and time: 05/24/2024 3:00 PM Age: 63 years old Clinical indication: Condition or disease; Primary cancer: Metastatic melanoma; Follow-up oncological assessment; Prior surgery; Surgery date: 6+ months; Surgery type: Port LABS AND CLINICAL REPORTS: Glucose: 90 mg/dl Treatment strategy for malignancy (PET staging): Restaging (PS) TECHNIQUE: Imaging protocol: Following at least four-hour fasting and following the injection of radiopharmaceutical, low dose CT images were obtained. Then, PET images were obtained. Attenuation corrected images were constructed using the CT scan. Fused images of PET and CT were reviewed. The standardized uptake values (SUV) reported below are maximum values within a region of interest, expressed in gm/ml. Exam includes orbital meatal line to mid-thigh. Radiopharmaceutical: 10.7 mCi F-18 FDG (Fluorodeoxyglucose), IV. Time of imaging post radiopharmaceutical administration: 48 minutes Injection site: Left hand [id number] 10/03/2023 2:01 PM FINDINGS: Tubes, catheters and devices: Left chest port terminates in the right atrium. Brain: Visualized brain has normal physiologic uptake. Pharynx: Symmetric palatine tonsil FDG uptake with SUV max 11.2 on the left and 10.1 on the right, previously 7.3 and 5.7, respectively. Redemonstrated asymmetric soft tissue fullness on the left. Larynx: No abnormal uptake. Lungs, pleura and trachea: No abnormal uptake. Heart: Normal physiologic uptake. Coronary arteries: Heavy coronary artery calcification. Mediastinal space: No abnormal uptake. Liver: No abnormal uptake. Gallbladder and biliary ducts: No abnormal uptake. Prior cholecystectomy. Pancreas: No abnormal uptake. Spleen: Stable appearance of largely nonvisualized spleen suggestive of prior splenectomy with stable non FDG avid soft tissue density foci at the splenic bed on axial images 277-280 possibly representing residual or regenerated tissue. Stable round soft tissue density at the left upper abdomen on axial image 285 is also stable, possibly splenule. Adrenal glands: No abnormal uptake. Kidneys and ureters: Normal physiologic uptake. Stomach and bowel: No abnormal uptake. Vasculature: No abnormal uptake. Mild systemic atherosclerotic calcification without aortic aneurysm. Lymph nodes: Stable size right inguinal lymph nodes with developed FDG uptake, index nodes showing SUV max 6.3 on axial image 135 and 4.8 on axial image 128. Suggested subtle very low-level FDG uptake (SUV max 2.3) at couple of left inguinal nodes seen to advantage on axial PET image 311 of series 301, normal CT size and appearance. Decreased size of lymph node deep to the left sternocleidomastoid muscle also showing no FDG uptake. Skeleton: Developed asymmetric patchy posterior left iliac FDG uptake with SUV max 4.5 on axial image 187. Degenerative changes along the axial and imaged appendicular skeletal system. Soft tissues: Developed low-level FDG uptake at right inguinal bandlike soft tissue density showing SUV max 4.4, stable CT appearance. Linear FDG uptake along right inguinal crease extending posteriorly without discrete underlying CT abnormality. Stable ventral abdominal wall postsurgical change. Small fat containing left inguinal hernia. METRICS: Mediastinal blood pool: SUV max 3.2, previously 2.0 Liver uptake: SUV max 4.1, previously 3.3 PET/PET skull to thigh SUBS [id number] IMPRESSION: 1. Symmetric FDG uptake at bilateral palatine tonsils with mildly increased avidity compared to September 2023 likely on the basis of differences in technique with background FDG uptake also intervally increased. Favor physiologic or inflammatory. 2. Developed FDG uptake at right inguinal soft tissue density showing stable CT appearance may be inflammatory. 3. Developed FDG uptake at stably sized right inguinal lymph nodes and more subtle low-level FDG uptake at left inguinal lymph nodes with normal CT appearance. These may be reactive, neoplasm not entirely excluded. 4. Linear FDG uptake along right inguinal crease extending posteriorly. This is suspected to represent contamination, but warrants correlation with clinical exam given above developed findings. 5. Developed asymmetric patchy posterior left iliac FDG uptake without underlying CT abnormality. Although this may be physiologic and/or degenerative/reactive, difficult to entirely exclude neoplastic process.
[2024-06-04 11:04] LABS: Basophils # 0.1 10^3/uL (0.0-0.1); Basophils % 0.6 %; Eosinophils # 0.5 10^3/uL (0.0-0.8); Eosinophils % 3.6 %; Hematocrit 40.4 % (37-53); Lymphocytes # 3.2 10^3/uL (0.8-4.8); Lymphocytes % 22.7 %; Mean Corpuscular HGB Conc 34.4 g/dL (30-55); Mean Corpuscular Hemoglobin 30.5 pg (27-33); Mean Corpuscular Volume 88.8 fl (82-101); Mean Platelet Volume 9.4 fL (7.4-10.4); Monocytes # 1.2 10^3/uL (0.2-0.9); Monocytes % 8.6 %; Neutrophils # 9.05 10^3/uL (1.8-7.7); Neutrophils % 63.9 %; Nucleated Red Blood Cells % 0 %; Platelet Count 476 10^3/cmm (157-399); Red Blood Count 4.55 10^6/uL (3.85-5.65); Red Cell Distribution Width 14.2 % (12.1-15.1); White Blood Count 14.18 10^3/uL (3.29-11.43)
[2024-06-04 11:31] LABS: Alanine Aminotransferase 24 U/L (0-41); Albumin Level 3.6 g/dL (3.5-5.2); Alkaline Phosphatase 60 U/L (40-130); Anion Gap 11.5 (5-19); Aspartate Amino Transferase 28 U/L (0-40); Blood Urea Nitrogen 11 mg/dL (8-23); Calcium 7.7 mg/dL (8.5-10.5); Carbon Dioxide 27 mmol/L (22-29); Chloride 100 mmol/L (98-107); Globulin 2.5 g/dL (1.3-4.6); Glomerular Filtration Rate 136.5 mL/min (90-130); Glucose 116 mg/dL (65-115); Lactate Dehydrogenase 177 U/L (135-225); Osmolality Calculated 280 mOsm/kg (285-295); Potassium 3.5 mmol/L (3.5-5.1); Sodium 135 mmol/L (136-145); Thyroid Stimulating Hormone 1.55 uIU/mL (0.27-4.20); Total Bilirubin 0.9 mg/dL (0.15-1.2); Total Protein 6.1 g/dL (6.6-8.7)
[2024-06-04] MEDS: nivolumab 480 MG in sodium chloride 0.9% 250 ML 596 MG IV (13:44)
[2024-06-04 14:26] VITALS: BP 137/71; PULSE 90; RESP 17; TEMP 37.1; O2SAT 92
== END 2024-06-15 23:59 | disposition home or self-care (01) ==
PROVIDERS: PCP Family Medicine; Visit Provider Internal Medicine Hematology & Oncology
DX: Z53.9 Procedure and treatment not carried out, unspecified reason (principal); Z51.12 Encounter for antineoplastic immunotherapy; C78.4 Secondary malignant neoplasm of small intestine; Z85.820 Personal history of malignant melanoma of skin; Z79.899 Other long term (current) drug therapy
CPT/HCPCS: 78815; 80053; 83615; 84443; 85025; 96413; A4222; A9552; J7050; J9299

== ENCOUNTER 2024-07-02 11:49 | Oncology outpatient (recurring) (ONCR) | payer BC, SELFPAY ==
[2024-07-02 12:11] LABS: Basophils # 0.1 10^3/uL (0.0-0.1); Basophils % 0.6 %; Eosinophils # 0.5 10^3/uL (0.0-0.8); Eosinophils % 3.7 %; Hematocrit 42.6 % (37-53); Lymphocytes # 3.7 10^3/uL (0.8-4.8); Lymphocytes % 26.6 %; Mean Corpuscular HGB Conc 33.6 g/dL (30-55); Mean Corpuscular Hemoglobin 30.6 pg (27-33); Mean Platelet Volume 9.1 fL (7.4-10.4); Monocytes # 1.2 10^3/uL (0.2-0.9); Monocytes % 8.3 %; Neutrophils # 8.38 10^3/uL (1.8-7.7); Neutrophils % 60.2 %; Nucleated Red Blood Cells % 0 %; Platelet Count 515 10^3/cmm (157-399); Red Blood Count 4.68 10^6/uL (3.85-5.65); Red Cell Distribution Width 14.4 % (12.1-15.1); White Blood Count 13.91 10^3/uL (3.29-11.43)
[2024-07-02 12:40] LABS: Alanine Aminotransferase 29 U/L (0-41); Albumin Level 3.8 g/dL (3.5-5.2); Alkaline Phosphatase 82 U/L (40-130); Aspartate Amino Transferase 32 U/L (0-40); Blood Urea Nitrogen 10 mg/dL (8-23); Calcium 9.3 mg/dL (8.5-10.5); Carbon Dioxide 28 mmol/L (22-29); Chloride 101 mmol/L (98-107); Creatinine Clr Calc Pharmacy 186.8432; Globulin 2.7 g/dL (1.3-4.6); Glomerular Filtration Rate 136.5 mL/min (90-130); Glucose 122 mg/dL (65-115); Osmolality Calculated 290 mOsm/kg (285-295); Sodium 140 mmol/L (136-145); Thyroid Stimulating Hormone 1.38 uIU/mL (0.27-4.20); Total Bilirubin 0.6 mg/dL (0.15-1.2); Total Protein 6.5 g/dL (6.6-8.7)
[2024-07-02 12:44] LABS: Anion Gap 14.9 (5-19); Lactate Dehydrogenase 177 U/L (135-225); Potassium 3.9 mmol/L (3.5-5.1)
[2024-07-02] MEDS: nivolumab 480 MG in sodium chloride 0.9% 250 ML 596 MG IV (13:47)
[2024-07-02 14:30] VITALS: BP 107/75; PULSE 75; RESP 18; TEMP 36.6; O2SAT 98
== END 2024-07-16 23:59 | disposition home or self-care (01) ==
PROVIDERS: Internal Medicine Medical Oncology; PCP Family Medicine; Visit Provider Internal Medicine Hematology & Oncology
DX: Z51.12 Encounter for antineoplastic immunotherapy; C43.9 Malignant melanoma of skin, unspecified; Z79.899 Other long term (current) drug therapy; Z79.620 Long term (current) use of immunosuppressive biologic
CPT/HCPCS: 36591; 80053; 83615; 84443; 85025; 96413; A4222; J7050; J9299

== ENCOUNTER 2024-07-30 10:51 | Oncology outpatient (recurring) (ONCR) | payer BC, SELFPAY ==
[2024-07-30 11:21] LABS: Basophils # 0.1 10^3/uL (0.0-0.1); Basophils % 0.5 %; Eosinophils # 0.3 10^3/uL (0.0-0.8); Eosinophils % 2.3 %; Hematocrit 39.1 % (37-53); Lymphocytes # 3.7 10^3/uL (0.8-4.8); Lymphocytes % 27.8 %; Mean Corpuscular HGB Conc 33.2 g/dL (30-55); Mean Corpuscular Hemoglobin 30.1 pg (27-33); Mean Corpuscular Volume 90.5 fl (82-101); Mean Platelet Volume 9.7 fL (7.4-10.4); Monocytes # 1.3 10^3/uL (0.2-0.9); Monocytes % 9.9 %; Neutrophils # 7.96 10^3/uL (1.8-7.7); Neutrophils % 59.2 %; Nucleated Red Blood Cells % 0 %; Platelet Count 521 10^3/cmm (157-399); Red Blood Count 4.32 10^6/uL (3.85-5.65); Red Cell Distribution Width 13.9 % (12.1-15.1); White Blood Count 13.45 10^3/uL (3.29-11.43)
[2024-07-30 11:51] LABS: Alanine Aminotransferase 17 U/L (0-41); Albumin Level 3.7 g/dL (3.5-5.2); Alkaline Phosphatase 56 U/L (40-130); Anion Gap 10.5 (5-19); Aspartate Amino Transferase 24 U/L (0-40); Blood Urea Nitrogen 16 mg/dL (8-23); Calcium 8.7 mg/dL (8.5-10.5); Carbon Dioxide 29 mmol/L (22-29); Chloride 103 mmol/L (98-107); Creatinine Clr Calc Pharmacy 159.6951; Globulin 2.6 g/dL (1.3-4.6); Glomerular Filtration Rate 114.3 mL/min (90-130); Glucose 105 mg/dL (65-115); Osmolality Calculated 290 mOsm/kg (285-295); Potassium 3.5 mmol/L (3.5-5.1); Sodium 139 mmol/L (136-145); Thyroid Stimulating Hormone 2.14 uIU/mL (0.27-4.20); Total Bilirubin 0.7 mg/dL (0.15-1.2); Total Protein 6.3 g/dL (6.6-8.7)
[2024-07-30] MEDS: nivolumab 480 MG in sodium chloride 0.9% 250 ML 596 MG IV (13:41)
[2024-07-30 14:24] VITALS: BP 126/77; PULSE 62; RESP 16; TEMP 36.8; O2SAT 94
== END 2024-08-16 23:59 | disposition home or self-care (01) ==
PROVIDERS: PCP Family Medicine; Visit Provider Internal Medicine Medical Oncology
DX: Z51.12 Encounter for antineoplastic immunotherapy (principal); C43.9 Malignant melanoma of skin, unspecified; Z79.620 Long term (current) use of immunosuppressive biologic; Z79.899 Other long term (current) drug therapy
CPT/HCPCS: 36415; 80053; 84443; 85025; 96413; A4222; J7050; J9299

== ENCOUNTER 2024-08-27 11:52 | Oncology outpatient (recurring) (ONCR) | payer BC, SELFPAY ==
[2024-08-27 12:10] LABS: Basophils # 0.1 10^3/uL (0.0-0.1); Basophils % 0.9 %; Eosinophils # 0.6 10^3/uL (0.0-0.8); Eosinophils % 6.1 %; Hematocrit 42.2 % (37-53); Lymphocytes # 2.6 10^3/uL (0.8-4.8); Lymphocytes % 27.7 %; Mean Corpuscular HGB Conc 33.4 g/dL (30-55); Mean Corpuscular Volume 89.8 fl (82-101); Mean Platelet Volume 9.6 fL (7.4-10.4); Monocytes # 1.3 10^3/uL (0.2-0.9); Monocytes % 13.3 %; Neutrophils # 4.85 10^3/uL (1.8-7.7); Neutrophils % 51.6 %; Nucleated Red Blood Cells % 0 %; Platelet Count 495 10^3/cmm (157-399); Red Cell Distribution Width 13.5 % (12.1-15.1); White Blood Count 9.39 10^3/uL (3.29-11.43)
[2024-08-27 12:37] LABS: Alanine Aminotransferase 26 U/L (0-41); Albumin Level 3.4 g/dL (3.5-5.2); Alkaline Phosphatase 48 U/L (40-130); Anion Gap 12.2 (5-19); Aspartate Amino Transferase 50 U/L (0-40); Blood Urea Nitrogen 10 mg/dL (8-23); Calcium 9.3 mg/dL (8.5-10.5); Carbon Dioxide 28 mmol/L (22-29); Chloride 100 mmol/L (98-107); Creatinine Clr Calc Pharmacy 138.6277; Globulin 2.9 g/dL (1.3-4.6); Glucose 106 mg/dL (65-115); Osmolality Calculated 281 mOsm/kg (285-295); Potassium 4.2 mmol/L (3.5-5.1); Sodium 136 mmol/L (136-145); Thyroid Stimulating Hormone 3.05 uIU/mL (0.27-4.20); Total Protein 6.3 g/dL (6.6-8.7)
[2024-08-27] MEDS: nivolumab 480 MG in sodium chloride 0.9% 250 ML 596 MG IV (13:14)
[2024-08-27 13:59] VITALS: BP 146/86; PULSE 88; RESP 18; TEMP 36.6; O2SAT 96
== END 2024-09-13 23:59 | disposition home or self-care (01) ==
PROVIDERS: PCP Family Medicine; Visit Provider Internal Medicine Medical Oncology
DX: Z51.12 Encounter for antineoplastic immunotherapy (principal); C17.1 Malignant neoplasm of jejunum; Z79.620 Long term (current) use of immunosuppressive biologic; Z79.899 Other long term (current) drug therapy; Z87.891 Personal history of nicotine dependence; Z79.52 Long term (current) use of systemic steroids
CPT/HCPCS: 80053; 84443; 85025; 96413; A4222; J7050; J9299

== ENCOUNTER 2024-09-24 10:08 | Oncology outpatient (recurring) (ONCR) | payer BC, SELFPAY ==
[2024-09-24 10:08] LABS: Basophils # 0.1 10^3/uL (0.0-0.1); Basophils % 0.9 %; Eosinophils # 0.3 10^3/uL (0.0-0.8); Eosinophils % 2.4 %; Hematocrit 44.5 % (37-53); Lymphocytes # 3.4 10^3/uL (0.8-4.8); Lymphocytes % 26.4 %; Mean Corpuscular HGB Conc 33.7 g/dL (30-55); Mean Corpuscular Hemoglobin 29.8 pg (27-33); Mean Corpuscular Volume 88.5 fl (82-101); Mean Platelet Volume 10.5 fL (7.4-10.4); Monocytes % 7.8 %; Neutrophils # 8.06 10^3/uL (1.8-7.7); Neutrophils % 62.3 %; Nucleated Red Blood Cells % 0 %; Platelet Count 436 10^3/cmm (157-399); Red Blood Count 5.03 10^6/uL (3.85-5.65); Red Cell Distribution Width 13.3 % (12.1-15.1); White Blood Count 12.93 10^3/uL (3.29-11.43)
[2024-09-24 10:42] LABS: Slide Review Slide Review Perform
[2024-09-24 10:45] LABS: Alanine Aminotransferase 17 U/L (0-41); Albumin Level 3.9 g/dL (3.5-5.2); Alkaline Phosphatase 59 U/L (40-130); Anion Gap 12.7 (5-19); Aspartate Amino Transferase 24 U/L (0-40); Blood Urea Nitrogen 13 mg/dL (8-23); Calcium 9.5 mg/dL (8.5-10.5); Carbon Dioxide 26 mmol/L (22-29); Chloride 101 mmol/L (98-107); Chol HDL Ratio 3.21 mg/dL (1.0-5.00); Cholesterol 109 mg/dL (0-200); Glomerular Filtration Rate 168.5 mL/min (90-130); Glucose 110 mg/dL (65-115); HDL Cholesterol 34 mg/dL (60-100); LDL Cholesterol Calculated 59 mg/dL (50-129); Osmolality Calculated 283 mOsm/kg (285-295); Potassium 3.7 mmol/L (3.5-5.1); Sodium 136 mmol/L (136-145); Thyroid Stimulating Hormone 1.72 uIU/mL (0.27-4.20); Total Bilirubin 1.1 mg/dL (0.15-1.2); Total Protein 6.9 g/dL (6.6-8.7); Triglycerides 81 mg/dL (0-150); VLDL Cholestrol Calculation 16 mg/dL (0-30); Vitamin B12 517 pg/mL (232-1245)
[2024-09-24 11:06] LABS: Estmated Average Glucose 108; Hemoglobin A1C 5.4 % (4.0-6.0)
[2024-09-24] MEDS: nivolumab 480 MG in sodium chloride 0.9% 250 ML 596 MG IV (11:23)
[2024-09-24 12:00] VITALS: BP 123/78; PULSE 74; RESP 18; TEMP 36.6; O2SAT 98
== END 2024-10-14 23:59 | disposition home or self-care (01) ==
PROVIDERS: PCP Family Medicine; Visit Provider Internal Medicine Medical Oncology
DX: Z51.12 Encounter for antineoplastic immunotherapy (principal); C17.1 Malignant neoplasm of jejunum; Z79.620 Long term (current) use of immunosuppressive biologic; Z87.891 Personal history of nicotine dependence
CPT/HCPCS: 80053; 80061; 82607; 83036; 84443; 85025; 96413; A4222; J7050; J9299

== ENCOUNTER 2024-10-24 14:15 | Oncology outpatient (recurring) (ONCR) | payer BC, SELFPAY ==
[2024-10-22 12:33] LABS: Basophils # 0.1 10^3/uL (0.0-0.1); Basophils % 0.8 %; Eosinophils # 0.4 10^3/uL (0.0-0.8); Eosinophils % 4.5 %; Hematocrit 42.8 % (37-53); Lymphocytes % 31.7 %; Mean Corpuscular HGB Conc 33.6 g/dL (30-55); Mean Corpuscular Hemoglobin 29.5 pg (27-33); Mean Corpuscular Volume 87.7 fl (82-101); Mean Platelet Volume 9.6 fL (7.4-10.4); Neutrophils # 4.97 10^3/uL (1.8-7.7); Neutrophils % 52.6 %; Nucleated Red Blood Cells % 0 %; Platelet Count 502 10^3/cmm (157-399); Red Blood Count 4.88 10^6/uL (3.85-5.65); Red Cell Distribution Width 13.7 % (12.1-15.1); White Blood Count 9.47 10^3/uL (3.29-11.43)
[2024-10-22 12:49] LABS: Alanine Aminotransferase 18 U/L (0-41); Albumin Level 3.7 g/dL (3.5-5.2); Alkaline Phosphatase 60 U/L (40-130); Anion Gap 13.6 (5-19); Aspartate Amino Transferase 27 U/L (0-40); Blood Urea Nitrogen 11 mg/dL (8-23); Carbon Dioxide 26 mmol/L (22-29); Chloride 99 mmol/L (98-107); Creatinine Clr Calc Pharmacy 152.5346; Glomerular Filtration Rate 114.3 mL/min (90-130); Glucose 124 mg/dL (65-115); Osmolality Calculated 281 mOsm/kg (285-295); Potassium 3.6 mmol/L (3.5-5.1); Sodium 135 mmol/L (136-145); Total Bilirubin 0.7 mg/dL (0.15-1.2); Total Protein 6.7 g/dL (6.6-8.7)
[2024-10-22] MEDS: nivolumab 480 MG in sodium chloride 0.9% 250 ML 596 MG IV (14:11)
[2024-10-22 14:44] VITALS: BP 102/64; PULSE 62; TEMP 36.2; O2SAT 94
[2024-10-24] MEDS: iohexol 350 mg/mL 500 mL Btl (per mL) PO (12:34)
[2024-10-24] MEDS: iohexol 350 mg/mL 500 mL Btl (per mL) IV (13:24)
--- NOTE | 2024-10-24 13:30 | CT_ITS ---
WS: [id number] CT CHEST, ABDOMEN AND PELVIS WITH CONTRAST HISTORY: metastatic malignant melanoma TECHNIQUE: Contiguous 5 mm axial imaging performed through the chest, abdomen and pelvis with IV contrast, oral contrast has been provided. Coronal and sagittal reformats chest. Coronal and sagittal reformats through the abdomen and pelvis. All CT scans at [facility] use at least one of these dose optimization techniques: automated exposure control; mA and/or kV adjustment per patient size (includes targeted exams where dose is matched to clinical indication); or iterative reconstruction. CONTRAST: Omnipaque 350; 100 mL IV. DLP: 1580.94 mGy.cm COMPARISON: 05/18/2023, PET/CT 05/24/[address]: Well-aerated lungs. No pulmonary mass, nodule or pneumonia. Small mediastinal, hilar and axillary lymph nodes. Heart size is normal. No pericardial or pleural effusions. LEFT subclavian Mediport. Central pulmonary arteries are normally enhancing. Abdomen CT: Normal size liver. Prior cholecystectomy. Mild fatty replacement of the pancreas. Spleen has been removed. There is a single splenule in the LEFT upper abdomen. No adrenal mass. Normal enhancement of each kidney with no obstruction. 10 mm cyst upper pole RIGHT kidney. Stomach is moderately distended with food products. Large jejunal mass in the large mesenteric lymph nodes as described on 05/18/2023 have resolved or significantly improved. The jejunal mass is no longer present. There are several lymph nodes with the largest measuring 17 mm in the LEFT mesentery. These lymph nodes have increased slightly in size since the PET/CT of 05/24/2024. These lymph nodes were FDG negative on the PET /CT. No GI tract obstruction. Normal appendix. Mild diverticular disease without acute diverticulitis. Postsurgical changes along the anterior abdominal wall. Pelvic CT: No free fluid. There is small bilateral inguinal lymph nodes. These lymph nodes are very slightly hyperemic although measure less than 10 mm. These lymph nodes were FDG positive on the recent PET/CT. Reactive versus early neoplastic disease. Degenerative changes at the hip joints. Mild lumbar spondylosis with clot-like bridging osteophytes. Increase in thoracic kyphosis. CT/CT chest abdpel w/*[id number] IMPRESSION: 1. No pulmonary nodules or metastatic disease. 2. Jejunal mass described on 05/18/2023 has resolved. 3. LEFT central mesenteric lymph nodes have decreased in size since 05/18/2023 but there is still moderate enlargement and these lymph nodes appear larger jose e n the PET/CT of 05/24/2024. Largest mesenteric lymph node is 17 mm. The lymph no corby in the inguinal regions are slightly hypervascular and round. Possibility o f early metastatic disease needs to be considered. Recommend short-term PET/CT or CT with IV and oral contrast follow-up. 4. Prior splenectomy. 5. No mediastinal or hilar adenopathy. 6. No hepatic metastatic disease.
== END 2024-11-13 23:59 | disposition home or self-care (01) ==
LOC: RAD 10-25
PROVIDERS: PCP Family Medicine; Visit Provider Internal Medicine Medical Oncology
DX: Z53.9 Procedure and treatment not carried out, unspecified reason; C43.9 Malignant melanoma of skin, unspecified; D50.0 Iron deficiency anemia secondary to blood loss (chronic); Z90.81 Acquired absence of spleen; R59.9 Enlarged lymph nodes, unspecified
CPT/HCPCS: 36591; 71260; 74177; 80053; 85025; 96413; A4222; J7050; J9299

== ENCOUNTER 2024-11-18 07:59 | Oncology outpatient (recurring) (ONCR) | payer BC, SELFPAY ==
[2024-11-18 08:33] LABS: Basophils # 0.1 10^3/uL (0.0-0.1); Basophils % 1.2 %; Eosinophils # 0.4 10^3/uL (0.0-0.8); Hematocrit 42.9 % (37-53); Lymphocytes # 2.8 10^3/uL (0.8-4.8); Lymphocytes % 32.6 %; Mean Corpuscular Hemoglobin 29.7 pg (27-33); Mean Corpuscular Volume 87.2 fl (82-101); Mean Platelet Volume 9.8 fL (7.4-10.4); Monocytes % 11.5 %; Neutrophils # 4.36 10^3/uL (1.8-7.7); Neutrophils % 50.4 %; Nucleated Red Blood Cells % 0 %; Platelet Count 447 10^3/cmm (157-399); Red Blood Count 4.92 10^6/uL (3.85-5.65); Red Cell Distribution Width 13.9 % (12.1-15.1); White Blood Count 8.66 10^3/uL (3.29-11.43)
[2024-11-18 09:03] LABS: Alanine Aminotransferase 16 U/L (0-41); Albumin Level 3.7 g/dL (3.5-5.2); Alkaline Phosphatase 66 U/L (40-130); Anion Gap 11.8 (5-19); Aspartate Amino Transferase 26 U/L (0-40); Blood Urea Nitrogen 12 mg/dL (8-23); Carbon Dioxide 29 mmol/L (22-29); Chloride 101 mmol/L (98-107); Creatinine Clr Calc Pharmacy 148.0844; Globulin 3.2 g/dL (1.3-4.6); Glomerular Filtration Rate 113.9 mL/min (90-130); Glucose 90 mg/dL (65-115); Lactate Dehydrogenase 153 U/L (135-225); Osmolality Calculated 285 mOsm/kg (285-295); Potassium 3.8 mmol/L (3.5-5.1); Sodium 138 mmol/L (136-145); Thyroid Stimulating Hormone 2.97 uIU/mL (0.27-4.20); Total Protein 6.9 g/dL (6.6-8.7)
[2024-11-18] MEDS: nivolumab 480 MG in sodium chloride 0.9% 250 ML 596 MG IV (09:42)
[2024-11-18 10:16] VITALS: BP 103/71; PULSE 73; RESP 18; TEMP 36.9; O2SAT 99
== END 2024-12-14 23:59 | disposition home or self-care (01) ==
PROVIDERS: PCP Family Medicine; Visit Provider Internal Medicine Medical Oncology
DX: Z51.12 Encounter for antineoplastic immunotherapy (principal); C17.1 Malignant neoplasm of jejunum; Z79.620 Long term (current) use of immunosuppressive biologic
CPT/HCPCS: 80053; 83615; 84443; 85025; 96413; A4222; J7050; J9299

== ENCOUNTER 2024-12-24 08:01 | Oncology outpatient (recurring) (ONCR) | payer BC, SELFPAY ==
[2024-12-24 08:26] LABS: Basophils # 0.1 10^3/uL (0.0-0.1); Basophils % 0.9 %; Eosinophils # 0.3 10^3/uL (0.0-0.8); Eosinophils % 3.3 %; Hematocrit 39.4 % (37-53); Lymphocytes # 3.1 10^3/uL (0.8-4.8); Lymphocytes % 30.9 %; Mean Corpuscular HGB Conc 34.5 g/dL (30-55); Mean Corpuscular Hemoglobin 30.2 pg (27-33); Mean Corpuscular Volume 87.4 fl (82-101); Mean Platelet Volume 9.7 fL (7.4-10.4); Monocytes # 1.1 10^3/uL (0.2-0.9); Neutrophils # 5.37 10^3/uL (1.8-7.7); Neutrophils % 53.6 %; Nucleated Red Blood Cells % 0 %; Platelet Count 444 10^3/cmm (157-399); Red Blood Count 4.51 10^6/uL (3.85-5.65); Red Cell Distribution Width 14.7 % (12.1-15.1); White Blood Count 10.01 10^3/uL (3.29-11.43)
[2024-12-24 08:43] LABS: Alanine Aminotransferase 13 U/L (0-41); Albumin Level 3.7 g/dL (3.5-5.2); Alkaline Phosphatase 66 U/L (40-130); Anion Gap 13.9 (5-19); Aspartate Amino Transferase 25 U/L (0-40); Blood Urea Nitrogen 11 mg/dL (8-23); Calcium 8.9 mg/dL (8.5-10.5); Carbon Dioxide 27 mmol/L (22-29); Chloride 103 mmol/L (98-107); Globulin 2.6 g/dL (1.3-4.6); Glomerular Filtration Rate 136.1 mL/min (90-130); Glucose 90 mg/dL (65-115); Lactate Dehydrogenase 157 U/L (135-225); Osmolality Calculated 289 mOsm/kg (285-295); Potassium 3.9 mmol/L (3.5-5.1); Sodium 140 mmol/L (136-145); Total Protein 6.3 g/dL (6.6-8.7)
[2024-12-24 09:11] LABS: Total Bilirubin 0.8 mg/dL (0.15-1.2)
[2024-12-24] MEDS: nivolumab 480 MG in sodium chloride 0.9% 250 ML 596 MG IV (10:11)
== END 2025-01-13 23:59 | disposition home or self-care (01) ==
PROVIDERS: Nurse Practitioner Family; PCP Family Medicine; Visit Provider Internal Medicine Medical Oncology
DX: Z53.9 Procedure and treatment not carried out, unspecified reason; Z51.12 Encounter for antineoplastic immunotherapy; C43.9 Malignant melanoma of skin, unspecified; Z79.620 Long term (current) use of immunosuppressive biologic; Z79.899 Other long term (current) drug therapy
CPT/HCPCS: 80053; 83615; 85025; 96413; A4222; J7050; J9299

== ENCOUNTER 2025-01-21 08:46 | Oncology outpatient (recurring) (ONCR) | payer BC, SELFPAY ==
[2025-01-21 09:37] LABS: Hematocrit 38.7 % (37-53); Hemoglobin 13.00 g/dL (11.27-16.99); Mean Corpuscular HGB Conc 33.6 g/dL (30-55); Mean Corpuscular Hemoglobin 30.5 pg (27-33); Mean Corpuscular Volume 90.8 fl (82-101); Nucleated Red Blood Cells % 0 %; Platelet Count 424 10^3/cmm (157-399); Red Blood Count 4.26 10^6/uL (3.85-5.65); White Blood Count 10.26 10^3/uL (3.29-11.43)
[2025-01-21 10:01] LABS: Alanine Aminotransferase 13 U/L (0-41); Albumin Level 3.4 g/dL (3.5-5.2); Alkaline Phosphatase 69 U/L (40-130); Anion Gap 14.1 (5-19); Aspartate Amino Transferase 26 U/L (0-40); Blood Urea Nitrogen 12 mg/dL (8-23); Calcium 8.6 mg/dL (8.5-10.5); Carbon Dioxide 28 mmol/L (22-29); Chloride 106 mmol/L (98-107); Creatinine Clr Calc Pharmacy 130.5439; Globulin 2.8 g/dL (1.3-4.6); Glucose 90 mg/dL (65-115); Osmolality Calculated 295 mOsm/kg (285-295); Potassium 5.1 mmol/L (3.5-5.1); Sodium 143 mmol/L (136-145); Thyroid Stimulating Hormone 5.43 uIU/mL (0.27-4.20); Total Protein 6.2 g/dL (6.6-8.7)
[2025-01-21] MEDS: nivolumab 480 MG in sodium chloride 0.9% 250 ML 596 MG IV (10:56)
[2025-01-21 12:19] LABS: Free T4 Free Thyroxine 0.88 ng/dL (0.82-1.77)
[2025-01-21 12:58] VITALS: BP 138/82; PULSE 58; RESP 16; TEMP 36.1; O2SAT 99
== END 2025-02-13 23:59 | disposition home or self-care (01) ==
PROVIDERS: Nurse Practitioner Family; PCP Family Medicine; Visit Provider Internal Medicine Medical Oncology
DX: Z51.12 Encounter for antineoplastic immunotherapy (principal); C43.9 Malignant melanoma of skin, unspecified; R79.89 Other specified abnormal findings of blood chemistry; Z79.620 Long term (current) use of immunosuppressive biologic; Z79.899 Other long term (current) drug therapy
CPT/HCPCS: 80053; 84439; 84443; 84481; 85025; 96413; A4222; J7050; J9299

== ENCOUNTER 2025-03-13 09:45 | Oncology outpatient (recurring) (ONCR) | payer BC, SELFPAY ==
[2025-02-18 08:17] LABS: Hematocrit 41.3 % (37-53); Hemoglobin 14.20 g/dL (11.27-16.99); Mean Corpuscular HGB Conc 34.4 g/dL (30-55); Mean Corpuscular Hemoglobin 29.9 pg (27-33); Mean Corpuscular Volume 86.9 fl (82-101); Nucleated Red Blood Cells % 0 %; Platelet Count 455 10^3/cmm (157-399); Red Blood Count 4.75 10^6/uL (3.85-5.65); White Blood Count 9.45 10^3/uL (3.29-11.43)
[2025-02-18 08:47] LABS: Alanine Aminotransferase 13 U/L (0-41); Albumin Level 3.7 g/dL (3.5-5.2); Alkaline Phosphatase 73 U/L (40-130); Aspartate Amino Transferase 37 U/L (0-40); Blood Urea Nitrogen 8 mg/dL (8-23); Calcium 9.3 mg/dL (8.5-10.5); Carbon Dioxide 28 mmol/L (22-29); Chloride 100 mmol/L (98-107); Globulin 3.1 g/dL (1.3-4.6); Glucose 123 mg/dL (65-115); Osmolality Calculated 284 mOsm/kg (285-295); Sodium 137 mmol/L (136-145); Thyroid Stimulating Hormone 6.39 uIU/mL (0.27-4.20); Total Protein 6.8 g/dL (6.6-8.7)
[2025-02-18 08:49] LABS: Anion Gap 13.1 (5-19); Potassium 4.1 mmol/L (3.5-5.1)
[2025-02-18] MEDS: nivolumab 480 MG in sodium chloride 0.9% 250 ML 596 MG IV (10:04)
[2025-02-18 10:42] VITALS: BP 104/64; PULSE 65; TEMP 36.4; O2SAT 97
[2025-03-13 10:44] LABS: Hematocrit 41.5 % (37-53); Hemoglobin 14.10 g/dL (11.27-16.99); Mean Corpuscular HGB Conc 34.0 g/dL (30-55); Mean Corpuscular Hemoglobin 30.0 pg (27-33); Mean Corpuscular Volume 88.3 fl (82-101); Nucleated Red Blood Cells % 0 %; Platelet Count 454 10^3/cmm (157-399); Red Blood Count 4.70 10^6/uL (3.85-5.65); White Blood Count 8.86 10^3/uL (3.29-11.43)
[2025-03-13 11:12] LABS: Alanine Aminotransferase 11 U/L (0-41); Albumin Level 3.6 g/dL (3.5-5.2); Alkaline Phosphatase 59 U/L (40-130); Anion Gap 11.8 (5-19); Aspartate Amino Transferase 30 U/L (0-40); Blood Urea Nitrogen 15 mg/dL (8-23); Calcium 9.5 mg/dL (8.5-10.5); Carbon Dioxide 30 mmol/L (22-29); Chloride 98 mmol/L (98-107); Creatinine Clr Calc Pharmacy 143.9264; Free T4 Free Thyroxine 0.68 ng/dL (0.82-1.77); Globulin 3.0 g/dL (1.3-4.6); Glucose 107 mg/dL (65-115); Osmolality Calculated 283 mOsm/kg (285-295); Potassium 3.8 mmol/L (3.5-5.1); Sodium 136 mmol/L (136-145); Thyroid Stimulating Hormone 6.20 uIU/mL (0.27-4.20); Total Protein 6.6 g/dL (6.6-8.7)
== END 2025-03-16 23:59 | disposition home or self-care (01) ==
PROVIDERS: Nurse Practitioner Family; PCP Family Medicine; Visit Provider Internal Medicine Medical Oncology
DX: C43.9 Malignant melanoma of skin, unspecified; Z53.9 Procedure and treatment not carried out, unspecified reason
CPT/HCPCS: 36591; 80053; 84439; 84443; 84481; 85025; 96413; A4222; J7050; J9299

== ENCOUNTER 2025-03-14 10:13 | Outpatient (CLI) | payer BC, SELFPAY ==
--- NOTE | 2025-03-14 10:15 | MR_ITS ---
WS: [id number] MRI SACRUM WITH AND WITHOUT CONTRAST. COMPARISON: PET/CT 05/22/2023, 06/04/2024, 10/24/2024. Multiplanar, multisequence imaging is performed with and without contrast. MultiHance 20 mL. No destructive bone lesions within the sacrum. There is a lobulated 10 x 6 mm osseous lesion involving the iliac side of the LEFT SI joint. This has been present on multiple prior PET CTs including 2022 with no enhancement. This is most consistent with a small erosion or degenerative cyst. There is no destructive areas of decreased signal. No free fluid in the pelvis. No adenopathy. Large [id number] imaging was performed on the postcontrast images to better evaluate the inguinal regions. There is small inguinal lymph nodes but these are very small with the largest measuring 11 mm on the RIGHT. These lymph nodes were also present on a prior PET/CT of 05/24/2024. The soft tissue changes in the RIGHT inguinal region seen on the prior PET/CT are reidentified and show no evidence of enhancement. The soft tissue thickening may be from a prior hernia repair. Urinary bladder is negative. No enhancing bone lesions or bone destruction. MR/MR sacrum wo/w con [id number] IMPRESSION: 1. No destructive bone lesions or evidence for metastatic disease to the sacru m. 2. Long-term stability small erosion versus LEFT sacral subchondral cyst. 3. Stable inguinal lymph nodes. 4. Soft tissue thickening in the RIGHT inguinal region as noted on a recent PE T/CT of 05/24/2024 with low-level FDG uptake is reidentified. There is no enhanc ement. This may be post hernia repair site. Please correlate with surgery to th is area.
[2025-03-14] MEDS: gadobenate dimeglumine 20 mL vial IV (11:36)
== END 2025-03-14 10:14 | disposition home or self-care (01) ==
LOC: RAD 10:13
PROVIDERS: PCP Family Medicine; Visit Provider Internal Medicine
DX: C43.9 Malignant melanoma of skin, unspecified (principal); D50.0 Iron deficiency anemia secondary to blood loss (chronic); R93.89 Abnormal findings on diagnostic imaging of other specified body structures; R59.0 Localized enlarged lymph nodes; M79.89 Other specified soft tissue disorders
CPT/HCPCS: 72158

== ENCOUNTER 2025-04-15 09:00 | Oncology outpatient (recurring) (ONCR) | payer BC, SELFPAY ==
[2025-03-18 08:25] LABS: Hematocrit 39.9 % (37-53); Hemoglobin 13.50 g/dL (11.27-16.99); Mean Corpuscular HGB Conc 33.8 g/dL (30-55); Mean Corpuscular Hemoglobin 30.5 pg (27-33); Mean Corpuscular Volume 90.1 fl (82-101); Platelet Count 450 10^3/cmm (157-399); Red Blood Count 4.43 10^6/uL (3.85-5.65); White Blood Count 14.72 10^3/uL (3.29-11.43)
[2025-03-18 08:47] LABS: Alanine Aminotransferase 11 U/L (0-41); Albumin Level 3.7 g/dL (3.5-5.2); Alkaline Phosphatase 64 U/L (40-130); Anion Gap 9.7 (5-19); Aspartate Amino Transferase 21 U/L (0-40); Blood Urea Nitrogen 15 mg/dL (8-23); Calcium 8.7 mg/dL (8.5-10.5); Carbon Dioxide 28 mmol/L (22-29); Chloride 106 mmol/L (98-107); Creatinine Clr Calc Pharmacy 167.5905; Globulin 2.9 g/dL (1.3-4.6); Glucose 94 mg/dL (65-115); Osmolality Calculated 291 mOsm/kg (285-295); Potassium 3.7 mmol/L (3.5-5.1); Sodium 140 mmol/L (136-145); Total Protein 6.6 g/dL (6.6-8.7)
[2025-03-18 09:12] LABS: Slide Review Slide Review Perform
[2025-03-18 09:15] LABS: Absolute Segmented Neutrophil 8.4 10/cmm (1.6-7.1); Atypical Lymphs 4.0 % (0-5); Band Neutrophils Absolute 0.0 10^3/cmm (0.0-1.2); Total Cells Counted 100 (0-100)
[2025-03-18] MEDS: nivolumab 480 MG in sodium chloride 0.9% 250 ML 596 MG IV (09:33)
[2025-03-18 10:14] VITALS: BP 110/73; PULSE 60; RESP 16; TEMP 35.9; O2SAT 96
[2025-04-15 09:01] LABS: Hematocrit 40.4 % (37-53); Hemoglobin 13.70 g/dL (11.27-16.99); Mean Corpuscular HGB Conc 33.9 g/dL (30-55); Mean Corpuscular Hemoglobin 29.8 pg (27-33); Mean Corpuscular Volume 88.0 fl (82-101); Nucleated Red Blood Cells % 0 %; Platelet Count 395 10^3/cmm (157-399); Red Blood Count 4.59 10^6/uL (3.85-5.65); White Blood Count 13.39 10^3/uL (3.29-11.43)
[2025-04-15 09:35] LABS: Alanine Aminotransferase 14 U/L (0-41); Albumin Level 3.9 g/dL (3.5-5.2); Alkaline Phosphatase 78 U/L (40-130); Anion Gap 11.0 (5-19); Aspartate Amino Transferase 24 U/L (0-40); Blood Urea Nitrogen 14 mg/dL (8-23); Calcium 8.9 mg/dL (8.5-10.5); Carbon Dioxide 28 mmol/L (22-29); Chloride 107 mmol/L (98-107); Creatinine Clr Calc Pharmacy 168.6621; Globulin 2.8 g/dL (1.3-4.6); Glucose 100 mg/dL (65-115); Osmolality Calculated 295 mOsm/kg (285-295); Potassium 4.0 mmol/L (3.5-5.1); Sodium 142 mmol/L (136-145); Thyroid Stimulating Hormone 7.13 uIU/mL (0.27-4.20); Total Protein 6.7 g/dL (6.6-8.7)
[2025-04-15 10:08] LABS: Slide Review Slide Review Perform
[2025-04-15] MEDS: nivolumab 480 MG in sodium chloride 0.9% 250 ML 596 MG IV (11:11)
[2025-04-15 11:50] VITALS: BP 105/66; PULSE 62; TEMP 36.5; O2SAT 99
== END 2025-04-15 23:59 | disposition home or self-care (01) ==
PROVIDERS: PCP Family Medicine; Visit Provider Internal Medicine Medical Oncology
DX: Z51.12 Encounter for antineoplastic immunotherapy; C43.9 Malignant melanoma of skin, unspecified; D50.0 Iron deficiency anemia secondary to blood loss (chronic); Z79.899 Other long term (current) drug therapy; Z53.9 Procedure and treatment not carried out, unspecified reason
CPT/HCPCS: 80053; 83615; 84443; 85007; 85025; 96413; A4222; J7050; J9299

== ENCOUNTER 2025-05-13 10:03 | Oncology outpatient (recurring) (ONCR) | payer BC, SELFPAY ==
[2025-05-13 10:37] LABS: Hematocrit 40.5 % (37-53); Hemoglobin 14.00 g/dL (11.27-16.99); Mean Corpuscular HGB Conc 34.6 g/dL (30-55); Mean Corpuscular Hemoglobin 30.9 pg (27-33); Mean Corpuscular Volume 89.4 fl (82-101); Nucleated Red Blood Cells % 0 %; Platelet Count 405 10^3/cmm (157-399); Red Blood Count 4.53 10^6/uL (3.85-5.65); White Blood Count 10.81 10^3/uL (3.29-11.43)
[2025-05-13 10:54] LABS: Alanine Aminotransferase 11 U/L (0-41); Albumin Level 3.7 g/dL (3.5-5.2); Alkaline Phosphatase 74 U/L (40-130); Anion Gap 12.9 (5-19); Aspartate Amino Transferase 23 U/L (0-40); Blood Urea Nitrogen 16 mg/dL (8-23); Calcium 8.5 mg/dL (8.5-10.5); Carbon Dioxide 28 mmol/L (22-29); Chloride 104 mmol/L (98-107); Globulin 2.9 g/dL (1.3-4.6); Glucose 108 mg/dL (65-115); Osmolality Calculated 294 mOsm/kg (285-295); Potassium 3.9 mmol/L (3.5-5.1); Sodium 141 mmol/L (136-145); Total Protein 6.6 g/dL (6.6-8.7)
[2025-05-13] MEDS: nivolumab 480 MG in sodium chloride 0.9% 250 ML 596 MG IV (12:09)
[2025-05-13 12:51] VITALS: BP 113/76; PULSE 66; RESP 17; TEMP 36.6; O2SAT 97
== END 2025-05-16 23:59 | disposition home or self-care (01) ==
PROVIDERS: Nurse Practitioner Family; PCP Family Medicine; Visit Provider Internal Medicine Medical Oncology
DX: Z51.12 Encounter for antineoplastic immunotherapy (principal); C43.9 Malignant melanoma of skin, unspecified; Z79.620 Long term (current) use of immunosuppressive biologic; Z79.899 Other long term (current) drug therapy
CPT/HCPCS: 80053; 83615; 85025; 96365; A4222; J7050; J9299

== ENCOUNTER 2025-06-10 09:51 | Oncology outpatient (recurring) (ONCR) | payer BC, SELFPAY ==
[2025-06-10 10:05] LABS: Hematocrit 42.4 % (37-53); Hemoglobin 14.20 g/dL (11.27-16.99); Mean Corpuscular HGB Conc 33.5 g/dL (30-55); Mean Corpuscular Hemoglobin 30.2 pg (27-33); Mean Corpuscular Volume 90.2 fl (82-101); Nucleated Red Blood Cells % 0 %; Platelet Count 425 10^3/cmm (157-399); Red Blood Count 4.70 10^6/uL (3.85-5.65); White Blood Count 12.40 10^3/uL (3.29-11.43)
[2025-06-10 10:34] LABS: Albumin Level 4.2 g/dL (3.5-5.2); Alkaline Phosphatase 71 U/L (40-130); Anion Gap 12.2 (5-19); Aspartate Amino Transferase 23 U/L (0-40); Blood Urea Nitrogen 12 mg/dL (8-23); Calcium 9.2 mg/dL (8.5-10.5); Carbon Dioxide 30 mmol/L (22-29); Chloride 105 mmol/L (98-107); Globulin 2.7 g/dL (1.3-4.6); Glucose 96 mg/dL (65-115); Osmolality Calculated 296 mOsm/kg (285-295); Potassium 4.2 mmol/L (3.5-5.1); Sodium 143 mmol/L (136-145); Thyroid Stimulating Hormone 3.59 uIU/mL (0.27-4.20); Total Protein 6.9 g/dL (6.6-8.7)
[2025-06-10 10:44] LABS: Alanine Aminotransferase 14 U/L (0-41)
[2025-06-10] MEDS: nivolumab 480 MG in sodium chloride 0.9% 250 ML 596 MG IV (11:26)
[2025-06-10 11:57] VITALS: BP 112/72; PULSE 65; RESP 17; TEMP 36.6; O2SAT 98
== END 2025-06-15 23:59 | disposition home or self-care (01) ==
PROVIDERS: PCP Family Medicine; Visit Provider Internal Medicine Medical Oncology
DX: Z51.12 Encounter for antineoplastic immunotherapy (principal); C43.9 Malignant melanoma of skin, unspecified; Z79.620 Long term (current) use of immunosuppressive biologic; Z79.899 Other long term (current) drug therapy; D50.0 Iron deficiency anemia secondary to blood loss (chronic)
CPT/HCPCS: 80053; 84443; 85025; 96365; A4222; J7050; J9299

== ENCOUNTER 2025-07-08 09:45 | Oncology outpatient (recurring) (ONCR) | payer BC, SELFPAY ==
--- NOTE | 2025-07-04 08:00 | PETR_ITS ---
PROCEDURE INFORMATION: Exam: PET/CT Whole Body Exam date and time: 07/04/2025 8:27 AM Age: 64 years old Clinical indication: Condition or disease; Primary cancer: Melanoma; Prior surgery; Surgery date: 6+ months; Surgery type: Port, heart stent, gb, hernias, spleen LABS AND CLINICAL REPORTS: Glucose: 86 mg/dl Treatment strategy for malignancy (PET staging): Restaging (PS) TECHNIQUE: Imaging protocol: Following at least four-hour fasting and following the injection of radiopharmaceutical, low dose CT images were obtained. Then, PET images were obtained. Attenuation corrected images were constructed using the CT scan. Fused images of PET and CT were reviewed. The standardized uptake values (SUV) reported below are maximum values within a region of interest, expressed in gm/ml. Exam includes the whole body. SUV normalization method: BodyWeight Radiopharmaceutical: 11.7 mCi F-18 FDG (Fluorodeoxyglucose), IV. Time of imaging post radiopharmaceutical administration: 47 minutes Injection site: left hand COMPARISON: PT PET skull to thigh SUBS [id number] 05/24/2024 3:00 PM FINDINGS: Tubes, catheters and devices: Left chest wall chemo port with tip at the cavoatrial junction. Brain: Visualized brain has normal physiologic uptake. Pharynx: No abnormal uptake. Likely physiologic symmetric pharyngeal uptake. Larynx: No abnormal uptake. Lungs, pleura and trachea: No abnormal uptake. Heart: Normal physiologic uptake. Severe coronary artery calcifications. Mediastinal space: No abnormal uptake. Liver: No abnormal uptake. Gallbladder and biliary ducts: No abnormal uptake. Status post cholecystectomy. Pancreas: No abnormal uptake. Spleen: Status post splenectomy. Redemonstration of multiple splenules in the left upper quadrant measuring up to 2.0 cm. No increased uptake. Adrenal glands: No abnormal uptake. Kidneys and ureters: Normal physiologic uptake. Stomach and bowel: No abnormal uptake. Scattered colonic diverticulosis. Vasculature: No abnormal uptake. Lymph nodes: Redemonstrated shotty central mesenteric lymph nodes and haziness. There is no abnormal increased uptake. Findings appear similar compared to a prior PET-CT from 05/24/2024 when measured in a similar fashion. Skeleton: No abnormal uptake in the visualized axial and appendicular skeleton. Soft tissues: Chronic postsurgical changes along the anterior abdominal wall postsurgical scarring. No abnormal uptake in the visualized head, neck, chest, abdomen, pelvis, and extremities. METRICS: Mediastinal blood pool: Mean SUV of 2.0 Liver uptake: Mean SUV of 3.1 PET/PET WB melanoma SUBSEQ [id number] IMPRESSION: 1. No functional or anatomical evidence of metastatic disease. 2. Central mesenteric lymph nodes are not FDG avid and are not significantly changed in appearance compared to the prior PET from 2023 when measured in a similar fashion.
[2025-07-08 09:54] LABS: Hematocrit 43.5 % (37-53); Hemoglobin 14.40 g/dL (11.27-16.99); Mean Corpuscular HGB Conc 33.1 g/dL (30-55); Mean Corpuscular Hemoglobin 30.5 pg (27-33); Mean Corpuscular Volume 92.2 fl (82-101); Nucleated Red Blood Cells % 0 %; Platelet Count 426 10^3/cmm (157-399); Red Blood Count 4.72 10^6/uL (3.85-5.65); White Blood Count 11.02 10^3/uL (3.29-11.43)
[2025-07-08 10:31] LABS: Alanine Aminotransferase 19 U/L (0-41); Albumin Level 3.9 g/dL (3.5-5.2); Alkaline Phosphatase 68 U/L (40-130); Anion Gap 13.5 (5-19); Aspartate Amino Transferase 32 U/L (0-40); Blood Urea Nitrogen 16 mg/dL (8-23); Calcium 8.6 mg/dL (8.5-10.5); Carbon Dioxide 28 mmol/L (22-29); Chloride 107 mmol/L (98-107); Globulin 2.6 g/dL (1.3-4.6); Glucose 107 mg/dL (65-115); Osmolality Calculated 300 mOsm/kg (285-295); Potassium 4.5 mmol/L (3.5-5.1); Sodium 144 mmol/L (136-145); Thyroid Stimulating Hormone 4.17 uIU/mL (0.27-4.20); Total Protein 6.5 g/dL (6.6-8.7)
[2025-07-08] MEDS: nivolumab 480 MG in sodium chloride 0.9% 250 ML 596 MG IV (11:35)
[2025-07-08 12:09] VITALS: BP 123/75; PULSE 65; RESP 17; TEMP 36.8; O2SAT 98
== END 2025-07-16 23:59 | disposition home or self-care (01) ==
PROVIDERS: PCP Family Medicine; Visit Provider Internal Medicine Medical Oncology
DX: Z53.9 Procedure and treatment not carried out, unspecified reason; Z51.12 Encounter for antineoplastic immunotherapy; C43.9 Malignant melanoma of skin, unspecified; E03.9 Hypothyroidism, unspecified; Z79.620 Long term (current) use of immunosuppressive biologic; Z79.899 Other long term (current) drug therapy
CPT/HCPCS: 78816; 80053; 84443; 85025; 96413; A4222; A9552; J7050; J9299